=== PATIENT | male | born 1945 | race Caucasian/White ===

== ENCOUNTER 2023-05-20 10:44 | Outpatient (OUT) | payer MEDICARE, SELFPAY ==
--- NOTE | 2023-05-20 | XR_ITS ---
The [address] [address] Patient Name: MAGNOLIA GAO MRN: [id number] date: 1945 Sex: M Assigned Patient Location: Current Patient Location: Accession/Order Number: [id number] Exam Date: 05/20/2023 11:35 Report Date: 05/20/2023 12:31 At the request of: TIAN FAJARDO Procedure: XR foot LT min 3V STUDY: XR foot LT min 3V, [id number] HISTORY: LEFT FOOT PAIN COMPARISON: None FINDINGS: No acute fracture, dislocation, or suspicious osseous lesion. Mild osteophytosis at the first metatarsophalangeal joint, first tarsometatarsal joint, and throughout the dorsal midfoot. No radiopaque foreign body or osteolysis to suggest osteomyelitis. Medium-sized plantar calcaneal spur and mild Achilles insertional enthesopathy. XR/XR foot LT min 3V IMPRESSION: No acute osseous abnormality. Electronically authenticated by: AUBRIE HUANG Date: 05/20/2023 12:31
== END 2023-05-20 10:45 | disposition home or self-care (01) ==
LOC: WC 10:44
PROVIDERS: PCP Internal Medicine; Visit Provider Physician Assistant
DX: M79.672 Pain in left foot (principal); L98.491 Non-pressure chronic ulcer of skin of other sites limited to breakdown of skin
CPT/HCPCS: 11043; 73630; G0463

== ENCOUNTER 2023-06-03 13:50 | Outpatient (OUT) | payer MEDICARE, SELFPAY | END 2023-06-03 13:51 | disposition home or self-care (01) | LOC: WC 13:50 | PROVIDERS: PCP Internal Medicine; Visit Provider Physician Assistant | DX: L98.491 Non-pressure chronic ulcer of skin of other sites limited to breakdown of skin (principal); L84 Corns and callosities; I73.89 Other specified peripheral vascular diseases | CPT/HCPCS: 11055 ==

== ENCOUNTER 2023-06-20 09:35 | Outpatient (OUT) | payer MEDICARE, SELFPAY ==
[2023-06-20 09:51] LABS: Basophils Percent Auto 0.4 % (0.2-2.0); Eosinophils Absolute Auto 0.2 10^3/uL (0.0-0.7); Hematocrit 41.3 % (42.0-54.0); Hemoglobin 13.4 g/dL (14.0-18.0); Immature Granulocytes Abs Auto 0.01 10^3/uL (0.00-0.03); Immature Granulocytes Pct Auto 0.2 % (0.0-0.5); Lymphocytes Absolute Auto 1.1 10^3/uL (1.2-3.8); Lymphocytes Percent Auto 20.2 % (20.5-60.0); Mean Corpuscular HGB Conc 32.4 g/dL (29.9-35.2); Mean Corpuscular Hemoglobin 32.1 pg (25.9-34.0); Mean Platelet Volume 10.2 fL (9.5-13.5); Monocytes Absolute Auto 0.6 10^3/uL (0.3-0.8); Monocytes Percent Auto 11.5 % (1.7-12.0); Neutrophils Absolute Auto 3.4 10^3/uL (1.4-6.5); Neutrophils Percent Auto 63.7 % (43.0-75.0); Platelet Count 184 10^3/uL (150-450); Red Blood Count 4.17 10^6/uL (4.70-6.10); Red Cell Distribution Width 12.6 % (11.0-15.0); White Blood Count 5.3 10^3/uL (4.0-11.0)
[2023-06-20 10:51] LABS: Anion Gap 11.9; BUN Creatinine Ratio 17.3; Calcium 9.2 mg/dL (8.5-10.1); Carbon Dioxide 28.6 mmol/L (21.0-32.0); Chloride 104 mmol/L (98-107); Estimated GFR (African America >60 (>=60); Estimated GFR (Non-African Ame 50 (>=60); Glucose 93 mg/dL (74-106); Potassium 4.5 mmol/L (3.5-5.1); Sodium 140 mmol/L (136-145)
[2023-06-20 11:18] LABS: Prostate Specific Antigen Scrn 4.64 ng/mL (<=4.00)
== END 2023-06-20 09:36 | disposition home or self-care (01) ==
LOC: LAB 09:38
PROVIDERS: PCP Internal Medicine; Visit Provider Internal Medicine
DX: Z12.5 Encounter for screening for malignant neoplasm of prostate (principal); I12.9 Hypertensive chronic kidney disease with stage 1 through stage 4 chronic kidney disease, or unspecified chronic kidney disease; N18.31 Chronic kidney disease, stage 3a
CPT/HCPCS: 36415; 80048; 85025; G0103

== ENCOUNTER 2023-06-25 15:47 | Outpatient (OUT) | payer MEDICARE, SELFPAY | END 2023-06-25 15:48 | disposition home or self-care (01) | LOC: WC 15:48 | PROVIDERS: PCP Internal Medicine; Visit Provider Podiatrist Foot & Ankle Surgery | DX: L84 Corns and callosities (principal); I73.89 Other specified peripheral vascular diseases | CPT/HCPCS: 11055 ==

== ENCOUNTER 2023-07-25 08:01 | Outpatient (OUT) | payer MEDICARE, SELFPAY ==
[2023-07-26 04:07] LABS: PSA, Free 1.09 ng/mL; Prostate Specific Ag 3.9 ng/mL (0.0-4.0)
== END 2023-07-25 08:02 | disposition home or self-care (01) ==
LOC: LAB 08:02
PROVIDERS: PCP Internal Medicine; Visit Provider Internal Medicine
DX: R97.20 Elevated prostate specific antigen [PSA] (principal)
CPT/HCPCS: 36415; 84153; 84154

== ENCOUNTER 2023-08-19 08:57 | Outpatient (OUT) | payer MEDICARE, SELFPAY | END 2023-08-19 08:58 | disposition home or self-care (01) | LOC: WC 08:57 | PROVIDERS: PCP Internal Medicine; Visit Provider Physician Assistant | DX: L60.3 Nail dystrophy (principal); G90.09 Other idiopathic peripheral autonomic neuropathy; L84 Corns and callosities; I73.89 Other specified peripheral vascular diseases | CPT/HCPCS: 11055; 11721 ==

== ENCOUNTER 2023-09-26 09:06 | Outpatient (OUT) | payer MEDICARE, SELFPAY ==
--- OUTSIDE RECORDS SUMMARY | 2023-09-26 09:18 | XMS_ITS | CCD ---
Author Name Unknown Address [address] [place] [address] [address] [place] [address] Organization [facility] Care Team Providers Care Change Management Expert Name Role Phone MD Krzysztof Hutchison Attending Provider DO Benjamin Almeida Primary Care Provider DO Benjamin Almeida Primary Care Provider MD Reuben Giron Attending Provider [phone] Benjamin Almeida Primary Care Unavailable Reuben Giron Attending Unavailable Reuben Giron Admitting Unavailable Reuben Giron Attending Unavailable Reuben Giron Admitting Unavailable Benjamin Almeida Primary Care Unavailable Benjamin Almeida Unavailable DR BENJAMIN ALMEIDA Primary Care Unavailable KRYSTLE KERR Admitting Unavailable KRYSTLE KERR Attending Unavailable KRYSTLE KERR Consulting Unavailable JUAN PABLO, DR KELLER Primary Care Unavailable JUAN PABLO, DR KELLER Admitting Unavailable JUAN PABLO, DR KELLER Attending Unavailable JUAN PABLO, DR KELLER Consulting Unavailable MEGA, DR PHYLICIA Ramirez Consulting Unavailable JUAN PABLO, DR KELLER Primary Care Unavailable JUAN PABLO, DR KELLER Admitting Unavailable JUAN PABLO, DR KELLER Referring Unavailable JUAN PABLO, DR KELLER Attending Unavailable JUAN PABLO, DR KELLER Consulting Unavailable Reuben Giron Unavailable Allergies Allergy Classification Reported Allergen(s) Allergy Type Date of Onset Reaction(s) Facility (7 sources) Iodine; Translations: [iodine] Drug Allergy 3 Hives, Unknown [facility] (3 sources) Iodine / Sodium Iodide Drug Allergy Unknown Subtextual Other Medications Current Medications Medication Drug Class(es) Dates Sig (Normalized) Sig (Original) benazepril hydrochloride 20 mg oral tablet (10 sources) Angiotensin Converting Enzyme Inhibitor Start: 04-26-2021 take 20 mg by mouth once daily Benazepril Active 20 MG PO Daily April 25, 2021 11:00pm levoFLOXacin 250 mg oral tablet (4 sources) Quinolone Antimicrobial Start: 06-20-2023 levoFLOXacin 250 MG 2 tablets on first day followed by 1 daily Orally Once a day for 21 days May, Active lutein 25 mg / zeaxanthin 5 mg oral capsule (3 sources) Start: 04-26-2021 take 1 capsule by mouth once daily Lutein-Zeaxanthin Active 1 CAP PO Daily April 25, 2021 11:00pm Multivitamin preparation (3 sources) Start: 04-26-2021 take 1 tablet by mouth once daily Multivitamin Active 1 TAB PO Daily April 26, 2021 6:11am Start: 04-26-2021 take 1 tablet by kathleen th once daily Multivitamin Active 1 TAB PO Daily April 25, 2021 11:00pm omeprazole 40 mg delayed release oral capsule (6 sources) Proton Pump Inhibitor Start: 05-28-2023 take 1 capsule by mouth once daily Omeprazole 40 MG 1 capsule 30 minutes before morning meal Orally Once a day May, Active Start: 07-31-2022 take 40 mg by mouth once daily Omeprazole Active 40 MG PO Daily July 31, 2022 12:00am predniSONE 5 mg oral tablet (7 sources) Start: 10-29-2022 take 1 tablet by mouth once da darien Completed/Discontinued Medications Medication Drug Class(es) Dates Sig (Normalized) Sig (Original) amoxicillin 875 mg / clavulanate 125 mg oral tablet (6 sources) Penicillin-class Antibacterial Start: 05-13-2023 take 1 tablet by mouth every twelve hours Amoxicillin-Pot Clavulanate 875-125 MG 1 tablet Orally every 12 hrs for 10 days Apr, Not-Taking/PRN famotidine 20 mg oral tablet (10 sources) Histamine-2 Receptor Antagonist Start: 04-26-2021 End: 07-31-2022 take 20 mg by mouth once daily Famotidine Discontinued 20 MG PO Daily April 25, 2021 11:00pm July 31, 2022 1:23pm Lutein (7 sources) Lutein Not-Taking/PRN Lutein Not-Takin g methylPREDNISolone (7 sources) Corticosteroid Start: 03-31-2016 Depo-Medrol 40 mg Mar, 40 mg Senior Multivitamin Plus (7 sources) Senior Multivita min Plus Not-Taking/PRN Senior Multivita min Plus Not-Taking Problems Active Problems Problem Classification Problem Date Documented Da te Episodic/Chronic Chronic kidney disease (7 sources) Chronic kidney disease stage 3A ; Translations: [Stage 3a chronic kidney disease] Chronic Deficiency and other anemia (1 source) Anemia, unspecified Episodic Esophageal disorders (7 sources) Gastro-esophageal reflux disease with esophagitis; Translations: [Gastroesophageal reflux disease with esophagitis without hemorrhage] Chronic Essential hypertension (13 sources) Essential hypertension; Translations: [Essential (primary) hypertension] Onset: 06-19-2022 Chronic Hodgkin`s disease (7 sources) Hodgkin's disease, nodular sclerosis of intra-abdominal lymph nodes; Translations: [Nodular sclerosis Hodgkin lymphoma, intra-abdominal lymph nodes] Chronic Hyperplasia of prostate (7 sources) Nocturia due to benign prostatic hypertrophy; Translations: [Benign prostatic hyperplasia with lower urinary tract symptoms] Chronic Hypertension with complications and secondary hypertension (12 sources) Chronic kidney disease due to hypertension; Translations: [Hypertensive chronic kidney disease with stage 1 through stage 4 chronic kidney disease, or unspecified chronic kidney disease] Onset: 12-18-2022 Chronic Inflammatory conditions of male genital organs (5 sources) Chronic prostatitis; Translations: [Chronic prostatitis] Chronic Other gastrointestinal disorders (10 sources) Dysphagia; Translations: [Dysphagia, unspecified] 04-26-2021 Episodic Other gastrointestinal disorders (2 sources) Dysphagia, unspecified; Translations: [Dysphagia, unspecified] Onset: 07-31-2022 Episodic Other screening for suspected conditions (not mental disorders or infectious disease) (2 sources) Encounter for screening for malignant neoplasm of prostate; Translations: [Elevated prostate specific antigen [PSA]] Onset: 06-21-2022 Episodic Rheumatoid arthritis and related disease (7 sources) Inflammatory polyarthropathy; Translations: [Inflammatory polyarthropathy] Chronic Skin and subcutaneous tissue infections (7 sources) Abscess of foot; Translations: [Cutaneous abscess of unspecified foot] Episodic Spondylosis; intervertebral disc disorders; other back problems (7 sources) Lumbar spondylosis; Translations: [Spondylosis without myelopathy or radiculopathy, lumbar region] Chronic Unclassified (1 source) Encounter for preprocedural laboratory examination; Translations: [Encounter for preprocedural laboratory examination] Onset: 07-27-2022 Past or Other Problems Problem Classification Problem Date Documented Da te Episodic/Chronic Chronic kidney disease (1 source) Chronic kidney disease Other aftercare (1 source) Other care home (current) drug therapy; Translations: [OTH RESIDENTIAL CURRENT DRUG THERAPY] Onset: 07-17-2022 Episodic Other injuries and conditions due to external causes (4 sources) Food in esophagus causing other injury, initial encounter; Translations: [FOOD ESOPH CAUS OTH INJURY INIT ENC] Onset: 07-14-2022 Episodic Results Test Name Value Interpretation Reference Range Facility PROF CHEM 8 (BAS METB)on Anion gap [Moles/Vol] 14.7 mmol/L Normal [facility] Comment on above: Performed By: #### B MP #### [facility] [address] [place] [address] Dr. Kirsty Garcia Calcium [Mass/Vol] 9.0 mg/dL Normal 8.5-10.1 [facility] Comment on above: Performed By: #### B MP #### [facility] [address] [address] [address] Kirsty Garcia Chloride [Moles/Vol] 105 mmol/L Normal 98-107 [facility] Comment on above: Performed By: #### B MP #### [facility] [address] [address] [address] Kirsty Garcia CO2 [Moles/Vol] 27.7 mmol/L Normal 21.0-32.0 [facility] Comment on above: Performed By: #### B MP #### [facility] [address] [address] [address] Kirsty Garcia Creatinine [Mass/Vol] 1.20 mg/dL Normal 0.70-1.30 [facility] Comment on above: Performed By: #### B MP #### [facility] [address] [place] [address] Dr. Kirsty Garcia EGFR-AF TRINIDADIAN >60 Normal >=60 [facility] Comment on above: Performed By: #### B MP #### [facility] [address] [place] [address] Dr. Kirsty Garcia EGFR-NON AF TRINIDADIAN 59 mL/min/1.73m2 Critically low >=60 [facility] Comment on above: Performed By: #### B MP #### [facility] [address] [address] [address] Kirsty Garcia Glucose [Mass/Vol] 101 mg/dL Normal 74-106 [facility] Comment on above: Performed By: #### B MP #### [facility] [address] [address] [address] Kirsty Garcia Potassium [Moles/Vol] 4.4 mmol/L Normal 3.5-5.1 [facility] Comment on above: Performed By: #### B MP #### [facility] [address] [address] [address] Kirsty Garcia Sodium [Moles/Vol] 143 mmol/L Normal 136-145 [facility] Comment on above: Performed By: #### B MP #### [facility] [address] [address] [address] Kirsty Garcia Urea nitrogen [Mass/Vol] 21.0 mg/dL Critically high 7.0-18.0 [facility] Comment on above: Performed By: #### B MP #### [facility] [address] [address] [address] Kirsty Garcia Urea nitrogen/Creatinin e [Mass ratio] 17.5 mg/mg Normal [facility] Comment on above: Performed By: #### B MP #### [facility] [address] [address] [address] Kirsty Garcia UA RANDOM W/MICROSCOPICon BACTERIA NONE SEEN Normal NONE SEEN [facility] Comment on above: Performed By: #### U AMIC #### [facility] [address] [address] [address] Kirsty Garcia Bilirubin Ql (U) Negative Normal NEGATIVE [facility] Comment on above: Performed By: #### U AMIC #### [facility] [address] [address] [address] Kirsty Garcia CAST NONE SEEN Normal NONE SEEN [facility] Comment on above: Performed By: #### U AMIC #### [facility] [address] [address] [address] Kirsty Garcia Clarity (U) CLEAR Normal CLEAR [facility] Comment on above: Performed By: #### U AMIC #### [facility] [address] [address] [address] Kirsty Garcia Color (U) LT. YELLOW Normal YELLOW [facility] Comment on above: Performed By: #### U AMIC #### [facility] [address] [place] [address] Dr. Kirsty Garcia Crystals LM Nom (Urine sed) NONE SEEN Normal NONE SEEN [facility] Comment on above: Performed By: #### U AMIC #### [facility] [address] [place] [address] Dr. Kirsty Garcia Epithelial cells LM Ql (Urine sed) NONE SEEN Normal NONE SEEN /RARE [facility] Comment on above: Performed By: #### U AMIC #### [facility] [address] [place] [address] Dr. Kirsty Garcia Glucose Ql (U) Negative Normal NEGATIVE [facility] Comment on above: Performed By: #### U AMIC #### [facility] [address] [place] [address] Dr. Kirsty Garcia Hemoglobin Ql (U) Negative Normal NEGATIVE [facility] Comment on above: Performed By: #### U AMIC #### [facility] [address] [place] [address] Dr. Kirsty Garcia Ketones Ql (U) Negative Normal NEGATIVE [facility] Comment on above: Performed By: #### U AMIC #### [facility] [address] [place] [address] Dr. Kirsty Garcia LEUKOCYTES Negative Normal NEGATIVE [facility] Comment on above: Performed By: #### U AMIC #### [facility] [address] [place] [address] Dr. Kirsty Garcia MUCOUS NONE SEEN Normal NONE SEEN [facility] Comment on above: Performed By: #### U AMIC #### [facility] [address] [place] [address] Dr. Kirsty Garcia Nitrite Ql (U) Negative Normal NEGATIVE [facility] Comment on above: Performed By: #### U AMIC #### [facility] [address] [place] [address] Dr. Kirsty Garcia pH (U) 6.5 [pH] Normal 5-9 [facility] Comment on above: Performed By: #### U AMIC #### [facility] [address] [address] [address] Kirsty Garcia RBC 0-2 Normal 0-2 [facility] Comment on above: Performed By: #### U AMIC #### [facility] [address] [place] [address] Dr. Kirsty Garcia SPEC GRAVITY 1.010 Normal 1.005-<=1.025 [facility] Comment on above: Performed By: #### U AMIC #### [facility] [address] [place] [address] Dr. Kirsty Garcia UA PROTEIN TRACE Normal NEGATIVE/ TRACE [facility] Comment on above: Performed By: #### U AMIC #### [facility] [address] [place] [address] Dr. Kirsty Garcia Urobilinogen Qn (U) 0.2 {Karlie'U}/dL Normal 0.2 - 1.0 [facility] Comment on above: Performed By: #### U AMIC #### [facility] [address] [place] [address] Dr. Kirsty Garcia WBC NONE SEEN Normal NONE SEEN [facility] Comment on above: Performed By: #### U AMIC #### [facility] [address] [place] [address] Dr. Kirsty Garcia URINE T PROTEIN CREAT RATIOo n 12-18-2022 Protein (U) [Mass/Vol] 28.4 mg/dL Critically high <=12.0 [facility] Comment on above: Performed By: #### U RTPCR #### [facility] [address] [place] [address] Dr. Kirsty Garcia UR PROT CREAT RAT 0.77 Normal [facility] Comment on above: Performed By: #### U RTPCR #### [facility] [address] [place], [place] [address] Dr. Kirsty Garcia URINE CREAT 36.66 mg/dL Normal 20.00-300.00 [facility] Comment on above: Performed By: #### U RTPCR #### [facility] [address] [place], [place] [address] Dr. Kirsty Garcia US KIDNEYS BLADDERon 023 US KIDNEYS BLADDER EXAMINATION: US KIDN EYS BLADDER HISTORY: Chronic kidney disease due to hypertension COMPARISON: No relevant comparison available. TECHNIQUE: Ultrasound examination was performed of the bladder. FINDINGS: Right Kidney: Normal in size, contour and cortical echotexture. 3 areas of anechoic echogenicity the largest measuring 2.2 cm, cortical/parapelvic cysts. 7 mm echogenic focus lower pole, nonobstructing nephrolith. No hydronephrosis or solid cortical mass. The cortex measures 1.1 cm Height: 6.0 cm Length: 10.5 cm Width: 6.4 cm Left Kidney: Normal in size, contour and cortical echotexture. 3.5 cm area of anechoic echogenicity inferior pole, simple cyst. The cortex measures 1.3 cm Height: 5.6 cm Length: 10.5 cm Width: 4.5 cm Urinary bladder prevoid volume 248 cc, post void 52 cc Ureteral jets: visualized bilateral IMPRESSION: No acute abnormality Electronically authenticated by: PHYLICIA AYOUB Date: 2022-12-18 09:47 Normal [facility] [place] SARS-CoV-2 (COVID-19) RNA LYNDSAY+probe Ql (Unsp spec) Negative Normal Negative [facility] Comment on above: Order Comment: Healt hcare Worker?: N Result Comment: Testing for SARS-CoV-2 by RT-PCR This test was developed and its performance characteristics determined by [employer] and validated at the [facility]. This test has not been FDA cleared or approved. This test has been authorized by FDA under an Emergency Use Authorization (EUA). This test has been validated in accordance with the FDA's Guidance Document (Policy for Diagnostics Testing in Laboratories Certified to Perform High Complexity Testing under CLIA prior to Emergency Use Authorization for Coronavirus Disease-2019 during the Public Health Emergency) issued on December 24, 2019. This test is only authorized for the duration of time the declaration that circumstances exist justifying the authorization of the emergency use of in vitro diagnostic tests for detection of SARS-CoV-2 virus and/or diagnosis of COVID-19 infection under section 564(b)(1) of the Act, 21 U.S.C. 360bbb-3(b)(1), unless the authorization is terminated or revoked sooner. PERFORMED BY: [place] [id number] PATHOLOGIST SEWING INSPECTOR YULIYA OSORIO M.D. Performed By: #### C OVID 19 [facility] #### [address] COVID-19 Positive/NegativeOr dered By: Reuben Giron on 07-27-2022 SARS-CoV-2 (COVID-19) N gene LYNDSAY+probe Ql (Resp) Negative Negative [facility] Comment on above: Testing for SARS-CoV -2 by RT-PCRThis test was developed and its performance characteristics determined by [employer] and validated at the [facility]. This test has not been FDA cleared or approved. This test has been authorized by FDA under an Emergency Use Authorization (EUA). This test has been validated in accordance with the FDA's Guidance Document (Policy for Diagnostics Testing in Laboratories Certified to Perform High Complexity Testing under CLIA prior to Emergency Use Authorization for Coronavirus Disease-2019 during the Public Health Emergency) issued on December 24, 2019. This test is only authorized for the duration of time the declaration that circumstances exist justifying the authorization of the emergency use of in vitro diagnostic tests for detection of SARS-CoV-2 virus and/or diagnosis of COVID-19 infection under section 564(b)(1) of the Act, 21 U.S.C. 360bbb-3(b)(1), unless the authorization is terminated or revoked sooner. CBC AUTO DIFFon 07-14-2022 BASO # 0.0 103/ul Normal 0.0-0.1 [facility] Comment on above: Performed By: #### C BC #### [facility] [address] [place] [address] Dr. Kirsty Garcia Basophils/100 WBC (Bld) 0.4 % Normal 0.2-2.0 [facility] Comment on above: Performed By: #### C BC #### [facility] [address] [place] [address] Dr. Kirsty Garcia EO # 0.2 103/ul Normal 0.0-0.7 [facility] Comment on above: Performed By: #### C BC #### [facility] [address] [place] [address] Dr. Kirsty Garcia Eosinophils/100 WBC (Bld) 2.8 % Normal 0.9-7.0 [facility] Comment on above: Performed By: #### C BC #### [facility] [address] [place] [address] Dr. Kirsty Garcia Erythrocyte distribution width (RBC) [Ratio] 12.3 % Normal 11.0-15.0 [facility] Comment on above: Performed By: #### C BC #### [facility] [address] [place] [address] Dr. Kirsty Garcia Hematocrit (Bld) [Volume fraction] 42.5 % Normal 42.0-54.0 [facility] Comment on above: Performed By: #### C BC #### [facility] [address] [place] [address] Dr. Kirsty Garcia Hemoglobin (Bld) [Mass/Vol] 14.1 g/dL Normal 14.0-18.0 [facility] Comment on above: Performed By: #### C BC #### [facility] [address] [place] [address] Dr. Kirsty Garcia IG # 0.02 10e3/ul Normal 0.00-0.03 [facility] Comment on above: Performed By: #### C BC #### [facility] [address] [place] [address] Dr. Kirsty Garcia IG % 0.3 % Normal 0.0-0.5 [facility] Comment on above: Performed By: #### C BC #### [facility] [address] [address] [address] Kirsty Garcia LYMPH # 1.4 103/ul Normal 1.2-3.8 [facility] Comment on above: Performed By: #### C BC #### [facility] [address] [place] [address] Dr. Kirsty Garcia Lymphocytes/100 WBC (Bld) 18.2 % Critically low 20.5-60.0 [facility] Comment on above: Performed By: #### C BC #### [facility] [address] [place] [address] Dr. Kirsty Garcia MANUAL DIFF REQ NO Normal [facility] Comment on above: Performed By: #### C BC #### [facility] [address] [place] [address] Dr. Kirsty Garcia MCH (RBC) [Entitic mass] 32.3 pg Normal 25.9-34.0 [facility] Comment on above: Performed By: #### C BC #### [facility] [address] [place] [address] Dr. Kirsty Garcia MCHC (RBC) [Mass/Vol] 33.2 g/dL Normal 29.9-35.2 [facility] Comment on above: Performed By: #### C BC #### [facility] [address] [place] [address] Dr. Kirsty Garcia MCV (RBC) [Entitic vol] 97.5 fL Critically high 80.0-94.0 [facility] Comment on above: Performed By: #### C BC #### [facility] [address] [place] [address] Dr. Kirsty Garcia MONO # 0.9 103/ul Critically high 0.3-0.8 [facility] Comment on above: Performed By: #### C BC #### [facility] [address] [place] [address] Dr. Kirsty Garcia Monocytes/100 WBC (Bld) 11.6 % Normal 1.7-12.0 [facility] Comment on above: Performed By: #### C BC #### [facility] [address] [place] [address] Dr. Kirsty Garcia NEUT # 5.3 103/ul Normal 1.4-6.5 [facility] Comment on above: Performed By: #### C BC #### [facility] [address] [place] [address] Dr. Kirsty Garcia Neutrophils/100 WBC (Bld) 66.7 % Normal 43.0-75.0 [facility] Comment on above: Performed By: #### C BC #### [facility] [address] [place] [address] Dr. Kirsty Garcia Platelet mean volume (Bld) [Entitic vol] 10.0 fL Normal 9.5-13.5 [facility] Comment on above: Performed By: #### C BC #### [facility] [address] [place] [address] Dr. Kirsty Garcia PLT 189 103/ul Normal 150-450 [facility] Comment on above: Performed By: #### C BC #### [facility] [address] [place] [address] Dr. Kirsty Garcia RBC 4.36 106/ul Critically low 4.70-6.10 [facility] Comment on above: Performed By: #### C BC #### [facility] [address] [place] [address] Dr. Kirsty Garcia WBC 7.9 103/ul Normal 4.0-11.0 [facility] Comment on above: Performed By: #### C BC #### [facility] [address] [place] [address] Dr. Kirsty Garcia PROF CHEM 8 (BAS METB)on Anion gap [Moles/Vol] 11.7 mmol/L Normal [facility] Comment on above: Performed By: #### B MP #### [facility] [address] [place] [address] Dr. Kirsty Garcia Calcium [Mass/Vol] 9.0 mg/dL Normal 8.5-10.1 [facility] Comment on above: Performed By: #### B MP #### [facility] [address] [place] [address] Dr. Kirsty Garcia Chloride [Moles/Vol] 106 mmol/L Normal 98-107 [facility] [facility] Comment on above: Performed By: #### B MP #### [facility] [address] [address] [address] Kirsty Garcia CO2 [Moles/Vol] 26.4 mmol/L Normal 21.0-32.0 [facility] Comment on above: Performed By: #### B MP #### [facility] [address] [address] [address] Kirsty Garcia Creatinine [Mass/Vol] 1.42 mg/dL Critically high 0.70-1.30 [facility] Comment on above: Performed By: #### B MP #### [facility] [address] [address] [address] Kirsty Garcia EGFR-AF TRINIDADIAN 59 mL/min/1.73m2 Critically low >=60 [facility] Comment on above: Performed By: #### B MP #### [facility] [address] [address] [address] Kirsty Garcia EGFR-NON AF TRINIDADIAN 49 mL/min/1.73m2 Critically low >=60 [facility] Comment on above: Performed By: #### B MP #### [facility] [address] [address] [address] Kirsty Garcia Glucose [Mass/Vol] 105 mg/dL Normal 74-106 [facility] Comment on above: Performed By: #### B MP #### [facility] [address] [address] [address] Kirsty Garcia Potassium [Moles/Vol] 4.1 mmol/L Normal 3.5-5.1 [facility] Comment on above: Performed By: #### B MP #### [facility] [address] [address] [address] Kirsty Garcia Sodium [Moles/Vol] 140 mmol/L Normal 136-145 [facility] Comment on above: Performed By: #### B MP #### [facility] [address] [address] [address] Kirsty Garcia Urea nitrogen [Mass/Vol] 27.0 mg/dL Critically high 7.0-18.0 [facility] Comment on above: Performed By: #### B MP #### [facility] [address] [place] [address] Dr. Kirsty Garcia Urea nitrogen/Creatinin e [Mass ratio] 19.0 mg/mg Normal [facility] Comment on above: Performed By: #### B MP #### [facility] [address] [place] [address] Dr. Kirsty Garcia CBC AUTO DIFFon 06-19-2022 BASO # 0.0 103/ul Normal 0.0-0.1 [facility] Comment on above: Performed By: #### C BC #### [facility] [address] [place] [address] Dr. Kirsty Garcia Basophils/100 WBC (Bld) 0.7 % Normal 0.2-2.0 [facility] Comment on above: Performed By: #### C BC #### [facility] [address] [place] [address] Dr. Kirsty Garcia EO # 0.2 103/ul Normal 0.0-0.7 [facility] Comment on above: Performed By: #### C BC #### [facility] [address] [place] [address] Dr. Kirsty Garcia Eosinophils/100 WBC (Bld) 3.0 % Normal 0.9-7.0 [facility] Comment on above: Performed By: #### C BC #### [facility] [address] [place] [address] Dr. Kirsty Garcia Erythrocyte distribution width (RBC) [Ratio] 12.4 % Normal 11.0-15.0 [facility] Comment on above: Performed By: #### C BC #### [facility] [address] [place] [address] Dr. Kirsty Garcia Hematocrit (Bld) [Volume fraction] 42.5 % Normal 42.0-54.0 [facility] Comment on above: Performed By: #### C BC #### [facility] [address] [place] [address] Dr. Kirsty Garcia Hemoglobin (Bld) [Mass/Vol] 14.0 g/dL Normal 14.0-18.0 [facility] Comment on above: Performed By: #### C BC #### [facility] [address] [place] [address] Dr. Kirsty Garcia IG # 0.01 10e3/ul Normal 0.00-0.03 [facility] Comment on above: Performed By: #### C BC #### [facility] [address] [place] [address] Dr. Kirsty Garcia IG % 0.2 % Normal 0.0-0.5 [facility] Comment on above: Performed By: #### C BC #### [facility] [address] [place] [address] Dr. Kirsty Garcia LYMPH # 1.1 103/ul Critically low 1.2-3.8 [facility] Comment on above: Performed By: #### C BC #### [facility] [address] [place] [address] Dr. Kirsty Garcia Lymphocytes/100 WBC (Bld) 19.7 % Critically low 20.5-60.0 [facility] Comment on above: Performed By: #### C BC #### [facility] [address] [place] [address] Dr. Kirsty Garcia MANUAL DIFF REQ NO Normal [facility] Comment on above: Performed By: #### C BC #### [facility] [address] [place] [address] Dr. Kirsty Garcia MCH (RBC) [Entitic mass] 32.3 pg Normal 25.9-34.0 [facility] Comment on above: Performed By: #### C BC #### [facility] [address] [place] [address] Dr. Kirsty Garcia MCHC (RBC) [Mass/Vol] 32.9 g/dL Normal 29.9-35.2 [facility] Comment on above: Performed By: #### C BC #### [facility] [address] [place] [address] Dr. Kirsty Garcia MCV (RBC) [Entitic vol] 97.9 fL Critically high 80.0-94.0 [facility] Comment on above: Performed By: #### C BC #### [facility] [address] [place] [address] Dr. Kirsty Garcia MONO # 0.5 103/ul Normal 0.3-0.8 [facility] Comment on above: Performed By: #### C BC #### [facility] [address] [place] [address] Dr. Kirsty Garcia Monocytes/100 WBC (Bld) 9.5 % Normal 1.7-12.0 [facility] Comment on above: Performed By: #### C BC #### [facility] [address] [place] [address] Dr. Kirsty Garcia NEUT # 3.7 103/ul Normal 1.4-6.5 [facility] Comment on above: Performed By: #### C BC #### [facility] [address] [place] [address] Dr. Kirsty Garcia Neutrophils/100 WBC (Bld) 66.9 % Normal 43.0-75.0 [facility] Comment on above: Performed By: #### C BC #### [facility] [address] [place] [address] Dr. Kirsty Garcia Platelet mean volume (Bld) [Entitic vol] 10.0 fL Normal 9.5-13.5 [facility] Comment on above: Performed By: #### C BC #### [facility] [address] [place] [address] Dr. Kirsty Garcia PLT 195 103/ul Normal 150-450 [facility] Comment on above: Performed By: #### C BC #### [facility] [address] [place], [place] [id number] Dr. Kirsty Garcia RBC 4.34 106/ul Critically low 4.70-6.10 [facility] Comment on above: Performed By: #### C BC #### [facility] [address] [place] [address] Dr. Kirsty Garcia WBC 5.6 103/ul Normal 4.0-11.0 [facility] Comment on above: Performed By: #### C BC #### [facility] [address] [address] [address] Kirsty Garcia PROF CHEM 8 (BAS METB)on Anion gap [Moles/Vol] 10.8 mmol/L Normal [facility] Comment on above: Performed By: #### B MP #### [facility] [address] [address] [address] Kirsty Garcia Calcium [Mass/Vol] 8.9 mg/dL Normal 8.5-10.1 [facility] Comment on above: Performed By: #### B MP #### [facility] [address] [address] [address] Kirsty Garcia Chloride [Moles/Vol] 104 mmol/L Normal 98-107 [facility] Comment on above: Performed By: #### B MP #### [facility] [address] [address] [address] Kirsty Garcia CO2 [Moles/Vol] 29.3 mmol/L Normal 21.0-32.0 [facility] Comment on above: Performed By: #### B MP #### [facility] [address] [address] [address] Kirsty Garcia Creatinine [Mass/Vol] 1.42 mg/dL Critically high 0.70-1.30 [facility] Comment on above: Performed By: #### B MP #### [facility] [address] [address] [address] Kirsty Garcia EGFR-AF TRINIDADIAN 59 mL/min/1.73m2 Critically low >=60 [facility] Comment on above: Performed By: #### B MP #### [facility] [address] [address] [address] Kirsty Garcia EGFR-NON AF TRINIDADIAN 49 mL/min/1.73m2 Critically low >=60 [facility] Comment on above: Performed By: #### B MP #### [facility] [address] [address] [address] Kirsty Garcia Glucose [Mass/Vol] 122 mg/dL Critically high 74-106 [facility] Comment on above: Performed By: #### B MP #### [facility] [address] [address] [address] Kirsty Garcia Potassium [Moles/Vol] 4.1 mmol/L Normal 3.5-5.1 [facility] Comment on above: Performed By: #### B MP #### [facility] [address] [address] [address] Kirsty Garcia Sodium [Moles/Vol] 140 mmol/L Normal 136-145 [facility] Comment on above: Performed By: #### B MP #### [facility] [address] [address] [address] Kirsty Garcia Urea nitrogen [Mass/Vol] 23.0 mg/dL Critically high 7.0-18.0 [facility] Comment on above: Performed By: #### B MP #### [facility] [address] [address] [address] Kirsty Garcia Urea nitrogen/Creatinin e [Mass ratio] 16.2 mg/mg Normal [facility] Comment on above: Performed By: #### B MP #### [facility] [address] [address] [address] 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 Diagnosed 03/2012 during evaluation for night sweats and weight loss (27lbs). Had CT imaging which noted 2 left upper quadrant masses ( 6.4cm and 2.5 cm) and subsequent core needle biopsy noted Classical Hodgkins lymphoma. Along with sweats and weight loss, the patient did have elevated sedimentation rate at time of diagnosis. Bone marrow was negative (non-bulky stage 2B disease), PET noted no other findings. Started therapy with ABVD 05/01/12 and would have repeat PET CT scan after two cycles and this noted complete response. He completed six cycles of ABVD on 10/09/12. Follow up imaging was negative for evidence of recurrence last 2015. Patient is doing quite well. Did have a esophageal stricture dilated in April 2020. Denies nausea vomiting fevers or chills. Denies night sweats. PAST MEDICAL HISTORY Diagnosis Date - Anemia - Arthritis, degenerative - Carotid bruit right carotid - Diverticulosis - Dysphagia - Esophagitis - Glomerulonephritis - Hiatal hernia - Hodgkin's lymphoma (HCC) - Hypertension - Neuropathy right foot - PUD (peptic ulcer disease) PAST SURGICAL HISTORY Procedure Laterality Date - COLONSCOPY SCREENING HIGH RISK 02/22/2012 - ESOPHAGEAL DILATATION - ESOPHAGOGASTRODUODENOSC OPY_*FL 03/20/2012 Review of Social History includes: Tobacco Use: Never Alcohol Use: Not on file FAMILY HISTORY Problem Relation Age of Onset - Cancer Brother at age 52 - Cancer Mother at age 89 REVIEW OF SYSTEMS: Constitutional: Weight energy and appetite stable no fevers chills or sweats Head and neck: Denies recurrent sinus issues or discomfort or mouth sores, as PER HPI Respiratory: no dyspnea or hemoptysis, no dyspnea on exertion. Coughs in the mornings Cardiovascular: No chest pain or palpitations. Denies leg swelling. GI: No nausea, vomiting, diarrhea or GI bleed. Denies bloating or early satiety. Skin: no current rash, no bruising or petechiae Neurologic: Still with mild neuropathy, mainly feet, not recently progressed Psychiatric: No depression or anxiety Hematopoietic: No easy bruising or enlarged lymphadenopathy. : No frequency or dysuria. BP 146/86 Pulse 56 Temp (Src) 98.2 (Oral) Resp 18 Ht 6' .008 (1.83m) Wt 213 lb (96.6kg) BMI 28.88 kg/(m2). PHYSICAL EXAMINATION: General: Alert and oriented, no distress, pleasant and cooperative. HEENT: no sores or thrush Heart: Regular, normal S1 and S2, no murmurs, rubs, or gallops, no leg swelling Lungs: Clear to auscultation bilaterally, no crackles or wheezes Abdomen: NT, ND no organomegaly Extremities: Feet/ankles without edema, Lymph Nodes: No palpable adenopathy. No cervical,supraclavicula r or axillary adenopathy Skin: no rash or petechiae NEuro: 2-12 intact, normal gait PSyche: normal mood and affect RADIOLOGY: IMaging: see EMR 04/10/2016 5:48 PM - Results In Interface Impression IMPRESSION: 1. NECK: No FDG avid neoplastic process. No mass, adenopathy, or fluid collection. 2. CHEST: No FDG avid neoplastic process. No mass, adenopathy, or fluid collection. 3. ABDOMEN/PELVIS: No FDG avid neoplastic process. No mass, adenopathy, or fluid collection. 4. EXTREMITIES/SKELETON: No FDG avid osseous process. No destructive/traumatic bony abnormality. Transcribe Date/Time: Apr 10 2016 2:35P WBC (k/uL) Date Value 12/15/2018 4.27 RBC (m/uL) Date Value 12/15/2018 4.64 Hemoglobin (g/dL) Date Value 12/15/2018 15.1 Hematocrit (%) Date Value 12/15/2018 45.5 MCV (fL) Date Value 12/15/2018 98.1 MCH (pG) Date Value 12/15/2018 32.5 MCHC (g/dL) Date Value 12/15/2018 33.2 RDW-CV (%) Date Value 12/15/2018 13.4 Platelet Count (k/uL) Date Value 12/15/2018 185 MPV (fL) Date Value 12/15/2018 10.8 ASSESSMENT/PLAN: Magnolia Boykin is a 72 year old male with Hodgkin's lymphoma. Had classical Hodgkins Lymphoma diagnosed in 03/2012, nodular sclerosis subtype with B symptoms and elevated sedimentation rate. He has completed six cycles of ABVD completed 10/09/12 under the direction of Dr. Zabala.clinically doing well from a Hodgkin's lymphoma standpoint. At this time I stated that he can see us on a as needed basis. Follow-up with gastroenterology in regards to the esophageal stricture. Raicel Nuñez (more content not included)... Normal [facility] Comp Metabolic Panelon 04-05 Albumin [Mass/Vol] 4.3 g/dL Normal 3.9-4.9 [facility] ALP [Catalytic activity/Vol] 84 U/L Normal 38-113 [facility] ALT [Catalytic activity/Vol] 23 U/L Normal 10-54 [facility] Anion gap [Moles/Vol] 8 mmol/L Low 9-18 [facility] AST [Catalytic activity/Vol] 23 U/L Normal 14-40 [facility] Bilirubin [Mass/Vol] 0.3 mg/dL Normal 0.2-1.3 [facility] Calcium [Mass/Vol] 9.3 mg/dL Normal 8.5-10.2 [facility] Chloride [Moles/Vol] 102 mmol/L Normal 97-105 [facility] CO2 [Moles/Vol] 25 mmol/L Normal 22-30 [facility] Creatinine [Mass/Vol] 1.27 mg/dL High 0.73-1.22 [facility] eGFR- Amer. >60 Normal [facility] eGFR-All Other Races 56 . Normal [facility] Comment on above: Result Comment: eGFR (Estimated GFR) Units of measure: mL/min/1.73 meters squared eGFR is derived from the reexpressed MDRD Study equation using the following parameters: serum creatinine, age, gender and race. The creatinine assay has been calibrated to be traceable to IDMS. An eGFR <60 mL/min/1.73m2 for >3 months is consistent with chronic kidney disease. Refer to KDOQI guidelines for clinical interpretation. In patients with unstable renal function, e.g. those with acute kidney injury, the eGFR may not accurately reflect actual GFR. Glucose [Mass/Vol] 90 mg/dL Normal 74-99 [facility] Comment on above: Result Comment: The [place] [employer] (ADA) provides guidance for cutoff values for fasting glucose and random glucose. The ADA defines fasting as no caloric intake for at least 8 hours. Fasting plasma glucose results between 100 to 125 mg/dL indicate increased risk for diabetes (prediabetes). Fasting plasma glucose results greater than or equal to 126 mg/dL meet the criteria for diagnosis of diabetes. In the absence of unequivocal hyperglycemia, results should be confirmed by repeat testing. In a patient with classic symptoms of hyperglycemia or hyperglycemic crisis, random plasma glucose results greater than or equal to 200 mg/dL meet the criteria for diagnosis of diabetes. Reference: Standards of Medical Care in Diabetes 2016, [place] [employer]. Diabetes Care. 2016.39(Suppl 1). Potassium [Moles/Vol] 4.5 mmol/L Normal 3.7-5.1 [facility] Protein [Mass/Vol] 7.2 g/dL Normal 6.3-8.0 [facility] Sodium [Moles/Vol] 135 mmol/L Low 136-144 [facility] Urea nitrogen [Mass/Vol] 20 mg/dL Normal 9-24 [facility] Remote CBCDIF (for [facility] use o nly)on 04-05-2021 Abs Baso 0.03 k/uL Normal <0.11 [facility] Abs [place] 0.76 k/uL Normal <0.87 [facility] Abs Neut 3.24 k/uL Normal 1.45-7.50 [facility] Absolute nRBC <0.01 Normal <0.01 [facility] Basophils/100 WBC (Bld) 0.6 % Normal [facility] DTYPE Auto Diff Normal [facility] Eosinophils (Bld) [#/Vol] 0.19 10*3/uL Normal <0.46 [facility] Eosinophils/100 WBC (Bld) 3.6 % Normal [facility] Erythrocyte distribution width (RBC) [Ratio] 13.1 % Normal 11.5-15.0 [facility] Hematocrit (Bld) [Volume fraction] 39.7 % Normal 39.0-51.0 [facility] Hemoglobin (Bld) [Mass/Vol] 13.1 g/dL Normal 13.0-17.0 [facility] Lymphocytes (Bld) [#/Vol] 1.05 10*3/uL Normal 1.00-4.00 [facility] Lymphocytes/100 WBC (Bld) 19.9 % Normal [facility] MCH 31.5 pG Normal 26.0-34.0 [facility] MCHC (RBC) [Mass/Vol] 33.0 g/dL Normal 30.5-36.0 [facility] MCV (RBC) [Entitic vol] 95.4 fL Normal 80.0-100.0 [facility] Monocytes/100 WBC (Bld) 14.4 % Normal [facility] Neutrophils/100 WBC (Bld) 61.5 % Normal [facility] NRBCs 0.0 /100 WBC Normal 0 [facility] Platelet mean volume (Bld) [Entitic vol] 10.4 fL Normal 9.0-12.7 [facility] Platelets (Bld) [#/Vol] 199 10*3/uL Normal 150-400 [facility] RBC (Bld) [#/Vol] 4.16 10*6/uL Low 4.20-6.00 [facility] WBC (Bld) [#/Vol] 5.27 10*3/uL Normal 3.70-11.00 [facility] CNPNon 03-29-2021 CNPN Telephone ([place]) MAGNOLIA BOYKIN ([id number]) 1945 M Date Time Provider Department 03/29/21 RACIEL GREER During your visit today, we recorded the following information about you: Allergies As of Date: 03/29/2021 Noted Allergy Reaction IODINE 07/17/2012 8 - GI Upset Date Reviewed: 04/04/2020 Reviewed by: Raciel Fritz) Percy - Fully Assessed Reason for Visit: Lab Orders [1718] 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 Zeaxanthin-2.5 mg - multivit with minerals/lutein (MULTIVITAMIN 50 PLUS ORAL) Take by mouth. - FAMOTIDINE ORAL Take 20 mg by mouth. - benazepril (LOTENSIN) 20 mg tablet Take 20 mg by mouth once daily. Problem List As Of Date 03/29/2021 Noted Resolved Hodgkin's lymphoma [C81.90] Neuropathy [G62.9] Encounter for screening for malignant neoplasm *01/13/2017 Encounter Status:Closed by ANABELLA GREEN on 04/07/21 Normal [facility] Vital Signs Date Time Vital Sign Value Performing Clinician Facility 05-13-2023 14:30-0400 Body height 182.88 cm [facility] Other [facility] Other 05-13-2023 14:30-0400 Body mass index (BMI) [Ratio] 25.85 kg/m2 [facility] Other [facility] Other 05-13-2023 14:30-0400 Body weight 86.46 kg [facility] Other [facility] Other 05-13-2023 14:30-0400 Diastolic blood pressure 84 mm[Hg] [facility] Other [facility] Other 05-13-2023 14:30-0400 Respiratory rate 12 /min [facility] Other [facility] Other 05-13-2023 14:30-0400 Systolic blood pressure 134 mm[Hg] [facility] Other [facility] Other 12-25-2022 10:00-0400 Body height 182.88 cm [facility] Other [facility] Other 12-25-2022 10:00-0400 Body mass index (BMI) [Ratio] 26.01 kg/m2 [facility] Other [facility] Other 12-25-2022 10:00-0400 Body weight 87 kg [facility] Other [facility] Other 12-25-2022 10:00-0400 Diastolic blood pressure 90 mm[Hg] [facility] Other [facility] Other 12-25-2022 10:00-0400 Respiratory rate 12 /min [facility] Other [facility] Other 12-25-2022 10:00-0400 Systolic blood pressure 164 mm[Hg] [facility] Other [facility] Other 07-31-2022 13:56-0500 Diastolic blood pressure 66 mm[Hg] DO [facility] Work Phone: [facility] 07-31-2022 13:56-0500 Heart rate 54 /min DO [facility] Work Phone: [facility] 07-31-2022 13:56-0500 Respiratory rate 16 /min DO [facility] Work Phone: [facility] 07-31-2022 13:56-0500 SaO2% (BldA) [Mass fraction] 99 % DO [facility] Work Phone: [facility] 07-31-2022 13:56-0500 Systolic blood pressure 100 mm[Hg] DO [facility] Work Phone: [facility] 07-31-2022 11:48-0500 Body height 182.88 cm DO [facility] Work Phone: [facility] 07-31-2022 11:48-0500 Body weight 84.82 kg DO [facility] Work Phone: [facility] 04-26-2021 07:54-0400 Diastolic blood pressure 72 mm[Hg] MD Krzysztof Hutchison Work Phone: [facility] 04-26-2021 07:54-0400 Heart rate 60 /min MD Krzysztof Hutchison Work Phone: [facility] 04-26-2021 07:54-0400 Respiratory rate 16 /min MD Krzysztof Hutchison Work Phone: [facility] 04-26-2021 07:54-0400 SaO2% (BldA) [Mass fraction] 98 % MD Krzysztof Hutchison Work Phone: [facility] 04-26-2021 07:54-0400 Systolic blood pressure 115 mm[Hg] MD Krzysztof Hutchison Work Phone: [facility] 04-26-2021 06:23-0400 Body height 182.88 cm MD Krzysztof Hutchison Work Phone: [facility] 04-26-2021 06:23-0400 Body mass index (BMI) [Ratio] 26.8 kg/m2 MD Krzysztof Hutchison Work Phone: [facility] 04-26-2021 06:23-0400 Body weight 89.81 kg MD Krzysztof Hutchison Work Phone: [facility] Encounters Encounter Date Encounter Type Care Provider Facility Start: 09-18-2023 End: 09-18-2023 ambulatory Benjamin Almeida Other [facility] Other Start: 09-18-2023 Telephone encounter [facility] Start: 07-26-2023 End: 07-26-2023 ambulatory [facility] Other [facility] Other Start: 07-26-2023 Telephone encounter [facility] Start: 07-17-2023 End: 07-17-2023 ambulatory [facility] Other [facility] Other Start: 07-17-2023 Telephone encounter [facility] Start: 06-20-2023 End: 06-20-2023 ambulatory Juan [facility] Other [facility] Other Start: 06-20-2023 Telephone encounter [facility] Start: 05-28-2023 End: 05-28-2023 ambulatory Reuben Giron Other [facility] Other Start: 05-28-2023 Telephone encounter [facility] Start: 05-13-2023 End: 05-13-2023 ambulatory Benjamin Almeida Other [employer]text[employer] Other Start: 05-13-2023 Office outpatient visit 15 minutes Benjamin Almeida [facility] Start: 12-25-2022 End: 12-25-2022 ambulatory [facility] Other Subtextual Other Start: 12-25-2022 Office outpatient visit 15 minutes Benjamin Almeida [facility] Start: 12-18-2022 End: 12-19-[address] BENJAMIN ALMEIDA Facility: Start: 07-31-2022 End: 07-31-2022 ambulatory Benjamin Almeida Facility:[facility] Start: 07-31-2022 End: 07-31-2022 Admission to same day surgery center DO Juan Pablo Work Phone: [facility] Start: 07-31-2022 End: 07-31-2022 ambulatory DO Juan [facility] Work Phone: [facility] Work Phone: Start: 07-27-2022 End: 07-27-2022 ambulatory Reuben Giron Facility:[facility] Start: 07-27-2022 End: 07-27-2022 ambulatory DO Benjamin Almeida Work Phone: [facility] Work Phone: Start: 07-27-2022 End: 07-27-2022 Patient encounter procedure DO Benjamin Almeida Work Phone: [facility] Start: 07-14-2022 End: 07-15-[address] BENJAMIN ALMEIDA Facility:[facility] Start: 06-19-2022 End: 06-20-[address] BENJAMIN ALMEIDA Facility:[facility] Start: 04-26-2021 End: 04-26-2021 Admission to same day surgery center MD Krzysztof Hutchison Work Phone: [facility] Procedures Date Procedure Procedure Detail Performing Clinician Start: 07-31-2022 Esophagogastroduodenoscopy DO Benjamin Almeida Work Phone: Start: 06-19-[address] [place] Comment on above: Performed By: #### P [facility] #### [facility] [address] [place] [address] Dr. Kirsty Garcia Start: 04-26-2021 Esophagogastroduodenoscopy MD Krzysztof Hutchison Work Phone: Plan of Treatment Date Care Activity Detail Author Start: 07-31-2022 [facility] Patient Education [facility] Immunizations Immunization Date Immunization Notes Care Provider Yareli bernstein 06-19-2022 COVID-19 Pfizer (bivalent) Benjamin Almeida Other [facility]text[employer] Other 04-09-2022 zoster vaccine recombinant Benjamin Almeida Other [employer]text[employer] Other 11-06-2021 zoster vaccine recombinant Benjamin Almeida Other Subtext[employer] Other 06-20-2021 COVID-19 Vaccine Pfi zer - Documentation Purposes Only Benjamin Almeida Other Subtext[employer] Other 11-15-2020 COVID-19 mRNA,[id number] b2 (Pfizer) MD Krzysztof Hutchison Work Phone: [facility] 10-25-2020 COVID-19 mRNA,[id number] b2 (Pfizer) MD Krzysztof Hutchison Work Phone: [facility] 07-17-2017 influenza virus vaccine, split virus (incl. purified surface antigen) Benjamin Almeida Other [facility] Other 01-14-2017 tetanus toxoid, redu nahun diphtheria toxoid, and acellular pertussis vaccine, adsorbed Benjamin Almeida Other [employer] Other 07-04-2016 influenza virus vaccine, split virus (incl. purified surface antigen) Benjamin Almeida Other [employer] Other 10-28-2015 pneumococcal conjuga te vaccine, 13 valent Benjamin Almeida Other Subtext[employer] Other 06-28-2014 tetanus and diphther ia toxoids, adsorbed, preservative free, for adult use (5 Lf of tetanus toxoid and 2 Lf of diphtheria toxoid) Benjamin Almeida Other [employer] Other 08-18-2013 pneumococcal polysaccharide vaccine, 23 valent Benjamin Almeida Other Subtextual Other Payers Date Payer Category Payer Self-pay [id number] 1957 Medicare [id number] 1957 Unknown [id number] 1945 Unknown [id number] 2.16.84 [id number] 1945 Unknown [id number] 2.16.84 [id number] 1945 Unknown [id number] 2.16.84 [id number] Medicare Medicare Nonpatient [id number] Unknown [id number] Unknown [id number] 2.16.8 [id number] Unknown [id number] 2.16.8 [id number] Social History Date Type Detail Facility Start: 04-26-2021 End: 04-26-2021 Tobacco smoking status NHIS Ex-smoker (finding) [facility] Start: 1945 Sex Assigned At Male F [facility] Sex Assigned At Sex Assigned At Bir th Subtextual Other Goals Date Patient Goal Desired Activity /State Clinical Notes 04-05-2021 to 09-18-2023 Note Date & Type Note Facility 09-18-2023 Evaluation note Encounter Date Diagnosis Assessment Notes Aug, Anemia (ICD-10 - D64.9) [facility] [employer] Other 10-25-2023 Evaluation note* Encounter Date Diagnosis Assessment Notes Treatment Notes Treatment Clinical Notes Jun, Elevated PSA (ICD-10 - R97.20) [place] [employer] Other 09-28-2023 Evaluation note* Encounter Date Diagnosis Assessment Notes Treatment Notes Treatment Clinical Notes May, Chronic prostatitis (ICD-10 - N41.1) [employer] Other 08-21-2023 Evaluation note* Encounter Date Diagnosis Assessment Notes Treatment Notes Treatment Clinical Notes Apr, Abscess of foot (ICD-10 - L02.619) Begin antibiotics and refer to the wound clinic Soak and keep clean Apr, Primary hypertension (ICD-10 - I10) This patient is instructed to consume a healthy, low-fat, low-salt diet. They are also encouraged to continue exercise to achieve/maintain a normal BMI. [employer] Other 04-04-2023 Evaluation note* Encounter Date Diagnosis Assessment Notes Treatment Notes Treatment Clinical Notes Dec, Primary hypertension (ICD-10 - I10) This patient is instructed to consume a healthy, low-fat, low-salt diet. They are also encouraged to continue exercise to achieve/maintain a normal BMI. Instructed to check home BP readings over the next week _update office w/ results Goal < 140/90 Dec, Stage 3a chronic kidney disease (ICD-10 - N18.31) The patient is instructed on adequate control of hypertension and diabetes, if appropriate. They are also educated on the associated risks of NSAIDs and PPI use with kidney disease. They were instructed on adequate fluid balance and to avoid dehydration. Dec, Hypertensive chronic kidney disease with stage 1 through stage 4 chronic kidney disease, or unspecified chronic kidney disease (ICD-10 - I12.9) Control BP, hydrate and avoid NSAID [employer] Other 11-08-2022 Procedure [facility]07-14-2021 NoteHNO ID: [id number] Author: Raciel Greer MD Service: ? 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 Diagnosed 03/2012 during evaluation for night sweats and weight loss (27lbs). Had CT imaging which noted 2 left upper quadrant masses ( 6.4cm and 2.5 cm) and subsequent core needle biopsy noted Classical Hodgkins lymphoma. Along with sweats and weight loss, the patient did have elevated sedimentation rate at time of diagnosis. Bone marrow was negative (non-bulky stage 2B disease), PET noted no other findings. Started therapy with ABVD 05/01/12 and would have repeat PET CT scan after two cycles and this noted complete response. He completed six cycles of ABVD on 10/09/12. Follow up imaging was negative for evidence of recurrence last 2015. Patient is doing quite well. Did have a esophageal stricture dilated in April 2020. Denies nausea vomiting fevers or chills. Denies night sweats. PAST MEDICAL HISTORY Diagnosis Date - Anemia - Arthritis, degenerative - Carotid bruit right carotid - Diverticulosis - Dysphagia - Esophagitis - Glomerulonephritis - Hiatal hernia - Hodgkin's lymphoma (HCC) - Hypertension - Neuropathy right foot - PUD (peptic ulcer disease) PAST SURGICAL HISTORY Procedure Laterality Date - COLONSCOPY SCREENING HIGH RISK 02/22/2012 - ESOPHAGEAL DILATATION - ESOPHAGOGASTRODUODENOSCOPY_*FL 03/20/2012 Review of Social History includes: Tobacco Use: Never Alcohol Use: Not on file FAMILY HISTORY Problem Relation Age of Onset - Cancer Brother at age 52 - Cancer Mother at age 89 REVIEW OF SYSTEMS: Constitutional: Weight energy and appetite stable no fevers chills or sweats Head and neck: Denies recurrent sinus issues or discomfort or mouth sores, as PER HPI Respiratory: no dyspnea or hemoptysis, no dyspnea on exertion. Coughs in the mornings Cardiovascular: No chest pain or palpitations. Denies leg swelling. GI: No nausea, vomiting, diarrhea or GI bleed. Denies bloating or early satiety. Skin: no current rash, no bruising or petechiae Neurologic: Still with mild neuropathy, mainly feet, not recently progressed Psychiatric: No depression or anxiety Hematopoietic: No easy bruising or enlarged lymphadenopathy. : No frequency or dysuria. BP 146/86 Pulse 56 Temp (Src) 98.2 (Oral) Resp 18 Ht 6' .008 (1.83m) Wt 213 lb (96.6kg) BMI 28.88 kg/(m2). PHYSICAL EXAMINATION: General: Alert and oriented, no distress, pleasant and cooperative. HEENT: no sores or thrush Heart: Regular, normal S1 and S2, no murmurs, rubs, or gallops, no leg swelling Lungs: Clear to auscultation bilaterally, no crackles or wheezes Abdomen: NT, ND no organomegaly Extremities: Feet/ankles without edema, Lymph Nodes: No palpable adenopathy. No cervical,supraclavicular or axillary adenopathy Skin: no rash or petechiae NEuro: 2-12 intact, normal gait PSyche: normal mood and affect RADIOLOGY: IMaging: see EMR 04/10/2016 5:48 PM - Results In Interface Impression IMPRESSION: 1. NECK: No FDG avid neoplastic process. No mass, adenopathy, or fluid collection. 2. CHEST: No FDG avid neoplastic process. No mass, adenopathy, or fluid collection. 3. ABDOMEN/PELVIS: No FDG avid neoplastic process. No mass, adenopathy, or fluid collection. 4. EXTREMITIES/SKELETON: No FDG avid osseous process. No destructive/traumatic bony abnormality. Transcribe Date/Time: Apr 10 2016 2:35P WBC (k/uL) Date Value 12/15/2018 4.27 RBC (m/uL) Date Value 12/15/2018 4.64 Hemoglobin (g/dL) Date Value 12/15/2018 15.1 Hematocrit (%) Date Value 12/15/2018 45.5 MCV (fL) Date Value 12/15/2018 98.1 MCH (pG) Date Value 12/15/2018 32.5 MCHC (g/dL) Date Value 12/15/2018 33.2 RDW-CV (%) Date Value 12/15/2018 13.4 Platelet Count (k/uL) Date Value 12/15/2018 185 MPV (fL) Date Value 12/15/2018 10.8 ASSESSMENT/PLAN: Magnolia Boykin is a 72 year old male with Hodgkin's lymphoma. Had classical Hodgkins Lymphoma diagnosed in 03/2012, nodular sclerosis subtype with B symptoms and elevated sedimentation rate. He has completed six cycles of ABVD completed 10/09/12 under the direction of Dr. Zabala.clinically doing well from a Hodgkin's lymphoma standpoint. At this time I stated that he can see us on a as needed basis. Follow-up with gastroenterology in regards to the esophageal stricture. Raciel Greer MD April 05, 2021 3:15 [facility] Diagnosis Onset Date Resolution Status D[facility] assessment information available [facility] Work Phone: Evaluation noteNo InformationNort [employer] Other History and physical note Author Reuben Giron [facility] July 31, 2022 1:13pm Note Date/Time July 31, 2022 1 :13pm [facility] [address] [place] [address] Gastroenterology H&P Signed Patient: Magnolia Boykin MR# : [id number] : 1945 Acct:[id number] Age/Sex: 76 / M Adm Date: 2 Loc: Room: Type: [facility] Attending Dr: Reuben Giron MD Copies to: DO Reuben Art MD~ Date of Service: 07/31/2022 HISTORY & PHYSICAL: Patient's history with special attention to the cardiovascular, pulmonary systems and the current problem was reviewed with the patient immediately prior to the procedure. Present medications and doses reviewed in the EMR. Allergies and pertinent laboratory tests were also reviewedat this time in the EMR. The physical examination, as below, was then performed. Indication, assessment and HPI: 76-year-old male presents for EGD to evaluate dysphagia to solids. History of GERD on famotidine with significant breakthrough. Family history of GI malignancy? No PHYSICAL EXAMINATION Mouth and Pharynx : Moist mucus membranes, normal dentition Cardiac: Regular rate, regular rhythm Pulmonary: Clear to auscultation bilaterally, no wheezing Neurological: Alert and oriented x3, no focal deficits noted Abdomen: Abdomen soft, non-tender REVIEW OF SYSTEMS Constitutional: Denies malaise, fevers Cardiovascular: Denies chest pain, palpitations Respiratory: Denies shortness of breath, wheezing Gastrointestinal: Per HPI Genitourinary: Denies dysuria, polyuria Musculoskeletal: Denies joint swelling, joint stiffness Neurological: Denies numbness, tingling Integumentary: Denies rashes, skin lesions Endocrine: Denies fatigue, weight loss Written informed consent obtained from the patient. Risks (including but not limited to perforation, infection, bloating, bleeding, need for emergent surgeryand loss of life), benefits and alternatives explained and questions answered. The patient verbalized understanding. Based on history patient is an appropriate candidate for the procedure. Reuben Giron MD Documented By: Reuben Giron MD 07/31/221311 Signed By: <Electronically signed by Reuben Giron MD> 07/31/22 1313 [facility] Work Phone: History general Narrative - Reported* Type Description Date Medical History Hodgkin lymphoma, unspecified, u nspecified site Medical History hypertension Medical History diverticulosis Medical History neuropathy Medical History Hiatal hernia Medical History anemia Medical History Arthritis Surgical History hernia repair Surgical History wisdom teeth Surgical History colonoscopy 2019 Surgical History EGD Hospitalization History see surgical hx Subtextual Other Hospital Discharge instructions Additional Instructions DISCHARGE INSTRUCTIONS FOR ENDOSCOPY FOR [place]/EGD/ERCP/PEG: -Your throat may feel sore today from the scope that the doctor passed through your throat to visualize your stomach. Take a throat lozenge or suck on ice to ease the discomfort. -Do NOT smoke. -You may notice some streaks of blood in your sputum if the doctor has taken a biopsy. Notify the doctor if you cough up large amounts of blood. -Expect a gassy or full feeling after esophagoscopy. Report any persistent pain or vomiting. -Take it easy today. You need not stay in bed, but avoid strenuous activities such as jogging. FOR SEDATION FOR 24 HOURS: -NO driving -Do NOT operate machinery such as power tools, lawn mowers, snow blowers, sewing machines, etc. -Avoid alcoholic beverages and drugs for allergies, nerves, or sleep. -Do NOT stay alone. Do NOT leave your child unattended. -Do NOT make important personal or business decisions or sign any legal documents. -Eat solid foods and drink liquids in smaller amounts than usual until normal appetite returns. If you should experience an upset stomach, liquids high in sugar content (soda, Parag-aid, non-acid juices) are recommended. -You can resume normal activities tomorrow. FOLLOW UP Please call the office and make a follow up appointment to see me in [2] weeks. -Notify the doctor if you have any problems. -[facility] number [phone] instructions Additional Instructions DISCHARGE INSTRUCTIONS FOR UPPER ENDOSCOPY WHAT TO EXPECT: - You may feel full, gassy or cramping after your procedure. In some cases, this may be from a few hours to a day. Walking may help relieve the discomfort. - Your throat may feel sore today from the scope that the doctor passed through your throat to visualize your stomach. Take a throat lozenge or suck on ice to ease the discomfort. - You may notice some streaks of blood in your sputum if the doctor has taken a biopsy. - You should begin to recover from anesthesia within 1 hour of the procedure, however may feel groggy for the next 24 hours. DO's AND DON'Ts: - Call your doctor right away if you have a hard abdomen, severe pain, vomiting or if you cough up large amounts of blood. - Call your doctor if you develop any rashes, hives or difficulty breathing. - If you take 81 mg aspirin for your heart it is safe to resume this medication. - If you take other blood thinner medications your doctor will instruct you when these can safely be resumed. - Do NOT drive for 24 hours. - Do NOT operate machinery such as power tools, lawn mowers, snow blowers, sewing machines, etc. for 24 hours. - Avoid alcoholic beverages and drugs for allergies, nerves, or sleep. - Do NOT stay alone. Do NOT leave your child unattended. - Do NOT make important personal or business decisions or sign any legal documents. - Eat solid foods and drink liquids in smaller amounts than usual until normal appetite returns. If you should experience an upset stomach, liquids high in sugar content (soda, Parag-Aid, non-acid juices) are recommended. - Do NOT smoke. - Do take it easy today. You need not stay in bed, but avoid strenuous activities such as jogging or working out. FOLLOW UP & RECOMMENDATIONS: - Stop famotidine, start omeprazole 40 mg once daily, 30 minutes before your first meal the day - Follow-up with Dr. Giron as needed - Notify the doctor if you have any problems. - Follow up with PCP. - Office number [phone].[facility] Work Phone: Reason for referral (narrative)* Reason Referral for infecte d callus left foot Diagnosis 1 Abscess of foot (L02 .619) Referral Organization [facility] Juan Pablo gould Referring Provider First Name Referring Provider Last Name [facility] Referring Provider Specialty Internal Me dicine Referred Organization [facility] Referred Address [address], [place],[address] Referred Provider Specialty Wound Care Referral Priority Routine General Notes Patient presents w/ a hard, tender ulceration on the lateral aspect of the plantar aspect of the left foot. This is located over the MTP joint and is tender to palpation. There is no drainage or bleeding. Since it has been present for 3mo, I am concerned of deep infection. He is w/o fever or chills. I have not scheduled any imaging as this can more easily be done at the Clinical Fellow's office Subtextual Other Chief Complaint and Reason for Visit Chief Complaint Dysphagia Reason for Visit Dysphagia Chief Complaint Dysphagia Chief Complaint Dysphagia Dysphagia Family History Relationship Condition Age at Onset Recorded Date/T israel brother Malignant neoplasm of colon Unknown Not Specified Malignant neoplasm of pancreas Unknown father Hepatic cirrhosis Unknown Advance Directives Advance Directive Response Recorded Date/ Time Advance Directives No April 26 5:44am Advance Directive Response Recorded Date/ Time Advance Directives No April 26 4:44am Summary Purpose Additional Source Comments Goals (unrecognized section and content) Goals may be documented in a n alternate sectionGoals may be documented in an alternate sectionNo InformationNo InformationNo InformationNo InformationNo InformationNo InformationNo Information (unrecognized sect ion and content) No Status Records FoundNo Status Records FoundNo Status Records Found INFORMATION SOURCE (unrecogn ized section and content) DATE CREATED AUTHOR 11/09/2021 [facility] DATE CREATED AUTHOR AUTHOR'S ORGANIZ ATION 08/06/2022 [facility] DATE CREATED AUTHOR AUTHOR'S ORGANIZ ATION 12/26/2022 [facility] Care Teams (unrecognized sec tion and content) Team Status: Inactive Member Role Status Dates Benjamin Almeida DO Primary Care Provider Active Reuben Giron MD Attending Provider Active Team Status: Active Member Role Status Dates Benjamin Almeida DO Primary Care Provider Active REASON FOR VISIT (unrecogniz ed section and content) 6 month/testing resultsBotto m of Footmed refillLab Resultsrepeat lab workPSA resultsRepeat labs FOR RECORDS PERTAINING TO PATIENTS WHO ARE OR HAVE BEEN ENROLLED IN A CHEMICAL DEPENDENCY/SUBSTANCEABUSE PROGRAM, SOME INFORMATION MAY BE OMITTED. This clinical summary was aggregated from multiple sources. Caution should be exercised in using it in the provision of clinical care. This summary normalizes information from multiple sources, and as a consequence, information in this document may materially change the coding, format and clinical context of patient data. In addition, data may be omitted in some cases. CLINICAL DECISIONS SHOULD BE BASED ON THE PRIMARY CLINICAL RECORDS. [employer] [facility]. provides no warranty or guarantee of the accuracy or completeness of information in this document.
[2023-09-26 09:43] LABS: Basophils Percent Auto 0.5 % (0.2-2.0); Eosinophils Absolute Auto 0.2 10^3/uL (0.0-0.7); Eosinophils Percent Auto 3.6 % (0.9-7.0); Hematocrit 40.2 % (42.0-54.0); Immature Granulocytes Abs Auto 0.01 10^3/uL (0.00-0.03); Immature Granulocytes Pct Auto 0.2 % (0.0-0.5); Lymphocytes Percent Auto 17.4 % (20.5-60.0); Mean Corpuscular HGB Conc 32.3 g/dL (29.9-35.2); Mean Corpuscular Hemoglobin 31.9 pg (25.9-34.0); Mean Corpuscular Volume 98.5 fL (80.0-94.0); Mean Platelet Volume 10.5 fL (9.5-13.5); Monocytes Absolute Auto 0.7 10^3/uL (0.3-0.8); Monocytes Percent Auto 11.3 % (1.7-12.0); Neutrophils Absolute Auto 3.9 10^3/uL (1.4-6.5); Platelet Count 196 10^3/uL (150-450); Red Blood Count 4.08 10^6/uL (4.70-6.10); Red Cell Distribution Width 12.6 % (11.0-15.0); White Blood Count 5.9 10^3/uL (4.0-11.0)
[2023-09-26 10:24] LABS: Percent Iron Saturation 39.1 %
== END 2023-09-26 09:07 | disposition home or self-care (01) ==
LOC: LAB 09:07
PROVIDERS: PCP Internal Medicine; Visit Provider Internal Medicine
DX: D64.9 Anemia, unspecified (principal)
CPT/HCPCS: 36415; 82607; 82728; 82746; 83540; 83550; 85025

== ENCOUNTER 2023-09-30 09:22 | Outpatient (OUT) | payer MEDICARE, SELFPAY ==
--- OUTSIDE RECORDS SUMMARY | 2023-09-30 09:27 | XMS_ITS | CCD ---
Author Name Unknown Address [address] [place] [address] [address] [place] [address] Organization [facility] Care Team Providers Care Pop Singer Name Role Phone MD Krzysztof Hutchison Attending Provider [phone] DO Benjamin Almeida Primary Care Provider DO Benjamin Almeida Primary Care Provider [phone] MD Reuben Giron Attending Provider Benjamin Almeida Primary Care Unavailable Reuben Giron [...] [iodine] Drug Allergy 3 Hives, Unknown [facility] (3 sources) Iodine / Sodium Iodide Drug Allergy Unknown [facility] Other Medications Current Medications Medication Drug Class(es) [...] kidney disease Other aftercare (1 source) Other residential (current) drug therapy; Translations: [OTH [facility] CURRENT DRUG THERAPY] Onset: 07-17-2022 Episodic Other injuries and conditions due to external causes (4 sources) Food in esophagus causing other injury, initial encounter; Translations: [FOOD ESOPH CAUS OTH INJURY INIT ENC] Onset: 07-14-2022 Episodic Results Test Name Value Interpretation Reference Range Facility PROF CHEM 8 (BAS METB)on Anion gap [Moles/Vol] 14.7 mmol/L Normal [facility] Comment on above: Performed By: #### B MP #### [facility] [address] [place] [address] Dr. Kirsty Garcia Calcium [Mass/Vol] 9.0 mg/dL Normal 8.5-10.1 [facility] Comment on above: Performed By: #### B MP #### [facility] [address] [address] [address] Kirsty Garcia Chloride [Moles/Vol] 105 mmol/L Normal 98-107 [facility] Comment on above: Performed By: #### B MP #### [facility] [address] [address] [address] Kirsty Garcia CO2 [Moles/Vol] 27.7 mmol/L Normal 21.0-32.0 [facility] Comment on above: Performed By: #### B MP #### [facility] [address] [address] [address] Kirsty Garcia Creatinine [Mass/Vol] 1.20 mg/dL Normal 0.70-1.30 [facility] Comment on above: Performed By: #### B MP #### [facility] [address] [place] [address] Dr. Kirsty Garcia EGFR-AF ZIMBABWEAN >60 Normal >=60 [facility] Comment on above: Performed By: #### B MP #### [facility] [address] [place] [address] Dr. Kirsty Garcia EGFR-NON AF ZIMBABWEAN 59 mL/min/1.73m2 Critically low >=60 [facility] Comment on above: Performed By: #### B MP #### [facility] [address] [address] [address] Kirsty Garcia Glucose [Mass/Vol] 101 mg/dL Normal 74-106 [facility] Comment on above: Performed By: #### B MP #### [facility] [address] [address] [address] Kirsty Garcia Potassium [Moles/Vol] 4.4 mmol/L Normal 3.5-5.1 [facility] Comment on above: Performed By: #### B MP #### [facility] [address] [address] [address] Kirsty Garcia Sodium [Moles/Vol] 143 mmol/L Normal 136-145 [facility] Comment on above: Performed By: #### B MP #### [facility] [address] [address] [address] Kirsty Garcia Urea nitrogen [Mass/Vol] 21.0 mg/dL Critically high 7.0-18.0 [facility] Comment on above: Performed By: #### B MP #### [facility] [address] [address] [address] Kirsty Garcia Urea nitrogen/Creatinin e [Mass ratio] 17.5 mg/mg Normal [facility] Comment on above: Performed By: #### B MP #### [facility] [address] [address] [address] Kirsty Garcia UA RANDOM W/MICROSCOPICon BACTERIA NONE SEEN Normal NONE SEEN [facility] Comment on above: Performed By: #### U AMIC #### [facility] [address] [address] [address] Kirsty Garcia Bilirubin Ql (U) Negative Normal NEGATIVE [facility] Comment on above: Performed By: #### U AMIC #### [facility] [address] [address] [address] Kirsty Garcia CAST NONE SEEN Normal NONE SEEN [facility] Comment on above: Performed By: #### U AMIC #### [facility] [address] [address] [address] Kirsty Garcia Clarity (U) CLEAR Normal CLEAR [facility] Comment on above: Performed By: #### U AMIC #### [facility] [address] [address] [address] Kirsty Garcia Color (U) LT. YELLOW Normal YELLOW [facility] Comment on above: Performed By: #### U AMIC #### [facility] [address] [place] [address] Dr. Kirsty Garcia Crystals LM Nom (Urine sed) NONE SEEN Normal NONE SEEN [facility] Comment on above: Performed By: #### U AMIC #### [facility] [address] [place] [address] Dr. Kirsty Garcia Epithelial cells LM Ql (Urine sed) NONE SEEN Normal NONE SEEN /RARE [facility] Comment on above: Performed By: #### U AMIC #### [facility] [address] [place] [address] Dr. Kirsty Garcia Glucose Ql (U) Negative Normal NEGATIVE [facility] Comment on above: Performed By: #### U AMIC #### [facility] [address] [place] [address] Dr. Kirsty Garcia Hemoglobin Ql (U) Negative Normal NEGATIVE [facility] Comment on above: Performed By: #### U AMIC #### [facility] [address] [place] [address] Dr. Kirsty Garcia Ketones Ql (U) Negative Normal NEGATIVE [facility] Comment on above: Performed By: #### U AMIC #### [facility] [address] [place] [address] Dr. Kirsty Garcia LEUKOCYTES Negative Normal NEGATIVE [facility] Comment on above: Performed By: #### U AMIC #### [facility] [address] [place] [address] Dr. Kirsty Garcia MUCOUS NONE SEEN Normal NONE SEEN [facility] Comment on above: Performed By: #### U AMIC #### [facility] [address] [place] [address] Dr. Kirsty Garcia Nitrite Ql (U) Negative Normal NEGATIVE [facility] Comment on above: Performed By: #### U AMIC #### [facility] [address] [place] [address] Dr. Kirsty Garcia pH (U) 6.5 [pH] Normal 5-9 [facility] Comment on above: Performed By: #### U AMIC #### [facility] [address] [address] [address] Kirsty Garcia RBC 0-2 Normal 0-2 [facility] Comment on above: Performed By: #### U AMIC #### [facility] [address] [place] [address] Dr. Kirsty Garcia SPEC GRAVITY 1.010 Normal 1.005-<=1.025 [facility] Comment on above: Performed By: #### U AMIC #### [facility] [address] [place] [address] Dr. Kirsty Garcia UA PROTEIN TRACE Normal NEGATIVE/ TRACE [facility] Comment on above: Performed By: #### U AMIC #### [facility] [address] [place] [address] Dr. Kirsty Garcia Urobilinogen Qn (U) 0.2 {Karlie'U}/dL Normal 0.2 - 1.0 [facility] Comment on above: Performed By: #### U AMIC #### [facility] [address] [place] [address] Dr. Kirsty Garcia WBC NONE SEEN Normal NONE SEEN [facility] Comment on above: Performed By: #### U AMIC #### [facility] [address] [place] [address] Dr. Kirsty Garcia URINE T PROTEIN CREAT RATIOo n 12-18-2022 Protein (U) [Mass/Vol] 28.4 mg/dL Critically high <=12.0 [facility] Comment on above: Performed By: #### U RTPCR #### [facility] [address] [place] [address] Dr. Kirsty Garcia UR PROT CREAT RAT 0.77 Normal [facility] Comment on above: Performed By: #### U RTPCR #### [facility] [address], [place] [address] Dr. Kristy Garcia URINE CREAT 36.66 mg/dL Normal 20.00-300.00 [facility] Comment on above: Performed By: #### U RTPCR #### [facility] [address] [place], [place] [address] Dr. Kirsty Garcia US KIDNEYS BLADDERon 023 [...] PHYLICIA AYOUB Date: 2022-12-18 09:47 Normal [facility] COVID-19 [facility] SARS-CoV-2 (COVID-19) RNA LYNDSAY+probe Ql (Unsp spec) Negative Normal Negative [facility] Comment on above: Order Comment: Healt hcare Worker?: N Result Comment: Testing for SARS-CoV-2 by RT-PCR This test was developed and its performance characteristics determined by [employer]) and validated at the [facility]. This test has not been FDA cleared [...] is terminated or revoked sooner. PERFORMED BY: [place] [id number] PATHOLOGIST BINITROTOLUENE OPERATOR YULIYA OSORIO M.D. Performed By: #### C OVID 19 [facility] #### [address] COVID-19 Positive/NegativeOr dered By: Reuben Giron on 07-27-2022 SARS-CoV-2 (COVID-19) N gene LYNDSAY+probe Ql (Resp) Negative Negative [facility] Comment on above: Testing for SARS-CoV -2 by RT-PCRThis test was developed and its performance characteristics determined by [employer] and validated at the [facility]. This test has not been FDA cleared [...] BASO # 0.0 103/ul Normal 0.0-0.1 [facility] Comment on above: Performed By: #### C BC #### [facility] [address] [place] [address] Dr. Kirsty Garcia Basophils/100 WBC (Bld) 0.4 % Normal 0.2-2.0 [facility] Comment on above: Performed By: #### C BC #### [facility] [address] [place] [address] Dr. Kirsty Garcia EO # 0.2 103/ul Normal 0.0-0.7 [facility] Comment on above: Performed By: #### C BC #### [facility] [address] [place] [address] Dr. Kirsty Garcia Eosinophils/100 WBC (Bld) 2.8 % Normal 0.9-7.0 [facility] Comment on above: Performed By: #### C BC #### [facility] [address] [place] [address] Dr. Kirsty Garcia Erythrocyte distribution width (RBC) [Ratio] 12.3 % Normal 11.0-15.0 [facility] Comment on above: Performed By: #### C BC #### [facility] [address] [place] [address] Dr. Kirsty Garcia Hematocrit (Bld) [Volume fraction] 42.5 % Normal 42.0-54.0 [facility] Comment on above: Performed By: #### C BC #### [facility] [address] [place] [address] Dr. Kirsty Garcia Hemoglobin (Bld) [Mass/Vol] 14.1 g/dL Normal 14.0-18.0 [facility] Comment on above: Performed By: #### C BC #### [facility] [address] [place] [address] Dr. Kirsty Garcia IG # 0.02 10e3/ul Normal 0.00-0.03 [facility] Comment on above: Performed By: #### C BC #### [facility] [address] [place] [address] Dr. Kirsty Garcia IG % 0.3 % Normal 0.0-0.5 [facility] Comment on above: Performed By: #### C BC #### [facility] [address] [address] [address] Kirsty Garcia LYMPH # 1.4 103/ul Normal 1.2-3.8 [facility] Comment on above: Performed By: #### C BC #### [facility] [address] [place] [address] Dr. Kirsty Garcia Lymphocytes/100 WBC (Bld) 18.2 % Critically low 20.5-60.0 [facility] Comment on above: Performed By: #### C BC #### [facility] [address] [place] [address] Dr. Kirsty Garcia MANUAL DIFF REQ NO Normal [facility] Comment on above: Performed By: #### C BC #### [facility] [address] [place] [address] Dr. Kirsty Garcia MCH (RBC) [Entitic mass] 32.3 pg Normal 25.9-34.0 [facility] Comment on above: Performed By: #### C BC #### [facility] [address] [place] [address] Dr. Kirsty Garcia MCHC (RBC) [Mass/Vol] 33.2 g/dL Normal 29.9-35.2 [facility] Comment on above: Performed By: #### C BC #### [facility] [address] [place] [address] Dr. Kirsty Garcia MCV (RBC) [Entitic vol] 97.5 fL Critically high 80.0-94.0 [facility] Comment on above: Performed By: #### C BC #### [facility] [address] [place] [address] Dr. Kirsty Garcia MONO # 0.9 103/ul Critically high 0.3-0.8 [facility] Comment on above: Performed By: #### C BC #### [facility] [address] [place] [address] Dr. Kirsty Garcia Monocytes/100 WBC (Bld) 11.6 % Normal 1.7-12.0 [facility] Comment on above: Performed By: #### C BC #### [facility] [address] [place] [address] Dr. Kirsty Garcia NEUT # 5.3 103/ul Normal 1.4-6.5 [facility] Comment on above: Performed By: #### C BC #### [facility] [address] [place] [address] Dr. Kirsty Garcia Neutrophils/100 WBC (Bld) 66.7 % Normal 43.0-75.0 [facility] Comment on above: Performed By: #### C BC #### [facility] [address] [place] [address] Dr. Kirsty Garcia Platelet mean volume (Bld) [Entitic vol] 10.0 fL Normal 9.5-13.5 [facility] Comment on above: Performed By: #### C BC #### [facility] [address] [place] [address] Dr. Kirsty Garcia PLT 189 103/ul Normal 150-450 [facility] Comment on above: Performed By: #### C BC #### [facility] [address] [place] [address] Dr. Kirsty Garcia RBC 4.36 106/ul Critically low 4.70-6.10 [facility] Comment on above: Performed By: #### C BC #### [facility] [address] [place] [address] Dr. Kirsty Garcia WBC 7.9 103/ul Normal 4.0-11.0 [facility] Comment on above: Performed By: #### C BC #### [facility] [address] [place] [address] Dr. Kirsty Garcia PROF CHEM 8 (BAS METB)on Anion gap [Moles/Vol] 11.7 mmol/L Normal [facility] Comment on above: Performed By: #### B MP #### [facility] [address] [place] [address] Dr. Kirsty Garcia Calcium [Mass/Vol] 9.0 mg/dL Normal 8.5-10.1 [facility] Comment on above: Performed By: #### B MP #### [facility] [address] [place] [address] Dr. Kirsty Garcia Chloride [Moles/Vol] 106 mmol/L Normal 98-107 [facility] Comment on above: Performed By: #### B MP #### [facility] [address] [address] [address] Kirsty Garcia CO2 [Moles/Vol] 26.4 mmol/L Normal 21.0-32.0 [facility] Comment on above: Performed By: #### B MP #### [facility] [address] [address] [address] Kirsty Garcia Creatinine [Mass/Vol] 1.42 mg/dL Critically high 0.70-1.30 [facility] Comment on above: Performed By: #### B MP #### [facility] [address] [address] [address] Kirsty Garcia EGFR-AF ZIMBABWEAN 59 mL/min/1.73m2 Critically low >=60 [facility] Comment on above: Performed By: #### B MP #### [facility] [address] [address] [address] Kirsty Garcia EGFR-NON AF ZIMBABWEAN 49 mL/min/1.73m2 Critically low >=60 [facility] Comment on above: Performed By: #### B MP #### [facility] [address] [address] [address] Kirsty Garcia Glucose [Mass/Vol] 105 mg/dL Normal 74-106 [facility] Comment on above: Performed By: #### B MP #### [facility] [address] [address] [address] Kirsty Garcia Potassium [Moles/Vol] 4.1 mmol/L Normal 3.5-5.1 [facility] Comment on above: Performed By: #### B MP #### [facility] [address] [address] [address] Kirsty Garcia Sodium [Moles/Vol] 140 mmol/L Normal 136-145 [facility] Comment on above: Performed By: #### B MP #### [facility] [address] [address] [address] Kirsty Garcia Urea nitrogen [Mass/Vol] 27.0 mg/dL Critically high 7.0-18.0 [facility] Comment on above: Performed By: #### B MP #### [facility] [address] [place] [address] Dr. Kirsty Garcia Urea nitrogen/Creatinin e [Mass ratio] 19.0 mg/mg Normal [facility] Comment on above: Performed By: #### B MP #### [facility] [address] [place] [address] Dr. Kirsty Garcia CBC AUTO DIFFon 06-19-2022 BASO # 0.0 103/ul Normal 0.0-0.1 [facility] Comment on above: Performed By: #### C BC #### [facility] [address] [place] [address] Dr. Kirsty Garcia Basophils/100 WBC (Bld) 0.7 % Normal 0.2-2.0 [facility] Comment on above: Performed By: #### C BC #### [facility] [address] [place] [address] Dr. Kirsty Garcia EO # 0.2 103/ul Normal 0.0-0.7 [facility] Comment on above: Performed By: #### C BC #### [facility] [address] [place] [address] Dr. Kirsty Garcia Eosinophils/100 WBC (Bld) 3.0 % Normal 0.9-7.0 [facility] Comment on above: Performed By: #### C BC #### [facility] [address] [place] [address] Dr. Kirsty Garcia Erythrocyte distribution width (RBC) [Ratio] 12.4 % Normal 11.0-15.0 [facility] Comment on above: Performed By: #### C BC #### [facility] [address] [place] [address] Dr. Kirsty Garcia Hematocrit (Bld) [Volume fraction] 42.5 % Normal 42.0-54.0 [facility] Comment on above: Performed By: #### C BC #### [facility] [address] [place] [address] Dr. Kirsty Garcia Hemoglobin (Bld) [Mass/Vol] 14.0 g/dL Normal 14.0-18.0 [facility] Comment on above: Performed By: #### C BC #### [facility] [address] [place] [address] Dr. Kirsty Garcia IG # 0.01 10e3/ul Normal 0.00-0.03 [facility] Comment on above: Performed By: #### C BC #### [facility] [address] [place] [address] Dr. Kirsty Garcia IG % 0.2 % Normal 0.0-0.5 [facility] Comment on above: Performed By: #### C BC #### [facility] [address] [place] [address] Dr. Kirsty Garcia LYMPH # 1.1 103/ul Critically low 1.2-3.8 [facility] Comment on above: Performed By: #### C BC #### [facility] [address] [place] [address] Dr. Kirsty Garcia Lymphocytes/100 WBC (Bld) 19.7 % Critically low 20.5-60.0 [facility] Comment on above: Performed By: #### C BC #### [facility] [address] [place] [address] Dr. Kirsty Garcia MANUAL DIFF REQ NO Normal [facility] Comment on above: Performed By: #### C BC #### [facility] [address] [place] [address] Dr. Kirsty Garcia MCH (RBC) [Entitic mass] 32.3 pg Normal 25.9-34.0 [facility] Comment on above: Performed By: #### C BC #### [facility] [address] [place] [address] Dr. Kirsty Garcia MCHC (RBC) [Mass/Vol] 32.9 g/dL Normal 29.9-35.2 [facility] Comment on above: Performed By: #### C BC #### [facility] [address] [place] [address] Dr. Kirsty Garcia MCV (RBC) [Entitic vol] 97.9 fL Critically high 80.0-94.0 [facility] Comment on above: Performed By: #### C BC #### [facility] [address] [place] [address] Dr. Kirsty Garcia MONO # 0.5 103/ul Normal 0.3-0.8 [facility] Comment on above: Performed By: #### C BC #### [facility] [address] [place] [address] Dr. Kirsty Garcia Monocytes/100 WBC (Bld) 9.5 % Normal 1.7-12.0 [facility] Comment on above: Performed By: #### C BC #### [facility] [address] [place] [address] Dr. Kirsty Garcia NEUT # 3.7 103/ul Normal 1.4-6.5 [facility] Comment on above: Performed By: #### C BC #### [facility] [address] [place] [address] Dr. Kirsty Garcia Neutrophils/100 WBC (Bld) 66.9 % Normal 43.0-75.0 [facility] [facility] Comment on above: Performed By: #### C BC #### [facility] [address] [place] [address] Dr. Kirsty Garcia Platelet mean volume (Bld) [Entitic vol] 10.0 fL Normal 9.5-13.5 [facility] Comment on above: Performed By: #### C BC #### [facility] [address] [place] [address] Dr. Kirsty Garcia PLT 195 103/ul Normal 150-450 [facility] Comment on above: Performed By: #### C BC #### [facility] [address] [place], [place] [id number] Dr. Kirsty Garcia RBC 4.34 106/ul Critically low 4.70-6.10 [facility] Comment on above: Performed By: #### C BC #### [facility] [address] [place] [address] Dr. Kirsty Garcia WBC 5.6 103/ul Normal 4.0-11.0 [facility] Comment on above: Performed By: #### C BC #### [facility] [address] [address] [address] Kirsty Garcia PROF CHEM 8 (BAS METB)on Anion gap [Moles/Vol] 10.8 mmol/L Normal [facility] Comment on above: Performed By: #### B MP #### [facility] [address] [address] [address] Kirsty Garcia Calcium [Mass/Vol] 8.9 mg/dL Normal 8.5-10.1 [facility] Comment on above: Performed By: #### B MP #### [facility] [address] [address] [address] Kirsty Garcia Chloride [Moles/Vol] 104 mmol/L Normal 98-107 [facility] Comment on above: Performed By: #### B MP #### [facility] [address] [address] [address] Kirsty Garcia CO2 [Moles/Vol] 29.3 mmol/L Normal 21.0-32.0 [facility] Comment on above: Performed By: #### B MP #### [facility] [address] [address] [address] Kirsty Garcia Creatinine [Mass/Vol] 1.42 mg/dL Critically high 0.70-1.30 [facility] Comment on above: Performed By: #### B MP #### [facility] [address] [address] [address] Kirsty Garcia EGFR-AF ZIMBABWEAN 59 mL/min/1.73m2 Critically low >=60 [facility] Comment on above: Performed By: #### B MP #### [facility] [address] [address] [address] Kirsty Garcia EGFR-NON AF ZIMBABWEAN 49 mL/min/1.73m2 Critically low >=60 [facility] Comment on above: Performed By: #### B MP #### [facility] [address] [address] [address] Kirsty Garcia Glucose [Mass/Vol] 122 mg/dL Critically high 74-106 [facility] Comment on above: Performed By: #### B MP #### [facility] [address] [address] [address] Kirsty Garcia Potassium [Moles/Vol] 4.1 mmol/L Normal 3.5-5.1 [facility] Comment on above: Performed By: #### B MP #### [facility] [address] [address] [address] Kirsty Garcia Sodium [Moles/Vol] 140 mmol/L Normal 136-145 [facility] Comment on above: Performed By: #### B MP #### [facility] [address] [address] [address] Kirsty Garcia Urea nitrogen [Mass/Vol] 23.0 mg/dL Critically high 7.0-18.0 [facility] Comment on above: Performed By: #### B MP #### [facility] [address] [address] [address] Kirsty Garcia Urea nitrogen/Creatinin e [Mass ratio] 16.2 mg/mg Normal [facility] Comment on above: Performed By: #### B MP #### [facility] [address] [address] [address] Kirsty Cordova 04-05-2021 OVS Visit (SP) Office ([place]) MAGNOLIA BOYKIN ([id number]) 1945 M Date Time Provider Department 04/05/21 [...] in regards to the esophageal stricture. Raciel Nuñez (more content not included)... Normal [facility] Comp Metabolic Panelon 04-05 Albumin [Mass/Vol] 4.3 g/dL Normal 3.9-4.9 [facility] ALP [Catalytic activity/Vol] 84 U/L Normal 38-113 [facility] ALT [Catalytic activity/Vol] 23 U/L Normal 10-54 [facility] Anion gap [Moles/Vol] 8 mmol/L Low 9-18 [facility] AST [Catalytic activity/Vol] 23 U/L Normal 14-40 [facility] Bilirubin [Mass/Vol] 0.3 mg/dL Normal 0.2-1.3 [facility] Calcium [Mass/Vol] 9.3 mg/dL Normal 8.5-10.2 [facility] Chloride [Moles/Vol] 102 mmol/L Normal 97-105 [facility] CO2 [Moles/Vol] 25 mmol/L Normal 22-30 [facility] Creatinine [Mass/Vol] 1.27 mg/dL High 0.73-1.22 [facility] eGFR- Amer. >60 Normal [facility] eGFR-All Other Races 56 . Normal [facility] Comment on above: Result Comment: eGFR (Estimated [...] GFR. Glucose [Mass/Vol] 90 mg/dL Normal 74-99 [facility] Comment on above: Result Comment: The [place] Diabetes Association (ADA) provides guidance for cutoff [...] Standards of Medical Care in Diabetes 2016, [place] [employer] Association. Diabetes Care. 2016.39(Suppl 1). Potassium [Moles/Vol] 4.5 mmol/L Normal 3.7-5.1 [facility] Protein [Mass/Vol] 7.2 g/dL Normal 6.3-8.0 [facility] Sodium [Moles/Vol] 135 mmol/L Low 136-144 [facility] Urea nitrogen [Mass/Vol] 20 mg/dL Normal 9-24 [facility] Remote CBCDIF (for [facility] use o nly)on 04-05-2021 Abs Baso 0.03 k/uL Normal <0.11 [facility] Abs Sibley 0.76 k/uL Normal <0.87 [facility] Abs Neut 3.24 k/uL Normal 1.45-7.50 [facility] Absolute nRBC <0.01 Normal <0.01 [facility] Basophils/100 WBC (Bld) 0.6 % Normal [facility] DTYPE Auto Diff Normal [facility] Eosinophils (Bld) [#/Vol] 0.19 10*3/uL Normal <0.46 [facility] Eosinophils/100 WBC (Bld) 3.6 % Normal [facility] Erythrocyte distribution width (RBC) [Ratio] 13.1 % Normal 11.5-15.0 [facility] Hematocrit (Bld) [Volume fraction] 39.7 % Normal 39.0-51.0 [facility] Hemoglobin (Bld) [Mass/Vol] 13.1 g/dL Normal 13.0-17.0 [facility] Lymphocytes (Bld) [#/Vol] 1.05 10*3/uL Normal 1.00-4.00 [facility] Lymphocytes/100 WBC (Bld) 19.9 % Normal [facility] MCH 31.5 pG Normal 26.0-34.0 [facility] MCHC (RBC) [Mass/Vol] 33.0 g/dL Normal 30.5-36.0 [facility] MCV (RBC) [Entitic vol] 95.4 fL Normal 80.0-100.0 [facility] Monocytes/100 WBC (Bld) 14.4 % Normal [facility] Neutrophils/100 WBC (Bld) 61.5 % Normal [facility] NRBCs 0.0 /100 WBC Normal 0 [facility] Platelet mean volume (Bld) [Entitic vol] 10.4 fL Normal 9.0-12.7 [facility] Platelets (Bld) [#/Vol] 199 10*3/uL Normal 150-400 [facility] RBC (Bld) [#/Vol] 4.16 10*6/uL Low 4.20-6.00 [facility] WBC (Bld) [#/Vol] 5.27 10*3/uL Normal 3.70-11.00 [facility] CNPNon 03-29-2021 CNPN Telephone ([place]) MAGNOLIA BOYKIN ([id number]) 1945 M Date Time Provider Department 03/29/21 RACIEL GREER During your visit today, we recorded the following information about you: Allergies As of Date: 03/29/2021 Noted Allergy Reaction IODINE 07/17/2012 8 - GI Upset Date Reviewed: 04/04/2020 Reviewed by: Raciel Fritz) Percy - Fully Assessed Reason for Visit: Lab Orders [4518] 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] Order(s):CBC + DIFF (FOR REMOTE [facility] USE) [SQRCBCDF] Order #: [id number] FUTURE COMP METABOLIC PANEL [SQCMP] Order #: [id number] FUTURE Prescriptions as of 04/07/2021 - lutein-zeaxanthin [...] Status:Closed by ANABELLA GREEN on 04/07/21 Normal [facility] Vital Signs Date Time Vital Sign Value Performing Clinician Facility 05-13-2023 14:30-0400 Body height 182.88 cm [employer] Other [facility] Other 05-13-2023 14:30-0400 Body mass index (BMI) [Ratio] 25.85 kg/m2 [employer] Other [facility] Other 05-13-2023 14:30-0400 Body weight 86.46 kg [employer] Other [facility] Other 05-13-2023 14:30-0400 Diastolic blood pressure 84 mm[Hg] [employer] Other [facility] Other 05-13-2023 14:30-0400 Respiratory rate 12 /min [employer] Other [facility] Other 05-13-2023 14:30-0400 Systolic blood pressure 134 mm[Hg] [employer] Other [facility] Other 12-25-2022 10:00-0400 Body height 182.88 cm [employer] Other [facility] Other 12-25-2022 10:00-0400 Body mass index (BMI) [Ratio] 26.01 kg/m2 [facility] Other [facility] Other 12-25-2022 10:00-0400 Body weight 87 kg [facility] Other [employer] Other 12-25-2022 10:00-0400 Diastolic blood pressure 90 mm[Hg] [facility] Other [employer] Other 12-25-2022 10:00-0400 Respiratory rate 12 /min [facility] Other [facility] Other 12-25-2022 10:00-0400 Systolic blood pressure 164 mm[Hg] [facility] Other [employer] Other 07-31-2022 13:56-0500 Diastolic blood pressure 66 mm[Hg] DO [facility] Work Phone: [facility] 07-31-2022 13:56-0500 Heart rate 54 /min DO [facility] Work Phone: [facility] 07-31-2022 13:56-0500 Respiratory rate 16 /min DO [facility] Work Phone: [facility] 07-31-2022 13:56-0500 SaO2% (BldA) [Mass fraction] 99 % DO [facility] Work Phone: [facility] 07-31-2022 13:56-0500 Systolic blood pressure 100 mm[Hg] DO [facility] Work Phone: [facility] 07-31-2022 11:48-0500 Body height 182.88 cm DO [facility] Work Phone: [facility] 07-31-2022 11:48-0500 Body weight 84.82 kg DO [facility] Work Phone: [facility] 04-26-2021 07:54-0400 Diastolic blood pressure 72 mm[Hg] MD Krzysztof Hutchison Work Phone: [facility] 04-26-2021 07:54-0400 Heart rate 60 /min MD Krzysztof Hutchison Work Phone: [facility] 04-26-2021 07:54-0400 Respiratory rate 16 /min MD Krzysztof Hutchison Work Phone: [facility] 04-26-2021 07:54-0400 SaO2% (BldA) [Mass fraction] 98 % MD Krzysztof Hutchison Work Phone: [facility] 04-26-2021 07:54-0400 Systolic blood pressure 115 mm[Hg] MD Krzysztof Hutchison Work Phone: [facility] 04-26-2021 06:23-0400 Body height 182.88 cm MD Krzysztof Hutchison Work Phone: [facility] 04-26-2021 06:23-0400 Body mass index (BMI) [Ratio] 26.8 kg/m2 MD Krzysztof Hutchison Work Phone: [facility] 04-26-2021 06:23-0400 Body weight 89.81 kg MD Krzysztof Hutchison Work Phone: [facility] Encounters Encounter Date Encounter Type Care Provider Facility Start: 09-18-2023 End: 09-18-2023 ambulatory Benjamin Almeida Other [facility] Other Start: 09-18-2023 Telephone encounter [facility] Start: 07-26-2023 End: 07-26-2023 ambulatory [facility] Other [facility] Other Start: 07-26-2023 Telephone encounter Benjamin [facility] Start: 07-17-2023 End: 07-17-2023 ambulatory [facility] Other [facility] Other Start: 07-17-2023 Telephone encounter [facility] Start: 06-20-2023 End: 06-20-2023 ambulatory Juan Pablo Other [facility] Other Start: 06-20-2023 Telephone encounter [facility] Start: 05-28-2023 End: 05-28-2023 ambulatory Reuben Giron Other [facility] Other Start: 05-28-2023 Telephone encounter Re[facility] Start: 05-13-2023 End: 05-13-2023 ambulatory Benjamin Almeida Other [facility] Other Start: 05-13-2023 Office outpatient visit 15 minutes Benjamin Almeida [facility] Start: 12-25-2022 End: 12-25-2022 ambulatory Juan Pablo Other [facility] Other Start: 12-25-2022 Office outpatient visit 15 minutes Benjamin Almeida [facility] Start: 12-18-2022 End: 12-19-[address] BENJAMIN ALMEIDA Facility: Start: 07-31-2022 End: 07-31-2022 ambulatory Benjamin Almeida Facility:[facility] Start: 07-31-2022 End: 07-31-2022 Admission to same day surgery center DO Juan Pablo Work Phone: [facility] Start: 07-31-2022 End: 07-31-2022 ambulatory DO Juan Pablo Work Phone: [facility] Work Phone: Start: 07-27-2022 End: 07-27-2022 ambulatory Reuben Giron Facility:[facility] Start: 07-27-2022 End: 07-27-2022 ambulatory DO Benjamin Almeida Work Phone: [facility] Work Phone: Start: 07-27-2022 End: 07-27-2022 Patient encounter procedure DO Benjamin Almeida Work Phone: [facility] Start: 07-14-2022 End: 07-15-[address] BENJAMIN ALMEIDA Facility:[facility] Start: 06-19-2022 End: 06-20-[address] BENJAMIN ALMEIDA Facility:[facility] Start: 04-26-2021 End: 04-26-2021 Admission to same day surgery center MD Krzysztof Hutchison Work Phone: [facility] Procedures Date Procedure Procedure Detail Performing Clinician Start: 07-31-2022 Esophagogastroduodenoscopy DO Benjamin Almeida Work Phone: Start: 06-19-[address] [facility]AL [facility] [place] [facility] Comment on above: Performed By: #### [facility] #### [facility] [address] [place] [address] Dr. Kirsty Garcia Start: 04-26-2021 Esophagogastroduodenoscopy MD Krzysztof Hutchison Work Phone: Plan of Treatment Date Care Activity Detail Author Start: 07-31-2022 [facility] Patient Education [facility] Immunizations Immunization Date Immunization Notes Care Provider Yareli bernstein 06-19-2022 COVID-19 Pfizer (bivalent) Benjamin Almeida Other [facility] Other 04-09-2022 zoster vaccine recombinant Benjamin Almeida Other [facility] Other 11-06-2021 zoster vaccine recombinant Benjamin Almeida Other [facility] Other 06-20-2021 COVID-19 Vaccine Pfi zer - Documentation Purposes Only Benjamin Almeida Other [facility] Other 11-15-2020 COVID-19 mRNA,[id number] b2 (Pfizer) MD Krzysztof Hutchison Work Phone: [facility] 10-25-2020 COVID-19 mRNA,[id number] b2 (Pfizer) MD Krzysztof Hutchison Work Phone: [facility] 07-17-2017 influenza virus vaccine, split virus (incl. purified surface antigen) Benjamin Almeida Other [facility] Other 01-14-2017 tetanus toxoid, redu nahun diphtheria toxoid, and acellular pertussis vaccine, adsorbed Benjamin Almieda Other [facility] Other 07-04-2016 influenza virus vaccine, split virus (incl. purified surface antigen) Benjamin Almeida Other [facility] Other 10-28-2015 pneumococcal conjuga te vaccine, 13 valent Benjamin Almeida Other [facility] Other 06-28-2014 tetanus and diphther ia toxoids, adsorbed, preservative free, for adult use (5 Lf of tetanus toxoid and 2 Lf of diphtheria toxoid) Benjamin Almeida Other [facility] Other 08-18-2013 pneumococcal polysaccharide vaccine, 23 valent Benjamin Almeida Other [facility] Other Payers Date Payer Category Payer Self-pay [id number] 1957 Medicare [id number] 1957 Unknown [id number] 1945 Unknown [id number] 2.16.84 [id number] 1945 Unknown [id number] 2.16.84 [id number] 1945 Unknown [id number] 2.16.84 [id number] Medicare Medicare Nonpatient [id number] 0A [id number] Unknown [id number] Unknown [id number] Unknown [id number] 2.16.8 [id number] Unknown [id number] 2.16.8 [id number] Social History Date Type Detail Facility Start: 04-26-2021 End: 04-26-2021 Tobacco smoking status NHIS Ex-smoker (finding) [facility] Start: 1945 Sex Assigned At Male F [facility] Sex Assigned At Sex Assigned At Bir th [facility] Other Goals Date Patient Goal Desired Activity /State Clinical Notes 04-05-2021 to 09-18-2023 Note Date & Type Note Facility 09-18-2023 Evaluation note Encounter Date Diagnosis Assessment Notes Aug, Anemia (ICD-10 - D64.9) [facility] [employer] Other 10-25-2023 Evaluation note* Encounter Date Diagnosis Assessment Notes Treatment Notes Treatment Clinical Notes Jun, Elevated PSA (ICD-10 - R97.20) [facility] [employer] Other 09-28-2023 Evaluation note* Encounter Date Diagnosis Assessment Notes Treatment Notes Treatment Clinical Notes May, Chronic prostatitis (ICD-10 - N41.1) [facility] Other 08-21-2023 Evaluation note* Encounter Date Diagnosis Assessment Notes Treatment Notes Treatment Clinical Notes Apr, Abscess of foot (ICD-10 - L02.619) Begin antibiotics and refer to the wound clinic Soak and keep clean Apr, Primary hypertension (ICD-10 - I10) This patient is instructed to consume a healthy, low-fat, low-salt diet. They are also encouraged to continue exercise to achieve/maintain a normal BMI. [facility] Other 04-04-2023 Evaluation note* Encounter Date Diagnosis [...] I12.9) Control BP, hydrate and avoid NSAID [facility] Other 11-08-[address] [facility]07-14-2021 NoteHNO ID: [id number] Author: Raciel Greer MD Service: ? Author [...] Raciel Greer MD April 05, 2021 3[facility] Diagnosis Onset Date Resolution Status D[facility] assessment information available [facility] Work Phone: Evaluation noteNo [employer] [employer] Other History and physical note Author Reuben Giron [facility] July 31, 2022 1:13pm Note Date/Time July 31, 2022 1 :13pm [facility] [address] [place] [address] Gastroenterology H&P Signed Patient: Magnolia Boykin MR# : [id number] : 1945 Acct:[id number] Age/Sex: 76 / M Adm Date: 2 Loc: Room: Type: [facility] Attending Dr: Reuben Giron MD Copies to: [...] signed by Reuben Giron MD> 07/31/22 1313 [facility] Work Phone: History general Narrative - Reported* Type Description Date Medical History Hodgkin lymphoma, unspecified, u nspecified site Medical History hypertension Medical History diverticulosis Medical History neuropathy Medical History Hiatal hernia Medical History anemia Medical History Arthritis Surgical History hernia repair Surgical History wisdom teeth Surgical History colonoscopy 2019 Surgical History EGD Hospitalization History see surgical hx [facility] Other Hospital Discharge instructions Additional Instructions DISCHARGE [...] if you have any problems. -[phone] Additional Instructions DISCHARGE INSTRUCTIONS [...] Follow up with PCP. - Office number [phone].[facility] Work Phone: Reason for referral (narrative)* Reason Referral for infecte d callus left foot Diagnosis 1 Abscess of foot (L02 .619) Referral Organization [facility] Juan Pablo gould Referring Provider First Name Referring Provider Last Name Juan [facility] Referring Provider Specialty Internal Me dicine Referred Organization [facility] Referred Address [address] [place], [place],[address] Referred Provider Specialty Wound Care Referral Priority [...] can more easily be done at the Senior [employer] Project Manager's office [facility] Other Chief Complaint and Reason for Visit [...] section and content) DATE CREATED AUTHOR 11/09/2021 [facility] DATE CREATED AUTHOR AUTHOR'S ORGANIZ ATION 08/06/2022 [facility] DATE CREATED AUTHOR AUTHOR'S ORGANIZ ATION 12/26/2022 [facility] Care Teams (unrecognized sec tion and [...] BE BASED ON THE PRIMARY CLINICAL RECORDS. Definition 6 [facility]. provides no warranty or guarantee of the accuracy or completeness of information in this document.
== END 2023-09-30 09:23 | disposition home or self-care (01) ==
LOC: WC 09:22
PROVIDERS: PCP Internal Medicine; Visit Provider Physician Assistant
DX: G90.09 Other idiopathic peripheral autonomic neuropathy (principal); L60.3 Nail dystrophy; L84 Corns and callosities; I73.89 Other specified peripheral vascular diseases
CPT/HCPCS: 11055; 11721

== ENCOUNTER 2023-11-25 13:21 | Outpatient (OUT) | payer MEDICARE, SELFPAY ==
--- OUTSIDE RECORDS SUMMARY | 2023-11-25 13:37 | XMS_ITS | CCD ---
Author Name Unknown Address [address] [place] [address] [address] [place] [address] Organization [facility] Care Team Providers Care Air Traffic Control Equipment Repairer Name Role Phone MD Krzysztof Hutchison Attending Provider DO Benjamin Almeida Primary Care Provider [phone] DO Benjamin Almeida Primary Care Provider MD Reuben Giron Attending Provider [phone] Benjamin Almeida Primary Care Unavailable Reuben Giron [...] Allergy Type Date of Onset Reaction(s) Facility (8 sources) Iodine; Translations: [iodine] Drug Allergy 3 Hives, Unknown [facility] (3 sources) Iodine / Sodium Iodide Drug Allergy Unknown [facility] Other Medications Current Medications Medication Drug Class(es) Dates Sig (Normalized) Sig (Original) benazepril hydrochloride 20 mg oral tablet (11 sources) Angiotensin Converting Enzyme Inhibitor Start: 04-26-2021 take 20 mg by mouth once daily Benazepril Active 20 MG PO Daily April 25, 2021 11:00pm levoFLOXacin 250 mg oral tablet (5 sources) Quinolone Antimicrobial Start: 06-20-2023 levoFLOXacin 250 [...] omeprazole 40 mg delayed release oral capsule (7 sources) Proton Pump Inhibitor Start: 05-28-2023 take 1 capsule by mouth once daily Omeprazole 40 MG 1 capsule 30 minutes before morning meal Orally Once a day May, Active Start: 07-31-2022 take 40 mg by mouth once daily Omeprazole Active 40 MG PO Daily July 31, 2022 12:00am predniSONE 5 mg oral tablet (8 sources) Start: 10-29-2022 take 1 tablet by mouth once da darien Completed/Discontinued Medications Medication Drug Class(es) Dates Sig (Normalized) Sig (Original) amoxicillin 875 mg / clavulanate 125 mg oral tablet (7 sources) Penicillin-class Antibacterial Start: 05-13-2023 take 1 tablet by mouth every twelve hours Amoxicillin-Pot Clavulanate 875-125 MG 1 tablet Orally every 12 hrs for 10 days Apr, Not-Taking/PRN famotidine 20 mg oral tablet (11 sources) Histamine-2 Receptor Antagonist Start: 04-26-2021 End: 07-31-2022 take 20 mg by mouth once daily Famotidine Discontinued 20 MG PO Daily April 25, 2021 11:00pm July 31, 2022 1:23pm Lutein (8 sources) Lutein Not-Taking/PRN Lutein Not-Takin g methylPREDNISolone (8 sources) Corticosteroid Start: 03-31-2016 Depo-Medrol 40 mg Mar, 40 mg Senior Multivitamin Plus (8 sources) Senior Multivita min Plus Not-Taking/PRN Senior Multivita min Plus Not-Taking Problems Active Problems Problem Classification Problem Date Documented Da te Episodic/Chronic Chronic kidney disease (8 sources) Chronic kidney disease stage 3A ; Translations: [Stage 3a chronic kidney disease] Chronic Deficiency and other anemia (1 source) Anemia, unspecified Episodic Esophageal disorders (8 sources) Gastro-esophageal reflux disease with esophagitis; Translations: [Gastroesophageal reflux disease with esophagitis without hemorrhage] Chronic Essential hypertension (14 sources) Essential hypertension; Translations: [Essential (primary) hypertension] Onset: 06-19-2022 Chronic Hodgkin`s disease (8 sources) Hodgkin's disease, nodular sclerosis of intra-abdominal lymph nodes; Translations: [Nodular sclerosis Hodgkin lymphoma, intra-abdominal lymph nodes] Chronic Hyperplasia of prostate (8 sources) Nocturia due to benign prostatic hypertrophy; Translations: [Benign prostatic hyperplasia with lower urinary tract symptoms] Chronic Hypertension with complications and secondary hypertension (13 sources) Chronic kidney disease due to hypertension; Translations: [Hypertensive chronic kidney disease with stage 1 through stage 4 chronic kidney disease, or unspecified chronic kidney disease] Onset: 12-18-2022 Chronic Inflammatory conditions of male genital organs (6 sources) Chronic prostatitis; Translations: [Chronic prostatitis] Chronic Other gastrointestinal disorders (11 sources) Dysphagia; Translations: [Dysphagia, unspecified] 04-26-2021 Episodic Other gastrointestinal disorders (2 sources) Dysphagia, unspecified; Translations: [Dysphagia, unspecified] Onset: 07-31-2022 Episodic Other screening for suspected conditions (not mental disorders or infectious disease) (2 sources) Encounter for screening for malignant neoplasm of prostate; Translations: [Elevated prostate specific antigen [PSA]] Onset: 06-21-2022 Episodic Rheumatoid arthritis and related disease (8 sources) Inflammatory polyarthropathy; Translations: [Inflammatory polyarthropathy] Chronic Skin and subcutaneous tissue infections (8 sources) Abscess of foot; Translations: [Cutaneous abscess of unspecified foot] Episodic Spondylosis; intervertebral disc disorders; other back problems (8 sources) Lumbar spondylosis; Translations: [Spondylosis without myelopathy or radiculopathy, lumbar region] Chronic Unclassified (1 source) Encounter for preprocedural laboratory examination; Translations: [Encounter for preprocedural laboratory examination] Onset: 07-27-2022 Past or Other Problems Problem Classification Problem Date Documented Da te Episodic/Chronic Chronic kidney disease (1 source) Chronic kidney disease Other aftercare (1 source) Other vermin exterminator (current) drug therapy; Translations: [OTH SKILLED NURSING CURRENT DRUG THERAPY] Onset: 07-17-2022 Episodic Other injuries and conditions due to external causes (4 sources) Food in esophagus causing other injury, initial encounter; Translations: [FOOD ESOPH CAUS OTH INJURY INIT ENC] Onset: 07-14-2022 Episodic Results Test Name Value Interpretation Reference Range Facility PROF CHEM 8 (BAS METB)on Anion gap [Moles/Vol] 14.7 mmol/L Normal [facility] Comment on above: Performed By: #### B MP #### [facility] [address] [place] [address] Dr. Kirsty Garcia Calcium [Mass/Vol] 9.0 mg/dL Normal 8.5-10.1 [facility] Comment on above: Performed By: #### B MP #### [facility] [address] [address] [address] Kirsty Garcia Chloride [Moles/Vol] 105 mmol/L Normal 98-107 [facility] Comment on above: Performed By: #### B MP #### [facility] [address] [address] [address] Kirsty Garcia CO2 [Moles/Vol] 27.7 mmol/L Normal 21.0-32.0 [facility] Comment on above: Performed By: #### B MP #### [facility] [address] [address] [address] Kirsty Garcia Creatinine [Mass/Vol] 1.20 mg/dL Normal 0.70-1.30 [facility] Comment on above: Performed By: #### B MP #### [facility] [address] [place] [address] Dr. Kirsty Garcia EGFR-AF KAZAKH >60 Normal >=60 [facility] Comment on above: Performed By: #### B MP #### [facility] [address] [place] [address] Dr. Kirsty Garcia EGFR-NON AF KAZAKH 59 mL/min/1.73m2 Critically low >=60 [facility] Comment on above: Performed By: #### B MP #### [facility] [address] [address] [address] Kirsty Garcia Glucose [Mass/Vol] 101 mg/dL Normal 74-106 [facility] Comment on above: Performed By: #### B MP #### [facility] [address] [address] [address] Kirsty Garcia Potassium [Moles/Vol] 4.4 mmol/L Normal 3.5-5.1 [facility] Comment on above: Performed By: #### B MP #### [facility] [address] [address] [address] Kirsty Garcia Sodium [Moles/Vol] 143 mmol/L Normal 136-145 [facility] Comment on above: Performed By: #### B MP #### [facility] [address] [address] [address] Kirsty Garcia Urea nitrogen [Mass/Vol] 21.0 mg/dL Critically high 7.0-18.0 [facility] Comment on above: Performed By: #### B MP #### [facility] [address] [address] [address] Kirsty Garcia Urea nitrogen/Creatinin e [Mass ratio] 17.5 mg/mg Normal [facility] Comment on above: Performed By: #### B MP #### [facility] [address] [address] [address] Kirsty Garcia UA RANDOM W/MICROSCOPICon BACTERIA NONE SEEN Normal NONE SEEN [facility] Comment on above: Performed By: #### U AMIC #### [facility] [address] [address] [address] Kirsty Garcia Bilirubin Ql (U) Negative Normal NEGATIVE [facility] Comment on above: Performed By: #### U AMIC #### [facility] [address] [address] [address] Kirsty Garcia CAST NONE SEEN Normal NONE SEEN [facility] Comment on above: Performed By: #### U AMIC #### [facility] [address] [address] [address] Kirsty Garcia Clarity (U) CLEAR Normal CLEAR [facility] Comment on above: Performed By: #### U AMIC #### [facility] [address] [address] [address] Kirsty Garcia Color (U) LT. YELLOW Normal YELLOW [facility] Comment on above: Performed By: #### U AMIC #### [facility] [address] [place] [address] Dr. Kirsty Garcia Crystals LM Nom (Urine sed) NONE SEEN Normal NONE SEEN [facility] Comment on above: Performed By: #### U AMIC #### [facility] [address] [place] [address] Dr. Kirsty Garcia Epithelial cells LM Ql (Urine sed) NONE SEEN Normal NONE SEEN /RARE [facility] Comment on above: Performed By: #### U AMIC #### [facility] [address] [place] [address] Dr. Kirsty Garcia Glucose Ql (U) Negative Normal NEGATIVE [facility] Comment on above: Performed By: #### U AMIC #### [facility] [address] [place] [address] Dr. Kirsty Garcia Hemoglobin Ql (U) Negative Normal NEGATIVE [facility] Comment on above: Performed By: #### U AMIC #### [facility] [address] [place] [address] Dr. Kirsty Garcia Ketones Ql (U) Negative Normal NEGATIVE [facility] Comment on above: Performed By: #### U AMIC #### [facility] [address] [place] [address] Dr. Kirsty Garcia LEUKOCYTES Negative Normal NEGATIVE [facility] Comment on above: Performed By: #### U AMIC #### [facility] [address] [place] [address] Dr. Kirsty Garcia MUCOUS NONE SEEN Normal NONE SEEN [facility] Comment on above: Performed By: #### U AMIC #### [facility] [address] [place] [address] Dr. Kirsty Garcia Nitrite Ql (U) Negative Normal NEGATIVE [facility] Comment on above: Performed By: #### U AMIC #### [facility] [address] [place] [address] Dr. Kirsty Garcia pH (U) 6.5 [pH] Normal 5-9 [facility] Comment on above: Performed By: #### U AMIC #### [facility] [address] [address] [address] Kirsty Garcia RBC 0-2 Normal 0-2 [facility] Comment on above: Performed By: #### U AMIC #### [facility] [address] [place] [address] Dr. Kirsty Garcia SPEC GRAVITY 1.010 Normal 1.005-<=1.025 [facility] Comment on above: Performed By: #### U AMIC #### [facility] [address] [place] [address] Dr. Kirsty Garcia UA PROTEIN TRACE Normal NEGATIVE/ TRACE [facility] Comment on above: Performed By: #### U AMIC #### [facility] [address] [place] [address] Dr. Kirsty Garcia Urobilinogen Qn (U) 0.2 {Karlie'U}/dL Normal 0.2 - 1.0 [facility] Comment on above: Performed By: #### U AMIC #### [facility] [address] [place] [address] Dr. Kirsty Garcia WBC NONE SEEN Normal NONE SEEN [facility] Comment on above: Performed By: #### U AMIC #### [facility] [address] [place] [address] Dr. Kirsty Garcia URINE T PROTEIN CREAT RATIOo n 12-18-2022 Protein (U) [Mass/Vol] 28.4 mg/dL Critically high <=12.0 [facility] Comment on above: Performed By: #### U RTPCR #### [facility] [address] [place] [address] Dr. Kirsty Garcia UR PROT CREAT RAT 0.77 Normal [facility] Comment on above: Performed By: #### U RTPCR #### [facility] [address] [place], [place] [address] Dr. Kirsty Garcia URINE CREAT 36.66 mg/dL Normal 20.00-300.00 [facility] Comment on above: Performed By: #### U RTPCR #### [facility] [address] [place], [place] [address] Dr. Kirsty Garcia US KIDNEYS BLADDERon 023 [...] PHYLICIA AYOUB Date: 2022-12-18 09:47 Normal [facility] SARS-CoV-2 (COVID-19) RNA LYNDSAY+probe Ql (Unsp spec) Negative Normal Negative [facility] Comment on above: Order Comment: Healt hcare Worker?: N Result Comment: Testing for SARS-CoV-2 by RT-PCR This test was developed and its performance characteristics determined by [employer]) and validated at the [facility]. This test has not been FDA [...] is terminated or revoked sooner. PERFORMED BY: [place] [id number] PATHOLOGIST ACTING PROFESSOR YULIYA OSORIO M.D. Performed By: #### C OVID 19 [facility] #### [address] COVID-19 Positive/NegativeOr dered By: Reuben Giron on 07-27-2022 SARS-CoV-2 (COVID-19) N gene LYNDSAY+probe Ql (Resp) Negative Negative [facility] Comment on above: Testing for SARS-CoV -2 by RT-PCRThis test was developed and its performance characteristics determined by [employer]) and validated at the [facility]. This test has not been FDA [...] BASO # 0.0 103/ul Normal 0.0-0.1 [facility] Comment on above: Performed By: #### C BC #### [facility] [address] [place] [address] Dr. Kirsty Garcia Basophils/100 WBC (Bld) 0.4 % Normal 0.2-2.0 [facility] Comment on above: Performed By: #### C BC #### [facility] [address] [place] [address] Dr. Kirsty Garcia EO # 0.2 103/ul Normal 0.0-0.7 [facility] Comment on above: Performed By: #### C BC #### [facility] [address] [place] [address] Dr. Kirsty Garcia Eosinophils/100 WBC (Bld) 2.8 % Normal 0.9-7.0 [facility] Comment on above: Performed By: #### C BC #### [facility] [address] [place] [address] Dr. Kirsty Garcia Erythrocyte distribution width (RBC) [Ratio] 12.3 % Normal 11.0-15.0 [facility] Comment on above: Performed By: #### C BC #### [facility] [address] [place] [address] Dr. Kirsty Garcia Hematocrit (Bld) [Volume fraction] 42.5 % Normal 42.0-54.0 [facility] Comment on above: Performed By: #### C BC #### [facility] [address] [place] [address] Dr. Kirsty Garcia Hemoglobin (Bld) [Mass/Vol] 14.1 g/dL Normal 14.0-18.0 [facility] Comment on above: Performed By: #### C BC #### [facility] [address] [place] [address] Dr. Kirsty Garcia IG # 0.02 10e3/ul Normal 0.00-0.03 [facility] Comment on above: Performed By: #### C BC #### [facility] [address] [place] [address] Dr. Kirsty Garcia IG % 0.3 % Normal 0.0-0.5 [facility] Comment on above: Performed By: #### C BC #### [facility] [address] [address] [address] Kirsty Garcia LYMPH # 1.4 103/ul Normal 1.2-3.8 [facility] Comment on above: Performed By: #### C BC #### [facility] [address] [place] [address] Dr. Kirsty Garcia Lymphocytes/100 WBC (Bld) 18.2 % Critically low 20.5-60.0 [facility] Comment on above: Performed By: #### C BC #### [facility] [address] [place] [address] Dr. Kirsty Garcia MANUAL DIFF REQ NO Normal [facility] Comment on above: Performed By: #### C BC #### [facility] [address] [place] [address] Dr. Kirsty Garcia MCH (RBC) [Entitic mass] 32.3 pg Normal 25.9-34.0 [facility] Comment on above: Performed By: #### C BC #### [facility] [address] [place] [address] Dr. Kirsty Garcia MCHC (RBC) [Mass/Vol] 33.2 g/dL Normal 29.9-35.2 [facility] Comment on above: Performed By: #### C BC #### [facility] [address] [place] [address] Dr. Kirsty Garcia MCV (RBC) [Entitic vol] 97.5 fL Critically high 80.0-94.0 [facility] Comment on above: Performed By: #### C BC #### [facility] [address] [place] [address] Dr. Kirsty Garcia MONO # 0.9 103/ul Critically high 0.3-0.8 [facility] Comment on above: Performed By: #### C BC #### [facility] [address] [place] [address] Dr. Kirsty Garcia Monocytes/100 WBC (Bld) 11.6 % Normal 1.7-12.0 [facility] Comment on above: Performed By: #### C BC #### [facility] [address] [place] [address] Dr. Kirsty Garcia NEUT # 5.3 103/ul Normal 1.4-6.5 [facility] Comment on above: Performed By: #### C BC #### [facility] [address] [place] [address] Dr. Kirsty Garcia Neutrophils/100 WBC (Bld) 66.7 % Normal 43.0-75.0 [facility] Comment on above: Performed By: #### C BC #### [facility] [address] [place] [address] Dr. Kirsty Garcia Platelet mean volume (Bld) [Entitic vol] 10.0 fL Normal 9.5-13.5 [facility] Comment on above: Performed By: #### C BC #### [facility] [address] [place] [address] Dr. Kirsty Garcia PLT 189 103/ul Normal 150-450 [facility] Comment on above: Performed By: #### C BC #### [facility] [address] [place] [address] Dr. Kirsty Garcia RBC 4.36 106/ul Critically low 4.70-6.10 [facility] Comment on above: Performed By: #### C BC #### [facility] [address] [place] [address] Dr. Kirsty Garcia WBC 7.9 103/ul Normal 4.0-11.0 [facility] Comment on above: Performed By: #### C BC #### [facility] [address] [place] [address] Dr. Kirsty Garcia PROF CHEM 8 (BAS METB)on Anion gap [Moles/Vol] 11.7 mmol/L Normal [facility] Comment on above: Performed By: #### B MP #### [facility] [address] [place] [address] Dr. Kirsty Garcia Calcium [Mass/Vol] 9.0 mg/dL Normal 8.5-10.1 [facility] Comment on above: Performed By: #### B MP #### [facility] [address] [place] [address] Dr. Kirsty Garcia Chloride [Moles/Vol] 106 mmol/L Normal 98-107 [facility] Comment on above: Performed By: #### B MP #### [facility] [address] [address] [address] Kirsty Garcia CO2 [Moles/Vol] 26.4 mmol/L Normal 21.0-32.0 [facility] Comment on above: Performed By: #### B MP #### [facility] [address] [address] [address] Kirsty Garcia Creatinine [Mass/Vol] 1.42 mg/dL Critically high 0.70-1.30 [facility] Comment on above: Performed By: #### B MP #### [facility] [address] [address] [address] Kirsty Garcia EGFR-AF KAZAKH 59 mL/min/1.73m2 Critically low >=60 [facility] Comment on above: Performed By: #### B MP #### [facility] [address] [address] [address] Kirsty Garcia EGFR-NON AF KAZAKH 49 mL/min/1.73m2 Critically low >=60 [facility] Comment on above: Performed By: #### B MP #### [facility] [address] [address] [address] Kirsty Garcia Glucose [Mass/Vol] 105 mg/dL Normal 74-106 [facility] Comment on above: Performed By: #### B MP #### [facility] [address] [address] [address] Kirsty Garcia Potassium [Moles/Vol] 4.1 mmol/L Normal 3.5-5.1 [facility] Comment on above: Performed By: #### B MP #### [facility] [address] [address] [address] Kirsty Garcia Sodium [Moles/Vol] 140 mmol/L Normal 136-145 [facility] Comment on above: Performed By: #### B MP #### [facility] [address] [address] [address] Kirsty Garcia Urea nitrogen [Mass/Vol] 27.0 mg/dL Critically high 7.0-18.0 [facility] Comment on above: Performed By: #### B MP #### [facility] [address] [place] [address] Dr. Kirsty Garcia Urea nitrogen/Creatinin e [Mass ratio] 19.0 mg/mg Normal [facility] Comment on above: Performed By: #### B MP #### [facility] [address] [place] [address] Dr. Kirsty Garcia CBC AUTO DIFFon 06-19-2022 BASO # 0.0 103/ul Normal 0.0-0.1 [facility] Comment on above: Performed By: #### C BC #### [facility] [address] [place] [address] Dr. Kirsty Garcia Basophils/100 WBC (Bld) 0.7 % Normal 0.2-2.0 [facility] Comment on above: Performed By: #### C BC #### [facility] [address] [place] [address] Dr. Kirsty Garcia EO # 0.2 103/ul Normal 0.0-0.7 [facility] Comment on above: Performed By: #### C BC #### [facility] [address] [place] [address] Dr. Kirsty Garcia Eosinophils/100 WBC (Bld) 3.0 % Normal 0.9-7.0 [facility] Comment on above: Performed By: #### C BC #### [facility] [address] [place] [address] Dr. Kirsty Garcia Erythrocyte distribution width (RBC) [Ratio] 12.4 % Normal 11.0-15.0 [facility] Comment on above: Performed By: #### C BC #### [facility] [address] [place] [address] Dr. Kirsty Garcia Hematocrit (Bld) [Volume fraction] 42.5 % Normal 42.0-54.0 [facility] Comment on above: Performed By: #### C BC #### [facility] [address] [place] [address] Dr. Kirsty Garcia Hemoglobin (Bld) [Mass/Vol] 14.0 g/dL Normal 14.0-18.0 [facility] Comment on above: Performed By: #### C BC #### [facility] [address] [place] [address] Dr. Kirsty Garcia IG # 0.01 10e3/ul Normal 0.00-0.03 [facility] Comment on above: Performed By: #### C BC #### [facility] [address] [place] [address] Dr. Kirsty Garcia IG % 0.2 % Normal 0.0-0.5 [facility] Comment on above: Performed By: #### C BC #### [facility] [address] [place] [address] Dr. Kirsty Garcia LYMPH # 1.1 103/ul Critically low 1.2-3.8 [facility] Comment on above: Performed By: #### C BC #### [facility] [address] [place] [address] Dr. Kirsty Garcia Lymphocytes/100 WBC (Bld) 19.7 % Critically low 20.5-60.0 [facility] Comment on above: Performed By: #### C BC #### [facility] [address] [place] [address] Dr. Kirsty Garcia MANUAL DIFF REQ NO Normal [facility] Comment on above: Performed By: #### C BC #### [facility] [address] [place] [address] Dr. Kirsty Garcia MCH (RBC) [Entitic mass] 32.3 pg Normal 25.9-34.0 [facility] Comment on above: Performed By: #### C BC #### [facility] [address] [place] [address] Dr. Kirsty Garcia MCHC (RBC) [Mass/Vol] 32.9 g/dL Normal 29.9-35.2 [facility] Comment on above: Performed By: #### C BC #### [facility] [address] [place] [address] Dr. Kirsty Garcia MCV (RBC) [Entitic vol] 97.9 fL Critically high 80.0-94.0 [facility] Comment on above: Performed By: #### C BC #### [facility] [address] [place] [address] Dr. Kirsty Garcia MONO # 0.5 103/ul Normal 0.3-0.8 [facility] Comment on above: Performed By: #### C BC #### [facility] [address] [place] [address] Dr. Kirsty Garcia Monocytes/100 WBC (Bld) 9.5 % Normal 1.7-12.0 [facility] Comment on above: Performed By: #### C BC #### [facility] [address] [place] [address] Dr. Kirsty Garcia NEUT # 3.7 103/ul Normal 1.4-6.5 [facility] Comment on above: Performed By: #### C BC #### [facility] [address] [place] [address] Dr. Kirsty Garcia Neutrophils/100 WBC (Bld) 66.9 % Normal 43.0-75.0 [facility] Comment on above: Performed By: #### C BC #### [facility] [address] [place] [address] Dr. Kirsty Garcia Platelet mean volume (Bld) [Entitic vol] 10.0 fL Normal 9.5-13.5 [facility] Comment on above: Performed By: #### C BC #### [facility] [address] [place] [address] Dr. Kirsty Garcia PLT 195 103/ul Normal 150-450 [facility] Comment on above: Performed By: #### C BC #### [facility] [address] [place], [place] [id number] Dr. Kirsty Garcia RBC 4.34 106/ul Critically low 4.70-6.10 [facility] Comment on above: Performed By: #### C BC #### [facility] [address] [place] [address] Dr. Kirsty Garcia WBC 5.6 103/ul Normal 4.0-11.0 [facility] Comment on above: Performed By: #### C BC #### [facility] [address] [address] [address] Kirsty Garcia PROF CHEM 8 (BAS METB)on Anion gap [Moles/Vol] 10.8 mmol/L Normal [facility] Comment on above: Performed By: #### B MP #### [facility] [address] [address] [address] Kirsty Garcia Calcium [Mass/Vol] 8.9 mg/dL Normal 8.5-10.1 [facility] Comment on above: Performed By: #### B MP #### [facility] [address] [address] [address] Kirsty Garcia Chloride [Moles/Vol] 104 mmol/L Normal 98-107 [facility] Comment on above: Performed By: #### B MP #### [facility] [address] [address] [address] Kirsty Garcia CO2 [Moles/Vol] 29.3 mmol/L Normal 21.0-32.0 [facility] Comment on above: Performed By: #### B MP #### [facility] [address] [address] [address] Kirsty Garcia Creatinine [Mass/Vol] 1.42 mg/dL Critically high 0.70-1.30 [facility] Comment on above: Performed By: #### B MP #### [facility] [address] [address] [address] Kirsty Garcia EGFR-AF KAZAKH 59 mL/min/1.73m2 Critically low >=60 [facility] Comment on above: Performed By: #### B MP #### [facility] [address] [address] [address] Kirsty Garcia EGFR-NON AF KAZAKH 49 mL/min/1.73m2 Critically low >=60 [facility] Comment on above: Performed By: #### B MP #### [facility] [address] [address] [address] Kirsty Garcia Glucose [Mass/Vol] 122 mg/dL Critically high 74-106 [facility] Comment on above: Performed By: #### B MP #### [facility] [address] [address] [address] Kirsty Garcia Potassium [Moles/Vol] 4.1 mmol/L Normal 3.5-5.1 [facility] Comment on above: Performed By: #### B MP #### [facility] [address] [address] [address] Kirsty Garcia Sodium [Moles/Vol] 140 mmol/L Normal 136-145 [facility] Comment on above: Performed By: #### B MP #### [facility] [address] [address] [address] Kirsty Garcia Urea nitrogen [Mass/Vol] 23.0 mg/dL Critically high 7.0-18.0 [facility] Comment on above: Performed By: #### B MP #### [facility] [address] [address] [address] Kirsty Garcia Urea nitrogen/Creatinin e [Mass ratio] 16.2 mg/mg Normal [facility] Comment on above: Performed By: #### B MP #### [facility] [address] [address] [address] Kirsty Cordova 04-05-2021 OVS Visit (SP) Office ([facility]) MAGNOLIA BOYKIN ([id number]) 1945 M Date Time Provider Department 04/05/21 [...] Raciel Nuñez (more content not included)... Normal [facility] Comp Metabolic Panelon 04-05 Albumin [Mass/Vol] 4.3 g/dL Normal 3.9-4.9 [facility] ALP [Catalytic activity/Vol] 84 U/L Normal 38-113 [facility] ALT [Catalytic activity/Vol] 23 U/L Normal 10-54 [facility] Anion gap [Moles/Vol] 8 mmol/L Low 9-18 [facility] AST [Catalytic activity/Vol] 23 U/L Normal 14-40 [facility] Bilirubin [Mass/Vol] 0.3 mg/dL Normal 0.2-1.3 [facility] Calcium [Mass/Vol] 9.3 mg/dL Normal 8.5-10.2 [facility] Chloride [Moles/Vol] 102 mmol/L Normal 97-105 [facility] CO2 [Moles/Vol] 25 mmol/L Normal 22-30 [facility] Creatinine [Mass/Vol] 1.27 mg/dL High 0.73-1.22 [facility] eGFR- Amer. >60 Normal [facility] eGFR-All Other Races 56 . Normal [facility] Comment on above: Result Comment: [...] GFR. Glucose [Mass/Vol] 90 mg/dL Normal 74-99 [facility] Comment on above: Result Comment: The [place] [employer] (ADA) provides guidance for cutoff [...] Standards of Medical Care in Diabetes 2016, [place] [employer]. Diabetes Care. 2016.39(Suppl 1). Potassium [Moles/Vol] 4.5 mmol/L Normal 3.7-5.1 [facility] Protein [Mass/Vol] 7.2 g/dL Normal 6.3-8.0 [facility] Sodium [Moles/Vol] 135 mmol/L Low 136-144 [facility] Urea nitrogen [Mass/Vol] 20 mg/dL Normal 9-24 [facility] Remote CBCDIF (for [facility] use o nly)on 04-05-2021 Abs Baso 0.03 k/uL Normal <0.11 [facility] Abs [place] 0.76 k/uL Normal <0.87 [facility] Abs Neut 3.24 k/uL Normal 1.45-7.50 [facility] Absolute nRBC <0.01 Normal <0.01 [facility] Basophils/100 WBC (Bld) 0.6 % Normal [facility] DTYPE Auto Diff Normal [facility] Eosinophils (Bld) [#/Vol] 0.19 10*3/uL Normal <0.46 [facility] Eosinophils/100 WBC (Bld) 3.6 % Normal [facility] Erythrocyte distribution width (RBC) [Ratio] 13.1 % Normal 11.5-15.0 [facility] Hematocrit (Bld) [Volume fraction] 39.7 % Normal 39.0-51.0 [facility] Hemoglobin (Bld) [Mass/Vol] 13.1 g/dL Normal 13.0-17.0 [facility] Lymphocytes (Bld) [#/Vol] 1.05 10*3/uL Normal 1.00-4.00 [facility] Lymphocytes/100 WBC (Bld) 19.9 % Normal [facility] MCH 31.5 pG Normal 26.0-34.0 [facility] MCHC (RBC) [Mass/Vol] 33.0 g/dL Normal 30.5-36.0 [facility] MCV (RBC) [Entitic vol] 95.4 fL Normal 80.0-100.0 [facility] Monocytes/100 WBC (Bld) 14.4 % Normal [facility] Neutrophils/100 WBC (Bld) 61.5 % Normal [facility] NRBCs 0.0 /100 WBC Normal 0 [facility] Platelet mean volume (Bld) [Entitic vol] 10.4 fL Normal 9.0-12.7 [facility] Platelets (Bld) [#/Vol] 199 10*3/uL Normal 150-400 [facility] RBC (Bld) [#/Vol] 4.16 10*6/uL Low 4.20-6.00 [facility] WBC (Bld) [#/Vol] 5.27 10*3/uL Normal 3.70-11.00 [facility] CNPNon 03-29-2021 CNPN Telephone ([place]) MAGNOLIA BOYKIN ([id number]) 1945 M Date Time Provider Department 03/29/21 RACIEL GREER During your visit today, we recorded the following information about you: Allergies As of Date: 03/29/2021 Noted Allergy Reaction IODINE 07/17/2012 8 - GI Upset Date Reviewed: 04/04/2020 Reviewed by: Raciel Fritz) Percy - Fully Assessed Reason for Visit: Lab Orders [0428] 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] Order(s):CBC + DIFF (FOR REMOTE [facility] USE) [SQRCBCDF] Order #: [id number] FUTURE COMP METABOLIC PANEL [SQCMP] Order #: [id number] FUTURE Prescriptions as of 04/07/2021 - lutein-zeaxanthin [...] Status:Closed by ANABELLA GREEN on 04/07/21 Normal [facility] Vital Signs Date Time Vital Sign Value Performing Clinician Facility 05-13-2023 14:30-0400 Body height 182.88 cm [facility] Other [facility] Other 05-13-2023 14:30-0400 Body mass index (BMI) [Ratio] 25.85 kg/m2 [facility] Other [facility] Other 05-13-2023 14:30-0400 Body weight 86.46 kg [facility] Other [facility] Other 05-13-2023 14:30-0400 Diastolic blood pressure 84 mm[Hg] [facility] Other [facility] Other 05-13-2023 14:30-0400 Respiratory rate 12 /min [facility] Other [facility] Other 05-13-2023 14:30-0400 Systolic blood pressure 134 mm[Hg] [facility] Other [facility] Other 12-25-2022 10:00-0400 Body height 182.88 cm [facility] Other [facility] Other 12-25-2022 10:00-0400 Body mass index (BMI) [Ratio] 26.01 kg/m2 [facility] Other [facility] Other 12-25-2022 10:00-0400 Body weight 87 kg [facility] Other [facility] Other 12-25-2022 10:00-0400 Diastolic blood pressure 90 mm[Hg] [facility] Other [facility] Other 12-25-2022 10:00-0400 Respiratory rate 12 /min [facility] Other [facility] Other 12-25-2022 10:00-0400 Systolic blood pressure 164 mm[Hg] [facility] Other [facility] Other 07-31-2022 13:56-0500 Diastolic blood pressure 66 mm[Hg] DO [facility] Work Phone: [facility] 07-31-2022 13:56-0500 Heart rate 54 /min [facility] Work Phone: [facility] 07-31-2022 13:56-0500 Respiratory rate 16 /min [facility] Work Phone: [facility] 07-31-2022 13:56-0500 SaO2% (BldA) [Mass fraction] 99 % DO [facility] Work Phone: [facility] 07-31-2022 13:56-0500 Systolic blood pressure 100 mm[Hg] DO [facility] Work Phone: [facility] 07-31-2022 11:48-0500 Body height 182.88 cm DO [facility] Work Phone: [facility] 07-31-2022 11:48-0500 Body weight 84.82 kg DO [facility] Work Phone: [facility] 04-26-2021 07:54-0400 Diastolic blood pressure 72 [...] Date Encounter Type Care Provider Facility Start: 09-26-2023 End: 09-26-2023 ambulatory Benjamin Almeida Other [facility] Other Start: 09-26-2023 Telephone encounter Benjamin Almeida [facility] Start: 09-18-2023 End: 09-18-2023 ambulatory [facility] Other [facility] Other Start: 09-18-2023 Telephone encounter [facility] Start: 07-26-2023 End: 07-26-2023 ambulatory [facility] Other [facility] Other Start: 07-26-2023 Telephone encounter Juan Pablo [facility] Start: 07-17-2023 End: 07-17-2023 ambulatory Benjamin Almeida Other [facility] Other Start: 07-17-2023 Telephone encounter Juan Pablo [facility] Start: 06-20-2023 End: 06-20-2023 ambulatory Bejnamin Almeida Other [facility] Other Start: 06-20-2023 Telephone encounter Benjamin CONROY [facility] Start: 05-28-2023 End: 05-28-2023 ambulatory Reuben Giron Other [facility] Other Start: 05-28-2023 Telephone encounter Reuben [facility] Start: 05-13-2023 End: 05-13-2023 ambulatory Benjamin Almeida Other [facility] Other Start: 05-13-2023 Office outpatient visit 15 minutes Benjamin Almeida [facility] Start: 12-25-2022 End: 12-25-2022 ambulatory Juan Pablo Other [facility] Other Start: 12-25-2022 Office outpatient visit 15 minutes Benjamin Almeida [facility] Start: 12-18-2022 End: 12-19-[address] BENJAMIN ALMEIDA Facility: Start: 07-31-2022 End: 07-31-2022 ambulatory Benjamin Almeida Facility:[facility] Start: 07-31-2022 End: 07-31-2022 Admission to same day surgery center DO Benjamin Almeida Work Phone: [facility] Start: 07-31-2022 End: 07-31-2022 ambulatory DO Benjamin Almeida Work Phone: [facility] Work Phone: Start: 07-27-2022 End: 07-27-2022 ambulatory Reuben Giron Facility:[facility] Start: 07-27-2022 End: 07-27-2022 ambulatory DO Benjamin Almeida Work Phone: [facility] Work Phone: Start: 07-27-2022 End: 07-27-2022 Patient [...] Start: 06-19-[address] VILLAREAL IN [facility] Comment on above: Performed By: #### P [facility] #### [facility] [address] [place] [address] Dr. Kirsty Garcia Start: 04-26-2021 Esophagogastroduodenoscopy MD Krzysztof Hutchison Work Phone: Plan of Treatment Date Care Activity Detail Author Start: 07-31-2022 [facility] Patient Education [facility] Immunizations Immunization Date Immunization Notes Care Provider Fa amandeep 06-19-2022 COVID-19 Pfizer (bivalent) Benjamin Almeida Other [facility] Other 04-09-2022 zoster vaccine recombinant Benjamin Almeida Other [facility] Other 11-06-2021 zoster vaccine recombinant Benjamin Almeida Other [facility] Other 06-20-2021 COVID-19 Vaccine Pfi zer - Documentation Purposes Only Benjamin Almeida Other [facility] Other 11-15-2020 COVID-19 mRNA,[id number] b2 (Pfizer) MD Krzysztof Hutchison Work Phone: [facility] 10-25-2020 COVID-19 mRNA,[id number] b2 (Pfizer) MD Krzysztof Hutchison Work Phone: [facility] 07-17-2017 influenza virus vaccine, split virus (incl. purified surface antigen) Benjamin Almeida Other [facility] Other 01-14-2017 tetanus toxoid, redu nahun diphtheria toxoid, and acellular pertussis vaccine, adsorbed Benjamin Almeida Other [facility] Other 07-04-2016 influenza virus vaccine, split virus (incl. purified surface antigen) Benjamin Almeida Other [facility] Other 10-28-2015 pneumococcal conjuga te vaccine, 13 valent Benjamin Almeida Other [facility] Other 06-28-2014 tetanus and diphther ia toxoids, adsorbed, preservative free, for adult use (5 Lf of tetanus toxoid and 2 Lf of diphtheria toxoid) Benjamin Almeida Other [facility] Other 08-18-2013 pneumococcal polysaccharide vaccine, 23 valent Juan Pablo Other [facility] Other Payers Date Payer Category Payer Self-pay [id number] 1957 Medicare [id number] 1957 Unknown [id number] 1945 Unknown [id number] 2.16.84 [id number] 1945 Unknown [id number] 2.16.84 [id number] 1945 Unknown [id number] 2.16.84 [id number] Medicare Medicare Nonpatient [id number] Unknown [id number] Unknown [id number] 2.16.8 [id number] Unknown [id number] 2.16.8 [id number] Social History Date Type Detail Facility Start: 04-26-2021 End: 04-26-2021 Tobacco smoking status IAIS Ex-smoker (finding) [facility] Start: 1945 Sex Assigned At Male F [facility] Sex Assigned At Sex Assigned At Bir th [facility] Other Goals Date Patient Goal Desired Activity /State Clinical Notes 04-05-2021 to 09-18-2023 Note Date & Type Note Facility 09-18-2023 Evaluation note Encounter Date Diagnosis Assessment Notes Aug, Anemia (ICD-10 - D64.9) [facility] Other 10-25-2023 Evaluation note* Encounter Date Diagnosis Assessment Notes Treatment Notes Treatment Clinical Notes Jun, Elevated PSA (ICD-10 - R97.20) [facility] Other 09-28-2023 Evaluation note* Encounter Date Diagnosis Assessment Notes Treatment Notes Treatment Clinical Notes May, Chronic prostatitis (ICD-10 - N41.1) [facility] Other 08-21-2023 Evaluation note* Encounter Date Diagnosis Assessment Notes Treatment Notes Treatment Clinical Notes Apr, Abscess of foot (ICD-10 - L02.619) Begin antibiotics and refer to the wound clinic Soak and keep clean Apr, Primary hypertension (ICD-10 - I10) This patient is instructed to consume a healthy, low-fat, low-salt diet. They are also encouraged to continue exercise to achieve/maintain a normal BMI. [facility] Other 04-04-2023 Evaluation note* Encounter Date Diagnosis [...] I12.9) Control BP, hydrate and avoid NSAID [facility] Other 11-08-2022 Procedure [facility]07-14-2021 NoteHNO ID: [id number] Author: Raciel Greer MD Service: ? Author [...] Raciel Greer MD [facility], [facility] On[facility] Date Resolution Status [facility] assessment information available [facility] Work Phone: Evaluation noteNo [facility] Other History and physical note Author Reuben Giron [facility] July 31, 2022 1:13pm Note Date/Time July 31, 2022 1 :13pm [facility] [address] [place] [address] Gastroenterology H&P Signed Patient: Magnolia Boykin MR# : [id number] : 1945 Acct:[id number] Age/Sex: 76 / M Adm Date: 2 Loc: Room: Type: [facility] Attending Dr: Reuben Giron MD Copies to: [...] Giron MD Documented By: Reuben Giron MD 07/31/22 1312 Signed By: <Electronically signed by Reuben Giron MD> 07/31/22 1313 [facility] Work Phone: History general Narrative - Reported* Type Description Date Medical History Hodgkin lymphoma, unspecified, u nspecified site Medical History hypertension Medical History diverticulosis Medical History neuropathy Medical History Hiatal hernia Medical History anemia Medical History Arthritis Surgical History hernia repair Surgical History wisdom teeth Surgical History colonoscopy 2019 Surgical History EGD Hospitalization History see surgical hx [facility] Other Hospital Discharge instructions Additional Instructions DISCHARGE [...] if you have any problems. -Office number [phone] Additional Instructions DISCHARGE INSTRUCTIONS FOR [...] Follow up with PCP. - Office number [phone].[facility] Work Phone: Reason for referral (narrative)* Reason Referral for infecte d callus left foot Diagnosis 1 Abscess of foot (L02 .619) Referral Organization [facility] Juan Pablo gould Referring Provider First Name Referring Provider Last Name Juan Pablo Referring Provider Specialty Internal Me dicine Referred Organization [facility] Referred Address [address] [place], [place],[address] Referred Provider Specialty Wound Care Referral Priority [...] can more easily be done at the [employer]'s office [facility] Other Chief Complaint and Reason for Visit [...] sectionNo InformationNo InformationNo InformationNo InformationNo InformationNo InformationNo InformationNo Information (unrecognized sect ion and content) No Status Records FoundNo Status Records FoundNo Status Records Found INFORMATION SOURCE (unrecogn ized section and content) DATE CREATED AUTHOR 11/09/2021 [facility] DATE CREATED AUTHOR AUTHOR'S ORGANIZ ATION 08/06/2022 [facility] DATE CREATED AUTHOR AUTHOR'S ORGANIZ ATION 12/26/2022 [facility] Care Teams (unrecognized sec tion and content) Team Status: Inactive Member Role Status Dates Benjamin Almeida DO Primary Care Provider Active Reuben Giron MD Attending Provider Active Team Status: Active Member Role Status Dates Benjamin Almeida DO Primary Care Provider Active REASON FOR VISIT (unrecogniz ed section and content) 6 month/testing resultsBotto m of [facility] refillLab Resultsrepeat lab workPSA resultsRepeat labsLab results FOR RECORDS PERTAINING TO PATIENTS WHO ARE [...] BE BASED ON THE PRIMARY CLINICAL RECORDS. [facility]. provides no warranty or guarantee of the accuracy or completeness of information in this document.
== END 2023-11-25 13:22 | disposition home or self-care (01) ==
LOC: WC 13:21
PROVIDERS: PCP Internal Medicine; Visit Provider Physician Assistant
DX: L84 Corns and callosities (principal); I73.89 Other specified peripheral vascular diseases
CPT/HCPCS: 11055

== ENCOUNTER 2024-01-20 16:28 | Outpatient (OUT) | payer MEDICARE, SELFPAY | END 2024-01-20 16:29 | disposition home or self-care (01) | LOC: WC 16:28 | PROVIDERS: PCP Internal Medicine; Visit Provider Physician Assistant | DX: G90.09 Other idiopathic peripheral autonomic neuropathy (principal); L84 Corns and callosities; I73.89 Other specified peripheral vascular diseases; L60.3 Nail dystrophy | CPT/HCPCS: 11055; 11720 ==

== ENCOUNTER 2024-03-23 15:58 | Outpatient (OUT) | payer MEDICARE, SELFPAY ==
--- OUTSIDE RECORDS SUMMARY | 2024-03-23 16:24 | XMS_ITS | CCD ---
Author Organization [facility] Care Team Providers Care Cmo & President Name Role Phone MD Krzysztof Hutchison Attending Provider DO Benjamin Almeida Primary Care Provider DO Benjamin Almeida Primary Care Provider [phone] MD Reuben Giron Attending Provider [phone] Benjamin Almeida Primary Care Unavailable Reuben Giron Attending Unavailable Reuben Giron Admitting Unavailable Reuben Giron Attending Unavailable Reuben Giron Admitting Unavailable Benjamin Almeida Primary Care Unavailable Juan Pablo, Unavailable JUAN PABLO, DR KELLER Primary Care Unavailable KRYSTLE KERR Admitting Unavailable CIRILO, KRYSTLE Attending Unavailable KRYSTLE KERR Consulting Unavailable JUAN PABLO, DR KELLER Primary Care Unavailable JUAN PABLO, DR KELLER Admitting Unavailable BALL, DR KELLER Attending Unavailable BALL, DR KELLER Consulting Unavailable MEGA, DR PHYLICIA Ramirez Consulting Unavailable JUAN PABLO, DR KELLER Primary Care Unavailable JUAN PABLO, DR KELLER Admitting Unavailable JUAN PABLO, DR KELLER Referring Unavailable BALL, DR KELLER Attending Unavailable JUAN PABLO, DR KELLER Consulting Unavailable Reuben Giron Unavailable BENJAMIN ALMEIDA Referring Unavailable Richie ASHLEY Attending Unavailable Allergies Allergy Classification Reported Allergen(s) Allergy Type Date of Onset Reaction(s) Facility (8 sources) Iodine; Translations: [iodine] Drug Allergy 3 Hives, Unknown [facility] (3 sources) Iodine / Sodium Iodide Drug Allergy Unknown [employer] Other Medications Current Medications Medication Drug Class(es) Dates Sig (Normalized) Sig (Original) benazepril hydrochloride 20 mg oral tablet (12 sources) Angiotensin Converting Enzyme Inhibitor Start: 04-26-2021 take 20 mg by mouth once daily Benazepril Active 20 MG PO Daily April 26, 2021 12:00am levoFLOXacin 250 mg oral tablet (5 sources) Quinolone Antimicrobial Start: 06-20-2023 levoFLOXacin 250 MG 2 tablets on first day followed by 1 daily Orally Once a day for 21 days May, Active Multivitamin preparation (4 sources) Start: 04-26-2021 take 1 tablet by mouth once daily Multivitamin Active 1 TAB PO Daily April 26, 2021 6:11am Start: 04-26-2021 End: 12-18-2023 take 1 tablet by mouth once daily Multivitamin Discontinued 1 TAB PO Daily April 26, 2021 12:00am December 18, 2023 2:57pm Start: 04-26-2021 take 1 tablet by kathleen th once daily Multivitamin Active 1 TAB PO Daily April 25, 2021 11:00pm omeprazole 40 mg delayed release oral capsule (8 sources) Proton Pump Inhibitor Start: 07-31-2022 take 1 capsule by mouth once daily Omeprazole 40 MG 1 capsule 30 minutes before morning meal Orally Once a day May, Active predniSONE 5 mg oral tablet (8 sources) Start: 10-29-2022 take 1 tablet by mouth once daily Completed/Discontinued Medications Medication Drug Class(es) Dates Sig (Normalized) Sig (Original) amoxicillin 875 mg / clavulanate 125 mg oral tablet (7 sources) Penicillin-class Antibacterial Start: 05-13-2023 take 1 tablet by mouth every twelve hours Amoxicillin-Pot Clavulanate 875-125 MG 1 tablet Orally every 12 hrs for 10 days Apr, Not-Taking/PRN famotidine 20 mg oral tablet (12 sources) Histamine-2 Receptor Antagonist Start: 04-26-2021 End: 07-31-2022 take 20 mg by mouth once daily Famotidine Discontinued 20 MG PO Daily April 26, 2021 12:00am July 31, 2022 2:23pm Lutein (8 sources) Lutein Not-Taking/PRN Lutein Not-Takin g lutein 25 mg / zeaxanthin 5 mg oral capsule (4 sources) Start: 04-26-2021 End: 12-18-2023 take 1 capsule by mouth once daily Lutein-Zeaxanthin Discontinued 1 CAP PO Daily April 26, 2021 12:00am December 18, 2023 2:57pm methylPREDNISolone (8 sources) Corticosteroid Start: 03-31-2016 Depo-Medrol 40 mg 09 Malcolm, 2016 40 mg Senior Multivitamin Plus (8 sources) Senior Multivita min Plus Not-Taking/PRN Senior Multivita min Plus Not-Taking Problems Active Problems Problem Classification Problem Date Documented Da te Episodic/Chronic Chronic kidney disease (11 sources) Chronic kidney disease stage 3A ; Translations: [Stage 3a chronic kidney disease] 12-18-2023 Chronic Deficiency and other anemia (1 source) Anemia, unspecified Episodic Deficiency and other anemia (1 source) Anemia; Translations: [Anemia, unspecified] 12-19-2023 Episodic Esophageal disorders (11 sources) Gastro-esophageal reflux disease with esophagitis; Translations: [Gastroesophageal reflux disease with esophagitis without hemorrhage] 12-18-2023 Chronic Essential hypertension (17 sources) Essential hypertension; Translations: [Essential (primary) hypertension] Onset: 06-19-2022 Chronic Genitourinary symptoms and ill-defined conditions (1 source) Poor stream of urine; Translations: [Poor urinary stream] 12-18-2023 Episodic Hodgkin`s disease (8 sources) Hodgkin's disease, nodular sclerosis of intra-abdominal lymph nodes; Translations: [Nodular sclerosis Hodgkin lymphoma, intra-abdominal lymph nodes] Chronic Hyperplasia of prostate (9 sources) Nocturia due to benign prostatic hypertrophy; Translations: [Benign prostatic hyperplasia with lower urinary tract symptoms] 12-18-2023 Chronic Hypertension with complications and secondary hypertension (13 sources) Chronic kidney disease due to hypertension; Translations: [Hypertensive chronic kidney disease with stage 1 through stage 4 chronic kidney disease, or unspecified chronic kidney disease] Onset: 12-18-2022 Chronic Inflammatory conditions of male genital organs (6 sources) Chronic prostatitis; Translations: [Chronic prostatitis] Chronic Neoplasms of unspecified nature or uncertain behavior (1 source) Neoplasm of uncertain behavior of skin; Translations: [Neoplasm of uncertain behavior of skin] 12-18-2023 Episodic Other gastrointestinal disorders (12 sources) Dysphagia; Translations: [Dysphagia, unspecified] 04-26-2021 Episodic Other gastrointestinal disorders (2 sources) Dysphagia, unspecified; Translations: [Dysphagia, unspecified] Onset: 07-31-2022 Episodic Other screening for suspected conditions (not mental disorders or infectious disease) (3 sources) Encounter for screening for malignant neoplasm of prostate; Translations: [Elevated prostate specific antigen [PSA]] Onset: 06-21-2022 Episodic Rheumatoid arthritis and related disease (8 sources) Inflammatory polyarthropathy; Translations: [Inflammatory polyarthropathy] Chronic Skin and subcutaneous tissue infections (8 sources) Abscess of foot; Translations: [Cutaneous abscess of unspecified foot] Episodic Spondylosis; intervertebral disc disorders; other back problems (11 sources) Lumbar spondylosis; Translations: [Spondylosis without myelopathy or radiculopathy, lumbar region] 12-18-2023 Chronic Unclassified (1 source) Encounter for preprocedural laboratory examination; Translations: [Encounter for preprocedural laboratory examination] Onset: 07-27-2022 Past or Other Problems Problem Classification Problem Date Documented Da te Episodic/Chronic Chronic kidney disease (1 source) Chronic kidney disease Other aftercare (1 source) Other residential (current) drug therapy; Translations: [OTH LONG-TERM CURRENT DRUG THERAPY] Onset: 07-17-2022 Episodic Other injuries and conditions due to external causes (4 sources) Food in esophagus causing other injury, initial encounter; Translations: [FOOD ESOPH CAUS OTH INJURY INIT ENC] Onset: 07-14-2022 Episodic Results Test Name Value Interpretation Reference Range Facility PROF CHEM 8 (BAS METB)on Anion gap [Moles/Vol] 14.7 mmol/L Normal [facility] Comment on above: Performed By: #### B MP #### [facility] [address] [place] [address] Dr. Kirsty Garcia Calcium [Mass/Vol] 9.0 mg/dL Normal 8.5-10.1 [facility] Comment on above: Performed By: #### B MP #### [facility] [address] [address] [address] Kirsty Garcia Chloride [Moles/Vol] 105 mmol/L Normal 98-107 [facility] Comment on above: Performed By: #### B MP #### [facility] [address] [address] [address] Kirsty Garcia CO2 [Moles/Vol] 27.7 mmol/L Normal 21.0-32.0 [facility] Comment on above: Performed By: #### B MP #### [facility] [address] [address] [address] Kirsty Garcia Creatinine [Mass/Vol] 1.20 mg/dL Normal 0.70-1.30 [facility] Comment on above: Performed By: #### B MP #### [facility] [address] [address] [address] Kirsty Garcia EGFR-AF MOZAMBICAN >60 Normal >=60 [facility] Comment on above: Performed By: #### B MP #### [facility] [address] [address] [address] Kirsty Garcia EGFR-NON AF MOZAMBICAN 59 mL/min/1.73m2 Critically low >=60 [facility] Comment on above: Performed By: #### B MP #### [facility] [address] [address] [address] Kirsty Garcia Glucose [Mass/Vol] 101 mg/dL Normal 74-106 [facility] Comment on above: Performed By: #### B MP #### [facility] [address] [place] [address] Dr. Kirsty Garcia Potassium [Moles/Vol] 4.4 mmol/L Normal 3.5-5.1 [facility] Comment on above: Performed By: #### B MP #### [facility] [address] [place] [address] Dr. Kirsty Garcia Sodium [Moles/Vol] 143 mmol/L Normal 136-145 [facility] Comment on above: Performed By: #### B MP #### [facility] [address] [address] [address] Kirsty Garcia Urea nitrogen [Mass/Vol] 21.0 mg/dL Critically high 7.0-18.0 [facility] Comment on above: Performed By: #### B MP #### [facility] [address] [place] [address] Dr. Kirsty Garcia Urea nitrogen/Creatinin e [Mass ratio] 17.5 mg/mg Normal [facility] Comment on above: Performed By: #### B MP #### [facility] [address] [place] [address] Dr. Kirsty Garcia UA RANDOM W/MICROSCOPICon BACTERIA NONE SEEN Normal NONE SEEN [facility] Comment on above: Performed By: #### U AMIC #### [facility] [address] [address] [address] Kirsty Garcia Bilirubin Ql (U) Negative Normal NEGATIVE [facility] Comment on above: Performed By: #### U AMIC #### [facility] [address] [address] [address] Kirsty Garcia CAST NONE SEEN Normal NONE SEEN [facility] Comment on above: Performed By: #### U AMIC #### [facility] [address] [address] [address] Kirsty Garcia Clarity (U) CLEAR Normal CLEAR [facility] Comment on above: Performed By: #### U AMIC #### [facility] [address] [place] [address] Dr. Kirsty Garcia Color (U) LT. YELLOW Normal YELLOW [facility] Comment on above: Performed By: #### U AMIC #### [facility] [address] [place] [address] Dr. Kirsty Garcia Crystals LM Nom (Urine sed) NONE SEEN Normal NONE SEEN [facility] Comment on above: Performed By: #### U AMIC #### [facility] [address] [address] [address] Kirsty Garcia Epithelial cells LM Ql (Urine sed) NONE SEEN Normal NONE SEEN /RARE [facility] Comment on above: Performed By: #### U AMIC #### [facility] [address] [address] [address] Kirsty Garcia Glucose Ql (U) Negative Normal NEGATIVE [facility] Comment on above: Performed By: #### U AMIC #### [facility] [address] [address] [address] Kirsty Garcia Hemoglobin Ql (U) Negative Normal NEGATIVE [facility] Comment on above: Performed By: #### U AMIC #### [facility] [address] [place] [address] Dr. Kirsty Garcia Ketones Ql (U) Negative Normal NEGATIVE [facility] Comment on above: Performed By: #### U AMIC #### [facility] [address] [address] [address] Kirsty Garcia LEUKOCYTES Negative Normal NEGATIVE [facility] Comment on above: Performed By: #### U AMIC #### [facility] [address] [address] [address] Kirsty Garcia MUCOUS NONE SEEN Normal NONE SEEN [facility] Comment on above: Performed By: #### U AMIC #### [facility] [address] [address] [address] Kirsty Garcia Nitrite Ql (U) Negative Normal NEGATIVE [facility] Comment on above: Performed By: #### U AMIC #### [facility] [address] [place] [address] Dr. Kirsty Garcia pH (U) 6.5 [pH] Normal 5-9 [facility] Comment on above: Performed By: #### U AMIC #### [facility] [address] [place] [address] Dr. Kirsty Garcia RBC 0-2 Normal 0-2 [facility] Comment on above: Performed By: #### U AMIC #### [facility] [address] [address] [address] Kirsty Garcia SPEC GRAVITY 1.010 Normal 1.005-<=1.025 [facility] Comment on above: Performed By: #### U AMIC #### [facility] [address] [place] [address] Dr. Kirsty Garcia UA PROTEIN TRACE Normal NEGATIVE/ TRACE [facility] Comment on above: Performed By: #### U AMIC #### [facility] [address] [place] [address] Dr. Kirsty Garcia Urobilinogen Qn (U) 0.2 {Karlie'U}/dL Normal 0.2 - 1.0 [facility] Comment on above: Performed By: #### U AMIC #### [facility] [address] [place] [address] Dr. Kirsty Garcia WBC NONE SEEN Normal NONE SEEN [facility] Comment on above: Performed By: #### U AMIC #### [facility] [address] [place], [place] [address] Dr. Kirsty Garcia URINE T PROTEIN CREAT RATIOo n 12-18-2022 Protein (U) [Mass/Vol] 28.4 mg/dL Critically high <=12.0 [facility] Comment on above: Performed By: #### U RTPCR #### [facility] [address] [address] [address] Kirsty Garcia UR PROT CREAT RAT 0.77 Normal [facility] Comment on above: Performed By: #### U RTPCR #### [facility] [address] [address] [address] Kirsty Garcia URINE CREAT 36.66 mg/dL Normal 20.00-300.00 [facility] Comment on above: Performed By: #### U RTPCR #### [facility] [address] [address] [address] Kirsty Garcia US KIDNEYS BLADDERon 023 US KIDNEYS BLADDER EXAMINATION: US [facility] BLADDER HISTORY: Chronic kidney disease due to [...] PHYLICIA AYOUB Date: 2022-12-18 09:47 Normal [facility] COVID-19 FRMCon 07-27-2022 SARS-CoV-2 (COVID-19) RNA LYNDSAY+probe Ql (Unsp spec) Negative Normal Negative [facility] Comment on above: Order Comment: Healt hcare Worker?: N Result Comment: Testing for SARS-CoV-2 by RT-PCR This test was developed and its performance characteristics determined by [employer] ([place]) and validated at the [facility]. This test has not been FDA [...] is terminated or revoked sooner. PERFORMED BY: [place] [address] PATHOLOGIST JACQUARD CARD LACER YULIYA OSORIO M.D. Performed By: #### C OVID 19 [facility] [place] #### [address] COVID-19 Positive/NegativeOr dered By: Reuben Giron on 07-27-2022 SARS-CoV-2 (COVID-19) N gene LYNDSAY+probe Ql (Resp) Negative Negative [facility] Comment on above: Testing for SARS-CoV -2 by RT-PCRThis test was developed and its performance characteristics determined by [employer] ([place]) and validated at the [facility]. This test has not been FDA [...] 07-14-2022 BASO # 0.0 103/ul Normal 0.0-0.1 [facility] Comment on above: Performed By: #### C BC #### [facility] [address] [place] [address] Dr. Kirsty Garcia Basophils/100 WBC (Bld) 0.4 % Normal 0.2-2.0 [facility] Comment on above: Performed By: #### C BC #### [facility] [address] [place] [address] Dr. Kirsty Garcia EO # 0.2 103/ul Normal 0.0-0.7 [facility] Comment on above: Performed By: #### C BC #### [facility] [address] [place] [address] Dr. Kirsty Garcia Eosinophils/100 WBC (Bld) 2.8 % Normal 0.9-7.0 [facility] Comment on above: Performed By: #### C BC #### [facility] [address] [place] [address] Dr. Kirsty Garcia Erythrocyte distribution width (RBC) [Ratio] 12.3 % Normal 11.0-15.0 [facility] Comment on above: Performed By: #### C BC #### [facility] [address] [place] [address] Dr. Kirsty Garcia Hematocrit (Bld) [Volume fraction] 42.5 % Normal 42.0-54.0 [facility] Comment on above: Performed By: #### C BC #### [facility] [address] [place] [address] Dr. Kirsty Garcia Hemoglobin (Bld) [Mass/Vol] 14.1 g/dL Normal 14.0-18.0 [facility] Comment on above: Performed By: #### C BC #### [facility] [address] [place] [address] Dr. Kirsty Garcia IG # 0.02 10e3/ul Normal 0.00-0.03 [facility] Comment on above: Performed By: #### C BC #### [facility] [address] [place] [address] Dr. Kirsty Garcia IG % 0.3 % Normal 0.0-0.5 [facility] Comment on above: Performed By: #### C BC #### [facility] [address] [place] [address] Dr. Kirsty Garcia LYMPH # 1.4 103/ul Normal 1.2-3.8 [facility] Comment on above: Performed By: #### C BC #### [facility] [address] [place] [address] Dr. Kirsty Garcia Lymphocytes/100 WBC (Bld) 18.2 % Critically low 20.5-60.0 [facility] Comment on above: Performed By: #### C BC #### [facility] [address] [place] [address] Dr. Kirsty Garcia MANUAL DIFF REQ NO Normal [facility] Comment on above: Performed By: #### C BC #### [facility] [address] [place] [address] Dr. Kirsty Garcia MCH (RBC) [Entitic mass] 32.3 pg Normal 25.9-34.0 [facility] Comment on above: Performed By: #### C BC #### [facility] [address] [place] [address] Dr. Kirsty Garcia MCHC (RBC) [Mass/Vol] 33.2 g/dL Normal 29.9-35.2 [facility] Comment on above: Performed By: #### C BC #### [facility] [address] [place] [address] Dr. Kirsty Garcia MCV (RBC) [Entitic vol] 97.5 fL Critically high 80.0-94.0 [facility] Comment on above: Performed By: #### C BC #### [facility] [address] [place] [address] Dr. Kirsty Garcia MONO # 0.9 103/ul Critically high 0.3-0.[address] [facility] Comment on above: Performed By: #### C BC #### [facility] [address] [place] [address] Dr. Kirsty Garcia Monocytes/100 WBC (Bld) 11.6 % Normal 1.7-12.0 [facility] Comment on above: Performed By: #### C BC #### [facility] [address] [place] [address] Dr. Kirsty Garcia NEUT # 5.3 103/ul Normal 1.4-6.5 [facility] Comment on above: Performed By: #### C BC #### [facility] [address] [place] [address] Dr. Kirsty Garcia Neutrophils/100 WBC (Bld) 66.7 % Normal 43.0-75.0 [facility] Comment on above: Performed By: #### C BC #### [facility] [address] [place] [address] Dr. Kirsty Garcia Platelet mean volume (Bld) [Entitic vol] 10.0 fL Normal 9.5-13.5 [facility] Comment on above: Performed By: #### C BC #### [facility] [address] [place] [address] Dr. Kirsty Garcia PLT 189 103/ul Normal 150-450 [facility] Comment on above: Performed By: #### C BC #### [facility] [address] [place] [address] Dr. Kirsty Garcia RBC 4.36 106/ul Critically low 4.70-6.[address] [facility] Comment on above: Performed By: #### C BC #### [facility] [address] [place] [address] Dr. Kirsty Garcia WBC 7.9 103/ul Normal 4.0-11.0 [facility] Comment on above: Performed By: #### C BC #### [facility] [address] [place] [address] Dr. Kirsty Garcia PROF CHEM 8 (BAS METB)on Anion gap [Moles/Vol] 11.7 mmol/L Normal [facility] Comment on above: Performed By: #### B MP #### [facility] [address] [address] [address] Kirsty Garcia Calcium [Mass/Vol] 9.0 mg/dL Normal 8.5-10.1 [facility] Comment on above: Performed By: #### B MP #### [facility] [address] [address] [address] Kirsty Garcia Chloride [Moles/Vol] 106 mmol/L Normal 98-107 [facility] Comment on above: Performed By: #### B MP #### [facility] [address] [address] [address] Kirsty Garcia CO2 [Moles/Vol] 26.4 mmol/L Normal 21.0-32.0 [facility] Comment on above: Performed By: #### B MP #### [facility] [address] [address] [address] Kirsty Garcia Creatinine [Mass/Vol] 1.42 mg/dL Critically high 0.70-1.30 [facility] Comment on above: Performed By: #### B MP #### [facility] [address] [place] [address] Dr. Kirsty Garcia EGFR-AF MOZAMBICAN 59 mL/min/1.73m2 Critically low >=60 [facility] Comment on above: Performed By: #### B MP #### [facility] [address] [address] [address] Kirsty Garcia EGFR-NON AF MOZAMBICAN 49 mL/min/1.73m2 Critically low >=60 [facility] Comment on above: Performed By: #### B MP #### [facility] [address] [address] [address] Kirsty Garcia Glucose [Mass/Vol] 105 mg/dL Normal 74-106 [facility] Comment on above: Performed By: #### B MP #### [facility] [address] [address] [address] Kirsty Garcia Potassium [Moles/Vol] 4.1 mmol/L Normal 3.5-5.1 [facility] Comment on above: Performed By: #### B MP #### [facility] [address] [place] [address] Dr. Kirsty Garcia Sodium [Moles/Vol] 140 mmol/L Normal 136-145 [facility] Comment on above: Performed By: #### B MP #### [facility] [address] [place] [address] Dr. Kirsty Garcia Urea nitrogen [Mass/Vol] 27.0 mg/dL Critically high 7.0-18.0 [facility] Comment on above: Performed By: #### B MP #### [facility] [address] [place] [address] Dr. Kirsty Garcia Urea nitrogen/Creatinin e [Mass ratio] 19.0 mg/mg Normal [facility] Comment on above: Performed By: #### B MP #### [facility] [address] [place] [address] Dr. Kirsty Garcia CBC AUTO DIFFon 06-19-2022 BASO # 0.0 103/ul Normal 0.0-0.1 [facility] Comment on above: Performed By: #### C BC #### [facility] [address] [place] [address] Dr. Kirsty Garcia Basophils/100 WBC (Bld) 0.7 % Normal 0.2-2.0 [facility] Comment on above: Performed By: #### C BC #### [facility] [address] [place] [address] Dr. Kirsty Garcia EO # 0.2 103/ul Normal 0.0-0.7 [facility] Comment on above: Performed By: #### C BC #### [facility] [address] [place] [address] Dr. Kirsty Garcia Eosinophils/100 WBC (Bld) 3.0 % Normal 0.9-7.0 [facility] [facility] Comment on above: Performed By: #### C BC #### [facility] [address] [place] [address] Dr. Kirsty Garcia Erythrocyte distribution width (RBC) [Ratio] 12.4 % Normal 11.0-15.0 [facility] Comment on above: Performed By: #### C BC #### [facility] [address] [place] [address] Dr. Kirsty Garcia Hematocrit (Bld) [Volume fraction] 42.5 % Normal 42.0-54.0 [facility] Comment on above: Performed By: #### C BC #### [facility] [address] [place] [address] Dr. Kirsty Garcia Hemoglobin (Bld) [Mass/Vol] 14.0 g/dL Normal 14.0-18.0 [facility] Comment on above: Performed By: #### C BC #### [facility] [address] [place] [address] Dr. Kirsty Garcia IG # 0.01 10e3/ul Normal 0.00-0.03 [facility] Comment on above: Performed By: #### C BC #### [facility] [address] [place] [address] Dr. Kirsty Garcia IG % 0.2 % Normal 0.0-0.5 [facility] Comment on above: Performed By: #### C BC #### [facility] [address] [place] [address] Dr. Kirsty Garcia LYMPH # 1.1 103/ul Critically low 1.2-3.8 [facility] Comment on above: Performed By: #### C BC #### [facility] [address] [place] [address] Dr. Kirsty Garcia Lymphocytes/100 WBC (Bld) 19.7 % Critically low 20.5-60.0 [facility] Comment on above: Performed By: #### C BC #### [facility] [address] [place] [address] Dr. Kirsty Garcia MANUAL DIFF REQ NO Normal [facility] Comment on above: Performed By: #### C BC #### [facility] [address] [place] [address] Dr. Kirsty Garcia MCH (RBC) [Entitic mass] 32.3 pg Normal 25.9-34.0 [facility] Comment on above: Performed By: #### C BC #### [facility] [address] [place] [address] Dr. Kirsty Garcia MCHC (RBC) [Mass/Vol] 32.9 g/dL Normal 29.9-35.2 [facility] Comment on above: Performed By: #### C BC #### [facility] [address] [place] [address] Dr. Kirsty Garcia MCV (RBC) [Entitic vol] 97.9 fL Critically high 80.0-94.0 [facility] Comment on above: Performed By: #### C BC #### [facility] [address] [place] [address] Dr. Kirsty Garcia MONO # 0.5 103/ul Normal 0.3-0.8 [facility] Comment on above: Performed By: #### C BC #### [facility] [address] [place] [address] Dr. Kirsty Garcia Monocytes/100 WBC (Bld) 9.5 % Normal 1.7-12.0 [facility] Comment on above: Performed By: #### C BC #### [facility] [address] [place] [address] Dr. Kirsty Garcia NEUT # 3.7 103/ul Normal 1.4-6.5 [facility] Comment on above: Performed By: #### C BC #### [facility] [address] [place] [address] Dr. Kirsty Garcia Neutrophils/100 WBC (Bld) 66.9 % Normal 43.0-75.0 [facility] Comment on above: Performed By: #### C BC #### [facility] [address] [place] [address] Dr. Kirsty Garcia Platelet mean volume (Bld) [Entitic vol] 10.0 fL Normal 9.5-13.5 [facility] Comment on above: Performed By: #### C BC #### [facility] [address] [place] [address] Dr. Kirsty Garcia PLT 195 103/ul Normal 150-450 [facility] Comment on above: Performed By: #### C BC #### [facility] [address] [address] [address] Kirsty Garcia RBC 4.34 106/ul Critically low 4.70-6.[address] [facility] Comment on above: Performed By: #### C BC #### [facility] [address] [address] [address] Kirsty Garcia WBC 5.6 103/ul Normal 4.0-11.0 [facility] Comment on above: Performed By: #### C BC #### [facility] [address] [address] [address] Kirsty Garcia PROF CHEM 8 (BAS METB)on Anion gap [Moles/Vol] 10.8 mmol/L Normal [facility] Comment on above: Performed By: #### B MP #### [facility] [address] [place] [address] Dr. Kirsty Garcia Calcium [Mass/Vol] 8.9 mg/dL Normal 8.5-10.1 [facility] Comment on above: Performed By: #### B MP #### [facility] [address] [place] [address] Dr. Kirsty Garcia Chloride [Moles/Vol] 104 mmol/L Normal 98-107 [facility] Comment on above: Performed By: #### B MP #### [facility] [address] [address] [address] Kirsty Garcia CO2 [Moles/Vol] 29.3 mmol/L Normal 21.0-32.0 [facility] Comment on above: Performed By: #### B MP #### [facility] [address] [place] [address] Dr. Kirsty Garcia Creatinine [Mass/Vol] 1.42 mg/dL Critically high 0.70-1.30 [facility] Comment on above: Performed By: #### B MP #### [facility] [address] [place] [address] Dr. Kirsty Garcia EGFR-AF MOZAMBICAN 59 mL/min/1.73m2 Critically low >=60 [facility] Comment on above: Performed By: #### B MP #### [facility] [address] [address] [address] Kirsty Garcia EGFR-NON AF MOZAMBICAN 49 mL/min/1.73m2 Critically low >=60 [facility] Comment on above: Performed By: #### B MP #### [facility] [address] [address] [address] Kirsty Garcia Glucose [Mass/Vol] 122 mg/dL Critically high 74-106 [facility] Comment on above: Performed By: #### B MP #### [facility] [address] [address] [address] Kirsty Garcia Potassium [Moles/Vol] 4.1 mmol/L Normal 3.5-5.1 [facility] Comment on above: Performed By: #### B MP #### [facility] [address] [address] [address] Kirsty Garcia Sodium [Moles/Vol] 140 mmol/L Normal 136-145 [facility] Comment on above: Performed By: #### B MP #### [facility] [address] [address] [address] Kirsty Garcia Urea nitrogen [Mass/Vol] 23.0 mg/dL Critically high 7.0-18.0 [facility] Comment on above: Performed By: #### B MP #### [facility] [address] [address] [address] Kirsty Garcia Urea nitrogen/Creatinin e [Mass ratio] 16.2 mg/mg Normal [facility] Comment on above: Performed By: #### B MP #### [facility] [address] [place] [address] Dr. Kirsty Cordova 04-05-2021 TAWANNA Visit (SP) Office (HEMASA) MAGNOLIA BOYKIN ([id number]) 1945 M Date Time Provider Department 04/05/21 [...] Raciel Nuñez (more content not included)... Normal [facility] Comp Metabolic Panelon 04-05 Albumin [Mass/Vol] 4.3 g/dL Normal 3.9-4.9 [facility] ALP [Catalytic activity/Vol] 84 U/L Normal 38-113 [facility] ALT [Catalytic activity/Vol] 23 U/L Normal 10-54 [facility] Anion gap [Moles/Vol] 8 mmol/L Low 9-18 [facility] AST [Catalytic activity/Vol] 23 U/L Normal 14-40 [facility] Bilirubin [Mass/Vol] 0.3 mg/dL Normal 0.2-1.3 [facility] Calcium [Mass/Vol] 9.3 mg/dL Normal 8.5-10.2 [facility] Chloride [Moles/Vol] 102 mmol/L Normal 97-105 [facility] CO2 [Moles/Vol] 25 mmol/L Normal 22-30 [facility] Creatinine [Mass/Vol] 1.27 mg/dL High 0.73-1.22 [facility] eGFR- Amer. >60 Normal [facility] eGFR-All Other Races 56 . Normal [facility] Comment on above: Result Comment: [...] GFR. Glucose [Mass/Vol] 90 mg/dL Normal 74-99 [facility] Comment on above: Result Comment: The [place] [employer] (ADA) provides guidance for cutoff [...] Standards of Medical Care in Diabetes 2016, [place] [employer]. Diabetes Care. 2016.39(Suppl 1). Potassium [Moles/Vol] 4.5 mmol/L Normal 3.7-5.1 [facility] Protein [Mass/Vol] 7.2 g/dL Normal 6.3-8.0 [facility] Sodium [Moles/Vol] 135 mmol/L Low 136-144 [facility] Urea nitrogen [Mass/Vol] 20 mg/dL Normal 9-24 [facility] Remote CBCDIF (for [facility] use o nly)on 04-05-2021 Abs Baso 0.03 k/uL Normal <0.11 [facility] Abs [place] 0.76 k/uL Normal <0.87 [facility] Abs Neut 3.24 k/uL Normal 1.45-7.50 [facility] Absolute nRBC <0.01 Normal <0.01 [facility] Basophils/100 WBC (Bld) 0.6 % Normal [facility] DTYPE Auto Diff Normal [facility] Eosinophils (Bld) [#/Vol] 0.19 10*3/uL Normal <0.46 [facility] Eosinophils/100 WBC (Bld) 3.6 % Normal [facility] Erythrocyte distribution width (RBC) [Ratio] 13.1 % Normal 11.5-15.0 [facility] Hematocrit (Bld) [Volume fraction] 39.7 % Normal 39.0-51.0 [facility] Hemoglobin (Bld) [Mass/Vol] 13.1 g/dL Normal 13.0-17.0 [facility] Lymphocytes (Bld) [#/Vol] 1.05 10*3/uL Normal 1.00-4.00 [facility] Lymphocytes/100 WBC (Bld) 19.9 % Normal [facility] MCH 31.5 pG Normal 26.0-34.0 [facility] MCHC (RBC) [Mass/Vol] 33.0 g/dL Normal 30.5-36.0 [facility] MCV (RBC) [Entitic vol] 95.4 fL Normal 80.0-100.0 [facility] Monocytes/100 WBC (Bld) 14.4 % Normal [facility] Neutrophils/100 WBC (Bld) 61.5 % Normal [facility] NRBCs 0.0 /100 WBC Normal 0 [facility] Platelet mean volume (Bld) [Entitic vol] 10.4 fL Normal 9.0-12.7 [facility] Platelets (Bld) [#/Vol] 199 10*3/uL Normal 150-400 [facility] RBC (Bld) [#/Vol] 4.16 10*6/uL Low 4.20-6.00 [facility] WBC (Bld) [#/Vol] 5.27 10*3/uL Normal 3.70-11.00 [facility] Shaji 03-29-2021 GABI Telephone (HEMASA) MAGNOLIA BOYKIN ([id number]) 1945 M Date Time Provider Department 03/29/21 RACIEL GREER During your visit today, we recorded the following information about you: Allergies As of Date: 03/29/2021 Noted Allergy Reaction IODINE 07/17/2012 8 - GI Upset Date Reviewed: 04/04/2020 Reviewed by: Raciel Fritz) Percy - Fully Assessed Reason for Visit: Lab Orders [1688] 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] Order(s):CBC + DIFF (FOR REMOTE [facility] USE) [SQRCBCDF] Order #: [id number] FUTURE COMP METABOLIC PANEL [SQCMP] Order #: [id number] FUTURE Prescriptions as of 04/07/2021 - lutein-zeaxanthin [...] Status:Closed by ANABELLA GREEN on 04/07/21 Normal [facility] Vital Signs Date Time Vital Sign Value Performing Clinician Facility 12-19-2023 14:20-0400 Body height 182.88 cm [facility] 12-19-2023 14:20-0400 Body mass index (BMI) [Ratio] 25.7 kg/m2 [facility] 12-19-2023 14:20-0400 Body weight 85.89 kg [facility] 12-19-2023 14:20-0400 Diastolic blood pressure 78 mm[Hg] [facility] 12-19-2023 14:20-0400 Heart rate 67 /min [facility] 12-19-2023 14:20-0400 Respiratory rate 12 /min [facility] 12-19-2023 14:20-0400 Systolic blood pressure 134 mm[Hg] [facility] 05-13-2023 14:30-0400 Body height 182.88 cm [facility] Other 05-13-2023 14:30-0400 Body mass index (BMI) [Ratio] 25.85 kg/m2 [facility] Other 05-13-2023 14:30-0400 Body weight 86.46 kg [facility] Other [facility] Other 05-13-2023 14:30-0400 Diastolic blood pressure 84 mm[Hg] [facility] Other 05-13-2023 14:30-0400 Respiratory rate 12 /min [facility] Other 05-13-2023 14:30-0400 Systolic blood pressure 134 mm[Hg] [facility] Other 12-25-2022 10:00-0400 Body height 182.88 cm [facility] Other 12-25-2022 10:00-0400 Body mass index (BMI) [Ratio] 26.01 kg/m2 [facility] Other 12-25-2022 10:00-0400 Body weight 87 kg [facility] Other [facility] Other 12-25-2022 10:00-0400 Diastolic blood pressure 90 mm[Hg] [facility] Other 12-25-2022 10:00-0400 Respiratory rate 12 /min [facility] Other 12-25-2022 10:00-0400 Systolic blood pressure 164 mm[Hg] [facility] Other [facility] Other 07-31-2022 13:56-0500 Diastolic blood pressure 66 mm[Hg] DO Ball Work Phone: [facility] 07-31-2022 13:56-0500 Heart rate 54 /min DO [facility] Work Phone: [facility] 07-31-2022 13:56-0500 Respiratory rate 16 /min DO [facility] Work Phone: [facility] 07-31-2022 13:56-0500 SaO2% (BldA) [Mass fraction] 99 % DO [facility] Work Phone: [facility] 07-31-2022 13:56-0500 Systolic blood pressure 100 mm[Hg] DO [facility] Work Phone: [facility] 07-31-2022 11:48-0500 Body height 182.88 cm DO Ball Work Phone: [facility] 07-31-2022 11:48-0500 Body weight 84.82 kg DO Ball Work Phone: [facility] 04-26-2021 07:54-0400 Diastolic blood pressure 72 mm[Hg] MD Krzysztof Hutchison Work Phone: [facility] 04-26-2021 07:54-0400 Heart rate 60 /min MD Krzysztof Hutchison Work Phone: [facility] 04-26-2021 07:54-0400 Respiratory rate 16 /min MD Krzysztof Hutchison Work Phone: [facility] 04-26-2021 07:54-0400 SaO2% (BldA) [Mass fraction] 98 % MD Krzysztof Hutchison Work Phone: [facility] 08-04-2021 07:54-0400 Systolic blood pressure 115 mm[Hg] MD Krzysztof Hutchison Work Phone: [facility] 04-26-2021 06:23-0400 Body height 182.88 cm MD Krzysztof Hutchison Work Phone: [facility] 04-26-2021 06:23-0400 Body mass index (BMI) [Ratio] 26.8 kg/m2 MD Krzysztof Hutchison Work Phone: [facility] 04-26-2021 06:23-0400 Body weight 89.81 kg MD Krzysztof Hutchison Work Phone: [facility] Encounters Encounter Date Encounter Type Care Provider Facility Start: 03-31-2024 ambulatory BALL Facility: [place] Start: 02-12-2024 ambulatory BALL Facility: [facility] Start: 12-19-2023 End: 12-19-2023 ambulatory [facility] Work Phone: Start: 12-19-2023 End: 12-19-2023 Patient encounter procedure [facility] Work Phone: Start: 09-26-2023 End: 09-26-2023 ambulatory [facility] Other [facility] Other Start: 09-26-2023 Telephone encounter [facility] Start: 09-18-2023 End: 09-18-2023 ambulatory [facility] Other [facility] Other Start: 09-18-2023 Telephone encounter [facility] Start: 07-26-2023 End: 07-26-2023 ambulatory [facility] Other [facility] Other Start: 07-26-2023 Telephone encounter [facility] Start: 07-17-2023 End: 07-17-2023 ambulatory [facility] Other [facility] Other Start: 07-17-2023 Telephone encounter Benjamin CONROY [facility] Start: 06-20-2023 End: 06-20-2023 ambulatory Benjamin Almeida Other [facility] Other Start: 06-20-2023 Telephone encounter Benjamin CONROY G [facility] Start: 05-28-2023 End: 05-28-2023 ambulatory Reuben Giron Other [facility] Other Start: 05-28-2023 Telephone encounter Reuben CONROY [facility] Start: 05-13-2023 End: 05-13-2023 ambulatory Benjamin Almeida Other [facility] Other Start: 05-13-2023 Office outpatient visit 15 minutes Benjamin Almeida [facility] Start: 12-25-2022 End: 12-25-2022 ambulatory Benjamin Almeida Other [facility] Other Start: 12-25-2022 Office outpatient visit 15 minutes Benjamin Almeida [facility] Start: 12-18-2022 End: 12-19-[address] BENJAMIN ALMEIDA Facility:[facility] Start: 07-31-2022 End: 07-31-2022 ambulatory Juan Pablo Facility:[facility] Start: 07-31-2022 End: 07-31-2022 Admission to same day surgery center DO Benjamin Almeida Work Phone: [facility] Start: 07-31-2022 End: 07-31-2022 ambulatory DO Benjamin Almeida Work Phone: [facility] Work Phone: Start: 07-27-2022 End: 07-27-2022 ambulatory Reuben Giron Facility:[facility] Start: 07-27-2022 End: 07-27-2022 ambulatory DO Juan Pablo Work Phone: [facility] Work Phone: Start: 07-27-2022 End: 07-27-2022 Patient encounter procedure DO Benjamin Almeida Work Phone: [facility] Start: 07-14-2022 End: 07-15-[address] BENJAIMN ALMEIDA Facility:[facility] Start: 06-19-2022 End: 06-20-[address] BENJAMIN ALMEIDA Facility:[facility] Start: 04-26-2021 End: 04-26-2021 Admission to same day surgery center MD Krzysztof Hutchison Work Phone: [facility] Procedures Date Procedure Procedure Detail Performing Clinician Start: 07-31-2022 Esophagogastroduodenoscopy DO Benjamin Almeida Work Phone: Start: 06-19-[address] VILLAREAL IN [facility] Comment on above: Performed By: #### P [facility] #### [facility] [address] [place] [address] Dr. Kirsty Garcia Start: 04-26-2021 Esophagogastroduodenoscopy MD Krzysztof Hutchison Work Phone: Plan of Treatment Date Care Activity Detail Author Start: 07-31-2022 [facility] Patient Education [facility] Immunizations Immunization Date Immunization Notes Care Provider Fa cility 06-19-2022 COVID-19 Pfizer (bivalent) Benjamin Almeida Other [facility] 04-09-2022 zoster vaccine recombinant Benjamin Almeida Other [facility] 11-06-2021 zoster vaccine recombinant Benjamin Almeida Other [facility] 06-20-2021 COVID-19 Vaccine Pfi zer - Documentation Purposes Only Benjamin Almeida Other [facility] 11-15-2020 COVID-19 mRNA,[id number] b2 (Pfizer) MD Krzysztof Hutchison Work Phone: [facility] 10-25-2020 COVID-19 mRNA,[id number] b2 (Pfizer) MD Krzysztof Hutchison Work Phone: [facility] 07-17-2017 influenza virus vaccine, split virus (incl. purified surface antigen) Benjamin Almeida Other [facility] Other 07-17-2017 influenza virus vaccine, unspecified formulation [facility] 01-14-2017 tetanus and diphther ia toxoids, adsorbed, preservative free, for adult use (5 Lf of tetanus toxoid and 2 Lf of diphtheria toxoid) [facility] 01-14-2017 tetanus toxoid, redu nahun diphtheria toxoid, and acellular pertussis vaccine, adsorbed Benjamin Almeida Other [facility] Other 07-04-2016 influenza virus vaccine, split virus (incl. purified surface antigen) Benjamin Almeida Other [facility] Other 07-04-2016 influenza virus vaccine, unspecified formulation [facility] 10-28-2015 pneumococcal conjuga te vaccine, 13 valent Benjamin Almeida Other [facility] 06-28-2014 tetanus and diphther ia toxoids, adsorbed, preservative free, for adult use (5 Lf of tetanus toxoid and 2 Lf of diphtheria toxoid) Juan Pablo Other [facility] 08-18-2013 pneumococcal polysaccharide vaccine, 23 valent Benjamin Almeida Other [facility] Payers Date Payer Category Payer Self-pay [id number] 1957 Medicare [id number] 1957 Unknown [id number] 1945 Unknown [id number] 2.16.84 [id number] 1945 Unknown [id number] 2.16.84 [id number] 1945 Unknown [id number] 2.16.84 [id number] 1945 Unknown [id number] 2.16.8 [id number] Medicare Medicare Nonpatient [id number] 0A [id number] Unknown [id number] Unknown [id number] 2.16.8 [id number] Unknown [id number] 2.16.8 [id number] Social History Date Type Detail Facility Start: 04-26-2021 End: 06-20-2023 Tobacco smoking status NHIS Ex-smoker (finding) [facility] Start: 1945 Sex Assigned At Male F [facility] Sex Assigned At Sex Assigned At Bir th [facility] Other Goals Date Patient Goal Desired Activity /State Clinical Notes 04-05-2021 to 09-18-2023 Note Date & Type Note Facility 09-18-2023 Evaluation note Encounter Date Diagnosis Assessment Notes Aug, Anemia (ICD-10 - D64.9) [facility] Other 10-25-2023 Evaluation note* Encounter Date Diagnosis Assessment Notes Treatment Notes Treatment Clinical Notes Jun, Elevated PSA (ICD-10 - R97.20) [facility] Other 09-28-2023 Evaluation note* Encounter Date Diagnosis Assessment Notes Treatment Notes Treatment Clinical Notes May, Chronic prostatitis (ICD-10 - N41.1) [facility] Other 08-21-2023 Evaluation note* Encounter Date Diagnosis Assessment Notes Treatment Notes Treatment Clinical Notes Apr, Abscess of foot (ICD-10 - L02.619) Begin antibiotics and refer to the wound clinic Soak and keep clean 21 Aug, 2023 Primary hypertension (ICD-10 - I10) This patient is instructed to consume a healthy, low-fat, low-salt diet. They are also encouraged to continue exercise to achieve/maintain a normal BMI. [facility] Other 04-04-2023 Evaluation note* Encounter Date Diagnosis [...] I12.9) Control BP, hydrate and avoid NSAID [facility] Other 11-08-2022 Procedure [facility]07-14-2021 NoteHNO ID: [id number] Author: Raciel Greer MD Service: ? Author [...] Raciel Greer MD [facility], [facility] Onset Date Resolution Status D[facility] information available [facility] Work Phone: Evaluation noteNo [employer] Other Evaluation note* Diagnosis Onset Date Resolution Status Chronic kidney disease acute GERD (gastroesophageal reflux disease) acute Hypertension acute Lumbar spondylosis acute [facility] Work Phone: History and physical note Author Reuben Giron [facility] July 31, 2022 1:13pm Note Date/Time July 31, 2022 1 :13pm [facility] [address] [place] [address] Gastroenterology H&P Signed Patient: Magnolia Boykin MR# : [id number] : 1945 Acct:[id number] Age/Sex: 76 / M Adm Date: 2 Loc: Room: Type: [facility] Attending Dr: Reuben Giron MD [...] signed by Reuben Giron MD> 07/31/22 1313 [facility] Work Phone: History general Narrative - Reported* Type Description Date Medical History Hodgkin lymphoma, unspecified, u nspecified site Medical History hypertension Medical History diverticulosis Medical History neuropathy Medical History Hiatal hernia Medical History anemia Medical History Arthritis Surgical History hernia repair Surgical History wisdom teeth Surgical History colonoscopy 2019 Surgical History EGD Hospitalization History see surgical hx [facility] Other Hospital Discharge instructions Additional Instructions DISCHARGE [...] if you have any problems. -Office number [phone] Dis[facility] instructions Additional Instructions DISCHARGE INSTRUCTIONS FOR [...] Follow up with PCP. 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 [employer] Other Chief Complaint and Reason for Visit Chief Complaint Dysphagia Reason for Visit Dysphagia Chief Complaint Dysphagia Chief Complaint Dysphagia Dysphagia Chief Complaint 6 month follow up Reason for Visit Chronic kidney disea se GERD (gastroesophageal reflux disease) Hypertension Lumbar spondylosis Family History No Family History Records Found Relationship Condition Age at Onset Recorded Date/T israel brother Malignant neoplasm of colon Unknown Not Specified Malignant neoplasm of pancreas Unknown father Hepatic cirrhosis Unknown Relationship Condition Age at Onset Recorded Date/T israel brother Malignant neoplasm of colon Unknown Unknown Not Specified Malignant neoplasm of pancreas Unknown father Hepatic cirrhosis Unknown Advance Directives No Advanced Directives Records Found Advance Directive Response Recorded Date/ Time Advance Directives No April 26, 5:44am Advance Directive Response Recorded Date/ Time Advance Directives No April 26 4:44am Summary Purpose Additional Source Comments Goals (unrecognized section and content) Goals may be documented in a n alternate sectionGoals may be documented in an alternate sectionNo InformationNo InformationNo InformationNo InformationNo InformationNo InformationNo InformationNo InformationGoals may be documented in an alternate section (unrecognized sect ion and content) No Status Records FoundNo Status Records FoundNo Status Records FoundNo Status Records Found INFORMATION SOURCE (unrecogn ized section and content) DATE CREATED AUTHOR 11/09/2021 [facility] DATE CREATED AUTHOR AUTHOR'S ORGANIZ ATION 08/06/2022 [facility] DATE CREATED AUTHOR AUTHOR'S ORGANIZ ATION 12/26/2022 [facility] DATE CREATED AUTHOR AUTHOR'S ORGANIZ ATION 02/22/2024 [facility] Care Teams (unrecognized sec tion and content) Team Status: Inactive Member Role Status Dates Benjamin Almeida DO Primary Care Provider Active Reuben Giron MD Attending Provider Active Team Status: Active Member Role Status Dates Benjamin Almeida DO Primary Care Provider Active Team Status: Inactive Member Role Status Dates Benjamin Almeida DO Primary Care Provide r, Attending Provider Active Start: December 19, 2023 End: December 19, 2023 REASON FOR VISIT (unrecogniz ed section and [...] BE BASED ON THE PRIMARY CLINICAL RECORDS. [facility] [employer] [facility]. provides no warranty or guarantee of the accuracy or completeness of information in this document.
== END 2024-03-23 15:59 | disposition home or self-care (01) ==
LOC: WC 15:58
PROVIDERS: PCP Internal Medicine; Visit Provider Physician Assistant
DX: L60.3 Nail dystrophy (principal)
CPT/HCPCS: 11721

== ENCOUNTER 2024-06-29 16:10 | Outpatient (OUT) | payer MEDICARE, SELFPAY ==
--- OUTSIDE RECORDS SUMMARY | 2024-06-29 16:23 | XMS_ITS | CCD ---
Author Organization [facility] ion Partnership [facility] Care Team Providers Care Director Of Transportation Name Role Phone MD Krzysztof Hutchison Attending Provider [phone] DO Benjamin Almeida Primary Care Provider [phone] DO Benjamin Almeida Primary Care Provider [phone] MD Reuben Giron Attending Provider [phone] Benjamin Almeida Unavailable JUAN PABLO, DR KELLER Primary Care Unavailable KRYSTLE KERR Admitting Unavailable KRYSTLE KERR Attending Unavailable KRYSTLE KERR Consulting Unavailable JUAN PABLO, DR KELLER Primary Care Unavailable JUAN PABLO, DR KELLER Admitting Unavailable BALL, DR KELLER Attending Unavailable BALL, DR KELLER Consulting Unavailable MEGA, DR PHYLICIA Ramirez Consulting Unavailable JUAN PABLO, DR KELLER Primary Care Unavailable JUAN PABOL, DR KELLER Admitting Unavailable JUAN PABLO, DR KELLER Referring Unavailable BALL, DR KELLER Attending Unavailable BALL, DR KELLER Consulting Unavailable Reuben Giron Unavailable BENJAMIN ALMEIDA Primary Care Physician DO Benjamin Almeida Primary Care Provider [phone] MD Richie Ashley Attending Provider Richie ASHLEY Attending Unavailable Richie ASHLEY Attending Unavailable BENJAMIN ALMEIDA Referring Unavailable Richie ASHLEY Attending Unavailable BallBenjamin Primary Care Unavailable Richie Ashley P Admitting Unavailable Richie Ashley Attending Unavailable Juan Pablo, Primary Care Unavailable Richie Ashley P Attending Unavailable Richie Ashley P Admitting Unavailable CookWillieRichie P Admitting Unavailable Ball, Primary Care Unavailable CookRichie P Attending Unavailable Allergies Allergy Classification Reported Allergen(s) Allergy Type Date of Onset Reaction(s) Facility (10 sources) Iodine; Translations: [iodine] Drug Allergy 3 Weal (disorder) [facility] (3 sources) Iodine / Sodium Iodide Drug Allergy Unknown [place] Other Medications Current Medications Medication Drug Class(es) Dates Sig (Normalized) Sig (Original) ICaps with Lutein and Zeaxan oral tablet (1 source) Start: 03-31-2024 take 1 tablet by mouth once daily ICaps with Lutein and Zeaxan oral tablet 1 tab(s), Oral, Daily Start Date: 03/31/24 Status: Ordered levoFLOXacin 250 mg oral tablet (5 sources) Quinolone Antimicrobial Start: 06-20-2023 levoFLOXacin 250 MG 2 tablets on first day followed by 1 daily Orally Once a day for 21 days May, Active lutein 25 mg / zeaxanthin 5 mg oral capsule (11 sources) Start: 06-09-2024 take 1 capsule by mouth once daily Lutein-Zeaxanthin Active 1 CAP PO Daily June 09, 2024 12:00am Start: 04-26-2021 End: 12-18-2023 take 1 capsule by mouth once daily Lutein-Zeaxanthin Discontinued 1 CAP PO Daily April 26, 2021 12:00am December 18, 2023 2:57pm Multivitamin preparation (11 sources) Start: 06-09-2024 take 1 tablet by mouth once daily Multivitamin Active 1 TAB PO Daily June 09, 2024 12:00am Start: 04-26-2021 take 1 tablet by kathleen [...] omeprazole 40 mg delayed release oral capsule (17 sources) Proton Pump Inhibitor Start: 05-05-2024 Omeprazo le Active 40 MG PO Daily May 05, 2024 8:26pm take on an empty stomach, 30 minutes prior to bkfst Start: 07-31-2022 End: 05-05-2024 take 40 mg by mouth once daily Omeprazole Discontinued 40 MG PO Daily July 31, 2022 1:00am May 05, 2024 8:27pm predniSONE 5 mg oral tablet (8 sources) [...] 12 hrs for 10 days Apr, Not-Taking/PRN benazepril hydrochloride 20 mg oral tablet (20 sources) Angiotensin Converting Enzyme Inhibitor Start: 03-31-2024 take 1 tablet by mouth once daily benazepril 20 mg Tab 20 mg = 1 tab(s), Oral, Daily, TAKE 1 TABLET BY MOUTH EVERY DAY FOR 90 DAYS Start Date: 03/31/24 Status: Ordered Start: 01-15-2024 take 1 tablet by kathleen th once daily Benazepril Active 0 .ROUTE .COMPLEX 90 January 15, 2024 2:31pm TAKE 1 TABLET BY MOUTH EVERY DAY FOR 90 DAYS Start: 04-26-2021 End: 01-15-2024 take 20 mg by mouth once daily Benazepril Discontinued 20 MG PO Daily April 26, 2021 12:00am January 15, 2024 2:31pm famotidine 20 mg oral tablet (16 sources) Histamine-2 Receptor Antagonist Start: 04-26-2021 End: [...] Documented Da te Episodic/Chronic Chronic kidney disease (19 sources) Chronic kidney disease stage 3A ; Translations: [Stage 3a chronic kidney disease] 12-18-2023 Chronic Deficiency and other anemia (2 sources) Anemia, unspecified; Translations: [Anemia, unspecified] Episodic Deficiency and other anemia (6 sources) Anemia; Translations: [Anemia, unspecified] 12-19-2023 Episodic Diverticulosis and diverticulitis (1 source) Diverticular disease 03-23-2024 Chronic Esophageal disorders (20 sources) Gastro-esophageal reflux disease with esophagitis; Translations: [Gastroesophageal reflux disease with esophagitis without hemorrhage] 12-18-2023 Chronic Essential hypertension (20 sources) Essential hypertension; Translations: [Essential (primary) hypertension] Onset: 06-19-2022 Chronic Genitourinary symptoms and ill-defined conditions (6 sources) Poor stream of urine; Translations: [Poor urinary stream] Onset: 03-31-2024 12-18-2023 Episodic Hodgkin`s disease (9 sources) Hodgkin's disease, nodular sclerosis of intra-abdominal lymph nodes; Translations: [Nodular sclerosis Hodgkin lymphoma, intra-abdominal lymph nodes] 03-23-2024 Chronic Hyperplasia of prostate (19 sources) Nocturia due to benign prostatic hypertrophy; Translations: [Benign prostatic hyperplasia with lower urinary tract symptoms] Onset: 03-31-2024 12-18-2023 Chronic Hypertension with complications and secondary hypertension (13 sources) Chronic kidney disease due to hypertension; Translations: [Hypertensive chronic kidney disease with stage 1 through stage 4 chronic kidney disease, or unspecified chronic kidney disease] Onset: 12-18-2022 Chronic Inflammatory conditions of male genital organs (6 sources) Chronic prostatitis; Translations: [Chronic prostatitis] Chronic Neoplasms of unspecified nature or uncertain behavior (5 sources) Neoplasm of uncertain behavior of skin; Translations: [Neoplasm of uncertain behavior of skin] 12-18-2023 Episodic Osteoarthritis (1 source) Arthritis 03-23-2024 Chronic Other gastrointestinal disorders (17 sources) Dysphagia; Translations: [Dysphagia, unspecified] 04-26-2021 Episodic Other gastrointestinal disorders (1 source) Dysphagia, unspecified; Translations: [Dysphagia, unspecified] Episodic Other screening for suspected conditions (not mental disorders or infectious disease) (14 sources) Encounter for screening for malignant neoplasm of prostate; Translations: [Elevated prostate specific antigen [PSA]] Onset: 06-21-2022 Episodic Rheumatoid arthritis and related disease (8 sources) Inflammatory polyarthropathy; Translations: [Inflammatory polyarthropathy] Chronic Skin and subcutaneous tissue infections (8 sources) Abscess of foot; Translations: [Cutaneous abscess of unspecified foot] Episodic Spondylosis; intervertebral disc disorders; other back problems (20 sources) Lumbar spondylosis; Translations: [Spondylosis without myelopathy or radiculopathy, lumbar region] 12-18-2023 Chronic Past or Other Problems Problem Classification Problem Date Documented Da te Episodic/Chronic Chronic kidney disease (1 source) Chronic kidney disease Other aftercare (1 source) Other fpc (current) drug therapy; Translations: [OTH TRANSITIONS RN CARE COORDINATOR CURRENT DRUG THERAPY] Onset: 07-17-2022 Episodic Other injuries and conditions due to external causes (4 sources) Food in esophagus causing other injury, initial encounter; Translations: [FOOD ESOPH CAUS OTH INJURY INIT ENC] Onset: 07-14-2022 Episodic Results Test Name Value Interpretation Reference Range Facility Pathology Request for Lab Co rpon 06-22-2024 Pathology Request for Lab Tasia Normal [facility] Comment on above: Order Comment: PATHO LOGY UROLOGY SPECIMEN Result Comment: See report. Scanned copy available in EMR. PERFORMED BY: [place] [address] PATHOLOGIST PROJECT MANAGER/TEAM COACH YULIYA OSORIO M.D. Performed By: #### P ATH TO [facility] #### [facility] [address] [place] [address] Activated partial thrombopla stin time (aPTT) in platelet poor plasma by coagulation aOrdered By: Richie Ashley on 06-09-2024 aPTT Coag (PPP) [Time] 28.2 s 25.1-36.5 [facility] Comment on above: A hematocrit value g reater than 55% may lead to inaccurate results in coagulation testing. Patients having hematocrit values >55% require a special collection tube for coagulation studies. Please contact the laboratory at [phone] for redraw instructions. Automated basophil %Ordered By: Richie Ashley on 06-09-2024 Basophils/100 WBC (Bld) 0.6 % Normal . [facility] Comment on above: Performed By: #### C BC, PTT, BMP #### [facility] [address] [place] [address] Automated basophil countOrde red By: Richie Ashley on 06-09-2024 Basophils (Bld) [#/Vol] 0.0 10*3/uL Normal 0.0-0.2 [facility] Comment on above: Result Comment: PERF ORMED BY: [place] [address] PATHOLOGIST PROJECT MANAGER/TEAM COACH YULIYA OSORIO M.D. Performed By: #### C BC, PTT, BMP #### [address] Automated blood monocyte cou ntOrdered By: Richie Ashley on 06-09-2024 Monocytes (Bld) [#/Vol] 0.6 10*3/uL Normal 0.0-0.8 [facility] Comment on above: Performed By: #### C BC, PTT, BMP #### [address] Automated eosinophil %Ordere d By: Richie Ashley on 06-09-2024 Eosinophils/100 WBC (Bld) 5.3 % Normal . [facility] Comment on above: Performed By: #### C BC, PTT, BMP #### [address] Automated eosinophil countOr dered By: Richie Ashley on 06-09-2024 Eosinophils (Bld) [#/Vol] 0.3 10*3/uL Normal 0.0-0.45 [facility] Comment on above: Performed By: #### C BC, PTT, BMP #### [address] Automated monocyte %Ordered By: Richie Ashley on 06-09-2024 Monocytes/100 WBC (Bld) 11.7 % Normal . [facility] Comment on above: Performed By: #### C BC, PTT, BMP #### [address] Automated neutrophil %Ordere d By: Richie Ashley on 06-09-2024 Neutrophils/100 WBC (Bld) 63.9 % Normal . [facility] Comment on above: Performed By: #### C BC, PTT, BMP #### [address] Basic Metabolic Panelon 05-24 GFR/1.73 sq M.predicted MDRD (S/P/Bld) [Vol rate/Area] 59.678 mL/min/{1.73_m2} Normal [facility] Comment on above: Performed By: #### C BC, PTT, BMP #### [facility] [address] Calcium [Mass/volume] in Ser um or PlasmaOrdered By: Richie Ashley on 06-09-2024 Calcium [Mass/Vol] 9.1 mg/dL Normal 8.6-10.3 [facility] Comment on above: Result Comment: PERF ORMED BY: [place] [address] PATHOLOGIST PROJECT MANAGER/TEAM COACH YULIYA OSORIO M.D. Performed By: #### C BC, PTT, BMP #### [address] Carbon dioxide, total [Moles /volume] in Serum or PlasmaOrdered By: Richie Ashley on 06-09-2024 CO2 [Moles/Vol] 27.5 mmol/L Normal 21.0-31.0 [facility] Comment on above: Performed By: #### C BC, PTT, BMP #### [address] Chloride [Moles/volume] in S mackenzie or PlasmaOrdered By: Richie Ashley on 06-09-2024 Chloride [Moles/Vol] 105 mmol/L Normal 98-107 [facility] Comment on above: Performed By: #### C BC, PTT, BMP #### [facility] [address] [place] [address] [place] Complete Blood Count Auto Di ffon 06-09-2024 Mean Corpuscular HGB Conc 34.4 g/dL Normal 32.5-35.6 [facility] Comment on above: Performed By: #### C BC, PTT, BMP #### [facility] [address] [place] [address] [place] NRBC% 0.1 /100{WBC} Normal 0-0.5 [facility] Comment on above: Performed By: #### C BC, PTT, BMP #### [facility] [address] [place] [address] Creatinine [Mass/volume] in Serum or PlasmaOrdered By: Richie Ashley on 06-09-2024 Creatinine [Mass/Vol] 1.25 mg/dL Normal 0.70-1.30 [facility] Comment on above: Performed By: #### C BC, PTT, BMP #### [address] ECG 12 lead ECGon 06-09-2024 ECG 12 lead ECG [facility] [place] [address] [place] [address] Electrocardiograph Report Signed Patient: Magnolia Boykin MR#: [id number] : 1945 Acct:[id number] Age/Sex: 78 / M ADM Date: 06/09/24 Loc: Room: Type: [facility] Attending Dr: Richie Ashley MD Ordering Provider: Richie Ashley MD Date of Service: 06/09/24 ECG/ECG 12 lead ECG: PST Copies to: Test Reason : Blood Pressure : */* mmHG Vent. Rate : 53 BPM Atrial Rate : 53 BPM P-R Int : 140 ms QRS Dur : 74 ms QT Int : 442 ms P-R-T Axes : 60 52 68 degrees QTcB Int : 414 ms Sinus bradycardia Otherwise normal ECG No previous ECGs available Confirmed by [facility]RESTES GARCES [id number] on 06/09/2024 2:17:16 PM Referred By: Electronically Signed By: YUKI CONDE MD [facility] Transcribed By: MUS Signed By Yuki Conde MD, FAC 06/09/24 1417 Normal [facility] Erythrocyte distribution wid th [Ratio] by Automated countOrdered By: Richie Ashley on 06-09-2024 Erythrocyte distribution width (RBC) [Ratio] 13.8 % Normal 12.0-14.8 [facility] Comment on above: Performed By: #### C BC, PTT, BMP #### [address] Erythrocytes [#/volume] in B lood by Automated countOrdered By: Richie Ashley on 06-09-2024 RBC (Bld) [#/Vol] 3.96 10*6/uL Normal 3.90-5.60 [facility] Comment on above: Performed By: #### C BC, PTT, BMP #### [facility] [address] [place] [address] [place] Glucose [Mass/volume] in Ser um or PlasmaOrdered By: Richie Ashley on 06-09-2024 Glucose [Mass/Vol] 95 mg/dL Normal 70-100 [facility] Comment on above: ADA recommended refe rence rangeRandom Glucose Reference Range is dependent on time and content of last meal. Glucose of more than 200 mg/dL in a nonstressed, ambulatory subject supports the diagnosis of Diabetes Mellitus. Result Comment: [place] om Glucose Reference Range is dependent on time and content of last meal. Glucose of more than 200 mg/dL in a nonstressed, ambulatory subject supports the diagnosis of Diabetes Mellitus. ADA recommended reference range Performed By: #### C BC, PTT, BMP #### [address] Hematocrit [Volume Fraction] of Blood by Automated countOrdered By: Richie Ashley on 06-09-2024 Hematocrit (Bld) [Volume fraction] 37.8 % Low 38.8-50.0 [facility] Comment on above: Performed By: #### C BC, PTT, BMP #### [facility] [address] [place] [address] [place] Hemoglobin [Mass/volume] in BloodOrdered By: Richie Ashley on 06-09-2024 Hemoglobin (Bld) [Mass/Vol] 13.0 g/dL Normal 13.0-17.0 [facility] Comment on above: Performed By: #### C BC, PTT, BMP #### [address] Leukocytes [#/volume] correc aly for nucleated erythrocytes in Blood by Automated counOrdered By: Richie Ashley on 06-09-2024 WBC corrected for nucl RBC Auto (Bld) [#/Vol] 5.1 10*3/uL 4.1-10.5 [facility] Leukocytes [#/volume] in Blo od by Automated countOrdered By: Richie Ashley on 06-09-2024 WBC (Bld) [#/Vol] 5.1 10*3/uL Normal 4.1-10.5 [facility] Comment on above: Performed By: #### C BC, PTT, BMP #### [facility] [address] [place] [address] Lymphocytes [#/volume] in Bl ood by Automated countOrdered By: Richie Ashley on 06-09-2024 Lymphocytes (Bld) [#/Vol] 0.9 10*3/uL Low 1.00-4.8 [facility] Comment on above: Performed By: #### C BC, PTT, BMP #### [address] Lymphocytes/100 leukocytes i n Blood by Automated countOrdered By: Richie Ashley on 06-09-2024 Lymphocytes/100 WBC (Bld) 18.5 % Normal . [facility] Comment on above: Performed By: #### C BC, PTT, BMP #### [facility] [address] [place] [address] MCH [Entitic mass] by Automa aly countOrdered By: Richie Ashley on 06-09-2024 MCH (RBC) [Entitic mass] 32.8 pg Normal 27.5-35.2 [facility] Comment on above: Performed By: #### C BC, PTT, BMP #### [address] MCHC Auto (RBC) [Mass/Vol]Or dered By: Richie Ashley on 06-09-2024 MCHC (RBC) [Mass/Vol] 34.4 g/dL 32.5-35.6 [facility] MCV [Entitic volume] by Auto mated countOrdered By: Richie Ashley on 06-09-2024 MCV (RBC) [Entitic vol] 95.5 fL Normal 83.5-101 [facility] Comment on above: Performed By: #### C BC, PTT, BMP #### [facility] [address] [place] [address] Neutrophils [#/volume] in Bl ood by Automated countOrdered By: Richie Ashley on 06-09-2024 Neutrophils (Bld) [#/Vol] 3.2 10*3/uL Normal 1.8-7.7 [facility] Comment on above: Performed By: #### C BC, PTT, BMP #### [address] No Panel InformationOrdered By: Richie Ashley on 06-09-2024 Estimated GFR (CKD-EPI) 59.678 mL/Min [facility] Creatinine Clearance (Chem N/A [facility] Nucleated erythrocytes [Pres ence] in Blood by Automated countOrdered By: Richie Ashley on 06-09-2024 Nucleated RBC Auto Ql (Bld) 0.1 /100{WBC} 0-0.5 [facility] Partial Thromboplastin Timeo n 06-09-2024 aPTT Coag (Bld) [Time] 28.2 s Normal 25.1-36.5 [facility] Comment on above: Result Comment: A he matocrit value greater than 55% may lead to inaccurate results in coagulation testing. Patients having hematocrit values >55% require a special collection tube for coagulation studies. Please contact the laboratory at [phone] for redraw instructions. PERFORMED BY: [place] [address] PATHOLOGIST PROJECT MANAGER/TEAM COACH YULIYA OSORIO M.D. Performed By: #### C BC, PTT, BMP #### [facility] [address] [place] [address] Platelet mean volume [Entiti c volume] in Blood by Automated countOrdered By: Richie Ashley on 06-09-2024 Platelet mean volume (Bld) [Entitic vol] 8.5 fL Normal 6.6-10.1 [facility] Comment on above: Performed By: #### C BC, PTT, BMP #### [facility] [address] [place] [address] Platelets [#/volume] in Bloo d by Automated countOrdered By: Richie Ashley on 06-09-2024 Platelets (Bld) [#/Vol] 188 10*3/uL Normal 150-450 [facility] Comment on above: Performed By: #### C BC, PTT, BMP #### [facility] [address] [place] [address] [place] Potassium [Moles/volume] in Serum or PlasmaOrdered By: Richie Ashley on 06-09-2024 Potassium [Moles/Vol] 4.6 mmol/L Normal 3.5-5.1 [facility] Comment on above: Performed By: #### C BC, PTT, BMP #### [facility] [address] [place] [address] Serum or plasma anion gap de terminationOrdered By: Richie Ashley on 06-09-2024 Anion gap [Moles/Vol] 10.1 mmol/L Normal 6.0-15.0 [facility] Comment on above: Performed By: #### C BC, PTT, BMP #### [place] [address] [place] Sodium [Moles/volume] in Ser um or PlasmaOrdered By: Richie Ashley on 06-09-2024 Sodium [Moles/Vol] 138 mmol/L Normal 136-145 [facility] Comment on above: Performed By: #### C BC, PTT, BMP #### [place] [address] [place] Urea nitrogen [Mass/volume] in Serum or PlasmaOrdered By: Richie Ashley on 06-09-2024 Urea nitrogen [Mass/Vol] 24 mg/dL Normal 7-25 [facility] Comment on above: Performed By: #### C BC, PTT, BMP #### [facility] [address] [place] [address] [place] XR chest 2V*on 06-09-2024 XR chest 2V* [facility] [place] [address] [place] [address] XRay Report Signed Patient: Magnolia Boykin MR#: [id number] : 1945 Acct:[id number] Age/Sex: 78 / M ADM Date: 06/09/24 Loc: PS Room: [facility] Attending Dr: Richie Ashley MD Copies to: Richie Ashley MD Ordering Provider: Richie Ashley MD Date of Service: 06/09/24 XR/XR chest 2V*: PST Plain film chest 2 view HISTORY: Presurgical testing. Prostate biopsy. COMPARISON: None FINDINGS: SUPPORT DEVICES: None POSTSURGICAL CHANGES: None HEART: Within normal limits PULMONARY EDINSON: Within normal limits MEDIASTINUM: Large hiatal hernia. LUNGS AND PLEURA: No acute lung process, pleural effusion or pneumothorax identified. BONY STRUCTURES: Thoracic spondylosis ADDITIONAL FINDINGS None XR/XR chest 2V* IMPRESSION: No acute process. Large hiatal hernia Impression dictated by: Og Zee M.D.06/09/2024 10:26 AM Dictation Location: [facility]- Transcribed By: [facility] 06/09/24 1026 Dictated By: Og Zee DO 06/09/24 1026 Signed By: 06/09/24 1026 Normal [facility] MR prostate wo/w conon 05-19 MR prostate wo/w con [facility] [place] [address] [place] [address] MRI Report Signed Patient: Magnolia Boykin MR#: [id number] : 1945 Acct:[id number] Age/Sex: 78 / M ADM Date: 05/18/24 Loc: MR Room: Type: [facility] Attending Dr: Richie Ashley MD Copies to: Richie Ashley MD Ordering Provider: Richie Ashley MD Date of Service: 05/18/24 MR/MR prostate wo/w con: R97.20 EXAMINATION: MR prostate wo/w con HISTORY: Elevated PSA. COMPARISON: NONE TECHNIQUE: Multiparametric imaging of the prostate gland was performed with IV contrast. FINDINGS: Motion limits evaluation. Prostate Dimensions: 6.0 x 4.4 x 5.4 cm. Prostate Volume: 75 mL. Peripheral Zone: Heterogenous inT2 signal suggestive of prior prostatitis. A focal area of T2 hypointensity is identified involving the posterior lateral aspect of the left peripheral zone near the level of the mid gland measuring 12 x 7 mm with associated restricted diffusion and low ADC value. No gross extracapsular extension is seen. Please see series 4 image 15, series 750 image 14 and series 700 image 14. Central/Transitional Zone: BPH changes. Seminal Vesicles: Unremarkable Neurovascular bundles: Unremarkable. Lymphadenopathy: No evidence of lymphadenopathy. Bladder: No focal lesion. Bowel: Diverticulosis. Peritoneal Cavity: No free fluid. Bones: No suspicious bony lesion. MR/MR prostate wo/w con IMPRESSION: A focal area of T2 hypointensity is identified involving the posterior lateral aspect of the left peripheral zone near the level of the mid gland measuring 12 x 7 mm with associated restricted diffusion and low ADC value. No gross extracapsular extension is seen. Please see series 4 image 15, series 750 image 14 and series 700 image 14.PI-RADS 4. Targeting of this area on biopsy is recommended. Impression dictated by: Salvatore Francis Jr., D.O.05/19/2024 10:19 AM Dictation Location: [place] [address] Transcribed By: [facility] 05/19/24 1019 Dictated By: Salvatore Francis Jr, DO 05/19/24 1015 Signed By: 05/19/24 1019 Normal [facility] ISTAT XRay CREon 05-18-2024 ISTAT GFR 44.378 Normal [facility] Comment on above: Result Comment: PERF ORMED BY: [place] [address] PATHOLOGIST PROJECT MANAGER/TEAM COACH YULIYA OSORIO M.D. Performed By: #### I SCRE #### [address] No Panel InformationOrdered By: Richie Ashley on 05-18-2024 Bedside Estimated GFR (eGFR) 44.378 [facility] Whole blood creatinine measu rementOrdered By: Richie Ashley on 05-18-2024 Creatinine [Mass/Vol] 1.6 mg/dL High 0.6-1.3 [facility] Comment on above: ER/ESD physician is notified/shown all ISTAT results.Critical values may be confirmed by laboratory testing ifdeemed necessary by ER attending doctor. Result Comment: ER/E SD physician is notified/shown all ISTAT results. Critical values may be confirmed by laboratory testing if deemed necessary by ER attending doctor. Performed By: #### I SCRE #### [facility] [address] [id number] [facility] Ambulatory Visit Summaryon 0 03-31-2024 Ambulatory Visit Summary Ambulatory Visi t Summary MAGNOLIA BOYKIN :1945 Visit Date:03/31/2024 Ambulatory Visit Instructions Your Diagnosis Elevated PSA BPH with obstruction/lower urinary tract symptoms Asymptomatic microscopic hematuria Tests Performed MRI Pelvis (Soft Tissue) w/ + w/o contrast -- Results Pending -- Please visit your patient portal for your results or contact your primary care physician. Your Care Team Attending Physician - Richie ASHLEY MD Primary Care Physician - BENJAMIN ALMEIDA DO Referring Physician - BENJAMIN ALMEIDA DO This Is Your Medications List Contact prescribing physician if questions or concerns benazepril (benazepril 20 mg Tab) multivitamin with minerals (ICaps with Lutein and Zeaxan oral tablet) omeprazole (omeprazole 40 mg Cap-DR) Procedures Performed Colonoscopy, Esophagogastroduodeno scopy, Hernia repair, [place] tooth. Discharge Vitals Temperature (Temporal Artery) 36.6 ?C Heart Rate (Peripheral) 66 Respiratory Rate 16 Blood Pressure 138/82 Height 184 cm Height 72 in Weight 85 kg Weight 187 lb BMI 25.11 What to do next You Need to Schedule the Following Appointments Follow Up with GABI GARCES, Richie Kern, [place] When: Where: [facility] [address] [place] [id number]- Medications What How Much When Instructions Unchanged benazepril (benazepril 20 mg Tab) 1 Tablets By Mouth Every day TAKE 1 TABLET BY MOUTH EVERY DAY FOR 90 DAYS Contact prescribing physician if questions or concerns Unchanged multivitamin with minerals (ICaps with Lutein and Zeaxan oral tablet) 1 Tablets By Mouth Every day Contact prescribing physician if questions or concerns Unchanged omeprazole (omeprazole 40 mg Cap-DR) 1 Capsules By Mouth Every day TAKE 1 CAPSULE BY MOUTH 30 MINUTES BEFORE MORNING MEAL EVERY DAY FOR 30 DAYS Contact prescribing physician if questions or concerns Allergies iodine (Hives) Problems Ongoing - Any problem that you are currently receiving treatment for. Anemia Arthritis BPH with obstruction/lower urinary tract symptoms Diverticulosis Dysphagia Elevated PSA Hypertension Nodular sclerosis Hodgkin's disease Patient Survey You may receive a survey via text or e-mail asking about your office visit. Please share your experience with us by completing your survey. We appreciate your feedback and thank you for choosing us for your care. Education Materials Magnetic Resonance Imaging Magnetic resonance imaging (MRI) is a painless test that produces detailed images of organs and tissues inside the body without using X-rays. During an MRI, strong magnets and radio waves work together to form images. MRI images may provide more details about a medical condition than X-rays, CT scans, and ultrasounds can provide. For a standard MRI, you will lie on a table that slides into a tunnel. In an open MRI, the tunnel will be open at the sides. In some cases, dye (contrast material) may be injected into your bloodstream to make the MRI images even clearer. Tell a health care provider about: ? Any allergies you have. ? All medicines you are taking, including vitamins, herbs, eye drops, creams, and ckac-hkc-umkcwil medicines. ? Any surgeries you have had. ? Any medical conditions you have. ? Any metal you may have in your body. The magnets used in an MRI can cause metal objects in your body to move. Metal can also make it difficult to get clear images. Objects that may contain metal include: ? Any joint replacement (prosthesis), such as an artificial knee or hip. ? An implanted defibrillator, pacemaker, or neurostimulator. ? A metallic ear implant (cochlear implant). ? An artificial heart valve. ? A metallic object in the eye. ? Metal splinters. ? Bullet fragments. ? A port for delivering insulin or chemotherapy. ? Any tattoos you have. Some of the darker inks can cause problems with testing. ? Whether you are using a control implant such as an intrauterine device (IUD). ? Whether you are , may be , or are . ? Any fear of cramped spaces (claustrophobia). If this is a problem, it usually can be managed with medicines given prior to the MRI. What are the risks? Generally, this is a safe test. However, problems may occur, such as: ? If you have metal in your body and it is close to the area being tested, it may be hard to get high-quality images. ? If you are , you should avoid MRI tests during the first three months of . An MRI may affect an unborn baby. ? If dye is used: ? You may need to stop until the dye leaves your body naturally, if this applies. ? There is a risk of an allergic reaction to the dye. You can take medicines to prevent this reaction or to treat it if you have allergy symptoms. ? The dye can cause damage to your kidneys. Drinking plenty of (more content not included)... Normal [facility] Urology Office/Clinic Noteon 03-31-2024 Urology Office/Clinic Note Urology Office/Clinic Note Chief Complaint New patient elevated PSA HPI Staff New pt. Referral per Benjamin Almeida due to elevated PSA. IPSS 19 PSA 05/2019 - 1.95 05/2020 - 3.66 02/2021 - 3.77 05/2022 - 3.91 05/2023 - 4.64 07/2023 - 3.9 & 27% 01/2024 - 4.89 Dysuria: denies Incomplete bladder emptying: denies Hematuria: denies Frequency: once every 2-3 hours. depends on fluid intake Urgency: depends on fluid intake Nocturia: once a night Stream: denies hesitancy, steady stream with stop and go Leaking: once in a great while Post void dripping: denies Wearing pads/ Depends: denies Urge incontinence: denies Stress incontinence: denies Incontinence without Sensory Awareness: denies Abdominal pain: denies Flank pain: denies Sexual complaints: _ History of Present Illness Tests reviewed: reviewed UA, referral records, PSAs I have reviewed the previous health record information and history for this patient from external providers. I have reviewed and verified the staff HPI to be accurate for this encounter. Review of Systems PHQ Score Initial Depression Screen Score: 0 SCORE ROS - Provider Constitutional: denies weight loss, denies hot flashes. Eyes: denies eye problems. Gastrointestinal: denies nausea, denies vomiting. Cardiovascular: denies chest pain or angina. Integumentary: no dryness Musculoskeletal: denies musculoskeletal symptoms. ENMT: denies otolaryngeal symptoms. Respiratory: no shortness of breath. Heme/Lymph: denies easy bleeding tendency, denies easy bruising tendency. Psychiatric: no confusion, no anxiety. Genitourinary: See HPI. Physical Exam Vitals & Measurements T: 36.6 ?C(Temporal Artery) HR: 66(Peripheral) RR: 16 BP: 138/82 HT: 72 in HT: 184 cm WT: 85 kg WT: 187 lb BMI: 25.11 General Appearance: alert, no distress, well nourished, well developed male. Genitourinary: normal scrotum, normal testes, normal urethra, normal epididymis, normal vas deferens/spermatic cord. Prostate: normal prostate, estimated weight 40 gms, no hard nodule observed. Assessment/Plan Magnolia is a 78 yo male new pt referred by Dr. Benjamin Almeida for elevated PSA and BPH. 1. Elevated PSA (R97.20: Elevated prostate specific antigen [PSA]) PSA: 10/2015 - 2.33 01/08/17 - 2.38 01/29/18 - 2.37 02/18/19 - 3.95 06/01/19 - 3.42 06/06/20 - 3.66 02/27/21 - 3.77 06/19/22 - 3.91 06/20/23 - 4.64 07/25/23 - 3.9 & 27.9% (after 4wk abx course) 02/07/24 - 4.89 Personal hx of Hodgkin's lymphoma. SONU: 40g, no nodules PSA has been generally increasing over the past few years. Recently has fluctuated. Advised pt an elevated PSA could indicate prostate cancer, prostate infection, prostate inflammation without infection, prostate manipulation, or benign prostate enlargement (BPH). Discussed the importance of the rate of PSA rise. The options for management have been discussed, including close monitoring of the PSA over time given advanced age vs prostate MRI which could lead to a biopsy vs prostate biopsy. Risks/benefits of each option were discussed. Pt prefers to proceed with prostate MRI. -Schedule [place] [facility] We discussed risks of MRI fusion prostate biopsy. Risks of the procedure were discussed to include but not be limited to bleeding, pain, infection (higher, including sepsis with transrectal approach), difficulties with urination, injury to the urethra, prostate or bladder or surrounding tissues, injury from positioning on the table, swelling and bruising of the skin, and need for further procedures. 2. BPH with obstruction/lower urinary tract symptoms (N40.1: Benign prostatic hyperplasia with lower urinary tract symptoms) IPSS 19. UA today negative for infection. Not currently taking any BPH meds. Not voicing any urinary habit complaints. 3. Asymptomatic microscopic hematuria (R31.21: Asymptomatic microscopic hematuria) Distant hx of smoking. UA today shows trace-intact blood. Denies gross hematuria. -Cont sx monitoring and routine UAs. Pt knows to notify the office if he were to experience gross hematuria or clots. Overall the patient is here with his today. Prior PSA levels are as noted. Despite the fact his PSA has decreased since the prior level of the general trend is up since 2016 raising the possibility of prostate cancer presents. He does understand that his age of 78 does play into potential decisions for biopsy and also may influence different treatment options if cancer is present. After full discussion decision made to proceed with the MRI of the prostate which could lead to a fusion biopsy, as opposed to continued close monitoring over time. They agree with the plan Portions of this record may have been created with voice recognition artificial intelligence software, specifically Urvew, [employer] Begun and or Tigerspike. Substitutions may have occurred due to the inherent limitations of voice recognition and artificial intellig (more content not included)... Normal [facility] Comment on above: Result Comment: Elec tronically Signed By: Richie ASHLEY MD\.br\Date and Time Signed: 03/31/24 09:33 EDT\.br\Electronically Co-Signed By: Ragini Nugent\.br\Date and Time Co-Signed: 03/31/24 09:30 EDT PROF CHEM 8 (BAS METB)on Anion gap [Moles/Vol] 14.7 mmol/L Normal [facility] Comment on above: Performed By: #### B MP #### [facility] [address], [place] [address] Dr. Kirsty Garcia Calcium [Mass/Vol] 9.0 mg/dL Normal 8.5-10.1 [facility] Comment on above: Performed By: #### B MP #### [facility] [address] [place], [place] [address] Dr. Kirsty Garcia Chloride [Moles/Vol] 105 mmol/L Normal 98-107 [facility] Comment on above: Performed By: #### B MP #### [facility] [address] [address] [address] Kirsty Garcia CO2 [Moles/Vol] 27.7 mmol/L Normal 21.0-32.0 [facility] Comment on above: Performed By: #### B MP #### [facility] [address] [address] [address] Kirsty Garcia Creatinine [Mass/Vol] 1.20 mg/dL Normal 0.70-1.[address] [facility] Comment on above: Performed By: #### B MP #### [facility] [address] [address] [address] Kirsty Garcia EGFR-AF UZBEK >60 Normal >=60 [facility] Comment on above: Performed By: #### B MP #### [facility] [address] [address] [address] Kirsty Garcia EGFR-NON AF UZBEK 59 mL/min/1.73m2 Critically low >=[address] [facility] Comment on above: Performed By: #### B MP #### [facility] [address] [address] [address] Kirsty Garcia Glucose [Mass/Vol] 101 mg/dL Normal 74-106 [facility] Comment on above: Performed By: #### B MP #### [facility] [address] [address] [address] Kirsty Garcia Potassium [Moles/Vol] 4.4 mmol/L Normal 3.5-5.[address] [facility] Comment on above: Performed By: #### B MP #### [facility] [address] [address] [address] Kirsty Garcia Sodium [Moles/Vol] 143 mmol/L Normal 136-145 [facility] Comment on above: Performed By: #### B MP #### [facility] [address] [address] [address] Kirsty Garcia Urea nitrogen [Mass/Vol] 21.0 mg/dL Critically high 7.0-[address] [facility] Comment on above: Performed By: #### B MP #### [facility] [address] [address] [address] Kirsty Garcia Urea nitrogen/Creatinine [Mass ratio] 17.5 mg/mg Normal [facility] Comment on above: Performed By: #### B MP #### [facility] [address] [address] [address] Kirsty Garcia UA RANDOM W/MICROSCOPICon BACTERIA NONE SEEN Normal NONE SEEN [facility] Comment on above: Performed By: #### U AMIC #### [facility] [address] [place] [address] Dr. Kirsty Garcia Bilirubin Ql (U) Negative Normal NEGATIVE [facility] Comment on above: Performed By: #### U AMIC #### [facility] [address] [place] [address] Dr. Kirsty Garcia CAST NONE SEEN Normal NONE SEEN [facility] Comment on above: Performed By: #### U AMIC #### [facility] [address] [place] [address] Dr. Kirsty Garcia Clarity (U) CLEAR Normal CLEAR [facility] Comment on above: Performed By: #### U AMIC #### [facility] [address] [place] [address] Dr. Kirsty Garcia Color (U) LT. YELLOW Normal YELLOW [facility] Comment on above: Performed By: #### U AMIC #### [facility] [address] [place] [address] Dr. Kirsty Garcia Crystals LM Nom (Urine sed) NONE SEEN Normal NONE SEEN [facility] Comment on above: Performed By: #### U AMIC #### [facility] [address] [place] [address] Dr. Kirsty Garcia Epithelial cells LM Ql (Urine sed) NONE SEEN Normal NONE SEEN /RARE [facility] Comment on above: Performed By: #### U AMIC #### [facility] [address] [place] [address] Dr. Kirsty Garcia Glucose Ql (U) Negative Normal NEGATIVE [facility] Comment on above: Performed By: #### U AMIC #### [facility] [address] [address] [address] Kirsty Garcia Hemoglobin Ql (U) Negative Normal NEGATIVE [facility] Comment on above: Performed By: #### U AMIC #### [facility] [address] [address] [address] Kirsty Garcia Ketones Ql (U) Negative Normal NEGATIVE [facility] Comment on above: Performed By: #### U AMIC #### [facility] [address] [address] [address] Kirsty Garcia LEUKOCYTES Negative Normal NEGATIVE [facility] Comment on above: Performed By: #### U AMIC #### [facility] [address] [place] [address] Dr. Kirsty Garcia MUCOUS NONE SEEN Normal NONE SEEN [facility] Comment on above: Performed By: #### U AMIC #### [facility] [address] [place] [address] Dr. Kirsty Garcia Nitrite Ql (U) Negative Normal NEGATIVE [facility] Comment on above: Performed By: #### U AMIC #### [facility] [address] [place] [address] Dr. Kirsty Garcia pH (U) 6.5 [pH] Normal 5-9 [facility] Comment on above: Performed By: #### U AMIC #### [facility] [address] [place] [address] Dr. Kirsty Garcia RBC 0-2 Normal 0-2 [facility] Comment on above: Performed By: #### U AMIC #### [facility] [address] [place] [address] Dr. Kirsty Garcia SPEC GRAVITY 1.010 Normal 1.005-<=1.02 5 [facility] Comment on above: Performed By: #### U AMIC #### [facility] [address] [place] [address] Dr. Kirsty Garcia UA PROTEIN TRACE Normal NEGATIVE/ TRACE [facility] Comment on above: Performed By: #### U AMIC #### [facility] [address] [place] [address] Dr. Kirsty Garcia Urobilinogen Qn (U) 0.2 {Karlie'U}/dL Normal 0.2 - 1. [address] [facility] Comment on above: Performed By: #### U AMIC #### [facility] [address] [place] [address] Dr. Kirsty Garcia WBC NONE SEEN Normal NONE SEEN [facility] Comment on above: Performed By: #### U AMIC #### [facility] [address] [place] [address] Dr. Kirsty Garcia URINE T PROTEIN CREAT RATIOo n 12-18-2022 Protein (U) [Mass/Vol] 28.4 mg/dL Critically high <=12.[address] [facility] Comment on above: Performed By: #### U RTPCR #### [facility] [address] [place] [address] Dr. Kirsty Garcia UR PROT CREAT RAT 0.77 Normal [facility] Comment on above: Performed By: #### U RTPCR #### [facility] [address] [place] [address] Dr. Kirsty Garcia URINE CREAT 36.66 mg/dL Normal 20.00-300.00 [facility] Comment on above: Performed By: #### U RTPCR #### [facility] [address] [place] [address] Dr. Kirsty Garcia US KIDNEYS BLADDERon 023 US KIDNEYS BLADDER EXAMINATION: US KIDNEYS BLADDER HISTORY: Chronic kidney disease due to [...] PHYLICIA AYOUB Date: 2022-12-18 09:[address] [facility] COVID-19 Positive/NegativeOr dered By: Reuben Giron on 07-27-2022 SARS-CoV-2 (COVID-19) N gene LYNDSAY+probe Ql (Resp) Negative Negative [facility] Comment on above: Testing for SARS-CoV -2 by RT-PCRThis test was developed and its performance characteristics determined by [employer] ([place]) and validated at the [facility]. This test has not been [...] 07-14-2022 BASO # 0.0 103/ul Normal 0.0-0.1 [facility] Comment on above: Performed By: #### C BC #### [facility] [address] [place] [address] Dr. Kirsty Garcia Basophils/100 WBC (Bld) 0.4 % Normal 0.2-2.0 [facility] Comment on above: Performed By: #### C BC #### [facility] [address] [place], [place] [address] Dr. Kirsty Garcia EO # 0.2 103/ul Normal 0.0-0.7 [facility] Comment on above: Performed By: #### C BC #### [facility] [address] [place] [address] Dr. Kirsty Garcia Eosinophils/100 WBC (Bld) 2.8 % Normal 0.9-7.[address] [facility] Comment on above: Performed By: #### C BC #### [facility] [address] [place] [address] Dr. Kirsty Garcia Erythrocyte distribution width (RBC) [Ratio] 12.3 % Normal 11.0-15.[address] [facility] Comment on above: Performed By: #### C BC #### [facility] [address] [place] [address] Dr. Kirsty Garcia Hematocrit (Bld) [Volume fraction] 42.5 % Normal 42.0-54.[address] [facility] Comment on above: Performed By: #### C BC #### [facility] [address] [place] [address] Dr. Kirsty Garcia Hemoglobin (Bld) [Mass/Vol] 14.1 g/dL Normal 14.0-18.[address] [facility] Comment on above: Performed By: #### C BC #### [facility] [address] [place] [address] Dr. Kirsty Garcia IG # 0.02 10e3/ul Normal 0.00-0.[address] [facility] Comment on above: Performed By: #### C BC #### [facility] [address] [place] [address] Dr. Kirsty Garcia IG % 0.3 % Normal 0.0-0.[address] [facility] Comment on above: Performed By: #### C BC #### [facility] [address] [place] [address] Dr. Kirsty Garcia LYMPH # 1.4 103/ul Normal 1.2-3.[address] [facility] Comment on above: Performed By: #### C BC #### [facility] [address] [place] [address] Dr. Kirsty Garcia Lymphocytes/100 WBC (Bld) 18.2 % Critically low 20.5-60.[address] [facility] Comment on above: Performed By: #### C BC #### [facility] [address] [place] [address] Dr. Kirsty Garcia MANUAL DIFF REQ NO Normal [facility] Comment on above: Performed By: #### C BC #### [facility] [address] [place] [address] Dr. Kirsty Garcia MCH (RBC) [Entitic mass] 32.3 pg Normal 25.9-34.0 [facility] Comment on above: Performed By: #### C BC #### [facility] [address] [place] [address] Dr. Kirsty Garcia MCHC (RBC) [Mass/Vol] 33.2 g/dL Normal 29.9-35.2 [facility] Comment on above: Performed By: #### C BC #### [facility] [address] [place] [address] Dr. Kirsty Garcia MCV (RBC) [Entitic vol] 97.5 fL Critically high 80.0-94 .0 [facility] Comment on above: Performed By: #### C BC #### [facility] [address] [place] [address] Dr. Kirsty Garcia MONO # 0.9 103/ul Critically high 0.3-0.[address] [facility] Comment on above: Performed By: #### C BC #### [facility] [address] [place] [address] Dr. Kirsty Garcia Monocytes/100 WBC (Bld) 11.6 % Normal 1.7-12.0 [facility] Comment on above: Performed By: #### C BC #### [facility] [address] [place] [address] Dr. Kirsty Garcia NEUT # 5.3 103/ul Normal 1.4-6.5 [facility] Comment on above: Performed By: #### C BC #### [facility] [address] [place] [address] Dr. Kirsty Garcia Neutrophils/100 WBC (Bld) 66.7 % Normal 43.0-75.0 [facility] Comment on above: Performed By: #### C BC #### [facility] [address] [place], [place] [id number] Dr. Kirsty Garcia Platelet mean volume (Bld) [Entitic vol] 10.0 fL Normal 9.5-13.5 [facility] Comment on above: Performed By: #### C BC #### [facility] [address] [place] [address] Dr. Kirsty Garcia PLT 189 103/ul Normal 150-450 [facility] Comment on above: Performed By: #### C BC #### [facility] [address] [place] [address] Dr. Kirsty Garcia RBC 4.36 106/ul Critically low 4.70-6.10 [facility] Comment on above: Performed By: #### C BC #### [facility] [address] [place] [address] Dr. Kirsty Garcia WBC 7.9 103/ul Normal 4.0-11.0 [facility] Comment on above: Performed By: #### C BC #### [facility] [address] [place] [address] Dr. Kirsty Garcia PROF CHEM 8 (BAS METB)on Anion gap [Moles/Vol] 11.7 mmol/L Normal [facility] Comment on above: Performed By: #### B MP #### [facility] [address] [place] [address] Dr. Kirsty Garcia Calcium [Mass/Vol] 9.0 mg/dL Normal 8.5-10.1 [facility] Comment on above: Performed By: #### B MP #### [facility] [address] [place] [address] Dr. Kirsty Garcia Chloride [Moles/Vol] 106 mmol/L Normal 98-107 [facility] Comment on above: Performed By: #### B MP #### [facility] [address] [place] [address] Dr. Kirsty Garcia CO2 [Moles/Vol] 26.4 mmol/L Normal 21.0-32.[address] [facility] Comment on above: Performed By: #### B MP #### [facility] [address] [place] [address] Dr. Kirsty Garcia Creatinine [Mass/Vol] 1.42 mg/dL Critically high 0.70-1.30 [facility] Comment on above: Performed By: #### B MP #### [facility] [address] [address] [address] Kirsty Garcia EGFR-AF UZBEK 59 mL/min/1.73m2 Critically low >=60 [facility] Comment on above: Performed By: #### B MP #### [facility] [address] [address] [address] Kirsty Garcia EGFR-NON AF UZBEK 49 mL/min/1.73m2 Critically low >=60 [facility] Comment on above: Performed By: #### B MP #### [facility] [address] [address] [address] Kirsty Garcia Glucose [Mass/Vol] 105 mg/dL Normal 74-106 [facility] Comment on above: Performed By: #### B MP #### [facility] Laboratory [address] [address] [address] Kirsty Garcia Potassium [Moles/Vol] 4.1 mmol/L Normal 3.5-5.1 [facility] Comment on above: Performed By: #### B MP #### [facility] [address] [address] [address] Kirsty Garcia Sodium [Moles/Vol] 140 mmol/L Normal 136-145 [facility] Comment on above: Performed By: #### B MP #### [facility] [address] [address] [address] Kirsty Garcia Urea nitrogen [Mass/Vol] 27.0 mg/dL Critically high 7.0-18 .0 [facility] Comment on above: Performed By: #### B MP #### [facility] [address] [address] [address] Kirsty Garcia Urea nitrogen/Creatinine [Mass ratio] 19.0 mg/mg Normal [facility] Comment on above: Performed By: #### B MP #### [facility] [address] [place] [address] Dr. Kirsty Garcia CBC AUTO DIFFon 06-19-2022 BASO # 0.0 103/ul Normal 0.0-0.1 [facility] Comment on above: Performed By: #### C BC #### [facility] [address] [place] [address] Dr. Kirsty Garcia Basophils/100 WBC (Bld) 0.7 % Normal 0.2-2.0 [facility] Comment on above: Performed By: #### C BC #### [facility] [address] [place] [address] Dr. Kirsty Garcia EO # 0.2 103/ul Normal 0.0-0.7 [facility] Comment on above: Performed By: #### C BC #### [facility] [address] [place] [address] Dr. Kirsty Garcia Eosinophils/100 WBC (Bld) 3.0 % Normal 0.9-7.0 [facility] Comment on above: Performed By: #### C BC #### [facility] [address] [place] [address] Dr. Kirsty Garcia Erythrocyte distribution width (RBC) [Ratio] 12.4 % Normal 11.0-15.0 [facility] Comment on above: Performed By: #### C BC #### [facility] [address] [place] [address] Dr. Kirsty Garcia Hematocrit (Bld) [Volume fraction] 42.5 % Normal 42.0-54.0 [facility] Comment on above: Performed By: #### C BC #### [facility] [address] [place] [address] Dr. Kirsty Garcia Hemoglobin (Bld) [Mass/Vol] 14.0 g/dL Normal 14.0-18.0 [facility] Comment on above: Performed By: #### C BC #### [facility] [address] [place] [address] Dr. Kirsty Garcia IG # 0.01 10e3/ul Normal 0.00-0.03 [facility] Comment on above: Performed By: #### C BC #### [facility] [address] [place] [address] Dr. Kirsty Garcia IG % 0.2 % Normal 0.0-0.5 [facility] Comment on above: Performed By: #### C BC #### [facility] [address] [place] [address] Dr. Kirsty Garcia LYMPH # 1.1 103/ul Critically low 1.2-3.8 [facility] Comment on above: Performed By: #### C BC #### [facility] [address] [address] [address] Kirsty Garcia Lymphocytes/100 WBC (Bld) 19.7 % Critically low 20.5-60.0 [facility] Comment on above: Performed By: #### C BC #### [facility] [address] [place] [address] Dr. Kirsty Garcia MANUAL DIFF REQ NO Normal [facility] Comment on above: Performed By: #### C BC #### [facility] [address] [place] [address] Dr. Kirsty Garcia MCH (RBC) [Entitic mass] 32.3 pg Normal 25.9-34.0 [facility] Comment on above: Performed By: #### C BC #### [facility] [address] [place] [address] Dr. Kirsty Garcia MCHC (RBC) [Mass/Vol] 32.9 g/dL Normal 29.9-35.2 [facility] Comment on above: Performed By: #### C BC #### [facility] [address] [place] [address] Dr. Kirsty Garcia MCV (RBC) [Entitic vol] 97.9 fL Critically high 80.0-94 .0 [facility] Comment on above: Performed By: #### C BC #### [facility] [address] [place] [address] Dr. Kirsty Garcia MONO # 0.5 103/ul Normal 0.3-0.8 [facility] Comment on above: Performed By: #### C BC #### [facility] [address] [place] [address] Dr. Kirsty Garcia Monocytes/100 WBC (Bld) 9.5 % Normal 1.7-12.0 [facility] Comment on above: Performed By: #### C BC #### [facility] [address] [place] [address] Dr. Kirsty Garcia NEUT # 3.7 103/ul Normal 1.4-6.5 [facility] Comment on above: Performed By: #### C BC #### [facility] [address] [place] [address] Dr. Kirsty Garcia Neutrophils/100 WBC (Bld) 66.9 % Normal 43.0-75.0 [facility] Comment on above: Performed By: #### C BC #### [facility] [address] [place] [address] Dr. Kirsty Garcia Platelet mean volume (Bld) [Entitic vol] 10.0 fL Normal 9.5-13.5 [facility] Comment on above: Performed By: #### C BC #### [facility] [address] [place] [address] Dr. Kirsty Garcia PLT 195 103/ul Normal 150-450 [facility] Comment on above: Performed By: #### C BC #### [facility] [address] [place] [address] Dr. Kirsty Garcia RBC 4.34 106/ul Critically low 4.70-6.10 [facility] Comment on above: Performed By: #### C BC #### [facility] [address] [place] [address] Dr. Kirsty Garcia WBC 5.6 103/ul Normal 4.0-11.0 [facility] Comment on above: Performed By: #### C BC #### [facility] [address] [place] [address] Dr. Kirsty Garcia PROF CHEM 8 (BAS METB)on Anion gap [Moles/Vol] 10.8 mmol/L Normal [facility] Comment on above: Performed By: #### B MP #### [facility] [address] [place] [address] Dr. Kirsty Garcia Calcium [Mass/Vol] 8.9 mg/dL Normal 8.5-10.1 [facility] Comment on above: Performed By: #### B MP #### [facility] [address] [address] [address] Kirsty Garcia Chloride [Moles/Vol] 104 mmol/L Normal 98-107 [facility] Comment on above: Performed By: #### B MP #### [facility] [address] [address] [address] Kirsty Garcia CO2 [Moles/Vol] 29.3 mmol/L Normal 21.0-32.[address] [facility] Comment on above: Performed By: #### B MP #### [facility] [address] [place] [address] Dr. Kirsty Garcia Creatinine [Mass/Vol] 1.42 mg/dL Critically high 0.70-1.30 [facility] Comment on above: Performed By: #### B MP #### [facility] [address] [place] [address] Dr. Kirsty Garcia EGFR-AF UZBEK 59 mL/min/1.73m2 Critically low >=60 [facility] Comment on above: Performed By: #### B MP #### [facility] [address] [place] [address] Dr. Kirsty Garcia EGFR-NON AF UZBEK 49 mL/min/1.73m2 Critically low >=60 [facility] Comment on above: Performed By: #### B MP #### [facility] [address] [address] [address] Kirsty Garcia Glucose [Mass/Vol] 122 mg/dL Critically high 74-106 [facility] Comment on above: Performed By: #### B MP #### [facility] [address] [address] [address] Kirsty Garcia Potassium [Moles/Vol] 4.1 mmol/L Normal 3.5-5.1 [facility] Comment on above: Performed By: #### B MP #### [facility] [address] [place] [address] Dr. Kirsty Garcia Sodium [Moles/Vol] 140 mmol/L Normal 136-145 [facility] Comment on above: Performed By: #### B MP #### [facility] [address] [address] [address] Kirsty Gacria Urea nitrogen [Mass/Vol] 23.0 mg/dL Critically high 7.0-18 .0 [facility] Comment on above: Performed By: #### B MP #### [facility] [address] [address] [address] Kirsty Garcia Urea nitrogen/Creatinine [Mass ratio] 16.2 mg/mg Normal [facility] Comment on above: Performed By: #### B MP #### [facility] [address] [address] [address] Kirsty NEGRONPon 04-05-2021 CNOVSP Visit (SP) Office ([facility]) MAGNOLIA BOYKIN ([id number]) 1945 M Date Time Provider Department 04/05/21 [...] HIGH RISK 02/22/2012 - ESOPHAGEAL DILATATION - ESOPHAGOGASTRODUODENO SCOPY_*FL 03/20/2012 Review of Social History includes: Tobacco [...] edema, Lymph Nodes: No palpable adenopathy. No cervical,supraclavicu lar or axillary adenopathy Skin: no rash or [...] Raciel Nuñez (more content not included)... Normal [facility] Comp Metabolic Panelon 04-05 Albumin [Mass/Vol] 4.3 g/dL Normal 3.9-4.9 [facility] ALP [Catalytic activity/Vol] 84 U/L Normal 38-113 [facility] ALT [Catalytic activity/Vol] 23 U/L Normal 10-54 [facility] Anion gap [Moles/Vol] 8 mmol/L Low 9-18 [facility] AST [Catalytic activity/Vol] 23 U/L Normal 14-40 [facility] Bilirubin [Mass/Vol] 0.3 mg/dL Normal 0.2-1.3 [facility] Calcium [Mass/Vol] 9.3 mg/dL Normal 8.5-10.2 [facility] Chloride [Moles/Vol] 102 mmol/L Normal 97-105 [facility] CO2 [Moles/Vol] 25 mmol/L Normal 22-30 [facility] Creatinine [Mass/Vol] 1.27 mg/dL High 0.73-1.22 [facility] eGFR- Amer. >60 Normal [facility] eGFR-All Other Races 56 . Normal [facility] Comment on above: Result Comment: [...] GFR. Glucose [Mass/Vol] 90 mg/dL Normal 74-99 [facility] Comment on above: Result Comment: The [place] [employer] Association (ADA) provides guidance for cutoff [...] Standards of Medical Care in Diabetes 2016, [place] [employer]. Diabetes Care. 2016.39(Suppl 1). Potassium [Moles/Vol] 4.5 mmol/L Normal 3.7-5.1 [facility] Protein [Mass/Vol] 7.2 g/dL Normal 6.3-8.0 [facility] Sodium [Moles/Vol] 135 mmol/L Low 136-144 [facility] Urea nitrogen [Mass/Vol] 20 mg/dL Normal 9-24 [facility] Remote CBCDIF (for COMMUNITY HEALTH use o nly)on 04-05-2021 Abs Baso 0.03 k/uL Normal <0.11 [facility] Abs Smyth 0.76 k/uL Normal <0.87 [facility] Abs Neut 3.24 k/uL Normal 1.45-7.50 [facility] Absolute nRBC <0.01 Normal <0.01 [facility] Basophils/100 WBC (Bld) 0.6 % Normal C [facility] DTYPE Auto Diff Normal [facility] Eosinophils (Bld) [#/Vol] 0.19 10*3/uL Normal <0.46 [facility] Eosinophils/100 WBC (Bld) 3.6 % Normal [facility] Erythrocyte distribution width (RBC) [Ratio] 13.1 % Normal 11.5-15.0 [facility] Hematocrit (Bld) [Volume fraction] 39.7 % Normal 39.0-51.0 [facility] Hemoglobin (Bld) [Mass/Vol] 13.1 g/dL Normal 13.0-17.0 [facility] Lymphocytes (Bld) [#/Vol] 1.05 10*3/uL Normal 1.00-4.00 [facility] Lymphocytes/100 WBC (Bld) 19.9 % Normal [facility] MCH 31.5 pG Normal 26.0-34.0 [facility] MCHC (RBC) [Mass/Vol] 33.0 g/dL Normal 30.5-36.0 [facility] MCV (RBC) [Entitic vol] 95.4 fL Normal 80.0-100.0 [facility] Monocytes/100 WBC (Bld) 14.4 % Normal C [facility] Neutrophils/100 WBC (Bld) 61.5 % Normal [facility] NRBCs 0.0 /100 WBC Normal 0 [facility] Platelet mean volume (Bld) [Entitic vol] 10.4 fL Normal 9.0-12.7 [facility] Platelets (Bld) [#/Vol] 199 10*3/uL Normal 150-400 [facility] RBC (Bld) [#/Vol] 4.16 10*6/uL Low 4.20-6.00 [facility] WBC (Bld) [#/Vol] 5.27 10*3/uL Normal 3.70-11.00 [facility] CNPNon 03-29-2021 CNPN Telephone ([facility]) MAGNOLIA BOYKIN ([id number]) 1945 M Date Time Provider Department 03/29/21 RACIEL GREER During your visit today, we recorded the following information about you: Allergies As of Date: 03/29/2021 Noted Allergy Reaction IODINE 07/17/2012 8 - GI Upset Date Reviewed: 04/04/2020 Reviewed by: Raciel Greer - Fully Assessed Reason for Visit: Lab Orders [1688] 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] Order(s):CBC + DIFF (FOR REMOTE COMMUNITY HEALTH USE) [SQRCBCDF] Order #: [id number] FUTURE COMP METABOLIC PANEL [SQCMP] Order #: [id number] FUTURE Prescriptions as of 04/07/2021 - lutein-zeaxanthin [...] Status:Closed by ANABELLA GREEN on 04/07/21 Normal [facility] Vital Signs Date Time Vital Sign Value Performing Clinician Facility 06-22-2024 17:05-0400 Diastolic blood pressure 81 mm[Hg] DO Ball Work Phone: [facility] 06-22-2024 17:05-0400 Heart rate 63 /min DO Ball Work Phone: [facility] 06-22-2024 17:05-0400 Respiratory rate 20 /min DO Ball Work Phone: [facility] 06-22-2024 17:05-0400 SaO2% (BldA) [Mass fraction] 99 % DO Ball Work Phone: [facility] 06-22-2024 17:05-0400 Systolic blood pressure 148 mm[Hg] DO Ball Work Phone: [facility] 06-22-2024 16:20-0400 Body temperature 98 [degF] DO Ball Work Phone: [facility] 06-22-2024 16:20-0400 Inhaled oxygen flow rate 6 L/min DO Ball Work Phone: [facility] 06-22-2024 14:50-0400 Body height 182.88 cm DO Ball Work Phone: [facility] 06-22-2024 14:50-0400 Body weight 84 kg DO Ball Work Phone: [facility] 06-22-2024 08:58-0400 Body height 182.88 cm DO Ball Work Phone: [facility] 06-22-2024 08:58-0400 Body mass index (BMI) [Ratio] 25 kg/m2 DO Ball Work Phone: [facility] 06-22-2024 08:58-0400 Body weight 83.63 kg DO Ball Work Phone: [facility] 06-22-2024 08:58-0400 Diastolic blood pressure 72 mm[Hg] DO Ball Work Phone: [facility] 06-22-2024 08:58-0400 Heart rate 60 /min DO Ball Work Phone: [facility] 06-22-2024 08:58-0400 Respiratory rate 12 /min DO Ball Work Phone: [facility] 06-22-2024 08:58-0400 Systolic blood pressure 122 mm[Hg] DO Ball Work Phone: [facility] 03-31-2024 09:00-0400 Blood Pressure Location Richie Trust [facility] 03-31-2024 09:00-0400 Body temperature 97.88 [degF] Richie COOK [facility] 03-31-2024 09:00-0400 Diastolic blood pressure 82 mm[Hg] Richie COOK [facility] 03-31-2024 09:00-0400 Heart rate 66 /min Richie COOK [facility] 03-31-2024 09:00-0400 Respiratory rate 16 /min Richie COOK [facility] 03-31-2024 09:00-0400 Systolic blood pressure 138 mm[Hg] Richie COOK [facility] 12-19-2023 14:20-0400 Body height 182.88 cm [facility] 12-19-2023 14:20-0400 Body mass index (BMI) [Ratio] 25.7 kg/m2 [facility] 12-19-2023 14:20-0400 Body weight 85.89 kg [facility] 12-19-2023 14:20-0400 Diastolic blood pressure 78 mm[Hg] [facility] 12-19-2023 14:20-0400 Heart rate 67 /min [facility] 12-19-2023 14:20-0400 Respiratory rate 12 /min [facility] 12-19-2023 14:20-0400 Systolic blood pressure 134 mm[Hg] [facility] 05-13-2023 14:30-0400 Body height 182.88 cm Ball Other [facility] Other 05-13-2023 14:30-0400 Body mass index (BMI) [Ratio] 25.85 kg/m2 Ball Other [facility] Other 05-13-2023 14:30-0400 Body weight 86.46 kg Ball Other [facility] Other 05-13-2023 14:30-0400 Diastolic blood pressure 84 mm[Hg] Ball Other [facility] Other 05-13-2023 14:30-0400 Respiratory rate 12 /min Ball Other [facility] Other 05-13-2023 14:30-0400 Systolic blood pressure 134 mm[Hg] Ball Other [facility] [facility] Other 12-25-2022 10:00-0400 Body height 182.88 cm Ball Other [facility] Other 12-25-2022 10:00-0400 Body mass index (BMI) [Ratio] 26.01 kg/m2 Ball Other [facility] Other 12-25-2022 10:00-0400 Body weight 87 kg Ball Other [facility] Other 12-25-2022 10:00-0400 Diastolic blood pressure 90 mm[Hg] Ball Other [facility] Other 12-25-2022 10:00-0400 Respiratory rate 12 /min Ball Other [facility] Other 12-25-2022 10:00-0400 Systolic blood pressure 164 mm[Hg] Ball Other [facility] Other 07-31-2022 13:56-0500 Diastolic blood pressure 66 mm[Hg] DO Ball Work Phone: [facility] 07-31-2022 13:56-0500 Heart rate 54 /min DO Ball Work Phone: [facility] 07-31-2022 13:56-0500 Respiratory rate 16 /min DO Ball Work Phone: [facility] 07-31-2022 13:56-0500 SaO2% (BldA) [Mass fraction] 99 % DO Ball Work Phone: [facility] 07-31-2022 13:56-0500 Systolic blood pressure 100 mm[Hg] DO Ball Work Phone: [facility] 07-31-2022 11:48-0500 Body height 182.88 cm DO Ball Work Phone: [facility] 07-31-2022 11:48-0500 Body weight 84.82 kg DO Ball Work Phone: [facility] 04-26-2021 07:54-0400 Diastolic blood pressure 72 mm[Hg] MD Krzysztof Hutchison Work Phone: [facility] 04-26-2021 07:54-0400 Heart rate 60 /min MD Krzysztof Hutchison Work Phone: [facility] 04-26-2021 07:54-0400 Respiratory rate 16 /min MD Krzysztof Hutchison Work Phone: [facility] 04-26-2021 07:54-0400 SaO2% (BldA) [Mass fraction] 98 % MD Krzysztof Hutchison Work Phone: [facility] 04-26-2021 07:54-0400 Systolic blood pressure 115 mm[Hg] MD Krzysztof Hutchison Work Phone: [facility] 04-26-2021 06:23-0400 Body height 182.88 cm MD Kryzsztof Hutchison Work Phone: [facility] 04-26-2021 06:23-0400 Body mass index (BMI) [Ratio] 26.8 kg/m2 MD Krzysztof Hutchison Work Phone: [facility] 04-26-2021 06:23-0400 Body weight 89.81 kg MD Krzysztof Hutchison Work Phone: [facility] Encounters Encounter Date Encounter Type Care Provider Facility Start: 07-07-2024 ambulatory Richie ASHLEY Facility :[facility] Start: 06-22-2024 End: 06-22-2024 Admission to same day surgery center DO Ball Work Phone: [facility] [place] Start: 06-22-2024 End: 06-22-2024 ambulatory DO Ball Work Phone: [facility] Work Phone: Start: 06-22-2024 End: 06-22-2024 ambulatory DO Ball Work Phone: [facility] Work Phone: Start: 06-22-2024 End: 06-22-2024 Patient encounter procedure DO Ball Work Phone: [facility] Work Phone: Start: 06-22-2024 ambulatory Richie ASHLEY Facility :[id number] Start: 06-19-2024 Patient encounter procedure DO Ball Work Phone: [facility] Start: 06-09-2024 End: 06-09-2024 Patient encounter procedure DO Ball Work Phone: [facility] Work Phone: Start: 06-09-2024 End: 06-09-2024 ambulatory DO Ball Work Phone: [facility] Work Phone: Start: 06-09-2024 Encounter for preprocedural laboratory examination Richie Ashley [facility] Start: 05-18-2024 End: 05-18-2024 Patient encounter procedure DO Ball Work Phone: [facility] [place] Work Phone: Start: 05-18-2024 End: 05-18-2024 ambulatory DO Ball Work Phone: [facility] Work Phone: Start: 03-31-2024 End: 03-31-2024 ambulatory Richie ASHLEY Facility:[facility] Start: 03-31-2024 End: 03-31-2024 Patient encounter procedure Richie ASHLEY [facility] Start: 02-12-2024 ambulatory Richie ASHLEY Facility:[facility] Start: 12-19-2023 End: 12-19-2023 ambulatory [facility] Work Phone: Start: 12-19-2023 End: 12-19-2023 Patient encounter procedure [facility] Work Phone: Start: 09-26-2023 End: 09-26-2023 ambulatory Ball Other [facility] Other Start: 09-26-2023 Telephone encounter Benjamin Almeida [facility] Start: 09-18-2023 End: 09-18-2023 ambulatory Benjamin Almeida Other [facility] Other Start: 09-18-2023 Telephone encounter Benjamin Almeida [facility] Start: 07-26-2023 End: 07-26-2023 ambulatory Benjamin Almeida Other [facility] Other Start: 07-26-2023 Telephone encounter Benjamin Almeida [facility] Start: 07-17-2023 End: 07-17-2023 ambulatory Benjamin Almeida Other [facility] Other Start: 07-17-2023 Telephone encounter Benjamin Almeida [facility] Start: 06-20-2023 End: 06-20-2023 ambulatory Benjamin Almeida Other [facility] Other Start: 06-20-2023 Telephone encounter Benjamin Almeida [facility] Start: 05-28-2023 End: 05-28-2023 ambulatory Reuben Giron Other [facility] Other Start: 05-28-2023 Telephone encounter Reuben CONROY [facility] Start: 05-13-2023 End: 05-13-2023 ambulatory Benjamin Almeida Other [facility] Other Start: 05-13-2023 Office outpatient vi sit 15 minutes Juan Pablo [facility] Start: 12-25-2022 End: 12-25-2022 ambulatory Juan Pablo Other [facility] Other Start: 12-25-2022 Office outpatient vi sit 15 minutes Benjamin Almeida [facility] Start: 12-18-2022 End: 12-19-[address] BENJAMIN ALMEIDA Facility:[facility] Start: 07-31-2022 End: 07-31-2022 Admission to same day surgery center DO Juan Pablo Work Phone: [facility] Start: 07-31-2022 End: 07-31-2022 ambulatory DO Benjamin Almeida Work Phone: [facility] Work Phone: Start: 07-27-2022 End: 07-27-2022 ambulatory DO Benjamin Almeida Work Phone: [facility] Work Phone: Start: 07-27-2022 End: 07-27-2022 Patient encounter procedure DO Benjamin Almeida Work Phone: [facility] Start: 07-14-2022 End: 07-15-[address] BENJAMIN ALMEIDA Facility:[facility] Start: 06-19-2022 End: 06-20-[address] BENJAMIN ALMEIDA Facility:[facility] Start: 04-26-2021 End: 04-26-2021 Admission to same day surgery center MD Krzysztof Hutchison Work Phone: [facility] Procedures Date Procedure Procedure Detail Performing Clinician Start: 06-22-2024 OR (TRUS) Prostate Biopsy w/Ultrasound (Not Applicable) DO Juan Pablo Work Phone: Start: 06-09-2024 Plain chest X-ray DO Benjamin Almeida Work Phone: Start: 05-18-2024 MR prostate wo/w con DO Benjamin Almeida Work Phone: Start: 07-31-2022 Esophagogastroduodenoscopy DO Benjamin Aguilera all Work Phone: Start: 06-19-[address] BENJAMIN ALMEIDA Comment on above: Performed By: #### PSASC #### [facility] [address] [place] [address] Dr. Kirsty Garcia Start: 04-26-2021 Esophagogastroduodenoscopy MD Krzysztof casas Work Phone: Colonoscopy Richie ASHLEY Esophagogastroduodenoscopy G paula ASHLEY Hernia repair Richie ASHLEY Structure of wisdom tooth (body structure) Richie ASHLEY Plan of Treatment Date Care Activity Detail Author Start: 06-22-2024 End: 06-22-2024 [facility] Start: 05-18-2024 MR Prostate WO and W contrast IV [facility] Start: 05-18-2024 MR prostate wo/w con MR prostate wo/ w con [facility] Start: 07-31-2022 [facility] Patient Education [facility] Patient referral [facility] Work Phone: Immunizations Immunization Date Immunization Notes Care Provider Yareli bernstein 07-01-2023 COVID-19 (PFIZER) 12Y and older DO Benjamin Almeida Work Phone: [facility] 07-01-2023 Influenza vaccine, quadrivalent, adjuvanted DO Benjamin Almeida Work Phone: [facility] 07-01-2023 influenza virus vaccine, unspecified formulation Richie ASHLEY [facility] 06-19-2022 COVID-19 Pfizer (bivalent) Benjamin Almeida Other [facility] 06-19-2022 Fluzone QIV High-Dos e 65YR+ DO Benjamin Almeida Work Phone: [facility] 06-19-2022 influenza virus vaccine, unspecified formulation Richie ASHLEY [facility] 04-09-2022 zoster vaccine recombinant Benjamin Almeida Other [facility] 11-06-2021 zoster vaccine recombinant Benjamin Almeida Other [facility] 06-20-2021 COVID-19 Vaccine Pfi zer - Documentation Purposes Only Benjamin Almeida Other [facility] Comment on above: Result Comment: 2023: [id number] 06-20-2021 Fluzone QIV High-Dos e 65YR+ DO Benjamin Almeida Work Phone: [facility] 06-20-2021 influenza virus vaccine, unspecified formulation Richie Trust Mico [facility] 11-15-2020 COVID-19 mRNA,[id number] b2 (Pfizer) MD Krzysztof Hutchison Work Phone: [facility] Comment on above: Result Comment: 2023: [id number] 10-25-2020 COVID-19 mRNA,[id number] b2 (Pfizer) MD Krzysztof Hutchison Work Phone: [facility] Comment on above: Result Comment: 2023: [id number] 06-21-2020 Influenza vaccine, quadrivalent, adjuvanted DO [employer] Work Phone: [facility] 06-21-2020 influenza virus vaccine, unspecified formulation Richie Trust Mico [facility] 07-06-2019 influenza virus vaccine, unspecified formulation Richie Trust Mico [facility] 06-23-2019 influenza virus vaccine, unspecified formulation Richie Trust Mico [facility] 06-23-2019 influenza, high dose seasonal, preservative-free DO Ball Work Phone: [facility] 07-21-2018 influenza virus vaccine, unspecified formulation Richie Trust Mico [facility] 07-21-2018 influenza, high dose seasonal, preservative-free DO Ball Work Phone: [facility] 01-08-2018 pneumococcal polysaccharide vaccine, 23 valent Richie Trust Mico [facility] 07-17-2017 influenza virus vaccine, split virus (incl. purified surface antigen) Benjamin Almeida Other [facility] Other 07-17-2017 influenza virus vaccine, unspecified formulation [facility] 07-17-2017 influenza, high dose seasonal, preservative-free DO Benjamin Almeida Work Phone: [facility] 01-14-2017 Td(adult) unspecifie d formulation; Translations: [Td(adult) unspecified formulation] Richie ASHLEY [facility] 01-14-2017 tetanus and diphther ia toxoids, adsorbed, preservative free, for adult use (5 Lf of tetanus toxoid and 2 Lf of diphtheria toxoid) [facility] 01-14-2017 tetanus toxoid, redu nahun diphtheria toxoid, and acellular pertussis vaccine, adsorbed Benjamin Almeida Other [facility] Other 07-04-2016 influenza virus vaccine, split virus (incl. purified surface antigen) Benjamin Almeida Other [facility] Other 07-04-2016 influenza virus vaccine, unspecified formulation [facility] 10-28-2015 pneumococcal conjuga te vaccine, 13 valent Benjamin Almeida Other [facility] 08-10-2015 influenza virus vaccine, unspecified formulation Richie ASHLEY [facility] 08-10-2015 influenza, injectabl e, quadrivalent, preservative free DO Benjamin Almeida Work Phone: [facility] 06-28-2014 tetanus and diphther ia toxoids, adsorbed, preservative free, for adult use (5 Lf of tetanus toxoid and 2 Lf of diphtheria toxoid) Benjamin Almeida Other [facility] 08-18-2013 pneumococcal polysaccharide vaccine, 23 valent Benjamin Almeida Other [facility] Payers Date Payer Category Payer Self-pay [id number] 1957 Medicare [id number] 1957 Unknown [id number] 1945 Unknown [id number] 2.16.84 [id number] 1945 Unknown [id number] 2.16.84 [id number] 1945 Unknown [id number] 2.16.84 [id number] 1945 Unknown [id number] 2.16.8 [id number] 1945 Unknown [id number] 2.16.8 [id number] Medicare Medicare Nonpatient [id number] 0A [id number] Unknown [id number] Unknown [id number] Unknown [id number] 2.16.8 [id number] Unknown [id number] 2.16.8 [id number] Unknown [id number] 2.16.8 [id number] Social History Date Type Detail Facility Start: 04-26-2021 End: 06-22-2024 Tobacco smoking status NHIS Ex-smoker (finding) [facility] Start: 1945 Sex Assigned At Male F [facility] Sex Assigned At [facility] Start: 03-31-2024 Tobacco smoking status Never s moked tobacco (finding) [facility] Tobacco smoking status Never [facility] Goals Date Patient Goal Desired Activity /State Functional Status Date Assessment Result Facility 03-31-2024 Functional Status N/A [facility] Clinical Notes 04-05-2021 to 03-31-2024 Note Date & Type Note Facility 03-31-2024 Hospital Discharge instructions Patient Education 03/31/2024 09:30:01 Magnetic Resonance Imaging Magnetic Resonance Imaging Magnetic resonance imaging (MRI) is a painless test that produces detailed images of organs and tissues inside the body without using X-rays. During an MRI, strong magnets and radio waves work together to form images. MRI images may provide more details about a medical condition than X-rays, CT scans, and ultrasounds can provide. For a standard MRI, you will lie on a table that slides into a tunnel. In an open MRI, the tunnel will be open at the sides. In some cases, dye (contrast material) may be injected into your bloodstream to make the MRI images even clearer. Tell a health care provider about: Any allergies you have. All medicines you are taking, including vitamins, herbs, eye drops, creams, and lfyi-gdh-lxckrsa medicines. Any surgeries you have had. Any medical conditions you have. Any metal you may have in your body. The magnets used in an MRI can cause metal objects in your body to move. Metal can also make it difficult to get clear images. Objects that may contain metal include: ?Any joint replacement (prosthesis), such as an artificial knee or hip. ?An implanted defibrillator, pacemaker, or neurostimulator. ?A metallic ear implant (cochlear implant). ?An artificial heart valve. ?A metallic object in the eye. ?Metal splinters. ?Bullet fragments. ?A port for delivering insulin or chemotherapy. Any tattoos you have. Some of the darker inks can cause problems with testing. Whether you are using a control implant such as an intrauterine device (IUD). Whether you are , may be , or are . Any fear of cramped spaces (claustrophobia). If this is a problem, it usually can be managed with medicines given prior to the MRI. What are the risks? Generally, this is a safe test. However, problems may occur, such as: If you have metal in your body and it is close to the area being tested, it may be hard to get high-quality images. If you are , you should avoid MRI tests during the first three months of . An MRI may affect an unborn baby. If dye is used: ?You may need to stop until the dye leaves your body naturally, if this applies. ?There is a risk of an allergic reaction to the dye. You can take medicines to prevent this reaction or to treat it if you have allergy symptoms. ?The dye can cause damage to your kidneys. Drinking plenty of water before and after the procedure can help prevent this problem. What happens before the procedure? You will be asked to remove all metal, including: ?A watch, jewelry (including jewelry in piercings), and other metal objects. ?Hearing aids. ?Dentures. ?An underwire bra. ?Makeup. Some makeup contains small amounts of metal. Braces and fillings are normally not a problem. If you are , ask your health care provider if you need to pump before your test. You may need to stop temporarily if dye will be used. What happens during the procedure? You may be given earplugs or headphones to listen to music. The MRI machine can be noisy. You will lie flat on your back on a long table. If dye will be used, an IV will be inserted into one of your veins. Dye will be injected into your IV and travel through your bloodstream. The table will slide into a tunnel that has magnets inside. When you are inside the tunnel, you will still be able to talk to your health care provider. You will be asked to lie very still while images are taken. Your health care provider will tell you when you can move. You may have to wait a few minutes to make sure that the images produced during the test are clear. When all images are produced, the table will slide out of the tunnel. The procedure can last from 30 minutes to over an hour. The procedure may vary among health care providers and hospitals. What can I expect after the procedure? You may be taken to a recovery area if sedation medicines were used. Your blood pressure, heart rate, breathing rate, and blood oxygen level will be monitored until you leave the hospital or clinic. If dye was used: ?It will leave your body through your urine within a day. You may be told to drink plenty of fluids to help flush the dye out of your system. ?Do not breastfeed your child until your health care provider says that this is safe. Follow these instructions at home: You may return to your normal activities right away, or as told by your health care provider. It is up to you to get your test results. Ask your health care provider, or the department that is doing the test, when your results will be ready. Keep all follow-up visits. This is important. Talk with your health care provider about what your test results mean. Summary Magnetic resonance imaging (MRI) is a painless test that produces detailed pictures of the inside of your body without using X-rays. Strong magnets and radio waves work together to form very detailed and clear images. In some cases, dye (contrast material) may be injected into your body to make MRI images even clearer. Before your MRI, be sure to tell your health care provider about any metal you may have in your body. Talk with your health care provider about what your test results mean. This information is not intended to replace advice given to you by your health care provider. Make sure you discuss any questions you have with your health care provider. Document Revised: 05/23/2022 Document Reviewed: 01/11/2021 [employer] Patient Education 2022 [employer]. 03/31/2024 09:19:19 Prostate Cancer Screening Prostate Cancer Screening Prostate cancer screening is testing that is done to check for the presence of prostate cancer in men. The prostate gland is a walnut-sized gland that is located below the bladder and in front of the rectum in males. The function of the prostate is to add fluid to semen during ejaculation. Prostate cancer is one of the most common types of cancer in men. Who should have prostate cancer screening? Screening recommendations vary based on age and other risk factors, as well as between the professional organizations who make the recommendations. In general, screening is recommended if: You are age 50 to 70 and have an average risk for prostate cancer. You should talk with your health care provider about your need for screening and how often screening should be done. Because most prostate cancers are slow growing and will not cause , screening in this age group is generally reserved for men who have a 10- to 15-year life expectancy. You are younger than age 50, and you have these risk factors: ?Having a father, brother, or uncle who has been diagnosed with prostate cancer. The risk is higher if your family member's cancer occurred at an early age or if you have multiple family members with prostate cancer at an early age. ?Being a male who is Black or is of [place] or sub-Saharan descent. In general, screening is not recommended if: You are younger than age 40. You are between the ages of 40 and 49 and you have no risk factors. You are 70 years of age or older. At this age, the risks that screening can cause are greater than the benefits that it may provide. If you are at high risk for prostate cancer, your health care provider may recommend that you have screenings more often or that you start screening at a younger age. How is screening for prostate cancer done? The recommended prostate cancer screening test is a blood test called the prostate-specific antigen (PSA) test. PSA is a protein that is made in the prostate. As you age, your prostate naturally produces more PSA. Abnormally high PSA levels may be caused by: Prostate cancer. An enlarged prostate that is not caused by cancer (benign prostatic hyperplasia, or BPH). This condition is very common in older men. A prostate gland infection (prostatitis) or urinary tract infection. Certain medicines such as male hormones (like testosterone) or other medicines that raise testosterone levels. A rectal exam may be done as part of prostate cancer screening to help provide information about the size of your prostate gland. When a rectal exam is performed, it should be done after the PSA level is drawn to avoid any effect on the results. Depending on the PSA results, you may need more tests, such as: A physical exam to check the size of your prostate gland, if not done as part of screening. Blood and imaging tests. A procedure to remove tissue samples from your prostate gland for testing (biopsy). This is the only way to know for certain if you have prostate cancer. What are the benefits of prostate cancer screening? Screening can help to identify cancer at an early stage, before symptoms start and when the cancer can be treated more easily. There is a small chance that screening may lower your risk of dying from prostate cancer. The chance is small because prostate cancer is a slow-growing cancer, and most men with prostate cancer from a different cause. What are the risks of prostate cancer screening? The main risk of prostate cancer screening is diagnosing and treating prostate cancer that would never have caused any symptoms or problems. This is called overdiagnosisand overtreatment. PSA screening cannot tell you if your PSA is high due to cancer or a different cause. A prostate biopsy is the only procedure to diagnose prostate cancer. Even the results of a biopsy may not tell you if your cancer needs to be treated. Slow-growing prostate cancer may not need any treatment other than monitoring, so diagnosing and treating it may cause unnecessary stress or other side effects. Questions to ask your health care provider When should I start prostate cancer screening? What is my risk for prostate cancer? How often do I need screening? What type of screening tests do I need? How do I get my test results? What do my results mean? Do I need treatment? Where to find more information The [place] [employer]: www.cancer.org [place] [employer]: www.auanet.org Contact a health care provider if: You have difficulty urinating. You have pain when you urinate or ejaculate. You have blood in your urine or semen. You have pain in your back or in the area of your prostate. Summary Prostate cancer is a common type of cancer in men. The prostate gland is located below the bladder and in front of the rectum. This gland adds fluid to semen during ejaculation. Prostate cancer screening may identify cancer at an early stage, when the cancer can be treated more easily and is less likely to have spread to other areas of the body. The prostate-specific antigen (PSA) test is the recommended screening test for prostate cancer, but it has associated risks. Discuss the risks and benefits of prostate cancer screening with your health care provider. If you are age 70 or older, the risks that screening can cause are greater than the benefits that it may provide. This information is not intended to replace advice given to you by your health care provider. Make sure you discuss any questions you have with your health care provider. Document Revised: 03/05/2022 Document Reviewed: 03/05/2022 [employer] Patient Education 2022 [employer]. Follow Up Care 02/21/2024 09:52:27 With:GABI GARCES, Richie Kern, URL Address: [address] [place] [id number] When: Unknown [facility] 03-31-2024 Note Patient Education Oncology Prostate Cancer Screening Prostate cancer screening is testing that is done to check for the presence of prostate cancer in men. The prostate gland is a walnut-sized gland that is located below the bladder and in front of the rectum in males. The function of the prostate is to add fluid to semen during ejaculation. Prostate cancer is one of the most common types of cancer in men. Who should have prostate cancer screening? Screening recommendations vary based on age and other risk factors, as well as between the professional organizations who make the recommendations. In general, screening is recommended if: ? You are age 50 to 70 and have an average risk for prostate cancer. You should talk with your health care provider about your need for screening and how often screening should be done. Because most prostate cancers are slow growing and will not cause , screening in this age group is generally reserved for men who have a 10- to 15-year life expectancy. ? You are younger than age 50, and you have these risk factors: ? Having a father, brother, or uncle who has been diagnosed with prostate cancer. The risk is higher if your family member's cancer occurred at an early age or if you have multiple family members with prostate cancer at an early age. ? Being a male who is Black or is of [place] or sub-Saharan descent. In general, screening is not recommended if: ? You are younger than age 40. ? You are between the ages of 40 and 49 and you have no risk factors. ? You are 70 years of age or older. At this age, the risks that screening can cause are greater than the benefits that it may provide. If you are at high risk for prostate cancer, your health care provider may recommend that you have screenings more often or that you start screening at a younger age. How is screening for prostate cancer done? The recommended prostate cancer screening test is a blood test called the prostate-specific antigen (PSA) test. PSA is a protein that is made in the prostate. As you age, your prostate naturally produces more PSA. Abnormally high PSA levels may be caused by: ? Prostate cancer. ? An enlarged prostate that is not caused by cancer (benign prostatic hyperplasia, or BPH). This condition is very common in older men. ? A prostate gland infection (prostatitis) or urinary tract infection. ? Certain medicines such as male hormones (like testosterone) or other medicines that raise testosterone levels. A rectal exam may be done as part of prostate cancer screening to help provide information about the size of your prostate gland. When a rectal exam is performed, it should be done after the PSA level is drawn to avoid any effect on the results. Depending on the PSA results, you may need more tests, such as: ? A physical exam to check the size of your prostate gland, if not done as part of screening. ? Blood and imaging tests. ? A procedure to remove tissue samples from your prostate gland for testing (biopsy). This is the only way to know for certain if you have prostate cancer. What are the benefits of prostate cancer screening? ? Screening can help to identify cancer at an early stage, before symptoms start and when the cancer can be treated more easily. ? There is a small chance that screening may lower your risk of dying from prostate cancer. The chance is small because prostate cancer is a slow-growing cancer, and most men with prostate cancer from a different cause. What are the risks of prostate cancer screening? The main risk of prostate cancer screening is diagnosing and treating prostate cancer that would never have caused any symptoms or problems. This is called overdiagnosisand overtreatment. PSA screening cannot tell you if your PSA is high due to cancer or a different cause. A prostate biopsy is the only procedure to diagnose prostate cancer. Even the results of a biopsy may not tell you if your cancer needs to be treated. Slow-growing prostate cancer may not need any treatment other than monitoring, so diagnosing and treating it may cause unnecessary stress or other side effects. Questions to ask your health care provider ? When should I start prostate cancer screening? ? What is my risk for prostate cancer? ? How often do I need screening? ? What type of screening tests do I need? ? How do I get my test results? ? What do my results mean? ? Do I need treatment? Where to find more information ? The [place] [employer]: www.cancer.org ? [place] [employer]: www.auanet.org Contact a health care provider if: ? You have difficulty urinating. ? You have pain when you urinate or ejaculate. ? You have blood in your urine or semen. ? You have pain in your back or in the area of your prostate. Summary ? Prostate cancer is a common type of cancer in men. The prostate gland is located below the bladder and in front of the rectum. (more content not included)... [facility] 09-18-2023 Evaluation note Encounter Date Diagnosis Assessment Notes Aug, Anemia (ICD-10 - D64.9) [facility] Other 10-25-2023 Evaluation note* Encounter Date Diagnosis Assessment Notes Treatment Notes Treatment Clinical Notes Jun, Elevated PSA (ICD-10 - R97.20) [facility] Other 09-28-2023 Evaluation note* Encounter Date Diagnosis Assessment Notes Treatment Notes Treatment Clinical Notes May, Chronic prostatitis (ICD-10 - N41.1) [facility] Other 08-21-2023 Evaluation note* Encounter Date Diagnosis Assessment Notes Treatment Notes Treatment Clinical Notes Apr, Abscess of foot (ICD-10 - L02.619) Begin antibiotics and refer to the wound clinic Soak and keep clean Apr, Primary hypertension (ICD-10 - I10) This patient is instructed to consume a healthy, low-fat, low-salt diet. They are also encouraged to continue exercise to achieve/maintain a normal BMI. [facility] Other 04-04-2023 Evaluation note* Encounter Date Diagnosis [...] I12.9) Control BP, hydrate and avoid NSAID [facility] Other 11-08-[address] [facility] [facility] NoteHNO ID: [id number] Author: Raciel Greer MD Service: ? Author [...] Raciel Greer MD April 05, 2021 3:15 [facility] No data available for this section [facility] Evaluation note* Diagnosis Onset Date Resolution Status D[facility] assessment information available [facility] Work Phone: Evaluation noteNo InformationNort Café [place] Other Evaluation note* Diagnosis Onset Date Resolution Status Chronic kidney disease acute GERD (gastroesophageal reflux disease) acute Hypertension acute Lumbar spondylosis acute [facility] Work Phone: Evaluation note* Diagnosis Onset Date Resolution Status Anemia acute Chronic kidney disease acute Gastroesophageal reflux dise ase with esophagitis without hemorrhage acute GERD (gastroesophageal reflux disease) acute Lumbar spondylosis acute Medicare annual wellness visit, subsequent acute Primary hypertension acute Prostate nodule acute [facility] Work Phone: Evaluation note* Diagnosis Onset Date Resolution Status Chronic kidney disease acute GERD (gastroesophageal reflux disease) acute Lumbar spondylosis acute Medicare annual wellness visit, subsequent acute Primary hypertension acute Prostate nodule acute [facility] Work Phone: History and physical note Author Reuben Giron [facility] July 31, 2022 1:13pm Note Date/Time July 31, 2022 1 :13pm [facility] [address] [place] [address] Gastroenterology H&P Signed Patient: Magnolia Boykin MR# : [id number] : 1945 Acct:[id number] Age/Sex: 76 / M Adm Date: 2 Loc: Room: Type: [facility] Attending Dr: Reuben Giron MD Copies [...] signed by Reuben Giron MD> 07/31/22 1313 [facility] Work Phone: History general Narrative - Reported* Type Description Date Medical History Hodgkin lymphoma, unspecified, u nspecified site Medical History hypertension Medical History diverticulosis Medical History neuropathy Medical History Hiatal hernia Medical History anemia Medical History Arthritis Surgical History hernia repair Surgical History wisdom teeth Surgical History colonoscopy 2019 Surgical History EGD Hospitalization History see surgical hx [facility] Other Hospital Discharge instructions Additional Instructions DISCHARGE [...] if you have any problems. -Office number [phone] Dis[facility] instructions Additional Instructions DISCHARGE INSTRUCTIONS [...] Follow up with PCP. - Office number [phone].[facility] Work Phone: Progress note No data available for this section [facility] Reason for referral (narrative)* Reason Referral for infecte d callus left foot Diagnosis 1 Abscess of foot (L02 .619) Referral Organization [facility] Juan Pablo gould Referring Provider First Name Referring Provider Last Name Juan Pablo Referring Provider Specialty Internal Me dicine Referred Organization [facility] Referred Address [address], [place],[address] Referred Provider Specialty Wound Care Referral Priority [...] can more easily be done at the [employer] office [employer] Other Chief Complaint and Reason for Visit Chief Complaint Dysphagia Reason for Visit Dysphagia Chief Complaint Dysphagia Chief Complaint Dysphagia Dysphagia Chief Complaint 6 month follow up Reason for Visit Chronic kidney disea se GERD (gastroesophageal reflux disease) Hypertension Lumbar spondylosis Chief Complaint R97.20 Chief Complaint R97.20 Elevated PSA Chief Complaint R97.20 Elevated PSA Wellness Reason for Visit Anemia Chronic kidney disease Gastroesophageal reflux disease with esophagitis without hemorrhage GERD (gastroesophageal reflux disease) Lumbar spondylosis Medicare annual wellness visit, subsequent Primary hypertension Prostate nodule Chief Complaint R97.20 Elevated PSA Wellness Elevated PSA Reason for Visit Chronic kidney disea se GERD (gastroesophageal reflux disease) Lumbar spondylosis Medicare annual wellness visit, subsequent Primary hypertension Prostate nodule Family History No Family History Records Found [...] brother Malignant neoplasm of colon Unknown Unknown mother Malignant neoplasm of pancreas Unknown father Hepatic [...] may be documented in an alternate section No data available for this sectionGoals may be documented in an alternate sectionGoals may be documented in an alternate sectionGoals may be documented in an alternate section (unrecognized sect ion and content) No Status Records FoundNo Status Records FoundNo Status Records FoundNo Status Records Found INFORMATION SOURCE (unrecogn ized section and content) DATE CREATED AUTHOR 11/09/2021 [facility] DATE CREATED AUTHOR AUTHOR'S ORGANIZ ATION 12/26/2022 [facility] DATE CREATED AUTHOR AUTHOR'S ORGANIZ ATION 06/01/2024 Jet Di[facility] DATE CREATED AUTHOR AUTHOR'S ORGANIZ ATION 06/28/2024 [facility] Care Teams (unrecognized sec tion and content) Team Status: Inactive Member Role Status Dates Benjamin Almeida , DO Primary Care Provider Active Reuben Giron MD Attending Provider Active Team Status: Active Member Role Status Dates Benjamin Almeida , Primary Care Provider Active Team Status: Inactive Member Role Status Dates Benjamin Almeida DO Primary Care Provide r, Attending Provider Active Start: December 19, 2023 End: December 19, 2023 Team Status: Inactive Member Role Status Dates Benjamin Almeida DO Primary Care Provider Active Start: May 18, 2024 End: May 18, 2024 Richie Ashley MD Attending Provider Active St art: May 18, 2024 End: May 18, 2024 Team Status: Inactive Member Role Status Dates Benjamin Almeida DO Primary Care Provider Active Start: June 09, 2024 End: June 09, 2024 Richie Ashley MD Attending Provider Active St art: June 09, 2024 End: June 09, 2024 Team Status: Inactive Member Role Status Dates Benjamin Almeida DO Primary Care Provide r, Attending Provider Active Start: June 22, 2024 End: June 22, 2024 Team Status: Inactive Member Role Status Dates Benjamin Almeida DO Primary Care Provider Active Start: June 22, 2024 End: June 22, 2024 Richie Ashley MD Attending Provider Active St art: June 22, 2024 End: June 22, 2024 REASON FOR VISIT (unrecogniz ed section and [...] BE BASED ON THE PRIMARY CLINICAL RECORDS. [email or web address]. provides no warranty or guarantee of the accuracy or completeness of information in this document.
== END 2024-06-29 16:11 | disposition home or self-care (01) ==
LOC: WC 16:10
PROVIDERS: PCP Internal Medicine; Visit Provider Physician Assistant
DX: L60.3 Nail dystrophy (principal); I73.89 Other specified peripheral vascular diseases; L84 Corns and callosities
CPT/HCPCS: 11055; 11721

== ENCOUNTER 2024-10-13 16:08 | Outpatient (OUT) | payer MEDICARE, SELFPAY | END 2024-10-13 16:09 | disposition home or self-care (01) | LOC: WC 16:09 | PROVIDERS: PCP Internal Medicine; Visit Provider Physician Assistant | DX: L84 Corns and callosities (principal); I73.89 Other specified peripheral vascular diseases; L60.3 Nail dystrophy | CPT/HCPCS: 11055; 11721 ==

== ENCOUNTER 2024-12-29 09:58 | Outpatient (OUT) | payer MEDICARE, SELFPAY | END 2024-12-29 09:59 | disposition home or self-care (01) | LOC: WC 09:58 | PROVIDERS: PCP Internal Medicine; Visit Provider Physician Assistant | DX: L84 Corns and callosities (principal); I73.89 Other specified peripheral vascular diseases; L60.3 Nail dystrophy | CPT/HCPCS: 11055; 11721 ==

== ENCOUNTER 2025-04-01 12:53 | Outpatient (OUT) | payer MEDICARE, SELFPAY ==
--- NOTE | 2025-04-01 13:37 | PM.WCHP ---
Wound Care H&P: HPI History of Present Illness Narrative: The patient is a pleasant 79-year-old gentleman with history of neuropathy secondary to chemotherapy who presents for routine nail care and callus management. 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 He does have neuropathic pain especially in the left foot which he states has improved with use of a topical pain compound. Exam Narrative: Exam Narrative: Derm: Toenails 1 through 10 are thickened, elongated, mycotic, and painful.� No evidence of paronychia.� Skin is diffusely dry, thin, and atrophic.� Vascular: DP and PT pulses are palpable bilaterally. Capillary refill is less than 3 seconds to all toes. Digital hair is absent bilaterally. 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 Callus was pared on the left plantar foot beneath the fourth metatarsal head without incident. Follow-up in 3 to 4 months, sooner if any issues arise. Acute Procedures Podiatry Nail Debridement Class B Findings Advanced trophic changes as evidenced by any three of the following: decreased hair growth, nail changes (thickening) and skin texture (thin or shiny) Class C Findings Claudication: No Temperature changes: Yes Edema: No Nail debridement paresthesia (abnormal spontaneous sensations in the feet): Yes Burning: Yes Qualifies If: Qualifiers If:: A patient qualifies for nail debridement if they have: 1 class A finding (Q7) 2 class B findings (Q8) OR 1 class B & 2 class C findings in addition to a primary condition (Q9) Nail Procedure Nail Procedure Time out: Yes Nail procedure: other (Sharp debridement of toenails 1 through 10. Paring of callus beneath the fourth metatarsal head on the left with a dermal curette) Number of affected nails: 10 Location (toes): left and right Procedure successful: Yes Patient tolerated procedure: well and no complications Additional comments: Toenails 1 through 10 were sharply debrided with nail nippers without incident. A dermal curette was used to pare a callus on the left plantar foot. The skin is intact at the base.
== END 2025-04-01 12:54 | disposition home or self-care (01) ==
LOC: WC 12:57
PROVIDERS: PCP Internal Medicine; Visit Provider Physician Assistant
DX: G62.0 Drug-induced polyneuropathy (principal); B35.1 Tinea unguium; L84 Corns and callosities
CPT/HCPCS: 11721

== ENCOUNTER 2025-06-24 09:09 | Outpatient (OUT) | payer MEDICARE, SELFPAY ==
--- OUTSIDE RECORDS SUMMARY | 2025-06-22 08:16 | XMS_ITS ---
Author Name Auto Generated Organization [place] Care Team Providers Care [employer] Consultant Name Role Phone BONG REDDY Attending Unavailable BONG REDDY Attending Unavailable Benjamin Almeida Primary Care Unavailable Codi López Admitting Unavailable Codi López Attending Unavailable Benjamin Almeida Primary Care Unavailable Codi López Admitting Unavailable Codi López Attending Unavailable Bong Reddy Jr Admitting Unavailable Bong eRddy Jr Attending Unavailable Benjamin Almeida Primary Care Unavailable Cristopher ASHLEY Attending Unavailable JAYLANR G ALEXEI Referring Unavailable DOMINIQUEELER, G ALEXEI Attending Unavailable BENJAMIN ALMEIDA Primary Care Unavailable DOMINIQUEELEVijay, G ALEXEI Referring Unavailable BENJAMIN ALMEIDA Primary Care Unavailable ENGELER, G ALEXEI Referring Unavailable BENJAMIN ALMEIDA Primary Care Unavailable CRISTOPHER ASHLEY Referring Unavailable BENJAMIN ALMEIDA Primary Care Unavailable Elmer LÓPEZ Attending Unavailable Elmer LÓPEZ Attending Unavailable BENJAMIN ALMEIDA E Primary Care Unavailable Elmer LÓPEZ Referring Unavailable BENJAMIN ALMEIDA E Primary Care Unavailable ENGELERElmer Referring Unavailable BENJAMIN ALMEIDA Primary Care Unavailable Elmer LÓPEZ Referring Unavailable ENGElmer SAL Attending Unavailable BENJAMIN ALMEIDA E Primary Care Unavailable PROBLEMS DATE TYPE CONDITION / CODE ATTENDING STATUS [facility] 03/09/2025 Active Lung nodule, mul tiple / R91.8(ICD-10) Elmer LÓPEZ Active [facility] 03/09/2025 Active Prostate cancer (HCC) / C61(ICD-10) Elmer LÓPEZ Active [facility] 09/02/2024 Unknown Nontoxic single thyroid nodule / E04.1(ICD-10) Codi López Active [facility] 07/17/2012 Active 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) / C81.03(ICD-10) NA Active [facility] PROCEDURES No Procedure Records Found RESULTS US THYROID Observed: 06/07/2025 4:56 PM Status: COMPLETED Source: [facility] [place] [address] Ultrasound Report Signed Patient: Magnolia Boykin MR#: [id number] : 1945 Acct:[id number] Age/Sex: 79 / M ADM Date: 06/07/25 Loc: Room: Type: [facility] Attending Dr: Bong Reddy Jr, MD Ordering Provider: BONG REDDY MD Date of Service: 06/07/25 US/US thyroid: THROID NODULE Copies to: BONG REDDY MD Thyroid Ultrasound HISTORY: Follow-up thyroid nodules COMPARISON: 09/02/2024 The RIGHT lobe measures 4.1 x 1.9 x 1.7cm. LEFT lobe measures 4.1 x 1.7 x 1.5 cm. Isthmus has an AP dimension of 0.3cm. Right 9 mm next echogenic inferior nodule redemonstrated. Unchanged. Left superior 4 mm cystic nodule redemonstrated, unchanged.. No microcalcifications identified. Symmetric blood flow of the thyroid gland identified. US/US thyroid IMPRESSION: Stable subcentimeter thyroid nodules. No new or enlarging nodules. Impression dictated by: Og Zee M.D. 06/07/2025 4:58 PM Dictation Location: [place] [address] Tech: Ani Meyer Transcribed By: PWS 06/07/251657 Dictated By: Og Zee DO 06/07/251655 Signed By: <Electronically signed by Og Zee DO in OV> 06/07/251657 PROGRESS Observed: 03/09/2025 11:20 AM Status: COMPLETED Source: [facility] HNO ID: [id number] Author: MAUDE BOSCH RN Service: ? Author Type: Registered Nurse Type: Progress Notes Filed: 03/09/2025 12:55 Note Text: AUA Haim Bosch RN PROGRESS Observed: 03/09/2025 11:15 AM Status: COMPLETED Source: [facility] HNO ID: [id number] Author: Elmer LÓPEZ MD Service: ? Author Type: Physician Type: Progress Notes Filed: 03/09/2025 12:55 Note Text: Radiation Oncology - Prostate Cancer Follow-up note PATIENT NAME: Magnolia Boykin PATIENT DIAGNOSIS: 1. 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 NCCN Risk Group: Low Risk Group 2. Hodgkin's lymphoma status post primary chemotherapy with ABVD completed September 2012. No evidence of recurrence or issues related to his prior treatment. HPI: Patient returns for follow-up. Overall doing well. Staying active. Denies any new problems. He did undergo workup and evaluation with Dr. Reddy. FNA demonstrating obtained that showed AUS with benign afirma (confirmed genomic sequencing lap grinder benign). He has further follow-up scheduled. Decipher score: 0.34 (low risk) Ultrasound thyroid: Solid cystic nodule inferior aspect right lobe, 9 x 9 x 9 mm. Corresponds with PET/CT abnormality, FNA recommended. RADIOLOGY: CT chest 03/04/2025:1. Several bilateral 5 mm or less pulmonary nodules are again appreciated, unchanged from prior PET/CT examination of 08/17/2024. Correlation with continued follow-up examinations is recommended. 2. No substantial intrathoracic adenopathy is identified. FDG PET 08/18/2024: IMPRESSION: Since 04/10/2016, ROOSEVELT DISEASE: * No metabolically active lymphadenopathy. EXTRANODAL DISEASE: * No metabolically active extranodal disease. ADDITIONAL FINDINGS: * Lung nodule(s) measuring less than 8 mm without increased metabolic activity. However, the nodule(s) may be below may be resolution of PET. Continue CT surveillance as warranted clinically. * Incidental metabolically active thyroid nodule. Advise sonographic evaluation LABORATORY: Decipher score: 0.34 (low risk) PSA history: 10/2015 2.33 01/29/2018 2.37 02/18/2019 3.95 06/01/2019 3.42 06/06/2020 3.66 02/27/2021 3.77 06/19/2022 3.91 05/20/2023 4.64 07/25/2023 3.9 (27.9% free) after 4-week antibiotic course 02/07/2024 4.89 PSA (ng/mL) Date Value 03/04/2025 4.76 Patient underwent prostate MRI on 05/18/2024 demonstratin cc gland. Focal T2 hypointensity 12 x 7 mm, PI-RADS 4. No gross extracapsular extension seen. No evidence of any other findings within the pelvis. Prostate biopsy with MR fusion on 06/22/24 revealed: Adenocarcinoma, Chantel 6 (3+3) 5 out of 6 cores from the left mid lateral AIDA, in addition [place] 6 from left base right apical. Total # of positive biopsy cores: 7 Total # of biopsy cores sampled: 16 Greatest % cancer in any single core: 10-25% Staging Studies: MR Results: See HPI Previous Treatment for Prostate Cancer: None Genomic Testing: na The patient reports the following pertinent history: Urinary frequency (D/N): 4-6/1-2 Dysuria: No Incontinence: 1- No pads Hematuria: No - Total AUA Score: 18 Bowel Movement Frequency: 1/day Bowel Movement Quality: Normal Blood per Rectum: No Last Colonoscopy: na Androgen Deprivation: none Prior Radiation Therapy, Collagen Vascular Disease, or Inflammatory Bowel Disease: No Any implanted or external electric devices? No Currently on Anticoagulation: No History of Hip Replacement: No History of Prior TURP: No ALLERGIES Allergen Reactions Iodine GI Upset omeprazole (PRILOSEC) 40 mg capsule Take 40 mg by mouth once daily. lutein-zeaxanthin 25-5 mg cap Take by mouth. Zeaxanthin-2.5 mg multivit with minerals/lutein (MULTIVITAMIN 50 PLUS ORAL) Take by mouth. benazepril (LOTENSIN) 20 mg tablet Take 20 mg by mouth once daily. PAST MEDICAL HISTORY Diagnosis Date Anemia Arthritis, degenerative Carotid bruit right carotid Diverticulosis Dysphagia Esophagitis Glomerulonephritis Hiatal hernia Hodgkin's lymphoma (HCC) Hypertension Neuropathy right foot PUD (peptic ulcer disease) PAST SURGICAL HISTORY Procedure Laterality Date COLONSCOPY SCREENING HIGH RISK 02/22/2012 ESOPHAGEAL DILATATION ESOPHAGOGASTRODUODENOSCOPY_*FL 03/20/2012 FAMILY HISTORY Problem Relation Age of Onset Cancer Mother at age 89 Cancer Brother at age 52 Prostate Cancer Brother Other Sleep Disorder No Family History Social History Tobacco Use Smoking status: Former Types: Cigarettes Smokeless tobacco: Never Substance Use Topics Alcohol use: Yes Comment: rarely Drug use: Never REVIEW OF SYSTEMS: GENERAL: feeling well without fatigue, has been having night sweats for the last 2 to 4 months. Denies fevers NECK: denies swelling or pain in neck RESPIRATORY: no cough, no wheezing or shortness of breath CARDIOVASCULAR: no chest pain, no palpitations MUSCULOSKELETAL: denies any painful or swollen joints, no muscle aches SKIN: no rash NEURO: no numbness or paresthesias and no weakness of the extremities As noted in HPI PHYSICAL EXAM: VS: BP 151/96 Pulse 63 Temp (!) 35.6 ?C (96 ?F) Resp 18 Wt 84.2 kg (185 lb 10 oz) SpO2 97% BMI 25.17 kg/m? KARNOFSKY PERFORMANCE STATUS: 100 General Appearance: Alert and oriented. No acute distress. Neck: No appreciable adenopathy or thyroid enlargement or nodularity. Rectal: Deferred ASSESSMENT/PLAN: Prostate adenocarcinoma, initial PSA 4.89, biopsy [place] score 3 + 3 = 6 (grade group 1), clinical stage T1c, N0, M0, stage I [cT1a-c/T2a, N0, M0, PSA <10, GG 1] (AJCC 8th ed.), s/p biopsy. NCCN Risk Group: Low Risk Group 1. Prostate cancer: Low risk disease, decipher test showing correspondingly low risk genomic score. Discussed options again. Patient wants to continue active surveillance. PSA remains stable. 2. Hodgkin's lymphoma status post definitive chemotherapy. No evidence of clinical or radiographic recurrence. 3. Incidental lung nodule on PET scan: Stable on recent CT recommend repeat CT chest 6 months. 4. Incidental hypermetabolic thyroid nodule. FNA of the right thyroid nodule without evidence of malignancy, genomic testing benign he has continued follow-up with Dr. Reddy. Signed by: Elmer López MD cc: Benjamin Almeiad ([facility]) [address] [place], [place] [id number] Cristopher Erlin [address] [address] [address] Reddy[address] CNOV Observed: 03/09/2025 11:15 AM Status: COMPLETED Source: [facility] Office Visit (RADTSA) SIMAMAGNOLIA Erlin ([id number]) 1945 M Date Time Provider Department 03/09/25 11:15 AM Elmer LÓPEZ RADFRIDAA During your visit today, we recorded the following information about you: Temperature Pulse Respiration Blood pressure 96 degrees 63/minute 18/minute 151/96 Weight 84.2 kg Elmer López MD 03/09/2025 12:55 PM Signed Radiation Oncology - Prostate Cancer Follow-up note PATIENT NAME: Magnolia Boykin PATIENT DIAGNOSIS: 1. 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 NCCN Risk Group: Low Risk Group 2. Hodgkin's lymphoma status post primary chemotherapy with ABVD completed September 2012. No evidence of recurrence or issues related to his prior treatment. HPI: Patient returns for follow-up. Overall doing well. Staying active. Denies any new problems. He did undergo workup and evaluation with Dr. Reddy. FNA demonstrating obtained that showed AUS with benign afirma (confirmed genomic sequencing lap grinder benign). He has further follow-up scheduled. Decipher score: 0.34 (low risk) Ultrasound thyroid: Solid cystic nodule inferior aspect right lobe, 9 x 9 x 9 mm. Corresponds with PET/CT abnormality, FNA recommended. RADIOLOGY: CT chest 03/04/2025:1. Several bilateral 5 mm or less pulmonary nodules are again appreciated, unchanged from prior PET/CT examination of 08/17/2024. Correlation with continued follow-up examinations is recommended. 2. No substantial intrathoracic adenopathy is identified. FDG PET 08/18/2024: IMPRESSION: Since 04/10/2016, ROOSEVELT DISEASE: * No metabolically active lymphadenopathy. EXTRANODAL DISEASE: * No metabolically active extranodal disease. ADDITIONAL FINDINGS: * Lung nodule(s) measuring less than 8 mm without increased metabolic activity. However, the nodule(s) may be below may be resolution of PET. Continue CT surveillance as warranted clinically. * Incidental metabolically active thyroid nodule. Advise sonographic evaluation LABORATORY: Decipher score: 0.34 (low risk) PSA history: 10/2015 2.33 01/29/2018 2.37 02/18/2019 3.95 06/01/2019 3.42 06/06/2020 3.66 02/27/2021 3.77 06/19/2022 3.91 05/20/2023 4.64 07/25/2023 3.9 (27.9% free) after 4-week antibiotic course 02/07/2024 4.89 PSA (ng/mL) Date Value 03/04/2025 4.76 Patient underwent prostate MRI on 05/18/2024 demonstratin cc gland. Focal T2 hypointensity 12 x 7 mm, PI-RADS 4. No gross extracapsular extension seen. No evidence of any other findings within the pelvis. Prostate biopsy with MR fusion on 06/22/24 revealed: Adenocarcinoma, [place] 6 (3+3) 5 out of 6 cores from the left mid lateral AIDA, in addition Chantel 6 from left base right apical. Total # of positive biopsy cores: 7 Total # of biopsy cores sampled: 16 Greatest % cancer in any single core: 10-25% Staging Studies: MR Results: See HPI Previous Treatment for Prostate Cancer: None Genomic Testing: na The patient reports the following pertinent history: Urinary frequency (D/N): 4-6/1-2 Dysuria: No Incontinence: 1- No pads Hematuria: No - Total AUA Score: 18 Bowel Movement Frequency: 1/day Bowel Movement Quality: Normal Blood per Rectum: No Last Colonoscopy: na Androgen Deprivation: none Prior Radiation Therapy, Collagen Vascular Disease, or Inflammatory Bowel Disease: No Any implanted or external electric devices? No Currently on Anticoagulation: No History of Hip Replacement: No History of Prior TURP: No ALLERGIES Allergen Reactions Iodine GI Upset omeprazole (PRILOSEC) 40 mg capsule Take 40 mg by mouth once daily. lutein-zeaxanthin 25-5 mg cap Take by mouth. Zeaxanthin-2.5 mg multivit with minerals/lutein (MULTIVITAMIN 50 PLUS ORAL) Take by mouth. benazepril (LOTENSIN) 20 mg tablet Take 20 mg by mouth once daily. PAST MEDICAL HISTORY Diagnosis Date Anemia Arthritis, degenerative Carotid bruit right carotid Diverticulosis Dysphagia Esophagitis Glomerulonephritis Hiatal hernia Hodgkin's lymphoma (HCC) Hypertension Neuropathy right foot PUD (peptic ulcer disease) PAST SURGICAL HISTORY Procedure Laterality Date COLONSCOPY SCREENING HIGH RISK 02/22/2012 ESOPHAGEAL DILATATION ESOPHAGOGASTRODUODENOSCOPY_*FL 03/20/2012 FAMILY HISTORY Problem Relation Age of Onset Cancer Mother at age 89 Cancer Brother at age 52 Prostate Cancer Brother Other Sleep Disorder No Family History Social History Tobacco Use Smoking status: Former Types: Cigarettes Smokeless tobacco: Never Substance Use Topics Alcohol use: Yes Comment: rarely Drug use: Never REVIEW OF SYSTEMS: GENERAL: feeling well without fatigue, has been having night sweats for the last 2 to 4 months. Denies fevers NECK: denies swelling or pain in neck RESPIRATORY: no cough, no wheezing or shortness of breath CARDIOVASCULAR: no chest pain, no palpitations MUSCULOSKELETAL: denies any painful or swollen joints, no muscle aches SKIN: no rash NEURO: no numbness or paresthesias and no weakness of the extremities As noted in HPI PHYSICAL EXAM: VS: BP 151/96 Pulse 63 Temp (!) 35.6 ?C (96 ?F) Resp 18 Wt 84.2 kg (185 lb 10 oz) SpO2 97% BMI 25.17 kg/m? KARNOFSKY PERFORMANCE STATUS: 100 General Appearance: Alert and oriented. No acute distress. Neck: No appreciable adenopathy or thyroid enlargement or nodularity. Rectal: Deferred ASSESSMENT/PLAN: Prostate adenocarcinoma, initial PSA 4.89, biopsy [place] score 3 + 3 = 6 (grade group 1), clinical stage T1c, N0, M0, stage I [cT1a-c/T2a, N0, M0, PSA <10, GG 1] (AJCC 8th ed.), s/p biopsy. NCCN Risk Group: Low Risk Group 1. Prostate cancer: Low risk disease, decipher test showing correspondingly low risk genomic score. Discussed options again. Patient wants to continue active surveillance. PSA remains stable. 2. Hodgkin's lymphoma status post definitive chemotherapy. No evidence of clinical or radiographic recurrence. 3. Incidental lung nodule on PET scan: Stable on recent CT recommend repeat CT chest 6 months. 4. Incidental hypermetabolic thyroid nodule. FNA of the right thyroid nodule without evidence of malignancy, genomic testing benign he has continued follow-up with Dr. Reddy. Signed by: Elmer López MD cc: Benjamin Almeida ([facility]) [address] [place] [address] Cristopher Ashley [address] [place], [place] [id number] Dr. Reddy. Maude Bosch, MAXWELL 03/09/2025 12:55 PM Signed AUA 15 Maude Bosch, MAXWELL Referring Provider: Elmer LÓPEZ [[id number]] Allergies As of Date: 03/09/2025 Noted Allergy Reaction IODINE 07/17/2012 8 - GI Upset Date Reviewed: 03/09/2025 Reviewed by: Maude Bosch, RN - Fully Assessed Primary Visit Diagnosis:Lung nodule, multiple [R91.8] Other Visit Diagnosis:Prostate cancer (HCC) [C61] Order(s):CT CHEST WO IVCON [[id number]] Order #: [id number] FUTURE PROSTATE-SPECIFIC ANTIGEN DIAGNOSTIC [SQPSA] Order #: [id number] FUTURE Prescriptions as of 03/09/2025 - omeprazole (PRILOSEC) 40 mg capsule Take 40 mg by mouth once daily. - lutein-zeaxanthin 25-5 mg cap Take by mouth. Zeaxanthin-2.5 mg - multivit with minerals/lutein (MULTIVITAMIN 50 PLUS ORAL) Take by mouth. - benazepril (LOTENSIN) 20 mg tablet Take 20 mg by mouth once daily. Problem List As Of Date 03/09/2025 Noted Resolved Hodgkin's lymphoma [C81.90] Neuropathy [G62.9] Encounter for screening for malignant neoplasm *01/13/2017 Level of Service: OFFICE/OUTPATIENT ESTABLISHED LOW [facility] 20 MIN [41201] Additional E/M codes: VISIT CPLX INHERENT EANDM ASSOC WITH MED * Disposition: Return in about 6 months (around 09/08/2025). Follow-up and Disposition History for Encounter Date Provider Department Center 03/09/2025 [id number] LÓPEZ [facility] Encounter Status:Closed by Elmer LÓPEZ on 03/09/25 CT CHEST WO IVCON Observed: 03/04/2025 9:22 AM Status: F Source: [facility] * * *Final Report* * * DATE OF EXAM: Mar 04 2025 9:22AM [facility] [id number] - CT CHEST WO IVCON / PROCEDURE REASON: Prostate cancer (HCC) * * * * Physician Interpretation * * * * RESULT: EXAMINATION: CHEST CT WITHOUT CONTRAST CLINICAL HISTORY: Prostate carcinoma Technique: Spiral CT acquisition of the chest from the thoracic inlet to the upper abdomen without contrast. MQ: CTCWOR_4 CT Dose-Length Product: 279 mGy*cm CT Dose Reduction Employed: Automated exposure control (AEC) Comparison: PET/CT 08/17/2024 RESULT: Limitations: None. Lines, tubes, and devices: None. Lung parenchyma , airways, and pleural space: Small area of groundglass/reticular opacities within the posterior aspect of left upper lobe, stable. No new consolidative process or pleural effusion. The trachea and major airways appear patent. Several bilateral 5 mm or less pulmonary nodules are again appreciated, stable in appearance: For example, the right, images 28, 103, 119 series 4. Along the left major fissure, image 103, series 4. Lower neck, lymph nodes, and mediastinum: The visualized thyroid gland is stable. No substantial supraclavicular or axillary lymphadenopathy. No substantial mediastinal or hilar adenopathy is appreciated. Moderate-large in size hiatal hernia is stable. Heart, pericardium, and thoracic vessels: A small amount of coronary artery calcification is again appreciated. No substantial pericardial effusion. The thoracic aorta is normal in caliber. Bones/Soft Tissues: Mild degenerative change within the thoracic spine is again appreciated. No osseous destructive process is identified. Upper Abdomen: Limited unenhanced images through the upper abdomen are stable. Limited unenhanced images through the upper abdomen are stable. Labor/Excavator (topogram) images: No additional findings. IMPRESSION: 1. Several bilateral 5 mm or less pulmonary nodules are again appreciated, unchanged from prior PET/CT examination of 08/17/2024. Correlation with continued follow-up examinations is recommended. 2. No substantial intrathoracic adenopathy is identified. Transcribe Date/Time: Mar 04 2025 10:21A Dictated by: ILENE DOVE MD This examination was interpreted and the report reviewed and electronically signed by: ILENE DOVE MD on Mar 04 2025 11:40AM EST Thank you for allowing us to participate in the care of your patient. Should there be any questions regarding this interpretation, please call [phone]. If you are unable to reach us at the number above, please feel free to contact [facility]Radiology at [phone]. [id number] PROGRESS Observed: 03/04/2025 9:00 AM Status: COMPLETED Source: [facility] HNO ID: [id number] Author: RICO BETHEA RT(R) Service: ? Author Type: Technologist Type: Progress Notes Filed: 03/04/2025 09:00 Note Text: Radiology Service Progress Note PATIENT NAME: Magnolia Boykin DATE OF SERVICE: March 04, 2025 TIME: 9:00 AM PATIENT IDENTITY VERIFICATION COMPLETED USING TWO (2) IDENTIFIERS: Name and Date of confirmed by patient verbally. FALL SCREENING: Has the patient had 2 falls in the last year or 1 fall with injury or currently using an Ambulatory Assistive Device (Walker, Cane, Wheelchair, Crutches, etc.)? No PATIENT GENDER DATA: Assigned male at PATIENT RELEVANT IMPLANT DATA REVIEWED: Not Applicable PATIENT PRESENTS WITH AN IMPLANTABLE OR ATTACHED AUTOCAD: No RADIOLOGY DEPARTMENT: CT; Exam(s) Completed: Chest PERIPHERAL IV DATA: Not applicable SIGNED BY: Rico Bethea RT(R) March 04, 2025 9:00 AM PSA SERPL-MCNC Collected: 8:52 AM Status: F Source: [facility] Order Comment: Specimen Type : BLOOD SPECIMEN Ordering Facility: [facility] Address: [address] [place] [address] TYPE CODE TESTS RESULT OUT OF RANGE REFERENCE UNITS LAB 2857-1(LOINC) PSA SerPl-mCnc 4.76 High <2.60 ng/mL Result Comment: Total PSA te st methodology used is the Electrochemiluminescence Immunoassay by [employer]. Total PSA values by differing methodologies cannot be interchanged. For an individual patient, the significance of a PSA level should be interpreted in a broad clinical context, including age, race, family history, digital rectal exam, prostate size, results of prior testing (prostate biopsy, free PSA, PCA3), and use of 5-alpha reductase inhibitors. Considering the high incidence of asymptomatic cancer in the general population that may not pose an ultimate risk to a patient, the decision to recommend urological evaluation or prostate biopsy should be individualized after consideration of all these factors. REFERENCE: Xena Frank M.D., M.P.H., Richard Mckeon M.D., Ph.D., Hemanth Price M.D., Tara Weber, M.P.H., Gwendolyn Gibson, ScLinda. Effect of Verification Bias on Screening for Prostate Cancer by Measurement of Prostatic Specific Antigen. N Engl J Med 2003,349:335-42. Performed By: #### 2857-1 ## ## [facility] CLIA [id number] [address] [place] [address] [place] CNPN Observed: 11/26/2024 12:00 AM Status: COMPLETED Source: [facility] Telephone (RADTSA) MAGNOLIA BOYKIN ([id number]) 1945 M Date Time Provider Department 11/26/24 Elmer LÓPEZ During your visit today, we recorded the following information about you: Maude Bosch, RN 11/26/2024 11:00 AM Signed Charlotte left message stating Magnolia had his us on 09/29 (with biopsy) and they didn't hear any results. VIOLET- US and Path are scanned in chart. Please advise. Follow up is not scheduled currently until February 2025. MAXWELL Nowak Angela, MAXWELL 11/26/2024 1:09 PM Signed View All Conversations on this Encounter Elmer López MD You; Radt Sand Rad Nurse Pool1 hour ago (11:47 AM) Please get him in to see Dr. Reddy. I talked with them. Elmer López MD You1 hour ago (11:33 AM) Thought I was seeing him sooned. I will call Maude Bosch, MAXWELL 11/26/2024 1:09 PM Signed PSS- please schedule pt to see Dr Reddy regarding Thyroid nodule and recent biopsy. Pt is aware. MAXWELL Nowak Deidre 11/27/2024 10:24 AM Signed Attempted to call Dr. Reddy's office. There was no answer and no option to leave a message. Justa Saenz 11/30/2024 10:47 AM Signed I spoke with Mireille at Dr. Reddy's office. She asked that the last progress note be faxed to [phone]. She will then give to Dr. Reddy for review and get the patient scheduled. Note faxed. LIZETH Farmer Angela, RN 11/30/2024 1:09 PM Signed Please also fax recent nursing phone message and ultrasound report. MAXWELL Nowak Deidre 11/30/2024 2:18 PM Signed Additional information sent Justa Saenz 12/02/2024 8:11 AM Signed Patient is scheduled for Dr. Reddy on 12/15/24. LIZETH Farmer Allergies As of Date: 11/26/2024 Noted Allergy Reaction IODINE 07/17/2012 8 - GI Upset Date Reviewed: 2024 Reviewed by: Maude Bosch RN - Fully Assessed Reason for Visit: Results [95] Prescriptions as of 12/02/2024 - omeprazole (PRILOSEC) 40 mg capsule Take 40 mg by mouth once daily. - lutein-zeaxanthin 25-5 mg cap Take by mouth. Zeaxanthin-2.5 mg - multivit with minerals/lutein (MULTIVITAMIN 50 PLUS ORAL) Take by mouth. - benazepril (LOTENSIN) 20 mg tablet Take 20 mg by mouth once daily. Problem List As Of Date 11/26/2024 Noted Resolved Hodgkin's lymphoma [C81.90] Neuropathy [G62.9] Encounter for screening for malignant neoplasm *01/13/2017 Encounter Status:Closed by JUSTA SAENZ on 12/02/24 US NEEDLE ASPIRATION Observed: 4:00 PM Status: COMPLETED Source: [facility] [place] [address] Ultrasound Report Signed Patient: Magnolia Boykin MR#: [id number] : 1945 Acct:[id number] Age/Sex: 79 / M ADM Date: 09/29/24 Loc: Room: Type: [facility] Attending Dr: Codi López MD Ordering Provider: Elmer López MD Date of Service: 09/29/24 US/US needle aspiration: E04.1 C61 Copies to: Elmer López MD US needle aspiration 09/29/2024 11:28 AM SIGNS AND SYMPTOMS: Thyroid nodule INFORMED CONSENT: Reason for procedure was discussed with the patient. The procedure expectations risks benefits options and alternatives were discussed. All the questions were answered. The patient understood the results cannot be guaranteed. The procedure is indicated and risks were acceptable. Consent was obtained. PROCEDURE: Grayscale sonographic images were used to visualize a heterogeneous nodule at the inferior pole of the right thyroid lobe which corresponds to the PET positive nodule on the recent PET/CT. The skin was marked in this location. Skin was prepped and draped in a sterile manner. 5 mL of lidocaine 2% without epinephrine were used for local anesthesia. A 5 passes of fine-needle aspiration were performed with a 25-gauge needle. Specimens were given to histology. The specimens were deemed to be adequate. The needles were removed and hemostasis was gained using manual pressure. A bandage was placed over the puncture site. The patient tolerated the procedure well. No immediate complications were detected. US/US needle aspiration IMPRESSION: Successful ultrasound-guided fine-needle aspiration of the right thyroid nodule. Impression dictated by: Matthew Ge M.D.09/29/2024 4:07 PM Dictation Location: [place] [address] Tech: Pastora Mckeon Transcribed By: [facility] 09/29/24 1607 Dictated By: Matthew Ge II, MD 09/29/24 1600 Signed By: <Electronically signed by Matthew Ge II, MD in OV> 09/29/24 1607 L Observed: 09/29/2024 11:10 AM Status: F Source: [facility] ----- ------- Specimen: [id number] Received: 09/29/24-4176 Status: DIANNA Ricardo Num: [id number] Spec Type: Cytology Subm Dr: Matthew Ge II, MD Tissues: A FNA SLIDES PATH (RT THY CHANEL) Procedures: -, DIFF QWIK/3, PAPSTN/4 ----- ------- Age/ Patient Sex Location Account Attending Physician ----- ------- Magnolia Boykin 79/M [id number] Elmer López MD ----- ------- SPEC NUM: [id number] RECD: 09/29/24 STATUS: DIANNA ZE NUM: [id number] MERARI: 09/29/[address] [facility] DR: Matthew Ge II, MD ENTERED: 09/29/[address] [facility] [address]: Elmer López MD SPEC TYPE: Cytology DEPT: CNG ENTERED BY: [id number] RECV BY: [id number] ORDERED: -, DIFF QWIK/3, PAPSTN/4 ORDERED: -, DIFF QWIK/3, PAPSTN/4 Supplemental Report Addendum 1 Entered: 10/20/246836 Supplemental for [facility] PATIENT MONITOR: -Ensemble [place] Pilot -Benign (risk of malignancy 4%) -Xpression [place] -N/A -Other Classifiers -BRAF p. V600E c. 1799T>A: Negative -RET/PTC1: Not detected -RET/PTC3: Not detected -MTC: Negative -Parathyroid: Negative TERT PROMOTER REGION: -Tests (2) not ordered ----- ------- Specimen: [id number] Received: 09/29/24 Status: DIANNA Roblesmelani Num: [id number] Spec Type: Cytology Subm Dr: Matthew Ge II, MD Tissues: A FNA SLIDES PATH (RT THY CHANEL) Procedures: -, DIFF QWIK/3, PAPSTN/4 ----- ------- Patient: Magnolia Boykin Erlin [id number] (Continued) ----- ------- Specimen: [id number] Received: 09/29/24 (Continued) Supplemental Report (Continued) Signed (signature on file) Lenard Orantes MD 09/30/24 1049 ----- ------- Specimen: [id number] Received: 09/29/24 Status: DIANNA Ricardo Num: [id number] Spec Type: Cytology Subm Dr: Matthew Ge II, MD Tissues: A FNA SLIDES PATH (RT THY CHANEL) Procedures: -, DIFF QWIK/3, PAPSTN/4 ----- ------- Patient: Magnolia Boykin [id number] (Continued) ----- ------- Specimen: [id number] Received: 09/29/24 (Continued) Supplemental Report (Continued) Addendum Signed (signature on file) Sil Garcia MD 10/20/24 1804 ----- ------- Pathological Diagnosis Right thyroid nodule, fine needle aspiration (ThinPrep and Smear): - Satisfactory for evaluation. - Atypia of undermined significance ([place] Category: III). - See Comment. 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 Thyroid molecular testing (Afirma) is pending and will follow as a supplemental report. Clinical Information Right Thyroid Nodule,prostate CA, Hodgkins Lymphoma Gross Description Received fixed in Cytolyt is 30 ml pink clear fixed fluid for cytology said to have been obtained as Right Thyroid Nodule. ThinPrep preparations are prepared for microscopic examination. Also received are 6 total, smeared slides and a Veracyte vial stored at -20 for microscopic examination. (/nh) Microscopic Description Onsite adequacy evaluation (Pass #1 to #4: Right thyroid nodule, fine needle aspiration: - One smear slide shows sheets of follicular cell, suboptimal for evaluation. Microscopic examination is performed. ----- ------- Specimen: [id number] Received: 09/29/24 Status: DIANNA Roblesmelani Num: [id number] Spec Type: Cytology Subm Dr: Matthew Ge II, MD Tissues: A FNA SLIDES PATH (RT THY CHANEL) Procedures: -, DIFF QWIK/3, PAPSTN/4 ----- ------- Patient: Magnolia Boykin [id number] (Continued) ----- ------- Specimen: [id number] Received: 09/29/24 (Continued) Signed (signature on file) Lenard Orantes MD 09/30/24 1049 ----- ------- Specimen: [id number] Received: 09/29/24 Status: DIANNA Roblesmelani Num: [id number] Spec Type: Cytology Subm Dr: Matthew Ge II, MD Tissues: A FNA SLIDES PATH (RT THY CHANEL) Procedures: -, DIFF QWIK/GÓMEZ Ellis/Josselin ----- ------- Patient: Magnolia Boykin [id number] (Continued) ----- ------- Specimen: [id number] Received: 09/29/24 (Continued) CPT Codes 26045, 97277, 76770 ----- ------- ----- ------- Specimen: [id number] Received: 09/29/24 Status: DIANNA Ricardo Num: [id number] Spec Type: Cytology Subm Dr: Matthew Ge II, MD Tissues: A FNA SLIDES PATH (RT THY CHANEL) Procedures: -, DIFF QWIK/Caleb, PAPN/4 ----- ------- Patient: Magnolia Boykin [id number] (Continued) ----- ------- Signed (signature on file) Lenard Orantes MD 09/30/24 1049 PLATELET COUNT Collected: 10:04 AM Status: F Source: [facility] Order Comment: STAT FOR BX TYPE CODE TESTS RESULT OUT OF RANGE REFERENCE UNITS LAB PLT Platelet Count 208 Normal 150-450 10*3/uL Result Comment: PERFORMED BY : [place] [id number] PATHOLOGIST SIGN CARPENTER LEN SHIELDS M.D. Performed By: #### PLT, PP # ### [place] [id number] [facility] COAGULATION PROFILE Collected: 09/29/2024 10:04 AM S tatus: F Source: [facility] Order Comment: STAT FOR BX TYPE CODE TESTS RESULT OUT OF RANGE REFERENCE UNITS LAB R PT Prothrombin Time 13.2 High 9.0-12.9 s Result Comment: A hematocrit value greater than 55% may lead to inaccurate results in coagulation testing. Patients having hematocrit values >55% require a special collection tube for coagulation studies. Please contact the laboratory at [phone] for redraw instructions. LAB INR INR 1.2 Result Comment: INR Therapeu tic Range A) Pre- and Peroperative OAT started two weeks before surgery. NOT HIP SURGERY: 1.5 - 2.5 HIP SURGERY: 2 - 3 B) Primary and secondary prevention of venous THROMBOSIS: 2 - 3 C) Active venous thrombosis, pulmonary embolism and prevention of recurrent venous thrombosis: 2 - 3 D) Prevention of arterial thromboembolism including patients with mechanical heart valves: 3 - 4.5 LAB PTT Partial Thromboplastin Time 29.0 Normal 25.1-36.5 s Result Comment: A hematocrit value greater than 55% may lead to inaccurate results in coagulation testing. Patients having hematocrit values >55% require a special collection tube for coagulation studies. Please contact the laboratory at [phone] for redraw instructions. PERFORMED BY: [place] [id number] PATHOLOGIST SIGN CARPENTER LEN SHIELDS M.D. Performed By: #### PLT, PP # ### [place] [id number] [facility] CNOV Observed: 09/10/2024 11:00 AM Status: COMPLETED Source: [facility] Office Visit (RADTSA) MAGNOLIA BOYKIN ([id number]) 1945 M Date Time Provider Department 09/10/24 11:00 AM Elmer LÓPEZ During your visit today, we recorded the following information about you: Temperature Pulse Respiration Blood pressure 97.1 degrees 66/minute 16/minute 165/97 Weight 86.1 kg Elmer López MD 09/10/2024 12:43 PM Signed Radiation Oncology - Prostate Cancer Follow-up note PATIENT NAME: Magnolia Boykin PATIENT DIAGNOSIS: Prostate adenocarcinoma, initial PSA 4.89, biopsy [place] score 3 + 3 = 6 (grade group 1), clinical stage T1c, N0, M0, stage I [cT1a-c/T2a, N0, M0, PSA <10, GG 1] (AJCC 8th ed.), s/p biopsy. NCCN Risk Group: Low Risk Group Also with history of Hodgkin's lymphoma status post primary chemotherapy with ABVD completed September 2012. No evidence of recurrence or issues related to his prior treatment. Cancer Staging Hodgkin's lymphoma (HCC) Staging form: Hodgkin and Non-Hodgkins Lymphoma of Lymphnodes - Clinical: Stage II (B - Symptoms) - Signed by Raciel Greer) on 12/15/2018 HPI: Patient returns after further workup. Decipher score: 0.34 (low risk) Ultrasound thyroid: Solid cystic nodule inferior aspect right lobe, 9 x 9 x 9 mm. Corresponds with PET/CT abnormality, FNA recommended. FDG PET 08/18/2024: IMPRESSION: Since 04/10/2016, R[place] DISEASE: * No metabolically active lymphadenopathy. EXTRANODAL DISEASE: * No metabolically active extranodal disease. ADDITIONAL FINDINGS: * Lung nodule(s) measuring less than 8 mm without increased metabolic activity. However, the nodule(s) may be below may be resolution of PET. Continue CT surveillance as warranted clinically. * Incidental metabolically active thyroid nodule. Advise sonographic evaluation LABORATORY: Decipher: Pending PSA history: 10/2015 2.33 01/29/2018 2.37 02/18/2019 3.95 06/01/2019 3.42 06/06/2020 3.66 02/27/2021 3.77 06/19/2022 3.91 05/20/2023 4.64 07/25/2023 3.9 (27.9% free) after 4-week antibiotic course 02/07/2024 4.89 No results found for: PSA Patient underwent prostate MRI on 05/18/2024 demonstratin cc gland. Focal T2 hypointensity 12 x 7 mm, PI-RADS 4. No gross extracapsular extension seen. No evidence of any other findings within the pelvis. Prostate biopsy with MR fusion on 06/22/24 revealed: Adenocarcinoma, [place] 6 (3+3) 5 out of 6 cores from the left mid lateral AIDA, in addition Chantel 6 from left base right apical. Total # of positive biopsy cores: 7 Total # of biopsy cores sampled: 16 Greatest % cancer in any single core: 10-25% Staging Studies: MR Results: See HPI Previous Treatment for Prostate Cancer: None Genomic Testing: na The patient reports the following pertinent history: Urinary frequency (D/N): 4-6/1-2 Dysuria: No Incontinence: 1- No pads Hematuria: No - Total AUA Score: 18 Bowel Movement Frequency: 1/day Bowel Movement Quality: Normal Blood per Rectum: No Last Colonoscopy: na Androgen Deprivation: none Prior Radiation Therapy, Collagen Vascular Disease, or Inflammatory Bowel Disease: No Any implanted or external electric devices? No Currently on Anticoagulation: No History of Hip Replacement: No History of Prior TURP: No ALLERGIES Allergen Reactions Iodine GI Upset omeprazole (PRILOSEC) 40 mg capsule Take 40 mg by mouth once daily. lutein-zeaxanthin 25-5 mg cap Take by mouth. Zeaxanthin-2.5 mg multivit with minerals/lutein (MULTIVITAMIN 50 PLUS ORAL) Take by mouth. benazepril (LOTENSIN) 20 mg tablet Take 20 mg by mouth once daily. PAST MEDICAL HISTORY Diagnosis Date Anemia Arthritis, degenerative Carotid bruit right carotid Diverticulosis Dysphagia Esophagitis Glomerulonephritis Hiatal hernia Hodgkin's lymphoma (HCC) Hypertension Neuropathy right foot PUD (peptic ulcer disease) PAST SURGICAL HISTORY Procedure Laterality Date COLONSCOPY SCREENING HIGH RISK 02/22/2012 ESOPHAGEAL DILATATION ESOPHAGOGASTRODUODENOSCOPY_*FL 03/20/2012 FAMILY HISTORY Problem Relation Age of Onset Cancer Mother at age 89 Cancer Brother at age 52 Prostate Cancer Brother Other Sleep Disorder No Family History Social History Tobacco Use Smoking status: Former Types: Cigarettes Smokeless tobacco: Never Substance Use Topics Alcohol use: Yes Comment: rarely Drug use: Never REVIEW OF SYSTEMS: GENERAL: feeling well without fatigue, has been having night sweats for the last 2 to 4 months. Denies fevers NECK: denies swelling or pain in neck RESPIRATORY: no cough, no wheezing or shortness of breath CARDIOVASCULAR: no chest pain, no palpitations MUSCULOSKELETAL: denies any painful or swollen joints, no muscle aches SKIN: no rash NEURO: no numbness or paresthesias and no weakness of the extremities As noted in HPI PHYSICAL EXAM: VS: BP 165/97 Pulse 66 Temp 36.2 ?C (97.1 ?F) Resp 16 Wt 86.1 kg (189 lb 13.1 oz) SpO2 97% BMI 25.74 kg/m? KARNOFSKY PERFORMANCE STATUS: 100 General Appearance: Alert and oriented. No acute distress. Neck: No appreciable adenopathy or thyroid enlargement or nodularity. Rectal: Deferred ASSESSMENT/PLAN: Prostate adenocarcinoma, initial PSA 4.89, biopsy [place] score 3 + 3 = 6 (grade group 1), clinical stage T1c, N0, M0, stage I [cT1a-c/T2a, N0, M0, PSA <10, GG 1] (AJCC 8th ed.), s/p biopsy. NCCN Risk Group: Low Risk Group 1. Prostate cancer: Low risk disease, decipher test showing correspondingly low risk genomic score. Discussed at length with patient and family plan for active surveillance at this time plan to see patient back in 6 months. 2. Hodgkin's lymphoma status post definitive chemotherapy. Recent hot flashes unclear significance. PET scan without evidence of recurrence or new suspicious findings. 3. Incidental lung nodule on PET scan: Plan CT chest 6 months. 4. Incidental hypermetabolic thyroid nodule. Plan for FNA of the right thyroid nodule. Follow-up pending results. Signed by: Elmer López MD cc: Benjamin Almeida ([facility]) [address] [place], [place] [id number] Cristopher Ashley [address] [place] [phone] Referring Provider: Elmer LÓPEZ [[id number]] Allergies As of Date: 09/10/2024 Noted Allergy Reaction IODINE 07/17/2012 8 - GI Upset Date Reviewed: 2024 Reviewed by: Maude Bosch, RN - Fully Assessed Reason for Visit: Prostate Cancer [590] Primary Visit Diagnosis:Thyroid nodule [E04.1] Other Visit Diagnosis:Prostate cancer (HCC) [C61] Order(s):CYTOLOGY NON-MANAGER LPN [[id number]] Order #: [id number] CT CHEST WO IVCON [[id number]] Order #: [id number] FUTURE PROSTATE-SPECIFIC ANTIGEN DIAGNOSTIC [SQPSA] Order #: [id number] FUTURE Prescriptions as of 09/10/2024 - omeprazole (PRILOSEC) 40 mg capsule Take 40 mg by mouth once daily. - lutein-zeaxanthin 25-5 mg cap Take by mouth. Zeaxanthin-2.5 mg - multivit with minerals/lutein (MULTIVITAMIN 50 PLUS ORAL) Take by mouth. - benazepril (LOTENSIN) 20 mg tablet Take 20 mg by mouth once daily. Problem List As Of Date 09/10/2024 Noted Resolved Hodgkin's lymphoma [C81.90] Neuropathy [G62.9] Encounter for screening for malignant neoplasm *01/13/2017 Level of Service: OFFICE/OUTPATIENT ESTABLISHED LOW [facility] 20 MIN [284[address]] Additional E/M codes: VISIT CPLX INHERENT EANDM ASSOC WITH MED * Disposition: Return in about 6 months (around 03/11/2025). Follow-up and Disposition History for Encounter Date Provider Department Center 09/10/2024 [id number] LÓPEZ Encounter Status:Closed by Elmer LÓPEZ on 09/10/24 PROGRESS Observed: 09/10/2024 10:54 AM Status: COMPLETED Source: [facility] HNO ID: [id number] Author: Elmer LÓPEZ MD Service: ? Author Type: Physician Type: Progress Notes Filed: 09/10/2024 12:43 Note Text: Radiation Oncology - Prostate Cancer Follow-up note PATIENT NAME: Magnolia Boykin PATIENT DIAGNOSIS: Prostate adenocarcinoma, initial PSA 4.89, biopsy [place] score 3 + 3 = 6 (grade group 1), clinical stage T1c, N0, M0, stage I [cT1a-c/T2a, N0, M0, PSA <10, GG 1] (AJCC 8th ed.), s/p biopsy. NCCN Risk Group: Low Risk Group Also with history of Hodgkin's lymphoma status post primary chemotherapy with ABVD completed September 2012. No evidence of recurrence or issues related to his prior treatment. Cancer Staging Hodgkin's lymphoma (HCC) Staging form: Hodgkin and Non-Hodgkins Lymphoma of Lymphnodes - Clinical: Stage II (B - Symptoms) - Signed by Raciel Greer) on 12/15/2018 HPI: Patient returns after further workup. Decipher score: 0.34 (low risk) Ultrasound thyroid: Solid cystic nodule inferior aspect right lobe, 9 x 9 x 9 mm. Corresponds with PET/CT abnormality, FNA recommended. FDG PET 08/18/2024: IMPRESSION: Since 04/10/2016, [place] DISEASE: * No metabolically active lymphadenopathy. EXTRANODAL DISEASE: * No metabolically active extranodal disease. ADDITIONAL FINDINGS: * Lung nodule(s) measuring less than 8 mm without increased metabolic activity. However, the nodule(s) may be below may be resolution of PET. Continue CT surveillance as warranted clinically. * Incidental metabolically active thyroid nodule. Advise sonographic evaluation LABORATORY: Decipher: Pending PSA history: 10/2015 2.33 01/29/2018 2.37 02/18/2019 3.95 06/01/2019 3.42 06/06/2020 3.66 02/27/2021 3.77 06/19/2022 3.91 05/20/2023 4.64 07/25/2023 3.9 (27.9% free) after 4-week antibiotic course 02/07/2024 4.89 No results found for: PSA Patient underwent prostate MRI on 05/18/2024 demonstratin cc gland. Focal T2 hypointensity 12 x 7 mm, PI-RADS 4. No gross extracapsular extension seen. No evidence of any other findings within the pelvis. Prostate biopsy with MR fusion on 06/22/24 revealed: Adenocarcinoma, Chantel 6 (3+3) 5 out of 6 cores from the left mid lateral AIDA, in addition [place] 6 from left base right apical. Total # of positive biopsy cores: 7 Total # of biopsy cores sampled: 16 Greatest % cancer in any single core: 10-25% Staging Studies: MR Results: See HPI Previous Treatment for Prostate Cancer: None Genomic Testing: na The patient reports the following pertinent history: Urinary frequency (D/N): 4-6/1-2 Dysuria: No Incontinence: 1- No pads Hematuria: No - Total AUA Score: 18 Bowel Movement Frequency: 1/day Bowel Movement Quality: Normal Blood per Rectum: No Last Colonoscopy: na Androgen Deprivation: none Prior Radiation Therapy, Collagen Vascular Disease, or Inflammatory Bowel Disease: No Any implanted or external electric devices? No Currently on Anticoagulation: No History of Hip Replacement: No History of Prior TURP: No ALLERGIES Allergen Reactions Iodine GI Upset omeprazole (PRILOSEC) 40 mg capsule Take 40 mg by mouth once daily. lutein-zeaxanthin 25-5 mg cap Take by mouth. Zeaxanthin-2.5 mg multivit with minerals/lutein (MULTIVITAMIN 50 PLUS ORAL) Take by mouth. benazepril (LOTENSIN) 20 mg tablet Take 20 mg by mouth once daily. PAST MEDICAL HISTORY Diagnosis Date Anemia Arthritis, degenerative Carotid bruit right carotid Diverticulosis Dysphagia Esophagitis Glomerulonephritis Hiatal hernia Hodgkin's lymphoma (HCC) Hypertension Neuropathy right foot PUD (peptic ulcer disease) PAST SURGICAL HISTORY Procedure Laterality Date COLONSCOPY SCREENING HIGH RISK 02/22/2012 ESOPHAGEAL DILATATION ESOPHAGOGASTRODUODENOSCOPY_*FL 03/20/2012 FAMILY HISTORY Problem Relation Age of Onset Cancer Mother at age 89 Cancer Brother at age 52 Prostate Cancer Brother Other Sleep Disorder No Family History Social History Tobacco Use Smoking status: Former Types: Cigarettes Smokeless tobacco: Never Substance Use Topics Alcohol use: Yes Comment: rarely Drug use: Never REVIEW OF SYSTEMS: GENERAL: feeling well without fatigue, has been having night sweats for the last 2 to 4 months. Denies fevers NECK: denies swelling or pain in neck RESPIRATORY: no cough, no wheezing or shortness of breath CARDIOVASCULAR: no chest pain, no palpitations MUSCULOSKELETAL: denies any painful or swollen joints, no muscle aches SKIN: no rash NEURO: no numbness or paresthesias and no weakness of the extremities As noted in HPI PHYSICAL EXAM: VS: BP 165/97 Pulse 66 Temp 36.2 ?C (97.1 ?F) Resp 16 Wt 86.1 kg (189 lb 13.1 oz) SpO2 97% BMI 25.74 kg/m? KARNOFSKY PERFORMANCE STATUS: 100 General Appearance: Alert and oriented. No acute distress. Neck: No appreciable adenopathy or thyroid enlargement or nodularity. Rectal: Deferred ASSESSMENT/PLAN: Prostate adenocarcinoma, initial PSA 4.89, biopsy [place] score 3 + 3 = 6 (grade group 1), clinical stage T1c, N0, M0, stage I [cT1a-c/T2a, N0, M0, PSA <10, GG 1] (AJCC 8th ed.), s/p biopsy. NCCN Risk Group: Low Risk Group 1. Prostate cancer: Low risk disease, decipher test showing correspondingly low risk genomic score. Discussed at length with patient and family plan for active surveillance at this time plan to see patient back in 6 months. 2. Hodgkin's lymphoma status post definitive chemotherapy. Recent hot flashes unclear significance. PET scan without evidence of recurrence or new suspicious findings. 3. Incidental lung nodule on PET scan: Plan CT chest 6 months. 4. Incidental hypermetabolic thyroid nodule. Plan for FNA of the right thyroid nodule. Follow-up pending results. Signed by: Elmer López MD cc: Benjamin Almeida ([facility]) [address] [place] [id number] Cristopher Erlin Ashley [address] [place] [phone] THYROID Observed: 09/02/2024 3:28 PM Status: COMPLETED Source: [facility] Main [address] [address] Ultrasound Report Signed Patient: Magnolia Boykin MR#: [id number] : 1945 Acct:[id number] Age/Sex: 79 / M ADM Date: 09/02/24 Loc: Room: Type: [facility] Attending Dr: Codi López MD Ordering Provider: Elmer López MD Date of Service: 09/02/24 US/US thyroid: E04.1 Copies to: Elmer López MD Thyroid ultrasound Reason for exam: Abnormal PET/CT Comparison: Outside PET/CT 08/17/2024 no report. Technique: Grayscale and color Doppler images of the thyroid gland were obtained. Findings: Right lobe measures 4.9 x 2.1 x 1.9 cm. Left lobe measures 3.5 x 1.5 x 1.4 cm. Isthmus measures 0.21 cm no hyperemia seen. A solid/cystic nodule is seen involving the inferior aspect of the right lobe measuring 9 x 9 x 9 mm. No microcalcifications. A colloid cyst is noted involving the left lobe measuring 4 x 4 by 3 mm. US/US thyroid Impression: A solid/cystic nodule seen involving the inferior aspect of the right lobe measuring 9 x 9 x 9 mm likely representing the abnormality seen by PET/CT. FNA is suggested. Impression dictated by: Salvatore Francis Jr., D.O.09/02/2024 3:30 PM Dictation Location: [id number] Tech: Brooke Mata Transcribed By: JUAN DANIEL 09/02/24 1530 Dictated By: Salvatore Francis Jr, DO 09/02/24 1528 Signed By: <Electronically signed by Salvatore Francis Jr, DO in OV> 09/02/24 1530 CNOV Observed: 2024 1:15 PM Status: COMPLETED Source: [facility] Office Visit (RADTSA) MAGNOLIA BOYKIN ([id number]) 1945 M Date Time Provider Department 08/27/24 1:15 PM Elmer LÓPEZ During your visit today, we recorded the following information about you: Temperature Pulse Respiration Blood pressure 96.7 degrees 61/minute 18/minute 154/93 Weight 84.8 kg Elmer López MD 2024 1:17 PM Signed Radiation Oncology - Prostate Cancer Follow-up note PATIENT NAME: Magnolia Boykin PATIENT DIAGNOSIS: Prostate adenocarcinoma, initial PSA 4.89, biopsy Chantel score 3 + 3 = 6 (grade group 1), clinical stage T1c, N0, M0, stage I [cT1a-c/T2a, N0, M0, PSA <10, GG 1] (AJCC 8th ed.), s/p biopsy. NCCN Risk Group: Low Risk Group Also with history of Hodgkin's lymphoma status post primary chemotherapy with ABVD completed September 2012. No evidence of recurrence or issues related to his prior treatment. Cancer Staging Hodgkin's lymphoma (HCC) Staging form: Hodgkin and Non-Hodgkins Lymphoma of Lymphnodes - Clinical: Stage II (B - Symptoms) - Signed by Raciel Greer) on 12/15/2018 HPI: Patient returns after further workup and evaluation for his newly diagnosed early-stage prostate cancer. FDG PET 08/18/2024: IMPRESSION: Since 04/10/2016, ROOSEVELT DISEASE: * No metabolically active lymphadenopathy. EXTRANODAL DISEASE: * No metabolically active extranodal disease. ADDITIONAL FINDINGS: * Lung nodule(s) measuring less than 8 mm without increased metabolic activity. However, the nodule(s) may be below may be resolution of PET. Continue CT surveillance as warranted clinically. * Incidental metabolically active thyroid nodule. Advise sonographic evaluation LABORATORY: Decipher: Pending PSA history: 10/2015 2.33 01/29/2018 2.37 02/18/2019 3.95 06/01/2019 3.42 06/06/2020 3.66 02/27/2021 3.77 06/19/2022 3.91 05/20/2023 4.64 07/25/2023 3.9 (27.9% free) after 4-week antibiotic course 02/07/2024 4.89 No results found for: PSA Patient underwent prostate MRI on 05/18/2024 demonstratin cc gland. Focal T2 hypointensity 12 x 7 mm, PI-RADS 4. No gross extracapsular extension seen. No evidence of any other findings within the pelvis. Prostate biopsy with MR fusion on 06/22/24 revealed: Adenocarcinoma, [place] 6 (3+3) 5 out of 6 cores from the left mid lateral AIDA, in addition [place] 6 from left base right apical. Total # of positive biopsy cores: 7 Total # of biopsy cores sampled: 16 Greatest % cancer in any single core: 10-25% Staging Studies: MR Results: See HPI Previous Treatment for Prostate Cancer: None Genomic Testing: na The patient reports the following pertinent history: Urinary frequency (D/N): 4-6/1-2 Dysuria: No Incontinence: 1- No pads Hematuria: No - Total AUA Score: 18 Bowel Movement Frequency: 1/day Bowel Movement Quality: Normal Blood per Rectum: No Last Colonoscopy: na Androgen Deprivation: none Prior Radiation Therapy, Collagen Vascular Disease, or Inflammatory Bowel Disease: No Any implanted or external electric devices? No Currently on Anticoagulation: No History of Hip Replacement: No History of Prior TURP: No ALLERGIES Allergen Reactions Iodine GI Upset omeprazole (PRILOSEC) 40 mg capsule Take 40 mg by mouth once daily. lutein-zeaxanthin 25-5 mg cap Take by mouth. Zeaxanthin-2.5 mg multivit with minerals/lutein (MULTIVITAMIN 50 PLUS ORAL) Take by mouth. benazepril (LOTENSIN) 20 mg tablet Take 20 mg by mouth once daily. PAST MEDICAL HISTORY Diagnosis Date Anemia Arthritis, degenerative Carotid bruit right carotid Diverticulosis Dysphagia Esophagitis Glomerulonephritis Hiatal hernia Hodgkin's lymphoma (HCC) Hypertension Neuropathy right foot PUD (peptic ulcer disease) PAST SURGICAL HISTORY Procedure Laterality Date COLONSCOPY SCREENING HIGH RISK 02/22/2012 ESOPHAGEAL DILATATION ESOPHAGOGASTRODUODENOSCOPY_*FL 03/20/2012 FAMILY HISTORY Problem Relation Age of Onset Cancer Mother at age 89 Cancer Brother at age 52 Prostate Cancer Brother Other Sleep Disorder No Family History Social History Tobacco Use Smoking status: Former Types: Cigarettes Smokeless tobacco: Never Substance Use Topics Alcohol use: Yes Comment: rarely Drug use: Never REVIEW OF SYSTEMS: GENERAL: feeling well without fatigue, has been having night sweats for the last 2 to 4 months. Denies fevers NECK: denies swelling or pain in neck RESPIRATORY: no cough, no wheezing or shortness of breath CARDIOVASCULAR: no chest pain, no palpitations MUSCULOSKELETAL: denies any painful or swollen joints, no muscle aches SKIN: no rash NEURO: no numbness or paresthesias and no weakness of the extremities As noted in HPI PHYSICAL EXAM: VS: BP 154/93 Pulse 61 Temp (!) 35.9 ?C (96.7 ?F) Resp 18 Wt 84.8 kg (186 lb 15.2 oz) SpO2 99% BMI 25.35 kg/m? KARNOFSKY PERFORMANCE STATUS: 100 General Appearance: Alert and oriented. No acute distress. Neck: No appreciable adenopathy or thyroid enlargement or nodularity. Rectal: Deferred ASSESSMENT/PLAN: Prostate adenocarcinoma, initial PSA 4.89, biopsy [place] score 3 + 3 = 6 (grade group 1), clinical stage T1c, N0, M0, stage I [cT1a-c/T2a, N0, M0, PSA <10, GG 1] (AJCC 8th ed.), s/p biopsy. NCCN Risk Group: Low Risk Group 1. Prostate cancer low risk awaiting decipher genomic test 2. Hodgkin's lymphoma status post definitive chemotherapy. Recent hot flashes unclear significance. PET scan without evidence of recurrence or new suspicious findings. 3. Incidental lung nodule on PET scan recommend follow-up CT in 6 months. 4. Incidental hypermetabolic thyroid nodule. Recommend ultrasound for further evaluation. Plan to have him back after this and after decipher test has resulted. Signed by: Elmer López MD cc: Benjamin Almeida ([facility]) [address] [place] [address] Cristopher Erlin Ashley [address] [place], [place] [id number] Referring Provider: Elmer LÓPEZ [[id number]] Allergies As of Date: 2024 Noted Allergy Reaction IODINE 07/17/2012 8 - GI Upset Date Reviewed: 2024 Reviewed by: Maude Bosch, MAXWELL - Fully Assessed Reason for Visit: Prostate Cancer [590] Primary Visit Diagnosis:Prostate cancer (HCC) [C61] Other Visit Diagnosis:Thyroid nodule [E04.1] Order(s):US THYROID/PARATHYROID [[id number]] Order #: [id number] FUTURE Prescriptions as of 2024 - omeprazole (PRILOSEC) 40 mg capsule Take 40 mg by mouth once daily. - lutein-zeaxanthin 25-5 mg cap Take by mouth. Zeaxanthin-2.5 mg - multivit with minerals/lutein (MULTIVITAMIN 50 PLUS ORAL) Take by mouth. - benazepril (LOTENSIN) 20 mg tablet Take 20 mg by mouth once daily. Problem List As Of Date 2024 Noted Resolved Hodgkin's lymphoma [C81.90] Neuropathy [G62.9] Encounter for screening for malignant neoplasm *01/13/2017 Encounter Status:Closed by Elmer LÓPEZ on 08/27/24 PROGRESS Observed: 2024 1:15 PM Status: COMPLETED Source: [facility] HNO ID: [id number] Author: Elmer LÓPEZ MD Service: ? Author Type: Physician Type: Progress Notes Filed: 2024 13:17 Note Text: Radiation Oncology - Prostate Cancer Follow-up note PATIENT NAME: Magnolia Boykin PATIENT DIAGNOSIS: Prostate adenocarcinoma, initial PSA 4.89, biopsy [place] score 3 + 3 = 6 (grade group 1), clinical stage T1c, N0, M0, stage I [cT1a-c/T2a, N0, M0, PSA <10, GG 1] (AJCC 8th ed.), s/p biopsy. NCCN Risk Group: Low Risk Group Also with history of Hodgkin's lymphoma status post primary chemotherapy with ABVD completed September 2012. No evidence of recurrence or issues related to his prior treatment. Cancer Staging Hodgkin's lymphoma (HCC) Staging form: Hodgkin and Non-Hodgkins Lymphoma of Lymphnodes - Clinical: Stage II (B - Symptoms) - Signed by Raciel Greer) on 12/15/2018 HPI: Patient returns after further workup and evaluation for his newly diagnosed early-stage prostate cancer. FDG PET 08/18/2024: IMPRESSION: Since 04/10/2016, ROOSEVELT DISEASE: * No metabolically active lymphadenopathy. EXTRANODAL DISEASE: * No metabolically active extranodal disease. ADDITIONAL FINDINGS: * Lung nodule(s) measuring less than 8 mm without increased metabolic activity. However, the nodule(s) may be below may be resolution of PET. Continue CT surveillance as warranted clinically. * Incidental metabolically active thyroid nodule. Advise sonographic evaluation LABORATORY: Decipher: Pending PSA history: 10/2015 2.33 01/29/2018 2.37 02/18/2019 3.95 06/01/2019 3.42 06/06/2020 3.66 02/27/2021 3.77 06/19/2022 3.91 05/20/2023 4.64 07/25/2023 3.9 (27.9% free) after 4-week antibiotic course 02/07/2024 4.89 No results found for: PSA Patient underwent prostate MRI on 05/18/2024 demonstratin cc gland. Focal T2 hypointensity 12 x 7 mm, PI-RADS 4. No gross extracapsular extension seen. No evidence of any other findings within the pelvis. Prostate biopsy with MR fusion on 06/22/24 revealed: Adenocarcinoma, [place] 6 (3+3) 5 out of 6 cores from the left mid lateral AIDA, in addition [place] 6 from left base right apical. Total # of positive biopsy cores: 7 Total # of biopsy cores sampled: 16 Greatest % cancer in any single core: 10-25% Staging Studies: MR Results: See HPI Previous Treatment for Prostate Cancer: None Genomic Testing: na The patient reports the following pertinent history: Urinary frequency (D/N): 4-6/1-2 Dysuria: No Incontinence: 1- No pads Hematuria: No - Total AUA Score: 18 Bowel Movement Frequency: 1/day Bowel Movement Quality: Normal Blood per Rectum: No Last Colonoscopy: na Androgen Deprivation: none Prior Radiation Therapy, Collagen Vascular Disease, or Inflammatory Bowel Disease: No Any implanted or external electric devices? No Currently on Anticoagulation: No History of Hip Replacement: No History of Prior TURP: No ALLERGIES Allergen Reactions Iodine GI Upset omeprazole (PRILOSEC) 40 mg capsule Take 40 mg by mouth once daily. lutein-zeaxanthin 25-5 mg cap Take by mouth. Zeaxanthin-2.5 mg multivit with minerals/lutein (MULTIVITAMIN 50 PLUS ORAL) Take by mouth. benazepril (LOTENSIN) 20 mg tablet Take 20 mg by mouth once daily. PAST MEDICAL HISTORY Diagnosis Date Anemia Arthritis, degenerative Carotid bruit right carotid Diverticulosis Dysphagia Esophagitis Glomerulonephritis Hiatal hernia Hodgkin's lymphoma (HCC) Hypertension Neuropathy right foot PUD (peptic ulcer disease) PAST SURGICAL HISTORY Procedure Laterality Date COLONSCOPY SCREENING HIGH RISK 02/22/2012 ESOPHAGEAL DILATATION ESOPHAGOGASTRODUODENOSCOPY_*FL 03/20/2012 FAMILY HISTORY Problem Relation Age of Onset Cancer Mother at age 89 Cancer Brother at age 52 Prostate Cancer Brother Other Sleep Disorder No Family History Social History Tobacco Use Smoking status: Former Types: Cigarettes Smokeless tobacco: Never Substance Use Topics Alcohol use: Yes Comment: rarely Drug use: Never REVIEW OF SYSTEMS: GENERAL: feeling well without fatigue, has been having night sweats for the last 2 to 4 months. Denies fevers NECK: denies swelling or pain in neck RESPIRATORY: no cough, no wheezing or shortness of breath CARDIOVASCULAR: no chest pain, no palpitations MUSCULOSKELETAL: denies any painful or swollen joints, no muscle aches SKIN: no rash NEURO: no numbness or paresthesias and no weakness of the extremities As noted in HPI PHYSICAL EXAM: VS: BP 154/93 Pulse 61 Temp (!) 35.9 ?C (96.7 ?F) Resp 18 Wt 84.8 kg (186 lb 15.2 oz) SpO2 99% BMI 25.35 kg/m? KARNOFSKY PERFORMANCE STATUS: 100 General Appearance: Alert and oriented. No acute distress. Neck: No appreciable adenopathy or thyroid enlargement or nodularity. Rectal: Deferred ASSESSMENT/PLAN: Prostate adenocarcinoma, initial PSA 4.89, biopsy [place] score 3 + 3 = 6 (grade group 1), clinical stage T1c, N0, M0, stage I [cT1a-c/T2a, N0, M0, PSA <10, GG 1] (AJCC 8th ed.), s/p biopsy. NCCN Risk Group: Low Risk Group 1. Prostate cancer low risk awaiting decipher genomic test 2. Hodgkin's lymphoma status post definitive chemotherapy. Recent hot flashes unclear significance. PET scan without evidence of recurrence or new suspicious findings. 3. Incidental lung nodule on PET scan recommend follow-up CT in 6 months. 4. Incidental hypermetabolic thyroid nodule. Recommend ultrasound for further evaluation. Plan to have him back after this and after decipher test has resulted. Signed by: Elmer López MD cc: Benjamin Almeida ([facility]) [address] [place] [address] Cristopher Ashley [address] [place] [id number] CNPN Observed: 08/26/2024 12:00 AM Status: COMPLETED Source: [facility] Telephone (RADGreenerUA) SIMAMAGNOLIA Kern ([id number]) 1945 M Date Time Provider Department 08/26/24 Elmer LÓPEZ KELSIRobson During your visit today, we recorded the following information about you: Maude Bosch RN 08/26/2024 8:22 AM Signed Sherri was contacted due to no result yet from testing. Here is their response: Reno Santoro, Thank you for your portal inquiry regarding Magnolia Erlin Boykin, please be advised that the material was received yesterday, barring any repeats or delays results are expected by 09/08. Best, Kristina VIOLET- pt is on for follow up tomorrow post PET and for decipher results. Would you like us to keep this appt or reschedule for after decipher is done? Please advise. Maude Bosch RN Allergies As of Date: 08/26/2024 Noted Allergy Reaction IODINE 07/17/2012 8 - GI Upset Date Reviewed: 08/04/2024 Reviewed by: Will Pappas LPN - Fully Assessed Reason for Visit: Results [95] Future Appointment [256] Cmt: Sherri Prescriptions as of 08/26/2024 - omeprazole (PRILOSEC) 40 mg capsule Take 40 mg by mouth once daily. - lutein-zeaxanthin 25-5 mg cap Take by mouth. Zeaxanthin-2.5 mg - multivit with minerals/lutein (MULTIVITAMIN 50 PLUS ORAL) Take by mouth. - benazepril (LOTENSIN) 20 mg tablet Take 20 mg by mouth once daily. 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 Evaluate for possible lymphoma involvement. EXAM CATEGORY: Subsequent treatment strategy. TECHNIQUE: Radiopharmaceutical was administered intravenously followed by PET imaging from the eyes to thighs. Free breathing, low dose CT of the same body region was acquired without IV contrast for attenuation correction and anatomic localization. Unenhanced imaging is limited for the evaluation of some pathology and the acquired CT was not designed to produce diagnostic CT scan quality. Physiologic/non-pathologic uptake in some body regions could confound or obscure some pathology. * CT Dose-Length Product (DLP): 272 mGy*cm * CT Dose Reduction Employed: Yes * Blood glucose: 91 mg/dL * Injection site: Right Forearm-Antecubital * Injected activity: 10.7 mCi * Uptake Time: 47 minutes * Radiopharmaceutical: T58-Fyvnonymzaijvrvbgj (FDG) COMPARISON: PET CT 04/10/2016 CORRELATION: CT 09/02/2014 RESULT: REFERENCES: FDG uptake is used as a surrogate marker for glucose metabolism. All reported standardized uptake values represent maximum SUV (SUVmax) per body weight, unless otherwise specified. SUV reference values, as follows: * Blood Pool (Descending Aorta): SUVmax 2.6 previously 2.1 * Background Liver: SUVmax 3.5 previously 3.5; SUVmean 2.5 previously 2.5 Localizer Images: No additional findings. LYMPH NODES: Supradiaphragmatic Nodes: No radiotracer avid lymphadenopathy. Infradiaphragmatic Nodes: No radiotracer avid lymphadenopathy. HEAD AND NECK: Head: No radiotracer avid lesion or mass effect in the imaged intracranial compartment. Aerodigestive Tract: No radiotracer avid lesion. Lymph Nodes: No radiotracer avid lymphadenopathy. Neck Soft Tissues: Focal 0.7 cm tracer avid right thyroid nodule with maximum SUV 4.4 (3:60). CHEST: Lungs and Pleura: No radiotracer avid mass, nodule, or consolidation. No pleural effusion. Scattered subcentimeter pulmonary nodules are overall stable since 04/10/2016 for example 3 mm right middle lobe nodule (3:112) and 4 mm left lower lobe nodule (3:110). No increased radiotracer uptake associated with the lung nodule(s) measuring less than 8 mm. However, PET is often not sensitive for lung nodules smaller than 8 mm. Lymph Nodes: No radiotracer avid lymphadenopathy. Mediastinum: No radiotracer avid mass. Cardiovascular: Blood pool activity. No pericardial effusion. Normal heart size. Chest Wall: No radiotracer avid soft tissue lesion. ABDOMEN AND PELVIS: Hepatobiliary: No radiotracer avid lesion. No measurable mass. Spleen: No radiotracer avid lesion. No splenomegaly. Pancreas: No radiotracer avid lesion. Adrenals: No radiotracer avid nodule. Urinary Tract: Physiologic radiotracer excretion in the renal collecting systems and urinary bladder. No hydronephrosis. Photopenic presumed renal cyst(s). GI Tract: No radiotracer avid lesion. No bowel dilation. Peritoneum: No radiotracer avid lesion. No ascites. Lymph Nodes: No radiotracer avid lymphadenopathy. Vasculature: Blood pool activity. No abdominal aortic aneurysm. Pelvic Organs: No radiotracer avid lesion. Enlarged prostate. MUSCULOSKELETAL: Bones: No radiotracer avid lesion. No lytic or sclerotic lesion. Degenerative changes. Nonspecific focal uptake within the L5-S1 intervertebral disc on the right possibly representing subacute disc herniation . Soft Tissues: No radiotracer avid lesion. IMPRESSION: Since 04/10/2016, R[place]SEVELT DISEASE: * No metabolically active lymphadenopathy. EXTRANODAL DISEASE: * No metabolically active extranodal disease. ADDITIONAL FINDINGS: * Lung nodule(s) measuring less than 8 mm without increased metabolic activity. However, the nodule(s) may be below may be resolution of PET. Continue CT surveillance as warranted clinically. * Incidental metabolically active thyroid nodule. Advise sonographic evaluation. Deauville Score: 1 * Score 1: No uptake above the background * Score 2: Uptake equal to or below mediastinum * Score 3: Uptake above mediastinum but equal to or below liver * Score 4: Uptake slightly to moderately above liver * Score 5: Uptake markedly above liver or a new site of disease * Score X: New area(s) of uptake unlikely to be related to lymphoma Transcribe Date/Time: Aug 18 2024 3:22P Dictated by: INDRA SALGADO, This examination was interpreted and the report reviewed and electronically signed by: KAYLIN BURCH MD on Aug 18 2024 4:45PM EST Thank you for allowing us to participate in the care of your patient. Should there be any questions regarding this interpretation, please call [phone]. If you are unable to reach us at the number above, please feel free to contact [facility] at [phone]. [id number] PROGRESS Observed: 08/17/2024 10:15 AM Status: COMPLETED Source: [facility] HNO ID: [id number] Author: RICO BETHEA RT(R) Service: ? Author Type: Technologist Type: Progress Notes Filed: 08/17/2024 12:45 Note Text: RADIOLOGY SERVICE PROGRESS NOTE SERVICE DATE: 08/17/2024 SERVICE TIME: 12:45 PM PATIENT IDENTITY VERIFICATION COMPLETED USING TWO (2) STANDARD IDENTIFIERS: Name and Date of confirmed by patient verbally POST EXAM PIV STATUS: Discontinued PROCEDURE TYPE: NM INJECT: PET/CT BODY SCAN. 10.7 mCi F18 FDG. No other medications given.. ADMINISTRATION TIME: 1005 PATIENT DISCHARGED TO: Ambulatory patient, left NM department area. Is this a therapy: No A Diagnostic radioactive procedure has taken place, with no further precautions necessary other than routine body substance precautions. More information regarding radiation safety can be found using this link: [email or web address] SIGNATURE: RT Jenny(R) PATIENT NAME: Magnolia Boykin DATE: August 17, 2024 TIME: 12:45 PM PAGER/CONTACT #: PROGRESS Observed: 08/17/2024 10:15 AM Status: COMPLETED Source: [facility] HNO ID: [id number] Author: ABDIAS GARCIA RN Service: ? Author Type: Registered Nurse Type: Progress Notes Filed: 08/17/2024 10:08 Note Text: Radiology Service Progress Note DATE OF SERVICE: August 17, 2024 TIME: 10:07 AM PATIENT IDENTITY VERIFICATION COMPLETED USING TWO (2) STANDARD IDENTIFIERS: Name and Date of confirmed by patient verbally. FALL SCREENING: Has the patient had 2 falls in the last year or 1 fall with injury or currently using an Ambulatory Assistive Device (Walker, Cane, Wheelchair, Crutches, etc.)? No PATIENT GENDER DATA: Male EXAM: CT -CONTRAST INDUCED NEPHROPATHY RISK FACTORS: Not applicable CREATININE: Creatinine Date Value Ref Range Status 08/04/2024 1.27 (H) 0.73 - 1.22 mg/dL Final 04/05/2021 1.27 (H) 0.73 - 1.22 mg/dL Final 04/04/2020 1.20 0.73 - 1.22 mg/dL Final Estimated Glomerular Filtration Rate Date Value Ref Range Status 08/04/2024 59 (L) >=60 mL/min/1.73m? Final Comment: Estimated Glomerular Filtration Rate (eGFR) is calculated using the 2020 CKD-EPI creatinine equation. This equation utilizes serum creatinine, sex, and age as parameters. The creatinine assay has traceable calibration to isotope dilution-mass spectrometry. Refer to KDIGO guidelines for clinical interpretation. In patients with unstable renal function, e.g. those with acute kidney injury, the eGFR may not accurately reflect actual GFR. eGFR- Date Value Ref Range Status 04/05/2021 >60 Final P.O.C.T. RESULTS: POC done: Yes, See Lab Tab August 17, 2024 TREATMENT: N/A IV SITE: Ambulatory: A peripheral IV was started in the Right antecubital site with a Angio cath: 22 gauge. IV SITE APPEARANCE: Clean,Dry and Intact SIGNATURE: Abdias Garcia RN PATIENT NAME: Magnolia Boykin DATE: August 17, 2024 TIME: 10:07 AM CNOV Observed: 08/04/2024 10:00 AM Status: COMPLETED Source: [facility] Office Visit (RADTSA) MAGNOLIA BOYKIN ([id number]) 1945 M Date Time Provider Department 08/04/24 10:00 AM LAB/PORT RADT YAIMA SIERRA During your visit today, we recorded the following information about you: Will Pappas LPN 08/04/2024 9:53 AM Signed Magnolia Boykin presents in office today for: Lab Draw during Office Visit . Ordering Provider: Alexei López M.D. Test (s) ordered: CBC CMP LDH Method for obtaining blood: Phlebotomy was performed, accessing left antecubital vein. Needle removed intact. Dressing secured. Patient denies discomfort, dizziness, light-headedness or weakness and left the department without assist. 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 - lutein-zeaxanthin 25-5 mg cap Take by mouth. Zeaxanthin-2.5 mg - multivit with minerals/lutein (MULTIVITAMIN 50 PLUS ORAL) Take by mouth. - benazepril (LOTENSIN) 20 mg tablet Take 20 mg by mouth once daily. Problem List As Of Date 08/04/2024 Noted Resolved Hodgkin's lymphoma [C81.90] Neuropathy [G62.9] Encounter for screening for malignant neoplasm *01/13/2017 Visit Notes: >> Will Pappas LPN SatAug 04, 2024 9:52 AM Status: Signed Magnolia Boykin presents in office today for: Lab Draw during Office Visit . Ordering Provider: Alexei López M.D. Test (s) ordered: CBC CMP LDH Method for obtaining blood: Phlebotomy was performed, accessing left antecubital vein. Needle removed intact. Dressing secured. Patient denies discomfort, dizziness, light-headedness or weakness and left the department without assist. Will PappasLANCE Encounter Status:Closed by WILL PAPPAS on 08/04/24 LDH SERPL-CCNC Collected: 08/04/2024 9:28 AM Status: F Source: [facility] Order Comment: Specimen Type : BLOOD SPECIMEN Ordering Facility: [facility] Address: [address] [place], [place] [id number] TYPE CODE TESTS RESULT OUT OF RANGE REFERENCE UNITS LAB 2532-0([facility]) LDH SerPl-cCnc 189 135-225 U/L Performed By: #### 2532-0, 2 4323-8 #### [facility] CLIA [id number] [address] [place] [id number] COMP METAB 2000 PNL SERPL Collected: 9:28 AM Status: F Source: [facility] Order Comment: Specimen Type : BLOOD SPECIMEN Ordering Facility: [facility] Address: [address] [place], [place] [id number] TYPE CODE TESTS RESULT OUT OF RANGE REFERENCE UNITS LAB 2885-2(LOINC) Prot SerPl-mCnc 7.7 6.3-8.0 g/dL LAB 1751-7(LOINC) Albumin SerPl-mCnc 4.5 3.9-4.9 g/dL LAB 92719-8(LOINC) Calcium SerPl-mCnc 9.1 8.5-10.2 mg/dL LAB 1975-2(LOINC) Bilirub SerPl-mCnc 0.4 0.2-1.3 mg/dL LAB 6768-6(LOINC) ALP SerPl-cCnc 87 38-113 U/L LAB 1920-8(LOINC) AST SerPl-cCnc 22 14-40 U/L LAB 1742-6(LOINC) ALT SerPl-cCnc 20 10-54 U/L LAB 2345-7(LOINC) Glucose SerPl-mCnc 104 High 74-99 mg/dL Result Comment: The [place] Diabetes Association (ADA) provides guidance for cutoff [...] Standards of Medical Care in Diabetes 2016, [place] [employer]. Diabetes Care. 2016.39(Suppl 1). LAB 3094-0(LOINC) BUN SerPl-mCnc 26 High 9-24 mg/ dL LAB 2160-0(LOINC) Creat SerPl-mCnc 1.27 High 0.73-1.22 mg/dL LAB 2951-2(LOINC) Sodium SerPl-sCnc 139 136-144 mmol/L LAB 2823-3(LOINC) Potassium SerPl-sCnc 4.5 3.7-5.1 mmol/L LAB 2075-0(LOINC) Chloride SerPl-sCnc 106 98-107 mmol/L LAB 2028-9(LOINC) CO2 SerPl-sCnc 22 22-30 mmo l/L LAB 75380-8(LOINC) Anion Gap SerPl-sCnc 11 8-15 mmol/L LAB 89836-6(LOINC) Creatinine + eGFR Pnl SerPlBld 59 Low >=60 mL/min/1 .73m??? Result Comment: Estimated Gl omerular Filtration Rate (eGFR) is calculated using the 2020 CKD-EPI creatinine equation. This equation utilizes serum creatinine, sex, and age as parameters. The creatinine assay has traceable calibration to isotope dilution-mass spectrometry. Refer to KDIGO guidelines for clinical interpretation. In patients with unstable renal function, e.g. those with acute kidney injury, the eGFR may not accurately reflect actual GFR. Performed By: #### 2532-0, 2 4323-8 #### [facility] CLIA [id number] [address] [place] [address] CBC W AUTO DIFF BLD Collected: 08/04/2024 9:[address] atus: F Source: [facility] Order Comment: Specimen Type : BLOOD SPECIMEN Ordering Facility: [facility] Address: [address] [place] [address] TYPE CODE TESTS RESULT OUT OF RANGE REFERENCE UNITS LAB 6690-2([facility]) WBC # Bld Auto 5.46 3.70-11.00 k/uL LAB 789-8([facility]) RBC # Bld Auto 4.25 4.20-6.00 m/ uL LAB 718-7([facility]) Hgb Bld-mCnc 14.1 13.0-17.0 g/dL LAB 4544-3([facility]) Hct VFr Bld Auto 40.8 39.0-51.0 % LAB 787-2([facility]) MCV RBC Auto 96.0 80.0-100.0 fL LAB 785-6([facility]) MCH RBC Qn Auto 33.2 26.0-34.0 p g LAB 786-4([facility]) MCHC RBC Auto-mCnc 34.6 30.5-36.0 g/dL LAB 02088-6([facility]) RDW RBC-Rto 12.5 11.5-15.0 % LAB 777-3([facility]) Platelet # Bld Auto 194 150-400 k/uL LAB 26335-0([facility]) PMV Bld Auto 10.3 9.0-12.7 fL LAB 770-8([facility]) Neutrophils/leuk NFr Bld Auto 64.6 % LAB 751-8([facility]) Neutrophils # Bld Auto 3.53 1.45-7.50 k/uL LAB 736-9([facility]) Lymphocytes/leuk NFr Bld Auto 17.6 % LAB 731-0([facility]) Lymphocytes # Bld Auto 0.96 Low 1.00-4.00 k/uL LAB 5905-5([facility]) Monocytes/leuk NFr Bld Auto 12.5 % LAB 742-7([facility]) Monocytes # Bld Auto 0.68 <0.87 k/uL LAB 713-8([facility]) Eosinophil/leuk NFr Bld Auto 4.6 % LAB 711-2([facility]) Eosinophil # Bld Auto 0.25 <0.46 k/uL LAB 706-2(LOINC) Basophils/leuk NFr Bld Auto 0.5 % LAB 704-7(LOINC) Basophils # Bld Auto 0.03 <0.11 k/uL LAB 63515-0(LOINC) Imm Granulocytes/dominick k NFr Bld Auto 0.2 % LAB 83928-6(LOINC) Imm Granulocytes # Bld Auto <0.03 <0.10 k/uL LAB 62653-0(LOINC) nRBC/100 WBC Bld-Rto 0.0 /100 WBC LAB 771-6(LOINC) nRBC # Bld Auto <0.01 <0.01 k/u L LAB 56110-3([facility]) Differential method Bld Auto Performed By: #### 13720-5 # ### [facility] CLIA [id number] [address] [place] [address] CNOV Observed: 08/04/2024 9:00 AM Status: COMPLETED Source: [facility] Office Visit ([facility]) MAGNOLIA BOYKIN ([id number]) 1945 M Date Time Provider Department 08/04/24 9:00 AM Elmer LÓPEZ During your visit today, we recorded the following information about you: Temperature Pulse Respiration Blood pressure 97.6 degrees 69/minute 16/minute 151/94 Weight 84.3 kg Will Pappas LPN 08/04/2024 9:03 AM Signed Pacemaker/Defibrillator?N Previous Cancer(s)?Y-Hodgkins Lymphoma 2011 Previous Radiation?N--chemo Lupus/Scleroderma?N On body monitoring device?N AUA= 18 Elmer López MD 08/10/2024 1:43 PM Signed Radiation Oncology - Prostate Cancer New Patient/Consult Note PATIENT NAME: Magnolia Boykin PATIENT REQUESTING PROVIDER: Dr. Ashley DIAGNOSIS: 78 year old male with prostate adenocarcinoma, initial PSA 4.89, biopsy [place] score 3 + 3 = 6 (grade group 1), clinical stage T1c, N0, M0, stage I [cT1a-c/T2a, N0, M0, PSA <10, GG 1] (AJCC 8th ed.), s/p biopsy. 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 No evidence of recurrence or issues related to his prior treatment. Cancer Staging Hodgkin's lymphoma (HCC) Staging form: Hodgkin and Non-Hodgkins Lymphoma of Lymphnodes - Clinical: Stage II (B - Symptoms) - Signed by Raciel Greer) on 12/15/2018 HPI: 78 year old male with prostate adenocarcinoma who presents for an opinion regarding the role of radiation therapy in the management of the patient's disease. Final recommendations will be communicated back to the requesting physician by way of the shared medical record, or letter to requesting physician via US mail. The patient was diagnosed with prostate cancer and comes in today to discuss treatment options. Patient presented with an elevated PSA of 4.89 on 02/07/2024. He has had a slowly rising PSA as noted below. He has a prior history of options lymphoma with prior primary chemotherapy completed 2012. No evidence recurrence or issues. PSA history: 10/2015 2.33 01/29/2018 2.37 02/18/2019 3.95 06/01/2019 3.42 06/06/2020 3.66 02/27/2021 3.77 06/19/2022 3.91 05/20/2023 4.64 07/25/2023 3.9 (27.9% free) after 4-week antibiotic course 02/07/2024 4.89 No results found for: PSA Patient underwent prostate MRI on 05/18/2024 demonstratin cc gland. Focal T2 hypointensity 12 x 7 mm, PI-RADS 4. No gross extracapsular extension seen. No evidence of any other findings within the pelvis. Prostate biopsy with MR fusion on 06/22/24 revealed: Adenocarcinoma, Chantel 6 (3+3) 5 out of 6 cores from the left mid lateral AIDA, in addition Chantel 6 from left base right apical. Total # of positive biopsy cores: 7 Total # of biopsy cores sampled: 16 Greatest % cancer in any single core: 10-25% Staging Studies: MR Results: See HPI Previous Treatment for Prostate Cancer: None Genomic Testing: na The patient reports the following pertinent history: Urinary frequency (D/N): 4-6/1-2 Dysuria: No Incontinence: 1- No pads Hematuria: No - Total AUA Score: 18 Bowel Movement Frequency: 1/day Bowel Movement Quality: Normal Blood per Rectum: No Last Colonoscopy: na Androgen Deprivation: none Prior Radiation Therapy, Collagen Vascular Disease, or Inflammatory Bowel Disease: No Any implanted or external electric devices? No Currently on Anticoagulation: No History of Hip Replacement: No History of Prior TURP: No ALLERGIES Allergen Reactions Iodine GI Upset omeprazole (PRILOSEC) 40 mg capsule Take 40 mg by mouth once daily. lutein-zeaxanthin 25-5 mg cap Take by mouth. Zeaxanthin-2.5 mg multivit with minerals/lutein (MULTIVITAMIN 50 PLUS ORAL) Take by mouth. benazepril (LOTENSIN) 20 mg tablet Take 20 mg by mouth once daily. PAST MEDICAL HISTORY Diagnosis Date Anemia Arthritis, degenerative Carotid bruit right carotid Diverticulosis Dysphagia Esophagitis Glomerulonephritis Hiatal hernia Hodgkin's lymphoma (HCC) Hypertension Neuropathy right foot PUD (peptic ulcer disease) PAST SURGICAL HISTORY Procedure Laterality Date COLONSCOPY SCREENING HIGH RISK 02/22/2012 ESOPHAGEAL DILATATION ESOPHAGOGASTRODUODENOSCOPY_*FL 03/20/2012 FAMILY HISTORY Problem Relation Age of Onset Cancer Mother at age 89 Cancer Brother at age 52 Prostate Cancer Brother Other Sleep Disorder No Family History Social History Tobacco Use Smoking status: Former Types: Cigarettes Smokeless tobacco: Never Substance Use Topics Alcohol use: Yes Comment: rarely Drug use: Never REVIEW OF SYSTEMS: GENERAL: feeling well without fatigue, has been having night sweats for the last 2 to 4 months. Denies fevers NECK: denies swelling or pain in neck RESPIRATORY: no cough, no wheezing or shortness of breath CARDIOVASCULAR: no chest pain, no palpitations MUSCULOSKELETAL: denies any painful or swollen joints, no muscle aches SKIN: no rash NEURO: no numbness or paresthesias and no weakness of the extremities As noted in HPI PHYSICAL EXAM: VS: BP (P) 151/94 Pulse 69 Temp 36.4 ?C (97.6 ?F) Resp 16 Wt 84.3 kg (185 lb 13.6 oz) SpO2 98% BMI 25.20 kg/m? KARNOFSKY PERFORMANCE STATUS: 100 General Appearance: Alert and oriented. No acute distress. Lymph: No neck supraclavicular or axillary inguinal adenopathy Chest: No respiratory distress. Lungs clear to auscultation bilaterally. Abdomen: Soft. Nontender. Nondistended. Musculoskeletal: No edema. Normal ROM in extremities. No bone or spine tenderness. Neuro: Speech fluent. Gait normal. No focal deficits. Rectal: Deferred RADIOLOGY/LABORATORY DATA: see HPI ASSESSMENT/PLAN: Prostate adenocarcinoma, initial PSA 4.89, biopsy [place] score 3 + 3 = 6 (grade group 1), clinical stage T1c, N0, M0, stage I [cT1a-c/T2a, N0, M0, PSA <10, GG 1] (AJCC 8th ed.), s/p biopsy. NCCN Risk Group: Low Risk Group Patient presents with a localized adenocarcinoma of the prostate. Patient's performance status is good. He remains active. He is having some night sweats which are new. Given his history of osteosarcoma like to further restage him with PET/CT. In addition would also like to assess decipher genomic risk for help and determination whether to proceed with definitive treatment or active surveillance for his prostate cancer. Discussed at length with patient and his family. Patient expressed understanding and information presented. 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 #:[id number] COMPLETE BLOOD COUNT AND DIFFERENTIAL [SQCBCDIF] Order #: [id number]. #:[id number] LACTATE DEHYDROGENASE [SQLD6] Order #: [id number]. #:[id number] Prescriptions as of 08/10/2024 - omeprazole (PRILOSEC) 40 mg capsule Take 40 mg by mouth once daily. - lutein-zeaxanthin 25-5 mg cap Take by mouth. Zeaxanthin-2.5 mg - multivit with minerals/lutein (MULTIVITAMIN 50 PLUS ORAL) Take by mouth. - benazepril (LOTENSIN) 20 mg tablet Take 20 mg by mouth once daily. Problem List As Of Date 08/04/2024 Noted Resolved Hodgkin's lymphoma [C81.90] Neuropathy [G62.9] Encounter for screening for malignant neoplasm *01/13/2017 Visit Notes: >> Will Pappas LPN Tue Aug 04, 2024 8:51 AM Status: Signed Pacemaker/Defibrillator?N Previous Cancer(s)?Y-Hodgkins Lymphoma 2012 Previous Radiation?N--chemo Lupus/Scleroderma?N On body monitoring device?N AUA= 18 Medications Discontinued During This Encounter Prescriptions - FAMOTIDINE ORAL (Discontinued) Take 20 mg by mouth. Follow-up and Disposition History for Encounter Date Provider Department Center 08/04/2024 [id number] LÓPEZ [facility] Encounter Status:Closed by Elmer LÓPEZ on 08/10/24 PROGRESS Observed: 08/04/2024 9:00 AM Status: COMPLETED Source: [facility] HNO ID: [id number] Author: Elmer LÓPEZ MD Service: ? Author Type: Physician Type: Progress Notes Filed: 08/10/2024 13:43 Note Text: Radiation Oncology - Prostate Cancer New Patient/Consult Note PATIENT NAME: Magnolia Boykin PATIENT REQUESTING PROVIDER: Dr. Ashley DIAGNOSIS: 78 year old male with prostate adenocarcinoma, initial PSA 4.89, biopsy [place] score 3 + 3 = 6 (grade group 1), clinical stage T1c, N0, M0, stage I [cT1a-c/T2a, N0, M0, PSA <10, GG 1] (AJCC 8th ed.), s/p biopsy. 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 No evidence of recurrence or issues related to his prior treatment. Cancer Staging Hodgkin's lymphoma (HCC) Staging form: Hodgkin and Non-Hodgkins Lymphoma of Lymphnodes - Clinical: Stage II (B - Symptoms) - Signed by Raciel Greer) on 12/15/2018 HPI: 78 year old male with prostate adenocarcinoma who presents for an opinion regarding the role of radiation therapy in the management of the patient's disease. Final recommendations will be communicated back to the requesting physician by way of the shared medical record, or letter to requesting physician via [place] mail. The patient was diagnosed with prostate cancer and comes in today to discuss treatment options. Patient presented with an elevated PSA of 4.89 on 02/07/2024. He has had a slowly rising PSA as noted below. He has a prior history of options lymphoma with prior primary chemotherapy completed 2012. No evidence recurrence or issues. PSA history: 10/2015 2.33 01/29/2018 2.37 02/18/2019 3.95 06/01/2019 3.42 06/06/2020 3.66 02/27/2021 3.77 06/19/2022 3.91 05/20/2023 4.64 07/25/2023 3.9 (27.9% free) after 4-week antibiotic course 02/07/2024 4.89 No results found for: PSA Patient underwent prostate MRI on 05/18/2024 demonstratin cc gland. Focal T2 hypointensity 12 x 7 mm, PI-RADS 4. No gross extracapsular extension seen. No evidence of any other findings within the pelvis. Prostate biopsy with MR fusion on 06/22/24 revealed: Adenocarcinoma, Chantel 6 (3+3) 5 out of 6 cores from the left mid lateral AIDA, in addition Chantel 6 from left base right apical. Total # of positive biopsy cores: 7 Total # of biopsy cores sampled: 16 Greatest % cancer in any single core: 10-25% Staging Studies: MR Results: See HPI Previous Treatment for Prostate Cancer: None Genomic Testing: na The patient reports the following pertinent history: Urinary frequency (D/N): 4-6/1-2 Dysuria: No Incontinence: 1- No pads Hematuria: No - Total AUA Score: 18 Bowel Movement Frequency: 1/day Bowel Movement Quality: Normal Blood per Rectum: No Last Colonoscopy: na Androgen Deprivation: none Prior Radiation Therapy, Collagen Vascular Disease, or Inflammatory Bowel Disease: No Any implanted or external electric devices? No Currently on Anticoagulation: No History of Hip Replacement: No History of Prior TURP: No ALLERGIES Allergen Reactions Iodine GI Upset omeprazole (PRILOSEC) 40 mg capsule Take 40 mg by mouth once daily. lutein-zeaxanthin 25-5 mg cap Take by mouth. Zeaxanthin-2.5 mg multivit with minerals/lutein (MULTIVITAMIN 50 PLUS ORAL) Take by mouth. benazepril (LOTENSIN) 20 mg tablet Take 20 mg by mouth once daily. PAST MEDICAL HISTORY Diagnosis Date Anemia Arthritis, degenerative Carotid bruit right carotid Diverticulosis Dysphagia Esophagitis Glomerulonephritis Hiatal hernia Hodgkin's lymphoma (HCC) Hypertension Neuropathy right foot PUD (peptic ulcer disease) PAST SURGICAL HISTORY Procedure Laterality Date COLONSCOPY SCREENING HIGH RISK 02/22/2012 ESOPHAGEAL DILATATION ESOPHAGOGASTRODUODENOSCOPY_*FL 03/20/2012 FAMILY HISTORY Problem Relation Age of Onset Cancer Mother at age 89 Cancer Brother at age 52 Prostate Cancer Brother Other Sleep Disorder No Family History Social History Tobacco Use Smoking status: Former Types: Cigarettes Smokeless tobacco: Never Substance Use Topics Alcohol use: Yes Comment: rarely Drug use: Never REVIEW OF SYSTEMS: GENERAL: feeling well without fatigue, has been having night sweats for the last 2 to 4 months. Denies fevers NECK: denies swelling or pain in neck RESPIRATORY: no cough, no wheezing or shortness of breath CARDIOVASCULAR: no chest pain, no palpitations MUSCULOSKELETAL: denies any painful or swollen joints, no muscle aches SKIN: no rash NEURO: no numbness or paresthesias and no weakness of the extremities As noted in HPI PHYSICAL EXAM: VS: BP (P) 151/94 Pulse 69 Temp 36.4 ?C (97.6 ?F) Resp 16 Wt 84.3 kg (185 lb 13.6 oz) SpO2 98% BMI 25.20 kg/m? KARNOFSKY PERFORMANCE STATUS: 100 General Appearance: Alert and oriented. No acute distress. Lymph: No neck supraclavicular or axillary inguinal adenopathy Chest: No respiratory distress. Lungs clear to auscultation bilaterally. Abdomen: Soft. Nontender. Nondistended. Musculoskeletal: No edema. Normal ROM in extremities. No bone or spine tenderness. Neuro: Speech fluent. Gait normal. No focal deficits. Rectal: Deferred RADIOLOGY/LABORATORY DATA: see HPI ASSESSMENT/PLAN: Prostate adenocarcinoma, initial PSA 4.89, biopsy [place] score 3 + 3 = 6 (grade group 1), clinical stage T1c, N0, M0, stage I [cT1a-c/T2a, N0, M0, PSA <10, GG 1] (AJCC 8th ed.), s/p biopsy. NCCN Risk Group: Low Risk Group Patient presents with a localized adenocarcinoma of the prostate. Patient's performance status is good. He remains active. He is having some night sweats which are new. Given his history of osteosarcoma like to further restage him with PET/CT. In addition would also like to assess decipher genomic risk for help and determination whether to proceed with definitive treatment or active surveillance for his prostate cancer. Discussed at length with patient and his family. Patient expressed understanding and information presented. Signed by: Elmer López MD cc: Benjamin Almeida ([facility]) [address] [place] [address] Cristopher Ashley [address] [place] [phone] AMBULATORY VISIT SUMMARY Observed: 07/07 11:04 AM Status: F Source: [facility] Ambulatory Visit Summary MAGNOLIA BOYKIN :1945 Visit Date:07/07/2024 Ambulatory Visit Instructions Your Diagnosis Prostate cancer BPH with obstruction/lower urinary tract symptoms Microscopic hematuria Your Care Team Attending Physician - Cristopher ASHLEY MD Primary Care Physician - BENJAMIN ALMEIDA DO This Is Your Medications List Contact prescribing physician if questions or concerns benazepril (benazepril 20 mg Tab) multivitamin with minerals (ICaps with Lutein and Zeaxan oral tablet) omeprazole (omeprazole 40 mg Cap-DR) Procedures Performed MRI-US fusion guided transperineal biopsy of prostate (06/22/2024), Colonoscopy, Esophagogastroduodenoscopy, Hernia repair, [place] tooth. Discharge Vitals Heart Rate (Peripheral) 60 Respiratory Rate 16 Blood Pressure 140/90 Height 184 cm Height 72 in Weight 85 kg Weight 187 lb BMI 25.11 What to do next You Need to Schedule the Following Appointments Follow Up with GABI GARCES, PAXTON Figueroa When: Comments: referral to Dr. López, f/u pending this Where: [address] [phone]- Someone Will Contact You Regarding These Appointments [facility] [place] External Ambulatory Referral, Other (needs to be filled in), Other Referral, Referral to Dr. López for prostate cancer, 07/07/24 10:57:00 EDT, Prostate cancer Medications What How Much When Instructions Unchanged [...] tract symptoms Diverticulosis Dysphagia Elevated PSA Hypertension Microscopic hematuria Nodular sclerosis Hodgkin's disease Prostate cancer Patient Survey You may receive a survey via text or e-mail asking about your office visit. Please share your experience with us by completing your survey. We appreciate your feedback and thank you for choosing us for your care. Education Materials Prostate Cancer The prostate is a small gland that produces fluid that makes up semen (seminal fluid). It is located below the bladder in men, in front of the rectum. Prostate cancer is the abnormal growth of cells in the prostate gland. What are the causes? The exact cause of this condition is not known. What increases the risk? You are more likely to develop this condition if: ? You are 65 years of age or older. ? You have a family history of prostate cancer. ? You have a family history of breast and ovarian cancer. ? You have genes that are passed from parent to child (inherited), such as BRCA1 and BRCA2. ? You have Herrera syndrome. men and men of descent are diagnosed with prostate cancer at higher rates than other men. The reasons for this are not well understood and are likely due to a combination of genetic and environmental factors. What are the signs or symptoms? Symptoms of this condition include: ? Problems with urination. This may include: ? A weak or interrupted flow of urine. ? Trouble starting or stopping urination. ? Trouble emptying the bladder all the way. ? The need to urinate more often, especially at night. ? Blood in urine or semen. ? Persistent pain or discomfort in the lower back, lower abdomen, or hips. ? Trouble getting an erection. ? Weakness or numbness in the legs or feet. How is this diagnosed? This condition can be diagnosed with: ? A digital rectal exam. For this exam, a health care provider inserts a gloved finger into the rectum to feel the prostate gland. ? A blood test called a prostate-specific antigen (PSA) test. ? A procedure in which a sample of tissue is taken from the prostate and checked under a microscope (prostate biopsy). ? An imaging test called transrectal ultrasonography. Once the condition is diagnosed, tests will be done to determine how far the cancer has spread. This is called staging the cancer. Staging may involve imaging tests, such as a bone scan, CT scan, PET scan, or MRI. Stages of prostate cancer The stages of prostate cancer are as follows: ? Stage 1 (I). At this stage, the cancer is found in the prostate only. The cancer is not visible on imaging tests, and it is usually found by accident, such as during prostate surgery. ? Stage 2 (II). At this stage, the cancer is more advanced than it is in stage 1, but the cancer has not spread outside the prostate. ? Stage 3 (III). At this stage, the cancer has spread beyond the outer layer of the prostate to nearby tissues. The cancer may be found in the seminal vesicles, which are near the bladder and the prostate. ? Stage 4 (IV). At this stage, the cancer has spread to other parts of the body, such as the lymph nodes, bones, bladder, rectum, liver, or lungs. Prostate cancer grading Prostate cancer is also graded according to how the cancer cells look under a microscope. This is called the [place] score and the total score can range from 6?10, indicating how likely it is that the cancer will spread (metastasize) to other parts of the body. The higher the score, the greater the likelihood that the cancer will spread. ? Chantel 6 or lower: This indicates that the cancer cells look similar to normal prostate cells (well differentiated). ? Chantel 7: This indicates that the cancer cells look somewhat similar to normal prostate cells (moderately differentiated). ? Chantel 8, 9, or 10: This indicates that the cancer cells look very different than normal prostate cells (poorly differentiated). How is this treated? Treatment for this condition depends on several factors, including the stage of the cancer, your age, personal preferences, and your overall health. Talk with your health care provider about treatment options that are recommended for you. Common treatments include: ? Observation for early stage prostate cancer (active surveillance). This involves having exams, blood tests, and in some cases, more biopsies. For some men, this is the only treatment needed. ? Surgery. Types of surgeries include: ? Open surgery (radical prostatectomy). In this surgery, a larger incision is made to remove the prostate. ? A laparoscopic radical prostatectomy. This is a surgery to remove the prostate and lymph nodes through several small incisions. It is often referred to as a minimally invasive surgery. ? A robotic radical prostatectomy. This is laparoscopic surgery to remove the prostate and lymph nodes with the help of robotic arms that are controlled by the surgeon. ? Cryoablation. This is surgery to freeze and destroy cancer cells. ? Radiation treatment. Types of radiation treatment include: ? External beam radiation. This type aims beams of radiation from outside the body at the prostate to destroy cancerous cells. ? Brachytherapy. This type uses radioactive needles, seeds, wires, or tubes that are implanted into the prostate gland. Like external beam radiation, brachytherapy destroys cancerous cells. An advantage is that this type of radiation limits the damage to surrounding tissue and has fewer side effects. ? Chemotherapy. This treatment kills cancer cells or stops them from multiplying. It kills both cancer cells and normal cells. ? Targeted therapy. This treatment uses medicines to kill cancer cells without damaging normal cells. ? Hormone treatment. This treatment involves taking medicines that act on testosterone, one of the male hormones, by: ? Stopping your body from producing testosterone. ? Blocking testosterone from reaching cancer cells. Follow these instructions at home: Lifestyle ? Do not use any products that contain nicotine or tobacco. These products include cigarettes, chewing tobacco, and vaping devices, such as e-cigarettes. If you need help quitting, ask your health care provider. ? Eat a healthy diet. To do this: ? Eat foods that are high in fiber. These include beans, whole grains, and fresh fruits and vegetables. ? Limit foods that are high in fat and sugar. These include fried or sweet foods. ? Treatment for prostate cancer may affect sexual function. If you have a partner, continue to have intimate moments. This may include touching, holding, hugging, and caressing your partner. ? Get plenty of sleep. ? Consider joining a support group for men who have prostate cancer. Meeting with a support group may help you learn to manage the stress of having cancer. General instructions ? Take mxlm-ezc-uabntnd and prescription medicines only as told by your health care provider. ? If you have to go to the hospital, notify your cancer specialist (oncologist). ? Keep all follow-up visits. This is important. Where to find more information ? [place] Cancer Society: www.cancer.org ? [place] Society of Clinical Oncology: www.cancer.net ? National Cancer [place]: www.cancer.gov Contact a health care provider if: ? You have new or increasing trouble urinating. ? You have new or increasing blood in your urine. ? You have new or increasing pain in your hips, back, or chest. Get help right away if: ? You have weakness or numbness in your legs. ? You cannot control urination or your bowel movements (incontinence). ? You have chills or a fever. Summary ? The prostate is a small gland that is involved in the production of semen. It is located below a man's bladder, in front of the rectum. ? Prostate cancer is the abnormal growth of cells in the prostate gland. ? Treatment for this condition depends on the stage of the cancer, your age, personal preferences, and your overall health. Talk with your health care provider about treatment options that are recommended for you. ? Consider joining a support group for men who have prostate cancer. Meeting with a support group may help you learn to manage the stress of having cancer. This information is not intended to replace advice given to you by your health care provider. Make sure you discuss any questions you have with your health care provider. Document Revised: 12/06/2021 Document Reviewed: 12/06/2021 [employer] Patient Education ? 2023 [employer]. UROLOGY OFFICE/CLINIC NOTE Observed: 11:03 AM Status: F Source: [facility] Urology Office/Clinic Note Chief Complaint PO MRI fusion bx HPI Staff PO MRI fusion bx 06/22/24, review pathology report Previous DX: BPH w/LUTS, elevated PSA. PSA 01/2024 - 4.89 Dysuria: denies pain or burning Incomplete bladder emptying: denies Hematuria: denies visible blood Frequency: every 2 hours Urgency: denies Nocturia: 1x Stream: denies hesitancy, yes weak stream Leaking: denies Post void dripping: denies Wearing pads/ Depends: denies Urge incontinence: denies Stress incontinence: denies Incontinence without Sensory Awareness: denies Abdominal pain: denies Flank pain: denies Sexual complaints: denies History of Present Illness Tests reviewed: reviewed UA, MRI, operative note and path report I have reviewed the previous health record information and history for this patient from Dr. Ashley. I have reviewed and verified the staff [...] See HPI. Physical Exam Vitals & Measurements HR: 60(Peripheral) RR: 16 BP: 140/90 HT: 72 in HT: 184 cm WT: 85 kg WT: 187 lb BMI: 25.11 General Appearance: alert, no distress, well nourished, well developed male. Assessment/Plan 1. Prostate cancer (C61: Malignant neoplasm of prostate) PSA: 10/2015 - 2.33 01/08/17 - 2.38 01/29/18 - 2.37 02/18/19 - 3.95 06/01/19 - 3.42 06/06/20 - 3.66 02/27/21 - 3.77 06/19/22 - 3.91 06/20/23 - 4.64 07/25/23 - 3.9 & 27.9% (after 4wk abx course) 02/07/24 - 4.89 Personal hx of Hodgkin's lymphoma, followed with [facility] oncology. SONU 03/31/24: ~40g, no nodules Prostate MRI 05/18/24 [facility] [place] - Prostate volume 75mL. PI-RADS 4 in posterior lateral aspect of L peripheral zone. No gross extracapsular extension. No evidence of lymphadenopathy. MRI fusion bx 06/22/24 - T2a [place] 6 (3+3), GG1 x3 cores. Highest percent involvement 40%. PI present at R lateral apex. iPSA <10. The pathology report, which shows the presence of prostate cancer, was disclosed to the patient in detail today. I discussed with the patient all the management options, including active surveillance, brachytherapy, EBRT, SBRT, ADT, combination of therapy options. I went over the pros and cons of each therapy today, and the [employer] prostate cancer book was provided. Explained possible SEs of radiation. Also discussed referral to radiation oncology. Advised pt he is a candidate for active surveillance given age, low grade cancer, and iPSA <10. Pt agrees to proceed with referral to rad onc. -Referral to Dr. López -Consider sending pathological tissue for decipher testing 2. BPH with obstruction/lower urinary tract symptoms (N40.1: Benign prostatic hyperplasia with lower urinary tract symptoms) IPSS 16 (19). Not currently taking any BPH meds. Not voicing any urinary habit complaints. 3. Microscopic hematuria (R31.29: Other microscopic hematuria) Distant hx of smoking. UA today shows large blood and trace leuks (trace-intact blood previously). Expected PO. -Cont sx monitoring and routine UAs. Pt knows to notify the office if he were to experience gross hematuria or clots. The patient is here with his family today. Unfortunately adenocarcinoma the prostate was diagnosed but this is a low [place] score low-grade low stage. Negative lymphadenopathy on his prior MRI. He does have bilateral disease. The region of interest on the fusion biopsy was positive as well as 2 other areas. Low percent of core. Will refer to radiation oncology for an opinion. We have briefly gone over different radiation options. I did provide him with a pamphlet with some information regarding prostate cancer. They agree with the plan. Follow-up With When Contact Information GABI GARCES, Cristopher Kern, URL [address] [place] [phone] Additional Instructions: referral to Dr. López, f/u pending this Patient Education Prostate Cancer I, Ragini Nugent, personally scribed for Dr. Ashley on 07/07/2024 11:03:24. . Documentation recorded by the Ragini nelson acurately reflects the services(s) I performed and decisions made by me. Authenticated by Dr. Ashley on 07/07/2024 11:05:01. Portions of this record may have been created with voice recognition artificial intelligence software, specifically [employer], [employer] and or [employer] Reviewed. Substitutions may have occurred due to the inherent limitations of voice recognition and artificial intelligence software. Problem List/Past Medical History Ongoing Anemia Arthritis BPH with obstruction/lower urinary tract symptoms Diverticulosis Dysphagia Elevated PSA Hypertension Microscopic hematuria Nodular sclerosis Hodgkin's disease Prostate cancer Historical No qualifying data Procedure/Surgical History MRI-US fusion guided transperineal biopsy of prostate (06/22/2024), Colonoscopy, Esophagogastroduodenoscopy, Hernia repair, [place] tooth. Medications benazepril 20 mg Tab, 20 mg= 1 tab(s), Oral, Daily ICaps with Lutein and Zeaxan oral tablet, 1 tab(s), Oral, Daily omeprazole 40 mg Cap-DR, 40 mg= 1 cap(s), Oral, Daily Allergies iodine (Hives) Social History Tobacco Never (less than 100 in lifetime) Tobacco Use:. Never Smokeless Tobacco Use:. Cigarettes, 07/07/2024 Family History Cirrhosis of liver: Father. Pancreatic cancer: Mother. Primary malignant neoplasm of colon: Brother. Immunizations Vaccine Date Status Comments influenza virus vaccine, inactivated 06/26/2024 Recorded influenza virus vaccine, inactivated 07/01/2023 Recorded influenza virus vaccine, inactivated 06/19/2022 Recorded SARS-CoV-2 (COVID-19) mRNAMUL.[id number] 06/19/2022 Recorded zoster vaccine, inactivated 04/09/2022 Recorded zoster vaccine, inactivated 11/06/2021 Recorded influenza virus vaccine, inactivated 06/20/2021 Recorded SARS-CoV-2 (COVID-19) mRNA BNT-162b2 vax 06/20/2021 Recorded 2024-03-23: TPV70 SARS-CoV-2 (COVID-19) mRNA BNT-162b2 vax 11/15/2020 Recorded 2024-03-23: TPV70 SARS-CoV-2 (COVID-19) mRNA BNT-162b2 vax 10/25/2020 Recorded 2024-03-23: TPV70 influenza virus vaccine, inactivated 06/21/2020 Recorded influenza virus vaccine, inactivated 07/06/2019 Recorded influenza virus vaccine, inactivated 06/23/2019 Recorded influenza virus vaccine, inactivated 07/21/2018 Recorded pneumococcal 23-valent vaccine 01/08/2018 Recorded influenza virus vaccine, inactivated 07/17/2017 Recorded Td(adult) unspecified formulation 01/14/2017 Recorded influenza virus vaccine, inactivated 08/10/2015 Recorded Lab Results Ambulatory Point of Care Results Bilirubin Urine Dipstick: Negative (07/07/24 10:21:00) Blood Urine Dipstick: 3+ Large (07/07/24 10:21:00) Glucose Urine Dipstick: Negative (07/07/24 10:21:00) Ketones Urine Dipstick: Negative (07/07/24 10:21:00) Leukocytes Urine Dipstick: Trace (07/07/24 10:21:00) Nitrite Urine Dipstick: Negative (07/07/24 10:21:00) Protein Urine Dipstick: 2+ (100 mg/dl) (07/07/24 10:21:00) Specific [place] Urine Dipstick: 1.025 (07/07/24 10:21:00) Urine Appearance Urine Dipstick: Clear (07/07/24 10:21:00) Urine Color Urine Dipstick: Yellow (07/07/24 10:21:00) Urobilinogen Urine Dipstick: Normal 0.2-1 EU/dl (07/07/24 10:21:00) pH Urine Dipstick: 7 (07/07/24 10:21:00) Result Comment: Electronical ly Signed By: Cristopher ASHLEY MD\.br\Date and Time Signed: 07/07/24 11:06 EDT\.br\Electronically Co-Signed By: Ragini Nugent\.br\Date and Time Co-Signed: 07/07/24 11:03 EDT PATIENT EDUCATION Observed: 07/07/2024 10:57 AM Status: F Source: [facility] Patient Education Oncology Prostate Cancer The prostate is a small gland that produces fluid that makes up semen (seminal fluid). It is located below the bladder in men, in front of the rectum. Prostate cancer is the abnormal growth of cells in the prostate gland. What are the causes? The exact cause of this condition is not known. What increases the risk? You are more likely to develop this condition if: ? You are 65 years of age or older. ? You have a family history of prostate cancer. ? You have a family history of breast and ovarian cancer. ? You have genes that are passed from parent to child (inherited), such as BRCA1 and BRCA2. ? You have Herrera syndrome. men and men of descent are diagnosed with prostate cancer at higher rates than other men. The reasons for this are not well understood and are likely due to a combination of genetic and environmental factors. What are the signs or symptoms? Symptoms of this condition include: ? Problems with urination. This may include: ? A weak or interrupted flow of urine. ? Trouble starting or stopping urination. ? Trouble emptying the bladder all the way. ? The need to urinate more often, especially at night. ? Blood in urine or semen. ? Persistent pain or discomfort in the lower back, lower abdomen, or hips. ? Trouble getting an erection. ? Weakness or numbness in the legs or feet. How is this diagnosed? This condition can be diagnosed with: ? A digital rectal exam. For this exam, a health care provider inserts a gloved finger into the rectum to feel the prostate gland. ? A blood test called a prostate-specific antigen (PSA) test. ? A procedure in which a sample of tissue is taken from the prostate and checked under a microscope (prostate biopsy). ? An imaging test called transrectal ultrasonography. Once the condition is diagnosed, tests will be done to determine how far the cancer has spread. This is called staging the cancer. Staging may involve imaging tests, such as a bone scan, CT scan, PET scan, or MRI. Stages of prostate cancer The stages of prostate cancer are as follows: ? Stage 1 (I). At this stage, the cancer is found in the prostate only. The cancer is not visible on imaging tests, and it is usually found by accident, such as during prostate surgery. ? Stage 2 (II). At this stage, the cancer is more advanced than it is in stage 1, but the cancer has not spread outside the prostate. ? Stage 3 (III). At this stage, the cancer has spread beyond the outer layer of the prostate to nearby tissues. The cancer may be found in the seminal vesicles, which are near the bladder and the prostate. ? Stage 4 (IV). At this stage, the cancer has spread to other parts of the body, such as the lymph nodes, bones, bladder, rectum, liver, or lungs. Prostate cancer grading Prostate cancer is also graded according to how the cancer cells look under a microscope. This is called the Chantel score and the total score can range from 6?10, indicating how likely it is that the cancer will spread (metastasize) to other parts of the body. The higher the score, the greater the likelihood that the cancer will spread. ? Chantel 6 or lower: This indicates that the cancer cells look similar to normal prostate cells (well differentiated). ? Chantel 7: This indicates that the cancer cells look somewhat similar to normal prostate cells (moderately differentiated). ? [place] 8, 9, or 10: This indicates that the cancer cells look very different than normal prostate cells (poorly differentiated). How is this treated? Treatment for this condition depends on several factors, including the stage of the cancer, your age, personal preferences, and your overall health. Talk with your health care provider about treatment options that are recommended for you. Common treatments include: ? Observation for early stage prostate cancer (active surveillance). This involves having exams, blood tests, and in some cases, more biopsies. For some men, this is the only treatment needed. ? Surgery. Types of surgeries include: ? Open surgery (radical prostatectomy). In this surgery, a larger incision is made to remove the prostate. ? A laparoscopic radical prostatectomy. This is a surgery to remove the prostate and lymph nodes through several small incisions. It is often referred to as a minimally invasive surgery. ? A robotic radical prostatectomy. This is laparoscopic surgery to remove the prostate and lymph nodes with the help of robotic arms that are controlled by the surgeon. ? Cryoablation. This is surgery to freeze and destroy cancer cells. ? Radiation treatment. Types of radiation treatment include: ? External beam radiation. This type aims beams of radiation from outside the body at the prostate to destroy cancerous cells. ? Brachytherapy. This type uses radioactive needles, seeds, wires, or tubes that are implanted into the prostate gland. Like external beam radiation, brachytherapy destroys cancerous cells. An advantage is that this type of radiation limits the damage to surrounding tissue and has fewer side effects. ? Chemotherapy. This treatment kills cancer cells or stops them from multiplying. It kills both cancer cells and normal cells. ? Targeted therapy. This treatment uses medicines to kill cancer cells without damaging normal cells. ? Hormone treatment. This treatment involves taking medicines that act on testosterone, one of the male hormones, by: ? Stopping your body from producing testosterone. ? Blocking testosterone from reaching cancer cells. Follow these instructions at home: Lifestyle ? Do not use any products that contain nicotine or tobacco. These products include cigarettes, chewing tobacco, and vaping devices, such as e-cigarettes. If you need help quitting, ask your health care provider. ? Eat a healthy diet. To do this: ? Eat foods that are high in fiber. These include beans, whole grains, and fresh fruits and vegetables. ? Limit foods that are high in fat and sugar. These include fried or sweet foods. ? Treatment for prostate cancer may affect sexual function. If you have a partner, continue to have intimate moments. This may include touching, holding, hugging, and caressing your partner. ? Get plenty of sleep. ? Consider joining a support group for men who have prostate cancer. Meeting with a support group may help you learn to manage the stress of having cancer. General instructions ? Take uyia-ids-eqxonpp and prescription medicines only as told by your health care provider. ? If you have to go to the hospital, notify your cancer specialist (oncologist). ? Keep all follow-up visits. This is important. Where to find more information ? [place] Cancer Society: www.cancer.org ? [place] Society of Clinical Oncology: www.cancer.net ? National Cancer [place]: www.cancer.gov Contact a health care provider if: ? You have new or increasing trouble urinating. ? You have new or increasing blood in your urine. ? You have new or increasing pain in your hips, back, or chest. Get help right away if: ? You have weakness or numbness in your legs. ? You cannot control urination or your bowel movements (incontinence). ? You have chills or a fever. Summary ? The prostate is a small gland that is involved in the production of semen. It is located below a man's bladder, in front of the rectum. ? Prostate cancer is the abnormal growth of cells in the prostate gland. ? Treatment for this condition depends on the stage of the cancer, your age, personal preferences, and your overall health. Talk with your health care provider about treatment options that are recommended for you. ? Consider joining a support group for men who have prostate cancer. Meeting with a support group may help you learn to manage the stress of having cancer. This information is not intended to replace advice given to you by your health care provider. Make sure you discuss any questions you have with your health care provider. Document Revised: 12/06/2021 Document Reviewed: 12/06/2021 [employer] Patient Education ? 2023 [employer] ALLERGIES DATE TYPE / CODE NAME / CODE REACTION SEVERITY SOURCE 12/21/2024 Drug Allergy/36665673 2(SNOMED CT) iodine/M356021243( RXNORM) Hives Unknown [facility] 07/17/2012 DRUG INGREDI/76485837 3(SNOMED CT) IODINE GI UPSET [facility] /830838256(SNO MED CT) iodine [id number] [facility] ENCOUNTERS ADMIT/DISCHARGE ACCOUNT NUMBER ADMITTING ENCOUNTER CLASS LOCATION SOURCE 06/22/2025/06/22/20 [id number] Ambulatory Building:[facility] 06/07/2025/06/07/20 [id number] [facility] 03/09/2025/03/09/20 [id number] Ambulatory [facility] 03/04/2025 [id number] [facility] 03/04/2025/03/04/20 [id number] [facility] 12/15/2024/12/16/19 [id number] Ambulatory Building:CIE NT [facility] EPIC 09/29/2024/09/29/19 [id number] [facility] 09/10/2024/09/10/20 24 [id number] Ambulatory [facility] 09/02/2024/09/02/20 24 [id number] [facility]odi [facility]pez [facility] 08/27/2024/08/27/20 24 [id number] Ambulatory [facility] 08/17/2024/08/17/20 24 [id number] [facility] 08/04/2024/08/04/20 24 [id number] Ambulatory [facility] 08/04/2024/08/04/20 24 [id number] Ambulatory [facility] 07/07/2024/07/07/20 24 [id number] [place] [facility] Exam 6 [facility] PAYERS ENCOUNTER GUARANTOR PAYER SUBSCRIBER SOURCE 06/22/2025 MAGNOLIA LAROSEB: [id number] [place] [address]Tel: () Primary Insurance:MEDICAREPoli Number: [id number] Date:7876-74-30Fllk Name:Medicare MAGNOLIA LAROSEB: [id number] [place] [phone] [facility] 06/22/2025 Secondary Insurance:AARPPolicy Number: [id number] Date:2024-09-23 MAGNOLIA LAROSEB: [id number] [address] [address] [facility] 06/07/2025 Magnolia [address]aser[address] [address]Fnp: () Primary Insurance:MedicarePoli cy Number: [id number] Date:2024-12-15 Magnolia LaroseB: [id number] [place] [phone]: () [facility] 06/07/2025 Secondary Insurance:[facility] Health ClaimsPolicy Number: [id number] Date:2024-12-15 Magnolia LaroseB: [id number] [place] [phone]: (HP) [facility] 06/07/2025 Tertiary Insurance:Self PayPolicy Number: Effective Date:2025-05-10 [facility] Primary Insurance:MEDICARE A AND BPolicy Number: [id number] Date:6069-87-94Txzp Name:Erlin LAROSEB: [id number] [address] [place] [address] [facility] 03/09/2025 Secondary Insurance:[facility] AARP SUPPLEMENTPolicy Number: [id number] Date:9557-31-40Bsvo Name:Krupa LAROSEB: [id number] [address] [place] [address] [facility] 03/04/2025 Primary Insurance:MEDICARE A AND BPolicy Number: [id number] Date:0068-00-97Yxeq Name:Erlin LAROSEB: [id number] [address], [place] [address] [facility] 03/04/2025 Secondary Insurance:[facility] AARP SUPPLEMENTPolicy Number: [id number] Date:9391-48-43Vmuq Name:Krupa LAROSEB: [id number] [address] [place] [address] [facility] 03/04/2025 Primary Insurance:MEDICARE A AND BPolicy Number: [id number] Date:2745-57-96Oybi Name:Erlin LAROSEB: [id number] [address] [place] [address] [facility] 03/04/2025 Secondary Insurance:[facility] AARP SUPPLEMENTPolicy Number: [id number] Date:7840-84-54Onsi Name:Krupa LAROSEB: [id number] [address], [place] [address] [facility] 12/15/2024 MAGNOLIA BOYKINDOB: [id number] [address]Tel: (HP) Primary Insurance:MEDICAREPoli cy Number: [id number] Date:7859-26-49Phfe Name:Medicare GERALD P STOCKMASTERDOB: [id number] [place] [phone] [facility] EPIC 12/15/2024 Secondary Insurance:AARPPolicy Number: [id number] Date:2024-09-23 MAGNOLIA CARDENASERDOB: [id number] [place] [phone] [facility] EPIC 09/29/2024 Magnolia Zavalaster1530 [address] [place] [phone]: (HP) Primary Insurance:MedicarePoli cy Number: [id number] Date:2024-09-10 Magnolia ZavalasterDOB: [id number] [place] [phone]: (HP) [facility] 09/29/2024 Secondary Insurance:[facility] Health ClaimsPolicy Number: [id number] Date:2024-09-10 Magnolia LaroseB: [id number] [place] [phone]: () [facility] 09/29/2024 Tertiary Insurance:Self PayPolicy Number: Effective Date:2024-09-14 [facility] Primary Insurance:MEDICARE A AND BPolicy Number: [id number] Date:8642-46-85Zwyz Name:Erlin LAROSEB: [id number] [address] [address] [facility] 09/10/2024 Secondary Insurance:[facility] SUPPLEMENTPolicy Number: [id number] Date:2724-78-39Ykby Name:Krupa BOYKINDOB: [id number] [address] [address] [facility] 09/02/2024 Magnolia Cardenaser1530 [address]Tel: () Primary Insurance:MedicarePoli cy Number: [id number] Date:2024 Magnolia BoykinB: [id number] [address]Tel: () [facility] 09/02/2024 Secondary Insurance:[employer] Health ClaimsPolicy Number: [id number] Date:2024 Magnolia BoykinDOB: [id number] [place] [phone]: () [facility] 09/02/2024 Tertiary Insurance:Self PayPolicy Number: Effective Date:2024-08-31 [facility] 20[facility] Primary Insurance:MEDICARE A AND BPolicy Number: [id number] Date:7916-80-97Trii Name:Erlin LAROSEB: [id number], [place] [address] [facility] 2024 Secondary Insurance:[facility] AARP SUPPLEMENTPolicy Number: [id number] Date:0492-17-86Rlan Name:Krupa LAROSEB: [id number] [address], [place] [address] [facility] 08/17/2024 Primary Insurance:MEDICARE A AND BPolicy Number: [id number] Date:0978-07-70Ibhh Name:Erlin LAROSEB: [id number], [place] [address] [facility] 08/17/2024 Secondary Insurance:[facility] AARP SUPPLEMENTPolicy Number: [id number] Date:4405-68-18Xpvw Name:Krupa LAROSEB: [id number] [address], [place] [address] [facility] 08/04/2024 Primary Insurance:MEDICARE A AND BPolicy Number: [id number] Date:1953-61-35Jpps Name:Erlin LAROSEB: [id number], [place] [address] [facility] 08/04/2024 Secondary Insurance:[facility] AARP SUPPLEMENTPolicy Number: [id number] Date:9962-05-04Uiub Name:Krupa LAROSEB: [id number] [address], [place] [address] [facility] 08/04/2024 Primary Insurance:MEDICARE A AND BPolicy Number: [id number] Date:9681-68-73Fwdp Name:Erlin LAROSEB: [id number], [place] [address] [facility] 08/04/2024 Secondary Insurance:[facility] AARP SUPPLEMENTPolicy Number: [id number] Date:7229-06-27Gcyo Name:Krupa LAROSEB: [id number], [place] [address] [facility] 07/07/2024 MAGNOLIA BOYKINB: [id number] [facility] 46Tel: ~[phone] Primary Insurance:MEDICAREPoli cy Number: [id number] Date:1245-32-90Q[address], [place] [address]TP: MAGNOLIA [facility] 07/07/2024 Secondary Insurance:AARPPolicy Number: [id number] Date:6729-60-58[address], [place] [address]KU: MAGNOLIA K[facility]
[2025-06-24 09:42] LABS: Microalbum Creatinine Ratio Ur 174.6 mg/g (0.0-29.9)
[2025-06-24 11:16] LABS: Alanine Aminotransferase 31 U/L (16-63); Albumin Globulin Ratio 0.9; Albumin Level 3.8 g/dL (3.4-5.0); Alkaline Phosphatase 96 U/L (46-116); Anion Gap 13.0; Aspartate Amino Transferase 27 U/L (15-37); Blood Urea Nitrogen 26.0 mg/dL (7.0-18.0); Calcium 8.7 mg/dL (8.5-10.1); Carbon Dioxide 25.0 mmol/L (21.0-32.0); Chloride 106 mmol/L (98-107); Estimated GFR (African America 59 (>=60 mL/min/1.73m^2); Estimated GFR (Non-African Ame 49 (>=60 mL/min/1.73m^2); Globulin 4.1 g/dL; Glucose 104 mg/dL (74-106); Potassium 4.0 mmol/L (3.5-5.1); Sodium 140 mmol/L (136-145); Total Protein 7.9 g/dL (6.4-8.2)
[2025-06-24 11:53] LABS: Hematocrit 40.8 % (42.0-54.0); Hemoglobin 13.4 g/dL (14.0-18.0); Immature Granulocytes Abs Auto 0.01 10^3/uL (0.00-0.03); Immature Granulocytes Pct Auto 0.2 % (0.0-0.5); Lymphocytes Absolute Auto 1.0 10^3/uL (1.2-3.8); Mean Corpuscular HGB Conc 32.8 g/dL (29.9-35.2); Mean Corpuscular Hemoglobin 32.1 pg (25.9-34.0); Mean Corpuscular Volume 97.8 fL (80.0-94.0); Platelet Count 194 10^3/uL (150-450); Red Blood Count 4.17 10^6/uL (4.70-6.10); White Blood Count 5.9 10^3/uL (4.0-11.0)
== END 2025-06-24 09:10 | disposition home or self-care (01) ==
LOC: LAB 09:11
PROVIDERS: PCP Internal Medicine; Visit Provider Internal Medicine
DX: N18.31 Chronic kidney disease, stage 3a (principal); D64.9 Anemia, unspecified; I12.9 Hypertensive chronic kidney disease with stage 1 through stage 4 chronic kidney disease, or unspecified chronic kidney disease
CPT/HCPCS: 36415; 80053; 82043; 82570; 85025

== ENCOUNTER 2025-07-29 13:06 | Outpatient (OUT) | payer MEDICARE, SELFPAY ==
--- OUTSIDE RECORDS SUMMARY | 2025-07-22 05:57 | XMS_ITS | Continuity of Care Document ---
Author Organization [facility] Address [address] [place] [address] Phone Care Team Providers Care Clinical Resource Manager Name Role Phone Benjamin Almeida DO Primary Care Provider Dana Borges Jr, MD Attending Provider Benjamin Crabtree DO Attending Provider Care Teams Patient Care Team Team Status: Active Member Role/Relationship Status Dates Benjamin Almeida DO Primary Care Provider Active Visit Care Team Team Status: Inactive Member Role/Relationship Status Dates Benjamin Almeida DO Primary Care Provider Active Start: June 07, 2025 End: June 07, 2025Dana Borges Jr, MDAttfrancoise ProviderActiveStart: June 07, 2025 End: June 07, 2025 Visit Care Team Team Status: Inactive Member Role/Relationship Status Dates Benjamin Almeida DO Primary Care Provider Active Start: June 24, 2025 End: June 24Joanna Tinajero ProviderActiveStart: June 24, 2025 End: June 24, 2025 Patient Care Team Team Status: Inactive Member Role/Relationship Status Dates Benjamin Almeida DO Primary Care Provider Active Start: July 22, 2025 End: July 22Joanna Tinajero ProviderActiveStart: July 22, 2025 End: July 22, 2025 Chief Complaint and Reason for Visit Chief Complaint Admit Date E04.1 June 07, 2025 9:43am Wellness June 24, 2025 8: 21am Possible Infected Knee July 22 10:34am Reason for Visit Admit Date Chronic kidney disease June 24, 2025 8:21am GERD (gastroesophageal reflux disease) O ctober 2024 8:21am Lumbar spondylosis June 24, 2025 8: 21am Lung nodule June 24, 2025 8: 21am Medicare annual wellness visit, subseque nt June 24, 2025 8:21am Primary hypertension June 24, 2025 8 :21am Prostate cancer June 24, 2025 8: 21am Thyroid nodule June 24, 2025 8: 21am Allergies, Adverse Reactions, Alerts Allergen Type Severity Reaction Last Updated Verified Status iodine Allergy Unknown Hives July 22, 2025 10:38am Yes Active Social History Smoking Status Status Start Date End Date Date of Observa tion Ex-smoker (finding) June 24, 2025 9:01am Observation Status Observation Response Date of Response Legal Sex Male (finding) Sex Assigned At BirthMaleDecember 1944 Family History Relationship Condition Age at Onset Recorded Date/T israel brother Malignant neoplasm of colon Unknown DeceasedUnknownmotherMalignant neoplasm of pancreasUnknownDeceasedUnknownfather Hepatic cirrhosisUnknownDeceasedUnknown Problems Active Problems Problem Diagnosis/Recorded Date Onset Date Status C ments Medicare annual wellness visit, subsequent June 19, 2024 7:34am Unknown Active Gastroesophageal reflux disease with esophagitis without hemorrhageMarch 2023 2:55pmUnknownActivePoor urinary streamMarch 2023 2:39pmUnknownActive Thyroid noduleJanuary 2024 1:10pmUnknownActivePET/CT, Thyroid US: 9mm nodule right lobe - 08/2024,FNA: AUS (atypia of undetermined significance) [place] III - 09/2024, US: right 9mm, left 4mm nodules - 05/2025Prostate cancer August 10, 2024 6:88iw6051RexnnoBTR w/ nodule - 04/2024,TRUS/bx - 05/2024,Chantel 3 + 3, group 1,[employer] - low riskActive surveillance Neoplasm of uncertain behavior of skinMarch 2023 2:38pmUnknownActiveAnemia December 18, 2023 2:55pmUnknownActiveDysphagiaAugust 2020 6:28amUnknown ActiveChronic kidney diseaseMarch 2023 7:06amUnknownActive Creatinine/GFR:1.20/59 - 11/2022, 1.39/50 - 05/2023, 1.29/59 - 9/enal US: no hydronephrosis, simple cysts - 05/2023Lung noduleJanuary 2024 1:12pmUnknown ActivePET/CT: not FDG avid, 8mm - 08/2024,CT: 5mm nodules - 02/2025Primary hypertensionMarch 2023 2:55pmUnknownActiveBenign prostatic hyperplasia with lower urinary tract symptomsMarch 2023 2:55pmUnknownActiveGERD (gastroesophageal reflux disease)December 18, 2023 7:04amUnknownActiveLumbar spondylosisMarch 2023 7:07amUnknownActiveLumbar spondylosisMarch 2023 2:55pmUnknownActive Medications Medication Status Dose Units Route Directions Qty Days Refills S tart Date Stop Date End Date Reason(s) Instructions Adherence Benazepril 20 mg tablet Discontinued 0 .ROUTE.IGDUNTA733Jniuv 2023 2:31pmApril 2024 6:40amTAKE 1 TABLET BY MOUTH EVERY DAY FOR 90 DAYSOmeprazole 40 mg capsule,delayed release(DR/EC) Ggzskhrdzcbh10PUQGDjspf209520Nugpro 2023 8:26pmAugust 2024 5:52pmtake on an empty stomach, 30 minutes prior to bkfstBenazepril 20 mg tabletActive0 .ROUTE.CMYAAXN938Pbbnf 2024 6:40amTAKE 1 TABLET BY MOUTH EVERY DAY FOR 90 DAYSComplies with drug therapyOmeprazole 40 mg capsule,delayed release(DR/EC) Active0.ROUTE.SWQIEYU301Ipboij 2024 5:52pmTAKE 1 CAPSULE DAILY ON AN EMPTY STOMACH 30 MINUTES BEFORE BREAKFASTComplies with drug therapyAmlodipine 2.5 mg tabletDiscontinued2.0ZOWWWscgg94063Theylty 2024 12:00amOctober 2024 10:23amAmlodipine 2.5 mg tabletActive2.5RNJPKdxmx93809Phubknp 2024 10:23am Complies with drug therapyOmeprazole 40 mg capsule,delayed release(DR/EC) Iwnkwehdylgh16USWYOynyd4432Agsnqtar 2021 1:00amAugust 2023 8:27pm Multivitamin vmmuctFygfcc1GXYAWPrzckSmddzqsxy 2023 12:00amComplies with drug therapyLutein-Zeaxanthin 25-5 mg rdexaxqPbtnab3TLKEGWlbtyTbosetaea 2023 12:00amComplies with drug therapyMultivitamin GwrvzmHssepnuzpsyw7GYPXSSpwqo April 26, 2021 12:00amMarch 2023 2:57pmFamotidine 20 mg Tablet Xafxlxbkchwf50BZHIGiosmVukfst 2020 12:00amNovember 2021 2:23pm Benazepril 20 mg reypasNjjpvypwgwwo39YJZDAnoxnSetqwe 2020 12:00amApril 2023 2:31pmLutein-Zeaxanthin 25-5 mg ZwboiuwHaxqcaquextm6FNFSYFyjxrHwwhoo 2020 12:00amMarch 2023 2:57pmTriamcinolone Acetonide 0.1 % cream Qrczxw9YOGYZSUYRQEPQAgruy gvmnb14294Sdhoy 2024 12:00amComplies with drug therapyLatanoprost 0.005 % htwbkGftryv3PTDUBCIE-HZSSEurtfQmrlbbz 2024 12:00amComplies with drug therapyCephalexin 500 mg mkbbbghAtibzf126LOTTSjwan times sxvxy59262Rneenso 2024 12:00amComplies with drug therapyMupirocin 2 % meqkprfaNaeefy1KEOVRTSXEHAYNQiwso vtjgi69380Pkhnrjf 2024 12:00amComplies with drug therapy Immunizations Immunization Event Date Not Given Reason Dose Number File Conversion Operator Lot Number Reason(s) Given Vaccine Information Statement (VIS) Detail Administration Location COVID-19 Elfego Mcgarry (Vital Vio) February 2nd, 2021 COVID-19 mRNA, Comirnaty (Pfizer)June 20OVID-19 mRNA, Comirnaty (Pfizer)November 15OVID-19 mRNA Bivalent Booster (Pfizer)June 19OVID-19 (PFIZER) 12Y and olderOctober 2022Fluzone TIV High-Dose 65YR+July 17, 2017Fluzone TIV High-Dose 65YR+July 21, 2018 Fluzone TIV High-Dose 65YR+June 23, 2019Fluzone QIV High-Dose 65YR+June 20, 2021Fluzone QIV High-Dose 65YR+June 19, 2022Influenza vaccine, quadrivalent, adjuvantedSeptember 2019Influenza vaccine, quadrivalent, adjuvantedOctober 2022influenza, unspecified formulationOctober 2015 influenza, unspecified formulationOctober 2016Pneumococcal Conjugate Vaccine, 13 valentFebruary 2015Pneumococcal Polysacc. Vaccine, 23 valent August 18, 2013Pneumococcal Polysacc. Vaccine, 23 valentApril 2017 Quadrivalent InfluenzaNovember 2014Zoster Vaccine Recombinant, Adjuvanted November 06, 2021Zoster Vaccine Recombinant, AdjuvantedJuly 2021 Td(adult) unspecified formulationApril 2016Tetanus, Diphtheria adult, 5 Lf pres free absOctober 2013Tetanus, Diphtheria adult, 5 Lf pres free absApril 2016Tetanus, Diphtheria adult, 5 Lf pres free absOctober [id number] [facility] Procedures Procedure Date Performed Status US thyroid June 07, 2025 9:45am comp leted Relevant Diagnostic Tests and/or Laboratory Data Laboratory Results Test Collection Date/Time Result Date/Time Result Interpretation Reference Range Result Comment Performing Site Urine Random Creatinine June 24 9:14am June 24, 2025 9:14am 116.80 mg/dL 20.00-300.00Basophils # (Auto)June 24, 2025 9:22amOctober 2024 9:22am 0.0 10 3/uL0.0-0.1Anion GapOct2024 9:22amOctober 2024 9:22am13.0 Urine Random MicroalbuminOct2024 9:14amOctober 2024 9:14am20.4 mg/dL<=30.0Basophils (%) (Auto)June 24, 2025 9:22amOctober 2024 9:22am 0.7 %0.2-2.0Albumin/Globulin RatioOct2024 9:22amOctober 2024 9:22am0.9Urine Microalbumin/Creatinine RatioOct2024 9:14amOctober 2024 9:53lk869.6 mg/gAbove high normal0.0-29.9NO MICROALBUMINURIA 0-29 MG/GCLINICAL MICROALBUMINURIA 30-300 MG/GMACROALBUMINURIA >300 MG/GEosinophils # (Auto)June 24, 2025 9:22amOctober 2024 9:22am0.3 10 3/uL0.0-0.7Albumin June 24, 2025 9:22amOctober 2024 9:22am3.8 g/dL3.4-5.0Eosinophils (%) (Auto)June 24, 2025 9:22amOctober 2024 9:22am5.6 %0.9-7.0Alkaline PhosphataseOct2024 9:22amOctober 2024 9:22am96 U/L46-116 HematocritOct2024 9:22amOctober 2024 9:22am40.8 %Below low normal 42.0-54.0Alanine Aminotransferase (ALT/SGPT)June 24, 2025 9:22amOctober 2024 9:22am31 U/D94-16KyddtnaavvAibbchq 2nd, 2025 9:22amOctober 2024 9:22am 13.4 g/dLBelow low hswjve18.0-18.0Aspartate Amino Transf (AST/SGOT)June 24, 2025 9:22amOctober 2024 9:22am27 U/Y09-54Llhcnhnz Granulocyte # (Auto) June 24, 2025 9:22amOctober 2024 9:22am0.01 10 3/uL0.00-0.03 BUN/Creatinine RatioOct2024 9:22amOctober 2024 9:22am18.4Immature Granulocyte % (Auto)June 24, 2025 9:22amOctober 2024 9:22am0.2 %0.0-0.5 Blood Urea NitrogenOct2024 9:22amOctober 2024 9:22am26.0 mg/dL Above high normal7.0-18.0Lymphocytes # (Auto)June 24, 2025 9:22amOctober 2024 9:22am1.0 10 3/uLBelow low normal1.2-3.8Calcium LevelOct2024 9:22amOctober 2024 9:22am8.7 mg/dL8.5-10.1Lymphocytes (%) (Auto)June 24, 2025 9:22amOctober 2024 9:22am16.7 %Below low acnath08.5-60.0Chloride LevelOct2024 9:22amOct2024 9:41yu621 mmol/V13-552Mdbl Corpuscular HemoglobinOct2024 9:22amOct2024 9:22am32.1 pg 25.9-34.0Carbon Dioxide LevelOctober 2024 9:22amOct2024 9:22am 25.0 mmol/L21.0-32.0Mean Corpuscular Hemoglobin ConcentOctober 2024 9:22am June 24, 2025 9:22am32.8 g/dL29.9-35.2CreatinineOct2024 9:22am June 24, 2025 9:22am1.41 mg/dLAbove high normal0.70-1.30Mean Corpuscular VolumeOct2024 9:22amOct2024 9:22am97.8 fLAbove high normal 80.0-94.0Estimated GFR ()June 24, 2025 9:22amOctober 2024 9:76hk14Vxnqt low normal>=60 mL/min/1.73m 2Monocytes # (Auto)June 24, 2025 9:22amOctober 2024 9:22am0.6 10 3/uL0.3-0.8Estimated GFR (Non- AmericanOctober 2024 9:22amOctober 2024 9:17bo95Uqpwe low normal>=60 mL/min/1.73m 2Monocytes (%) (Auto)June 24, 2025 9:22amOctober 2024 9:22am10.6 %1.7-12.0GlobulinOct2024 9:22amOctober 2024 9:22am4.1 g/dLMean Platelet VolumeOctober 2024 9:22amOctober 2024 9:22am11.8 fL 9.5-13.5Glucose LevelOct2024 9:22amOctober 2024 9:20ij640 mg/dL 74-106Neutrophils # (Auto)June 24, 2025 9:22amOctober 2024 9:22am3.9 10 3/uL1.4-6.5Potassium LevelOctober 2024 9:22amOctober 2024 9:22am4.0 mmol/L3.5-5.1Neutrophils (%) (Auto)June 24, 2025 9:22amOctober 2024 9:22am66.2 %43.0-75.0Sodium LevelOctober 2024 9:22amOctober 2024 9:20ox750 mmol/A956-586Hgjghunu CountOctober 2024 9:22amOctober 2024 9:89cm404 10 3/qW418-990Xyayr BilirubinOctober 2024 9:22amOctober 2024 9:22am0.6 mg/dL0.2-1.0Red Blood CountOctober 2024 9:22amOctober 2024 9:22am4.17 10 6/uLBelow low normal4.70-6.10Total ProteinOctober 2024 9:22am June 24, 2025 9:22am7.9 g/dL6.4-8.2Red Cell Distribution WidthOctober 2024 9:22amOctober 2024 9:22am12.6 %11.0-15.0Corrected White Blood Count June 24, 2025 9:22amOctober 2024 9:22am5.9 10 3/uL4.0-11.0 Diagnostic Imaging Reports Author Og Zee [facility] HospitalAuthoredSeptember 2024 4:56pmReport Dictated Date/TimeDictated ByStatusRadiology ReportSeptember 2024 4:56pm Kendrick MontañoSt. [facility] of [facility] [place] [address] [place] [address] Ultrasound Report Signed Patient: Terell Boykin MR# : [id number] : 1945 Acct:[id number] Age/Sex: 79 / M ADM Date: 5 Loc: Room: Type: [facility] Attending Dr: Dana Borges Jr, MD Ordering Provider: DANA BORGES MD Date of Service: 06/07/25 US/US thyroid: THROID NODULE Copies to: DANA BORGES MD~ Thyroid Ultrasound HISTORY: Follow-up thyroid nodules COMPARISON: [...] Zee M.D. 06/07/2025 4:58 PM Dictation Location: [place] [address] Tech: Ani Pradoz Transcribed By: JUAN DANIEL 06/07/25 8073 Dictated By: Og Zee DO 06/07/251655 Signed By: <Electronically signed by Og Zee DO in OV> 06/07/251657 Vital Signs Vital Reading Result Reference Range Collection Date/Time Height 72 [in_i] June 24, 2025 8:69ysUwamou76.08 kgOctober 2024 8:31amHeart Rate60 /min 60-100October 2024 8:31amRespiratory rate12 /gfz12-32Elakdnq 2024 8:31amBP Jofapzbs715 mm[Hg]100-140October 2024 8:31amBP Rpgfipsrq16 mm[Hg] 60-100October 2024 8:31amBMI (Body Mass Index)25.1 kg/b9Wbhkzcr 2024 8:86uvRyziyw32 [in_i]July 22, 2025 10:10jaTgkcab03.63 kgOctober 2024 10:37amBody Kswvnklhvrd62.9 [degF]97.6-99.0July 22, 2025 10:37amHeart Rate 64 /txc77-767Ybgzapb 2024 10:37amRespiratory rate18 /jkv20-53Pflcdqu 2024 10:37amOxygen saturation by Pulse xbjnnacd00 %95-100October 2024 10:37amBP Rmpvdirt761 mm[Hg]100-140October 2024 10:37amBP Rmpfbxplb75 mm[Hg]60-100October 2024 10:37amBMI (Body Mass Index)25.9 kg/g7Qfzqhlb 2024 10:37am Advance Directives Advance Directive Response Recorded Date/ Time Advance Directives No June 24, 2025 9:01am Insurance Providers Guarantor Erlin Harrington Address [address] [place] [id number] Info.Home Phone: Coverage Status Update:2025 Payer Group Member ID Coverage Type Subscriber Relationship to Subscriber Effective Date Expiration Date [facility] Id: [id number] Stockmaster , P Id: [id number] [address] [place], [place] [address] Home Phone: [facility] [id number] Stockmaster , P Id: [id number] [address] [place] [address] Home Phone: [employer] Nonpatient [id number] Boykin , P Id: [id number] [address] [place], [place] [address] Home Phone: [facility] Health Claims [facility] [id number] Stockmaster , P Id: [id number] [address] [place] [address] Home Phone: selr Encounters Encounter Location(s) Arrival/Admit Date Discharge/Departure Date Discharge/Departure Disposition Provider(s) Departed Clinical -Ultrasound [facility] June 07, 2025 9:43am June 07, 2025 9:44am Discharged to home care or self care (routine discharge) DANA BORGES MD Departed Physician/ Provider Office Visit -[facility] June 24, 2025 8:21am June 24, 2025 9:01am Discharged to home care or self care (routine discharge) Benjamin Almeida DO Departed Physician/ Provider Office Visit -[facility] July 22, 2025 10:34am July 22, 2025 10:56am Discharged to home care or self care (routine discharge) Benjamin Almeida DO Recent Diagnosis Onset Date Admit Date Chronic kidney disease Unknown June 242024 8:21am GERD (gastroesophageal reflux disease) Unknown June 24, 2025 8:21am Lumbar spondylosis Unknown June 24, 2025 8:21am Lung nodule Unknown June 24 8:21am Medicare annual wellness visit, subsequent Unkno wn June 24, 2025 8:21am Primary hypertension Unknown June 8:21am Prostate cancer 2023June 24 8:21am Thyroid nodule Unknown June 24 8:21am Assessments Diagnosis Onset Date Resolution Status Admit Date Chronic kidney disease acuteOct5 8:21amGERD (gastroesophageal reflux disease)acuteOct2024 8:21amLumbar spondylosisacuteOct2024 8:21amLung noduleacute October 2024 8:21amMedicare annual wellness visit, subsequentacuteOct2024 8:21amPrimary hypertensionacuteOct2024 8:21amProstate cancer cuteOctober 2024 8:21amThyroid noduleacuteOct2024 8:21am Plan of Treatment Author Benjamin Almeida [facility] HospitalAuthoredSeptember 2024 7:10amI have instructed this patient to consume a healthy, low-fat, low-salt diet. I have also encouraged them to continue exercise with weight loss to achieve/maintain a BMI < 30. I have instructed this patient on the correct procedure for obtaining home BP measurements:? - rest for 5 minutes w/o talking. - positioned w/ feet on floor and arms supported. - average best 2/3 readings w/ goal < 135/85. - update office w/ home readings in 2 weeks. Continue Benazepril without interruption I instructed this patient on the benefits of adequate control of hypertension and diabetes, if appropriate. I have also instructed them to avoid use of NSAIDs due to the adverse effects on renal function. I instructed them on adequate fluid balance and to consume at least 48 oz of fluids daily. I also instructed them to monitor for an unexplained increase in weight and lower extremity edema. They have been instructed to notify the office for any changes or concerns. Renal US 05/2023 w/o hydronephrosis Creatinine/GFR stable I have instructed this patient to avoid lying flat after eating.?? I have also recommended to avoid eating 2 hours prior to bedtime.?? They were also informed that smaller, frequent meals may be better tolerated. I have discussed additional treatment options for persistent symptoms, which includes: weight loss, H2 blockers and PPI. I have also instructed them to notify the office with any pain or difficulty swallowing. Continue Omeprazole without interruption I have instructed this patient to avoid bending, twisting or lifting. I have also instructed on use of intermittent heat and ice as needed. They may schedule a massage or gentle manipulation. I instructed them on the safe use of Tylenol, Lidocaine and stretching exercises. I informed them of alternative modes of treatment for severe pain, which may include referral to physical therapy or pain management. PET/CT: not FDG avid, 8mm - 08/[address] 6mo PET/CT, Thyroid US: 9mm nodule right lobe - 08/2024, FNA: AUS (atypia of undetermined significance) [place] III - 09/2024 Plan to repeat US 6mo MRI w/ nodule - 04/2024, TRUS/bx - 05/2024, Chantel 3 + 3, group 1, [employer] - low risk Active surveillance I have instructed this patient on the recommended lifestyle changes, which includes a low fat, high fiber diet along with a regular exercise routine. I have also reviewed the recommended age-appropriate preventive testing for this patient. I have also reviewed the recommended vaccines for their age and risk factors. Future Tests Future scheduled test information is unavailable Pending Tests Pending diagnostic test information is unavailable Future Visits Future appointment information is unavailable Future Procedures Future procedure information is unavailable Future Medications Future medication information is unavailable Patient Instructions Patient instructions are unavailable
--- OUTSIDE RECORDS SUMMARY | 2025-07-29 13:10 | XMS_ITS | Clinical Summary ---
Author Organization [employer] tem Address [facility] [address] [place] [address] Care Team Providers Care Pole Shaver Name Role Phone Unavailable Primary Care Provider Unavailabl e Allergies No known active allergies Medications MedicationSigDispense QuantityRefillsLast FilledStart DateEnd DateStatus benazepriL (LOTENSIN) 20 mg tablet Take 20 mg by mouth in the morning.01/31/2022ctive Active Problems ProblemNoted DateDiagnosed DateCerumen debris on tympanic /20/2022 Social History Tobacco UseTypesPacks/DayYears UsedDateSmoking Tobacco: NeverSmokeless Tobacco: NeverAlcohol UseStandard Drinks/WeekCommentsNever0 (1 standard drink = 0.6 oz pure alcohol)Sex and Gender InformationValueDate RecordedSex Assigned at Not on fileLegal NqjNttm5604/06/2022 11:11 AM EDTGender IdentityNot on fileSexual OrientationNot on file Last Filed Vital Signs Vital SignReadingTime TakenCommentsBlood Fxvlitid573/78004/11/2022 10:12 AM EDT Pulse--Temperature--Respiratory Rate--Oxygen Saturation--Inhaled Oxygen Concentration--Xsesxu28.7 kg (189 lb)04/11/2022 10:12 AM PNCHvtgyi134.9 cm (6') 04/11/2022 10:12 AM EDTBody Mass Index25.63004/11/2022 10:12 AM EDT Plan of Treatment Health MaintenanceDue DateLast DoneCommentsDepression Gxxuwbqvu19/05/1959Tobacco Nfvibuznq73/05/1959DTaP,Tdap and Td Vaccines (1 - Tdap)1966Zoster (Shingles) Vaccine (1 of 2)1997Fall Risk Gyamrjbug73/05/2012RSV ( or age 60+ yrs) (1 - 1-dose 75+ series)2022Influenza Eedgufh1805/24/2025 06/23/2019, 07/21/2018 Medical Devices Not on file Insurance * Guarantor: Terell BoykinAccount TypeRelation to PatientDate of PhoneBilling AddressPersonal/TvlpycFydz1945 [address] [address]
--- OUTSIDE RECORDS SUMMARY | 2025-07-29 13:10 | XMS_ITS ---
Author Organization [facility] Address [address] [place] [address] Care Team Providers Care Cause Analyst Name Role Phone Benjamin Almeida DO Primary Care Provider [phone] Active Problems ProblemNoted DateDiagnosed DateEncounter for screening for malignant neoplasm of vcfouttp36/23/2017Hodgkin's lymphoma Cancer Staging: Clinical:Stage II(B - Symptoms) - Signed by Raciel Greer) on 12/15/2018 Neuropathy Overview (07/17/2012): right foot Current Treatment and Therapy Plans No current plan information found. Past Treatment and Therapy Plans Plan NameStart DateDiscontinue DateTreatment MedicationsDiscontinue ReasonPlan ProviderCyclesPEGFILGRASTIM 6 ONCE10/10/2012* pegfilgrastim (NEULASTA) Kelsey De Anda, TOOL STRAIGHTENER.CNP1 of 1 cycle startedPlan NameStart DateDiscontinue DateTreatment MedicationsDiscontinue ReasonPlan ProviderCyclesPEGFILGRASTIM 6 ONCE07/18/2012* pegfilgrastim (NEULASTA) Butch Guzman P1 of 1 cycle startedPlan NameStart DateDiscontinue Date Treatment MedicationsDiscontinue ReasonPlan ProviderCyclesABVD - VINBLASTINE 6 DOXORUBICIN 25 BLEOMYCIN 10 DACARBAZINE 375 D1,15 - Q28D05/17/2009* bleomycin iv piggyback (BLENOXANE) * dacarbazine iv piggyback (DTIC-DOME) * DOXOrubicin (ADRIAMYCIN) * palonosetron (ALOXI) * pegfilgrastim (NEULASTA) * vinBLAStine (VELBAN) Butch Guzman P6 of 8 cycles started Lifetime Dose Tracking * ChemicalLifetime DoseAutomatic EntryManual Ghguoikqjfkvngnizcdukwjdd618.8 Mkjov519.8 Units0 Units
--- OUTSIDE RECORDS SUMMARY | 2025-07-29 13:10 | XMS_ITS | Clinical Summary ---
Author Organization [facility] Address [address] [facility] [place] [address] Care Team Providers Care Comber Setter Name Role Phone Benjamin Almeida DO Primary Care Provider [phone] Allergies Active AllergyReactionsCriticalityNoted FnfyTgxkqbcuVssctj77/25/2012 Other Reaction(s): GI Upset, Hives, Unknown Medications MedicationSigDispense QuantityRefillsLast FilledStart DateEnd DateStatus omeprazole (PriLOSEC) [address] capsule Active Lutein-Zeaxanthin 25-5 MG capsule Take by mouthActive Multiple Vitamins-Minerals (MULTIVIT/MULTIMINERAL ADULT PO) Take by mouthActive benazepril (Lotensin) 20 MG tablet Take 20 mg by mouth03/31/2024ctive latanoprost (Xalatan) 0.005 % ophthalmic solution APPLY ONE DROP TO BOTH EYES ONCE A DAY AT WBRLMRN63/02/2025Active Active Problems ProblemNoted DateDiagnosed HewlBxeaam03/24/6906Bridercpp05/24/2025PH with obstruction/lower urinary tract cfgoqwwq91/24/4305Qlwysctukhimaq67/24/2025 Okybffvrr82/24/2025Elevated PSA12/14/2024History of Hodgkin's orzgxsa2112/14/2024 Hodgkin's edpagvzr15/24/1054Bvbsfliipvjf16/24/2025Microscopic hematuria 12/14/20246650Renbdqpbcm90/24/2025 Overview (12/14/2024): right foot Nodular sclerosis Hodgkin's twgipkw0012/14/2024Prostate ysowse5512/14/2024Throat pain12/14/2024erumen debris on tympanic leafloka93/20/2022Encounter for screening for malignant neoplasm of /23/2017 Encounters DateTypeDepartmentCare FlgkMtfxcgotiyq50/30/2025 8:30 AM EDTOffice Visit [facility] [address] [place] [address] Dana Borges MD Thyroid nodule (Primary Dx)06/22/2025amboo flowsheet [facility] [address] [place] [address] aDna Borges MD 06/22/20254781Hwhohn94/15/2025External Result Encounter [facility] External Department Unsolicited Dana Borges MD from Last 3 Months Family History Medical HistoryRelationNameCommentsLiver diseaseFatherCancerMotherRelationName StatusCommentsFatherDeceasedMotherDeceased Social History Tobacco UseTypesPacks/DayYears UsedDateSmoking Tobacco: NeverSmokeless Tobacco: Never Tobacco Cessation:Counseling Given: Not Answered Alcohol UseStandard Drinks/WeekCommentsNot Currently0 (1 standard drink = 0.6 oz pure alcohol)Sex and Gender InformationValueDate RecordedSex Assigned at Not on fileLegal UbkTnwv1012/05/2022 6:50 PM EDTGender IdentityNot on fileSexual OrientationNot on file Last Filed Vital Signs Vital SignReadingTime TakenCommentsBlood Rteatlnk994/80006/22/2025 8:22 AM EDT Gamyh506406/22/2025 8:22 AM EDTTemperature--Respiratory Rate--Oxygen Saturation-- Inhaled Oxygen Concentration--Xrummy48.7 kg (189 lb)06/22/2025 8:22 AM EDTHeight 182.9 cm (6')06/22/2025 8:22 AM EDTBody Mass Index25.63006/22/2025 8:22 AM EDT Plan of Treatment DateTypeDepartmentCare Team (Latest Contact Info)Emdiatpyugl40/29/2026 8:00 AM EDTOffice Visit [facility] [address] [facility] [address] [place] [address] Dana Borges MD [address] [facility] [address] [place] [address] Health MaintenanceDue DateLast DoneCommentsPneumococcal Vaccine: 65+ Years (2 of 2 - PCV)COVID-19 Vaccine ( season)2025 06/26/2024, 07/01/2023, 06/20/2021, Additional history existsInfluenza Vaccine (#1), 07/01/2023, 06/19/2022, Additional history exists Procedures Procedure NamePriorityDate/TimeAssociated DiagnosisCommentsUS OZVNVOL7706/07/2025 4:56 PM EDT from Last 3 Months Results * US thyroid (06/07/2025 4:56 PM EDT)Anatomical RegionLateralityModalityHead, NeckUltrasoundSpecimen (Source)Anatomical Location / LateralityCollection Method / VolumeCollection TimeReceived Time06/07/2025 4:56 PM EDT Impressions 06/07/2025 5:00 PM EDT Stable subcentimeter thyroid nodules. No new or enlarging nodules. ?? Impression dictated by: Og Zee M.D. ??06/07/2025 4:58 PM ? Dictation Location: RADIO-PC-23 ? Tech: Ani Pradoz ? Transcribed By: ? PWS ?06/07/258 ? Dictated By: ?Og Zee DO ?09/15/25 1656 ? Signed By: <Electronically signed by Og Zee, DO in OV> ? 06/07/25 1658 Narrative 06/07/2025 5:00 PM EDT [facility] ?[facility] ?[address] ? [place] [address] ? Ultrasound Report ? Signed ? Patient: Stockmaster,Terell P ?MR#: [id number] ?? [id number] ? : 1945 ?Acct:[id number] ? Age/Sex: 79 / M ?ADM Date: 06/07/25 ? Loc: UL ?Room: ?Type: REG CLI ?? Attending Dr: Dana Borges Jr, MD ? Ordering Provider: DANA BORGES MD ?? Date of Service: 06/07/25 ?? /US thyroid: THROID NODULE ? Copies to: DANA BORGES MD ? Thyroid Ultrasound ? HISTORY: Follow-up thyroid nodules ? COMPARISON: 09/02/2024 ? The RIGHT lobe measures 4.1 x 1.9 x 1.7cm. ? LEFT lobe measures 4.1 x 1.7 x 1.5 cm. ? Isthmus has an AP dimension of 0.3cm. ? Right 9 mm next echogenic inferior nodule redemonstrated. ??Unchanged. ??Left superior 4 mm cystic nodule redemonstrated, unchanged.. ? No microcalcifications identified. ? Symmetric blood flow of the thyroid gland identified. ? US/US thyroid ?? Procedure Note Radiology, Radiologist, - 06/07/2025 [facility] [address] [place], [place] [id number] Ultrasound Report Signed Patient: Terell Boykin PMR#: [id number] : 1945cct:[id number] Age/Sex: 79 / MADM Date: 06/07/25 Loc: Room:Type: [facility] Attending Dr: Dana Borges Jr, MD Ordering Provider: DANA BORGES MD Date of Service: 06/07/25 US/US thyroid: THROID NODULE Copies to: DANA BORGES MD Thyroid Ultrasound HISTORY: Follow-up thyroid nodules COMPARISON: 09/02/2024 The RIGHT lobe measures 4.1 x 1.9 x 1.7cm. LEFT lobe measures 4.1 x 1.7 x 1.5 cm. Isthmus has an AP dimension of 0.3cm. Right 9 mm next echogenic inferior nodule redemonstrated. Unchanged.Left superior 4 mm cystic nodule redemonstrated, unchanged.. No microcalcifications identified. Symmetric blood flow of the thyroid gland identified. US/US thyroid IMPRESSION: Stable subcentimeter thyroid nodules. No new or enlarging nodules. Impression dictated by: Og Zee M.D. 06/07/2025 4:58 PM Dictation Location: [place] [address] Tech: Ani Meyer Transcribed By: JUAN DANIEL 06/07/251657 Dictated By: Og Zee DO 06/07/251655 Signed By: <Electronically signed by Og Zee DO in OV> 06/07/251657 Authorizing ProviderResult TypeResult StatusHilary Darinel Borges MDIMG US PROCEDURES Final Result from Last 3 Months Insurance * Guarantor: Terell Boykin PAccount TypeRelation to PatientDate of PhoneBilling AddressPersonal/ZpzpsnHpel1945 [id number] [address] Care Teams Team MemberRelationshipSpecialtyStart DateEnd Date Benjamin Almeida DO [address] [place] [address] PCP - GeneralInternal Medicine06/22/25
--- OUTSIDE RECORDS SUMMARY | 2025-07-29 13:10 | XMS_ITS | Clinical Summary ---
Author Organization [facility] Address [address] [place] [address] Care Team Providers Care Grounds Caretaker Name Role Phone Benjamin Almeida DO Primary Care Provider [phone] Allergies Active AllergyReactionsCriticalityNoted DateCommentsIodineGI Upset07/17/2012 Medications MedicationSigDispense QuantityRefillsLast FilledStart DateEnd DateStatus benazepril (LOTENSIN) 20 mg tablet Take 20 mg by mouth once daily. 08/24/2014ctive lutein-zeaxanthin 25-5 mg cap Take by mouth. Zeaxanthin-2.5 mgActive multivit with minerals/lutein (MULTIVITAMIN 50 PLUS ORAL) Take by mouth.Active omeprazole (PRILOSEC) 40 mg capsule Take 40 mg by mouth once daily.Active Active Problems ProblemNoted DateDiagnosed DateEncounter for screening for malignant neoplasm of tmdphamg41/23/2017Hodgkin's lymphoma Cancer Staging: Clinical:Stage II(B - Symptoms) - Signed by Raciel Greer) on 12/15/2018 Neuropathy Overview (07/17/2012): right foot Immunizations ImmunizationAdministration DatesNext Dueinfluenza (HD-IIV3) vaccine, age 65+ yr, high dose, trivalent, PF (FLUZONE HIGH-DOSE)06/23/2019,07/21/2018 Family History Medical HistoryRelationCommentsCancerBrother 1died at age 52Prostate Cancer Brother 2CancerMotherdied at age 89Other Sleep DisorderNo Family HistoryRelation StatusCommentsBrother 1Brother 2AliveMother Social History Tobacco UseTypesPacks/DayYears UsedDateSmoking Tobacco: FormerCigarettes Smokeless Tobacco: NeverAlcohol UseStandard Drinks/WeekCommentsYes0 (1 standard drink = 0.6 oz pure alcohol)rarelyPHQ-2AnswerDate RecordedPHQ-2 eorhp297 Area Deprivation IndexAnswerDate RecordedNational Score (1-100), lower number is lower wtot227908/04/2024State Score (1-10), lower number is lower hsre31110/04/2023 Data from: https://www.neighborhoodatlas.[facility]/. Last address used for [address]/04/2024Sex and Gender InformationValueDate RecordedSex Assigned at BirthNot on fileLegal FweVdub56/02/2012 10:16 AM EST Gender IdentityNot on fileSexual OrientationNot on file Last Filed Vital Signs Vital SignReadingTime TakenCommentsBlood Jivwmewy705/9603/09/2025 11:17 AM EDT Ewbrv634303/09/2025 11:17 AM LAFAydshokiznw35.6 ??C (96 ??F)03/09/2025 11:17 AM EDTRespiratory Kxrm752203/09/2025 11:17 AM EDTOxygen Ilhacifaeq95%03/09/2025 11:17 AM EDTInhaled Oxygen Concentration--Kquwqt18.2 kg (185 lb 10 oz)03/09/2025 11:17 AM ETQYilmys131.9 cm (6' 0.01 )04/05/2021 10:27 AM EDTBody Mass Index25.17 04/05/2021 10:27 AM EDT Plan of Treatment DateTypeDepartmentCare Team (Latest Contact Info)Jloiuqhcwwr34/18/2025 8:45 AM ESTAppointment Radiology [address] CT [address] [place] [address] CT Chest09/09/2025 8:45 AM ESTOffice Visit [facility] [address] [place] [address] [place] [address] labs09/28/2025 2:15 PM ESTOffice Visit Radiation Oncology [address] [place] [address] [place] [address] Elmer López MD [address] [place] [address] [place] [address] [facility] DateLast DoneCommentsAnxiety Screening 1965Depression Oufczvqia67/05/1965Hepatitis C Ywhndyqop78/05/1965Medicare Annual Wellness Visit08/23/2012RSV Vaccine (1 - 1-dose 75+ series)2022 Advance Directive Akpvxuukjx15/01/2025Covid-19 Vaccine ( season) /05/2023, 06/19/2022, 06/20/2021, Additional history existsInfluenza Vaccine (#1)/12/2023, 07/01/2023, 06/19/2022, Additional history existsDTaP,Tdap,Td Vaccine (2 - Td or Tdap)7001/14/2017, 01/14/2017, 06/28/2014Diabetes Wpyuzdnic48/08/2024, 04/05/2021, 04/04/2020, Additional history existsPneumococcal Vaccine: 50+Rrvaviexe79/18/2018, 10/28/2015, 08/18/2013Shingrix XapzktcOqywchqnn04/18/2022, 11/06/2021 Procedures Procedure NamePriorityDate/TimeAssociated DiagnosisCommentsCOMPREHENSIVE METABOLIC LLIRYEhutxku34/12/2024 9:28 AM EST 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) from Last 3 Months or Most Recently Relevant to Health Maintenance Results * (ABNORMAL) COMPREHENSIVE METABOLIC PANEL (08/04/2024 9:28 AM EST)Component ValueRef RangeTest MethodAnalysis TimePerformed AtPathologist Signature Protein, Total7.76.3 - 8.0 g/dL08/04/2024 10:37 AM ESTNOR[facility]CO[facility] LABAlbumin4.53.9 - 4.9 g/dL08/04/2024 10:37 AM ESTN[facility] LABCalcium, Total9.18.5 - 10.2 mg/dL08/04/2024 10:37 AM [facility] LABBilirubin, Total0.40.2 - 1.3 mg/dL 08/04/2024 10:37 AM [facility] LABAlkaline Calziyufuck8674 - 113 U/L110/04/2023 10:37 AM [facility] JMFSMN7125 - 40 U/L110/04/2023 10:37 AM [facility] LFKTQM7955 - 54 U/L110/04/2023 10:37 AM [facility] PVGSpumdvv647(H)74 - 99 mg/dL08/04/2024 10:37 AM [facility] LABComment: The [place] Diabetes Association (ADA) provides guidance for cutoff values for fasting glucose andrandom glucose. The ADA defines fasting as no [...] Standards of Medical Care in Diabetes 2016, [place] Diabetes Association. Diabetes Care. 2016.39(Suppl 1). BUN26(H)9 - 24 mg/dL08/04/2024 10:37 AM [facility] LAB Creatinine1.27(H)0.73 - 1.22 mg/dL08/04/2024 10:37 AM [facility] SCKWyypaj391083 - 144 mmol/L110/04/2023 10:37 AM [facility] LABPotassium4.53.7 - 5.1 mmol/L110/04/2023 10:37 AM EST [facility] GETVxrvmbwj39974 - 107 mmol/L110/04/2023 10:37 AM [facility]NOR[facility] CDNVR43689 - 30 mmol/L110/04/2023 10:37 AM [facility] LABAnion Phf837 - 15 mmol/L110/04/2023 10:37 AM [facility] LABEstimated Glomerular Filtration Rate59(L)>=60 mL/min/1.73m 08/04/2024 10:37 AM [facility] LABComment:Estimated Glomerular Filtration Rate (eGFR) is calculated using the 2020 CKD-EPI creatinine equation. This equation utilizes serum creatinine, sex, and age as parameters. The creatinine assay has traceable calibration to isotope dilution- mass spectrometry. Refer to KDIGO guidelines for clinical interpretation. In patients with unstable renal function, e.g. those with acute kidney injury, the eGFRmay not accurately reflect actual GFR.Specimen (Source)Anatomical Location / LateralityCollection Method / VolumeCollection TimeReceived TimeBloodBLOOD SPECIMEN / UnknownVenipuncture / Dfgxbma6808/04/2024 9:28 AM EST08/04/2024 9:37 AM EST Narrative Authorizing ProviderResult TypeResult StatusG Alexei López MDLABORATORYFinal ResultPerforming OrganizationAddressCity/State/ZIP CodePhone Number [facility] [address] [place] [address] from Last 3 Months or Most Recently Relevant to Health Maintenance Insurance MemberSubscriberPlan / Payer (Effective 2021-Present)Name:Terell Boykin Relation to Subscriber:SelfName:JaimeeOtis gloverkenyatta Kern Payer ID:[id number] (NAIC) Group ID:Not on file Type:[employer] [facility] Address: [address] [place] [address] Care Teams Team MemberRelationshipSpecialtyStart DateEnd Date Benjamin Almeida DO PCP - GeneralInternal Medicine03/31/12
--- OUTSIDE RECORDS SUMMARY | 2025-07-29 13:18 | XMS_ITS | CCD ---
Author Organization [facility] Care Team Providers Care Copier Repair Technician Name Role Phone MD Krzysztof Hutchison Attending Provider DO Benjamin Perez Primary Care Provider DO Benjamin Perez Primary Care Provider MD Reuben Giron Attending Provider [phone] Benjamin Perez Unavailable CHRIS, DR KELLER Primary Care Unavailable KRYSTLE KERR Admitting Unavailable KRYSTLE KERR Attending Unavailable KRYSTLE KERR Consulting Unavailable CHRIS, DR KELLER Primary Care Unavailable CHRIS, DR KELLER Admitting Unavailable CHRIS, DR KELLER Attending Unavailable CHRIS, DR KELLER Consulting Unavailable MEGA, DR PHYLICIA Ramirez Consulting Unavailable CHRIS, DR KELLER Primary Care Unavailable CHRIS, DR KELLER Admitting Unavailable CHRIS, DR KELLER Referring Unavailable BALL, DR KELLER Attending Unavailable CHRIS, DR KELLER Consulting Unavailable Reuben Giron Unavailable BENJAMIN PEREZ Primary Care Physician DO Benjamin Perez Primary Care Provider MD Cristopher Zaldivar Attending Provider [phone] Cristopher ZALDIVAR Attending Unavailable Cristopher ZALDIVAR Attending Unavailable BENJAMIN PEREZ Referring Unavailable Cristopher ZALDIVAR Attending Unavailable Benjamin Perez DO Primary Care Provider Benjamin Perez DO Primary Care Provider Codi Benz MD Attending Provider Benjamin Perez DO Primary Care Provider Codi Benz MD Attending Provider Elmer BENZ Referring Unavailable BENJAMIN PEREZ Primary Care Unavailable Elmer BENZ Attending Unavailable Elmer BENZ Referring Unavailable BALL, E Primary Care Unavailable ENGELER, G ALEXEI Referring Unavailable BALL, E Primary Care Unavailable ENGELER, G ALEXEI Attending Unavailable ENGELER, G ALEXEI Referring Unavailable BALL, E Primary Care Unavailable ENGELER, G ALEXEI Referring Unavailable BALL, E Primary Care Unavailable ENGELER, G ALEXEI Attending Unavailable ENGELER, G ALEXEI Referring Unavailable BALL, E Primary Care Unavailable BALL, E Primary Care Unavailable ENGELER, G ALEXEI Attending Unavailable CRISTOPHER ZALDIVAR Referring Unavailable BALLBENJAMIN E Primary Care Unavailable Ball DOBenjamin Primary Care Provider Bong Reddy MD Attending Provider Unavailab Bong Mary Jr Admitting Unavailable Bong Reddy Jr Attending Unavailable Benjamin Perez Primary Care Unavailable Engeler, Elmer. Alexei Admitting Unavailable EngelerCodi Attending Unavailable Benjamin Perez Primary Care Unavailable Engeler, G. Alexei Admitting Unavailable EngelerCodi Attending Unavailable Benjamin Perez Primary Care Unavailable Benjamin Perez Primary Care Unavailable Cristopher Zaldivar Admitting Unavailable Cristopher Zaldivar Attending Unavailable Benjamin Perez DO Primary Care Provider Benjamin Perez DO Primary Care Provider Benjamin Perez DO Attending Provider BONG REDDY Attending Unavailable BONG REDDY Attending Unavailable Allergies Allergy ClassificationReported Allergen(s)Allergy TypeDate of OnsetReaction(s) Facility (20 sources)Iodine; Translations: [iodine]Drug Cwashew82-93-8365Ptdo (disorder), GI [facility] (3 sources)Iodine / Sodium IodideDrug AllergyWomen & Infants [facility] [place] [facility] Other Medications Current Medications MedicationDrug Class(es)DatesSig (Normalized)Sig (Original)amLODIPine 2.5 mg oral tablet (2 sources)Dihydropyridine Calcium Channel BlockerStart: 07-14-2025 End: 59-93-0442addi 1 tablet by mouth once dailyAmlodipine 2.5 mg tablet Active 2.5 MG PO Daily 30 5 July 15, 2025 10:23am Complies with drug therapy benazepril hydrochloride 20 mg oral tablet (20 sources)Angiotensin Converting Enzyme InhibitorStart: 12-49-5831szpwnzpbsk (Lotensin) 20 MG tablet Take 20 mg by mouth 03/31/2024 ActiveStart: 01-15-2024 End: 55-40-1854saht 1 tablet by mouth once dailyBenazepril 20 mg tablet Active 0 .ROUTE .COMPLEX 90 3 January 04, 2025 6:40am TAKE 1 TABLET BY MOUTH EVERY DAY FOR 90 DAYS Complies with drug therapyStart: 43-83-8410twbu 1 tablet by mouth once dailyBenazepril Active 0 .ROUTE .COMPLEX 90 January 15, 2024 2:31pm TAKE 1 TABLET BY MOUTH EVERY DAY FOR90 DAYSStart: 08-24-2014 End: 82-04-1270jeue 1 tablet by mouth once dailyBenazepril 20 mg tablet Discontinued 20 MG PO Daily April 26, 2021 12:00am January 15, 2024 2:31pm cephalexin 500 mg oral capsule (1 source)Cephalosporin AntibacterialStart: 30-74-4833cosn 1 capsule by mouth three times dailyCephalexin 500 mg capsule Active 500 MG PO Three times daily 30 July 22, 2025 12:00am Complies with drug therapyICaps with Lutein and Zeaxan oral tablet (2 sources)Start: 12-23-8727cbpc 1 tablet by mouth once dailyICaps with Lutein and Zeaxan oral tablet 1 tab(s), Oral, Daily Start Date: 03/31/24 Status: Ordered latanoprost 0.05 mg/ml ophthalmic solution (4 sources)Prostaglandin AnalogStart: 60-06-0785gwhb 1 drop(s) into the eye(s) once dailyLatanoprost 0.005 % drops Active 1 DROPS EYE-BOTH Daily June 24, 2025 12:00am Complies with drug therapyStart: 72-25-8245pdtp 1 drop(s) into the eye(s) once daily at bedtimelatanoprost (Xalatan) 0.005 % ophthalmic solution APPLY ONE DROP TO BOTH EYES ONCE A DAY AT XCTYRKG9405/25/2025 ActivelevoFLOXacin 250 mg oral tablet (5 sources)Quinolone AntimicrobialStart: 11-51-9372mqleWAFDdmkl 250 MG 2 tablets on first day followed by 1 daily Orally Once a day for 21 days May, Activelutein 25 mg / zeaxanthin 5 mg oral capsule (20 sources)Start: 90-53-3232cqpf 1 capsule by mouth once dailyLutein-Zeaxanthin 25-5 mg capsule Active 1 CAP PO Daily June 09, 2024 12:00am Complies with drug therapyStart: 04-26-2021 End: 38-55-6155lzaa 1 capsule by mouth once dailyLutein-Zeaxanthin 25-5 mg Capsule Discontinued 1 CAP PO Daily April 26, 2021 12:00am December 18, 2023 2:57pmLutein-Zeaxanthin 25-5 MG capsule Take by mouth Activelutein-zeaxanthin 25-5 mg cap Take by mouth. Zeaxanthin-2.5 mg ActiveMultiple Vitamins-Minerals (MULTIVIT/MULTIMINERAL ADULT PO) (3 sources)Multiple Vitamins-Minerals (MULTIVIT/MULTIMINERAL ADULT PO) Take by mouth Activemultivit with minerals/lutein (MULTIVITAMIN 50 PLUS ORAL) (10 sources)multivit with minerals/lutein (MULTIVITAMIN 50 PLUS ORAL) Take by mouth. ActiveMultivitamin preparation (11 sources)Start: 97-42-2090midn 1 tablet by mouth once dailyMultivitamin Active 1 TAB PO Daily June 09, 2024 12:00amStart: 66-12-5269pzui 1 tablet by mouth once dailyMultivitamin Active 1 TAB PO Daily April 26, 2021 6:11am Start: 04-26-2021 End: 97-75-2977pnxe 1 tablet by mouth once dailyMultivitamin Discontinued 1 TAB PO Daily April 26, 2021 12:00am December 18, 2023 2:57pmStart: 27-63-8577bcxy 1 tablet by mouth once dailyMultivitamin Active 1 TAB PO Daily April 25, 2021 11:00pmMultivitamin tablet (5 sources)Start: 29-06-2503fgic 1 tablet by mouth once dailyMultivitamin tablet Active 1 TAB PO Daily June 09, 2024 12:00am Complies with drug therapy Start: 66-01-9778tkpb 1 tablet by mouth once dailyStart: 80-42-7388xglp 1 tablet by mouth once dailyMultivitamin tablet Active 1 TAB PO Daily June 09, 2024 12:00amStart: 12-43-2216oljh 1 tablet by mouth once dailyMultivitamin tablet Active 1 TAB PO Daily June 08, 2024 11:00pmmupirocin 0.02 mg/mg topical ointment (1 source)RNA Synthetase Inhibitor AntibacterialStart: 16-31-7829Duqeuojca 2 % ointment Active 1 APPLIC TOPICAL Twice daily 22 10 0 July 22, 2025 12:00am Complies with drug therapyomeprazole 40 mg delayed release oral capsule (20 sources)Proton Pump InhibitorStart: 31-71-2347Josmnukear 40 mg capsule,delayed release(DR/EC) Active 0 .ROUTE .COMPLEX 90 3 April 29, 2025 5:52pm TAKE 1 CAPSULE DAILY ON AN EMPTY STOMACH 30 MINUTES BEFORE BREAKFAST Complies with drug therapyStart: 05-05-2024 End: 29-95-7843Ppttcmszzb 40 mg capsule,delayed release(DR/EC) Discontinued 40 MG PO Daily 30 22 08May 05, 2024 8:26pm April 29, 2025 5:52pm take on an empty stomach, 30 minutes prior to bkfstStart: 07-31-2022 End: 49-78-2509rejg 1 capsule by mouth once dailyOmeprazole 40 mg capsule,delayed release(DR/EC) Discontinued 40 MG PO Daily 30 July 31, 2022 1:00am May 05, 2024 8:27pmpredniSONE 5 mg oral tablet (8 sources)Start: 55-10-1505aump 1 tablet by mouth once dailytriamcinolone acetonide 1 mg/ml topical cream (4 sources)CorticosteroidStart: 50-59-5498Korbiqmzrdjzk Acetonide 0.1 % cream Active 1 APPLIC TOPICAL Twice daily 80 30 5 December 21, 2024 12:00am Complies with drug therapy Completed/Discontinued Medications MedicationDrug Class(es)DatesSig (Normalized)Sig (Original)amoxicillin 875 mg / clavulanate 125 mg oral tablet (7 sources)Penicillin-class AntibacterialStart: 86-72-9854tawr 1 tablet by mouth every twelve hoursAmoxicillin-Pot Clavulanate 875-125 MG 1 tablet Orally every 12 hrs for 10 days Apr, Not-Taking/PRNfamotidine 20 mg oral tablet (20 sources)Histamine-2 Receptor AntagonistStart: 04-26-2021 End: 34-08-1781cftx 1 tablet by mouth once dailyFamotidine 20 mg Tablet Discontinued 20 MG PO Daily April 26, 2021 12:00am July 31, 2022 2:23pm Lutein (8 sources)Lutein Not-Taking/PRNLutein Not-TakingmethylPREDNISolone (8 sources)CorticosteroidStart: 25-91-6134Godz-Medrol 40 mg Mar, 40 mg Multivitamin Tablet (5 sources)Start: 04-26-2021 End: 22-49-4283zgbq 1 tablet by mouth once dailyMultivitamin Tablet Discontinued 1 TAB PO Daily April 26, 2021 12:00am December 18, 2023 2:57pmStart: 04-26-2021 End: 44-94-4627inab 1 tablet by mouth once dailyMultivitamin Tablet Discontinued 1 TAB PO Daily April 25, 2021 11:00pm December 18, 2023 1:57pmSenior Multivitamin Plus (8 sources)Senior Multivitamin Plus Not-Taking/PRNSenior Multivitamin Plus Not-Taking Problems Active Problems Problem ClassificationProblemDateDocumented DateEpisodic/ChronicCancer of prostate (20 sources)Malignant neoplasm of prostate; Translations: [Malignant tumor of prostate]Onset: 30-72-9342AsmtjqdZdyonyz on above:MRI w/ nodule - 04/2024,TRUS/bx - 05/2024,[place] 3 + 3, group 1,[facility] - low riskActive surveillance Chronic kidney disease (20 sources)Chronic kidney disease stage 3A ; Translations: [Stage 3a chronic kidney disease]80-51-6611XklcceiNmcoxuk on above:Creatinine/GFR:1.20/59 - 11/2022, 1.39/50 - 05/2023, 1.29/59 - 4Renal US: no hydronephrosis, simple cysts - 3Deficiency and other anemia (2 sources)Anemia, unspecified; Translations: [Anemia, unspecified]Episodic Deficiency and other anemia (15 sources)Anemia; Translations: [Anemia, unspecified]Onset: 12-14-2024 91-84-6015LfppejbfCyopamrqfkuvom and diverticulitis (5 sources)Diverticular disease; Translations: [Diverticulosis of intestine, part unspecified, without perforation or abscess without bleeding]Onset: 486451-92-6358EgzfnfwMamyvgawkl disorders (20 sources)Gastro-esophageal reflux disease with esophagitis; Translations: [Gastroesophageal reflux disease with esophagitis without hemorrhage]12-18-2023 ChronicEssential hypertension (20 sources)Essential hypertension; Translations: [Essential (primary) hypertension]Onset: 92-18-3610KugucovZgpinuyelmcnb symptoms and ill-defined conditions (16 sources)Poor stream of urine; Translations: [Poor urinary stream]Onset: 913533-61-7957EiznhhaqXdhzkja`s disease (20 sources)Hodgkin's disease, nodular sclerosis of intra-abdominal lymph nodes; Translations: [Nodular sclerosis Hodgkin lymphoma, intra-abdominal lymph nodes] Onset: 430720-42-0407VsyyelyCggooaxsmto of prostate (20 sources)Nocturia due to benign prostatic hypertrophy; Translations: [Benign prostatic hyperplasia with lower urinary tract symptoms]Onset: 03-31-2024 04-41-3565YrspgvtXzzwmxoxakqo with complications and secondary hypertension (13 sources)Chronic kidney disease due to hypertension; Translations: [Hypertensive chronic kidney disease withstage 1 through stage 4 chronic kidney disease, or unspecified chronic kidney disease]Onset: 28-23-7446Rrxxtom Inflammatory conditions of male genital organs (6 sources)Chronic prostatitis; Translations: [Chronic prostatitis]Chronic Neoplasms of unspecified nature or uncertain behavior (10 sources)Neoplasm of uncertain behavior of skin; Translations: [Neoplasm of uncertain behavior of skin]36-81-4111QwyubcltTpodrhpepmqava (5 sources)Arthritis; Translations: [Unspecified osteoarthritis, unspecified site]Onset: 092702-91-0285SntkeafJncts gastrointestinal disorders (20 sources)Dysphagia; Translations: [Dysphagia, unspecified]Onset: 12-14-2024 18-54-2736TdfojufdCigaq gastrointestinal disorders (1 source)Dysphagia, unspecified; Translations: [Dysphagia, unspecified]Episodic Other lower respiratory disease (7 sources)Nodule of lung; Translations: [Solitary pulmonary nodule]09-28-2024 EpisodicComment on above:PET/CT: not FDG avid, 8mm - 08/2024- plan CT 6moPET/CT: not FDG avid, 8mm - 08/2024,CT: 5mm nodules - 02/2025Other lower respiratory disease (1 source)Solitary pulmonary nodule; Translations: [Solitary pulmonary nodule] 16-08-0769AqcxnmafVotpn lower respiratory disease (2 sources)Multiple nodules of lung; Translations: [Other nonspecific abnormal finding of lung field]17-97-6841LavearbeOvysq lower respiratory disease (1 source)Other nonspecific abnormal finding of lung field; Translations: [Lung nodule, multiple]Onset: 98-89-1720NrrsrrrwUsvcy nervous system disorders (13 sources)Neuropathy; Translations: [Polyneuropathy, unspecified]Onset: 751299-74-7817VfdaaoeLvxgvqzbud arthritis and related disease (8 sources)Inflammatory polyarthropathy; Translations: [Inflammatory polyarthropathy]ChronicSkin and subcutaneous tissue infections (8 sources)Abscess of foot; Translations: [Cutaneous abscess of unspecified foot]EpisodicSpondylosis; intervertebral disc disorders; other back problems (20 sources)Lumbar spondylosis; Translations: [Spondylosis without myelopathy or radiculopathy, lumbar region]00-84-7931NqkzlctQvzrsxn disorders (15 sources)Thyroid nodule; Translations: [Nontoxic single thyroid nodule]Onset: 351756-34-3411FfopigaUtbnicz on above:PET/CT, Thyroid US: 9mm nodule right lobe - ET/CT, Thyroid US: 9mm nodule right lobe - 08/2024,FNA: AUS (atypia of undetermined significance) [place] III - 09/2024PET/CT, Thyroid US: 9mm nodule right lobe - 08/2024,FNA: AUS (atypia of undetermined significance) [place] III - 09/2024, US: right 9mm, left 4mm nodules - 05/2025 Past or Other Problems Problem ClassificationProblemDateDocumented DateEpisodic/ChronicChronic kidney disease (1 source)Chronic kidney diseaseHodgkin`s disease (3 sources)History of Hodgkin lymphoma; Translations: [Personal history of Hodgkin lymphoma]Onset: 908936-79-2103MgasshkyWyxfq aftercare (1 source)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; Translations: [OTH [facility] CURRENT DRUG THERAPY]Onset: 15-99-7235YfkzofdxLvywr ear and sense organ disorders (3 sources)Impacted cerumen; Translations: [Impacted cerumen, unspecified ear] Onset: 488040-16-7729QzimqcuuNdjaw injuries and conditions due to external causes (4 sources)Food in esophagus causing other injury, initial encounter; Translations: [FOOD ESOPH CAUS OTH INJURY INIT ENC]Onset: 74-21-2946Quuwnrwz Other screening for suspected conditions (not mental disorders or infectious disease) (20 sources)Encounter for screening for malignant neoplasm of prostate; Translations: [Elevated prostate specific antigen [PSA]]Onset: 01-13-2017 EpisodicOther upper respiratory disease (3 sources)Pain in throat; Translations: [Pain in throat]Onset: 12-14-2024 75-51-7546Fojeplqh Results Test NameValueInterpretationReference RangeFacilityBasophils Auto (Bld) [#/Vol] Ordered By: Benjamin Perez on 27-43-8881Jbtdsjmga (Bld) [#/Vol]0.0 10 3/uL0.0-0.1 [facility] HospitalBasophils/100 WBC Auto (Bld)Ordered By: Benjamin Perez on 63-25-8589Bfthaamhv/100 WBC (Bld)0.7 %0.2-2.0[facility] HospitalEosinophils/100 WBC Auto (Bld)Ordered By: Benjamin Perez on 73-79-6606Ccstwhubyan/100 WBC (Bld)5.6 %0.9-7.0[facility] Erythrocyte distribution width Auto (RBC) [Ratio]Ordered By: Benjamin Perez on 76-61-5560Hmksfbyggcz distribution width (RBC) [Ratio]12.6 %11.0-15.0[facility] HospitalGlobulin Calc (S) [Mass/Vol]Ordered By: Benjamin Perez on 86-21-4410Hsbcdjij (S) [Mass/Vol]4.1 g/dLWilson Memorial Hospital Glomerular filtration rate (GFR) estimation in non- AmericanOrdered By: Benjamin Perez on 05-76-1152MMM/1.73 sq M.predicted among non-blacks MDRD (S/P/Bld) [Vol rate/Area]49 mL/min/{1.73_m2}Low>=60 mL/min/1.73m 2FMercy HealthHematocrit Auto (Bld) [Volume fraction]Ordered By: Benjamin Perez on 51-97-5151Noaycwrksn (Bld) [Volume fraction]40.8 %Low42.0-54.0 [facility] HospitalHemoglobin [Mass/volume] in BloodOrdered By: Benjamin Perez on 68-86-6644Jhprfkmbrr (Bld) [Mass/Vol]13.4 g/dLLow14.0-18.0 [facility] HospitalLaboratory - Chemistry and Chemistry - challengeOrdered By: Benjamin Perez on 45-24-6748Dslzbqg [Mass/Vol]3.8 g/dL 3.4-5.0[facility] HospitalALP [Catalytic activity/Vol]96 U/L46-116 [facility] HospitalALT [Catalytic activity/Vol]31 U/L16-63 [facility] HospitalAST [Catalytic activity/Vol]27 U/L15-37 [facility] HospitalBilirubin [Mass/Vol]0.6 mg/dL0.2-1.0[facility] HospitalCalcium [Mass/Vol]8.7 mg/dL8.5-10.1FMercy HealthChloride [Moles/Vol]106 mmol/O84-270VknubicgmWilson Memorial HospitalCO2 [Moles/Vol]25.0 mmol/L21.0-32.0[facility] Creatinine [Mass/Vol]1.41 mg/dLHigh0.70-1.30[facility] GFR/1.73 sq M.predicted MDRD (S/P/Bld) [Vol rate/Area]59 mL/min/{1.73_m2}Low>=60 mL/min/1.73m 2FMercy HealthGlucose [Mass/Vol]104 mg/jG12-992 [facility] HospitalPotassium [Moles/Vol]4.0 mmol/L3.5-5.1FMercy HealthProtein [Mass/Vol]7.9 g/dL6.4-8.2FUniversity Hospitals Geneva Medical Centerodium [Moles/Vol]140 mmol/S607-918BaufltlnpWilson Memorial HospitalUrea nitrogen [Mass/Vol]26.0 mg/dLHigh7.0-18.0[facility] HospitalUrea nitrogen/Creatinine [Mass ratio]18.4 mg/mgWilson Memorial HospitalLaboratory - Hematology and Cell countsOrdered By: Benjamin Perez on 64-13-3406Bfnwzjnu granulocytes/100 WBC (Bld)0.2 %0.0-0.5FMercy HealthLeukocytes [#/volume] corrected for nucleated erythrocytes in Blood by Automated counOrdered By: Benjamin Perez on 08-09-3121GAB corrected for nucl RBC Auto (Bld) [#/Vol]5.9 10 3/uL4.0-11.0[facility] Lymphocytes Auto (Bld) [#/Vol]Ordered By: Benjamin Perez on 62-80-8796Jhausplzfnj (Bld) [#/Vol]1.0 10 3/uLLow1.2-3.8[facility] Lymphocytes/100 WBC Auto (Bld)Ordered By: Benjamin Perez on 06-24-2025 Lymphocytes/100 WBC (Bld)16.7 %Low20.5-60.0[facility] Auto (RBC) [Entitic mass]Ordered By: Benjamin Perez on 71-05-8016MZR (RBC) [Entitic mass]32.1 pg25.9-34.0[facility], IncHC Auto (RBC) [Mass/Vol]Ordered By: Benjamin Perez on 44-61-2790MAXX (RBC) [Mass/Vol]32.8 g/dL 29.9-35.2FMercy HealthMCV Auto (RBC) [Entitic vol]Ordered By: Benjamin Perez on 62-34-7579DTE (RBC) [Entitic vol]97.8 rHVynf75.0-94.0 [facility] HospitalMicroalbumin [Mass/volume] in UrineOrdered By: Benjamin Perez on 56-52-2385Kbbpgna DL <= 20 mg/L (U) [Mass/Vol]20.4 mg/dL<=30.0 [facility] HospitalMonocytes Auto (Bld) [#/Vol]Ordered By: Benjamin Perez on 70-07-6370Uggjcxxzd (Bld) [#/Vol]0.6 10 3/uL0.3-0.8[facility] HospitalMonocytes/100 WBC Auto (Bld)Ordered By: Benjamin Perez on 15-82-8338Hdbaljnlx/100 WBC (Bld)10.6 %1.7-12.0[facility] Neutrophils Auto (Bld) [#/Vol]Ordered By: Benjamin Perez on 12-88-2021Fdwhlrxkycn (Bld) [#/Vol]3.9 10 3/uL1.4-6.5FMercy HealthNeutrophils/100 WBC Auto (Bld)Ordered By: Benjamin Perez on 82-11-0363Fgvrxuuesve/100 WBC (Bld) 66.2 %43.0-75.0[facility] HospitalNo Panel InformationOrdered By: Benjamin Perez on 91-64-6656Wcpoqvwyeum # (Auto)0.3 10 3/uL0.0-0.7FMercy HealthImmature Granulocyte # (Auto)0.01 10 3/uL0.00-0.03 [facility] HospitalUrine Random Fcatgquiaw873.80 mg/dL20.00-300.00 [facility] HospitalPlatelet mean volume Auto (Bld) [Entitic vol] Ordered By: Benjamin Perez on 09-72-5954Sefnanyy mean volume (Bld) [Entitic vol] 11.8 fL9.5-13.5FMercy HealthPlatelets Auto (Bld) [#/Vol] Ordered By: Benjamin Perez on 06-38-6639Kmdpmajcc (Bld) [#/Vol]194 10 3/dZ490-954 [facility] HospitalRBC Auto (Bld) [#/Vol]Ordered By: Benjamin Perez on 15-79-9911SOG (Bld) [#/Vol]4.17 10 6/uLLow4.70-6.10[facility] Centererum or plasma albumin/globulin mass ratioOrdered By: Benjamin Perez on 16-27-2697Yktnxav/Globulin [Mass ratio]0.9 {ratio}[facility] Centererum or plasma anion gap determinationOrdered By: Benjamin Perez on 45-49-7624Yiufk gap [Moles/Vol]13.0 mmol/LFMercy Health Urine microalbumin/creatinine mass ratioOrdered By: Benjamin Perez on 06-24-2025 Albumin/Creatinine DL <= 20 mg/L (U) [Mass ratio]174.6 mg/gHigh0.0-29.9[facility] HospitalComment on above:NO MICROALBUMINURIA 0-29 MG/GCLINICAL MICROALBUMINURIA 30-300 MG/GMACROALBUMINURIA >300 MG/YIFAN thyroidon 20-12-9161PF thyroidTRINITY [facility] [place] [address] [place] [address] Ultrasound Report Signed Patient: Magnolia Boykin MR#: [id number] : 1945 Acct:[id number] Age/Sex: 79 / M ADM Date: 06/07/25 Loc: Room: Type: [facility] Attending Dr: Bong Reddy Jr, MD Ordering [...] Zee M.D. 06/07/2025 4:58 PM Dictation Location: [place] [address] Tech: Ani Meyer Transcribed By: [facility] 06/07/25 1658 Dictated By: Og Zee DO 06/07/251655 Signed By: 06/07/[address] [place] [address] Physician GroupCNOVon 43-75-2877PCNSPhgjcx Visit (RADTSA) MAGNOLIA BOYKIN ([id number]) 1945 M Date Time Provider Department 03/09/25 11:15 AM Elmer BENZ During your visit today, we recorded the following information about you: Temperature Pulse Respiration Blood pressure 96 degrees 63/minute 18/minute 151/96 Weight 84.2 kg Elmer Benz MD 03/09/2025 12:55 PM Signed Radiation Oncology - Prostate Cancer Follow-up note PATIENT NAME: Magnolia Boykin PATIENT DIAGNOSIS: 1. Prostate adenocarcinoma, initial PSA 4.89, biopsy [place] score 3 + 3 = 6 (grade [...] AUS with benign afirma (confirmed genomic sequencing injury/safety hazard assessment benign). He has further follow-up scheduled. Decipher [...] fatigue, has been having night sweats for (more content not included)...NormalThe [facility] CHEST WO IVCONon 84-72-0575UR CHEST WO IVCON* * *Final Report* * * DATE OF EXAM: Mar 04 2025 9:22AM [facility] 0541 - CT CHEST WO IVCON [...] images through the upper abdomen are stable. Surveyor Oil Well Directional (topogram) images: No additional findings. IMPRESSION: 1. [...] any questions regarding this interpretation, please call [phone]. If you are unable to reach us at the number above, please feel free to contact [facility] at [phone]. [id number] [facility] System Chest WO contraston 69-30-3560GSQQBJSUIA: 1. Several bilateral 5 mm or less [...] any questions regarding this interpretation, please call [phone]. If you are unable to reach us at the number above, please feel free to contact [facility] at [phone].DIVISION OF RADIOLOGY* * *Final Report* * * DATE OF EXAM: Mar 04 2025 9:22AM [facility] 0541 - CT CHEST WO IVCON [...] images through the upper abdomen are stable. Surveyor Oil Well Directional (topogram) images: No additional findings. DIVISION OF RADIOLOGYProvider, [facility] [place] - 03/04/2025 * * *Final Report* * * DATE OF EXAM: Mar 04 2025 9:22AM [facility] 0541 - CT CHEST WO IVCON [...] images through the upper abdomen are stable. Surveyor Oil Well Directional (topogram) images: No additional findings. IMPRESSION IMPRESSION: 1. Several bilateral 5 mm or [...] any questions regarding this interpretation, please call [phone]. If you are unable to reach us at the number above, please feel free to contact [facility] at [phone]. [facility] HospitalRad[facility] Study observation (narrative)[facility] Chest WO contrastOrdered By: [facility] Provider on 73-58-2965Qtkzydejq ClinicPSA SerPl-nc on 79-83-0376Hbbugqes specific Ag [Mass/Vol]4.76 ng/mLHigh<2.60[facility] on above:Order Comment: Specimen Type: BLOOD SPECIMENOrdering Facility: [facility] [address] [place], [place] [address]Result Comment: Total PSA test methodology used is the Electrochemiluminescence Immunoassay by [employer]. Total PSA values by differing methodologies cannot be interchanged. For an individual patient, the significance of a PSA level should be interpreted in a broad clinical context, including age, race, family history, digital rectal exam, prostate size, results of priortesting (prostate biopsy, free PSA, PCA3), and use of 5-alpha reductase inhibitors. Considering thehigh incidence of asymptomatic cancer in the general population that may not pose an ultimate risk to a patient, the decision to recommend urological evaluation or prostate biopsy should be individualized after consideration of all these factors. REFERENCE: Xena Frank M.D., M.P.H., Richard Mckeon M.D., Ph.D., Hemanth Price M.D., Tara Weber, M.P.H., Gwendolyn Gibson, Sc.Joe. Effect of Verification Bias on Screening for Prostate Cancer by Measurement of Prostatic Specific Antigen. N Engl J Med 2003,349:335-42.Performed By: #### 2857-1 ####[facility]IA [id number] [address] STATES OF AMERICACNPNon 71-40-9749KVXQWqvdmlket (RADTSA) MAGNOLIA BOYKIN ([id number]) 1945 Date Time Provider Department 11/26/24 Elmer BENZ During your visit today, we recorded the following information about you: Maude Negron, RN 11/26/2024 11:00 AM Signed Charlotte left message stating Magnolia had his us on 09/29 (with biopsy) and they didn't hear any results. VIOLET- US and Path are scanned in chart. Please advise. Follow up is not scheduled currently until February 2025. MAXWELL Nowak Angela, RN 11/26/2024 1:09 PM Signed View All Conversations on this Encounter Elmer Benz MD You; Radt Sand Rad Nurse Pool1 hour ago (11:47 AM) Please get him in to see Dr. Reddy. I talked with them. Elmer Benz MD You1 hour ago (11:33 AM) Thought I was seeing him sooned. I will call Maude Negron RN 11/26/2024 1:09 PM Signed PSS- please schedule [...] the last progress note be faxed to [phone]. She will then give to Dr. Reddy [...] Upset Date Reviewed: 2024 Reviewed by: Maude Negron, MAXWELL - Fully Assessed Reason for Visit: Results [...] *01/13/2017 Encounter Status:Closed by JUSTA SAENZ on 12/02/24[facility]Path[facility] study report documentOrdered By: Lenard Orantes on 09-30-2024 Pathology studyWilson Memorial Hospital Other Coagulation Profileon 65-43-7339aHFS Coag (Bld) [Time] 29.0 nXubiec56.1-36.5The [facility] Physician GroupComment on above:Order Comment: STAT FOR BXResult Comment: A hematocrit value greater than 55% may lead to inaccurate results in coagulation testing. Patients having hematocrit values >55% require a special collection tube for coagulation studies. Please contact the laboratory at [phone] for redraw instructions. PERFORMED BY: [address] [address] PATHOLOGIST LEAD WEB APPLICATION DEVELOPER LEN SHIELDS M.D.Performed By: #### PLT, PP #### [place] [address] USAINR Coag (PPP) [Relative time]1.2 {INR}NormalThe [facility] Physician GroupComment on above:Order Comment: STAT FOR BXResult Comment: INR Therapeutic Range A) Pre- and Peroperative OAT started two weeks before surgery. NOT HIP SURGERY: 1.5 - 2.5 HIP SURGERY: 2 - 3 B) Primary and secondary prevention of venous THROMBOSIS: 2 - 3 C) Active venous thrombosis, pulmonary embolism and prevention of recurrent venous thrombosis: 2 - 3 D) Prevention of arterial thromboembolism including patients with mechanical heart valves: 3 - 4.5Performed By: #### PLT, PP #### [facility] [address] [place] [address] USAPT Coag (PPP) [Time]13.2 sHigh9.0-12.9The [facility] Physician GroupComment on above:Order Comment: STAT FOR BXResult Comment: A hematocrit value greater than 55% may lead to inaccurate results in coagulation testing. Patients having hematocrit values >55% require a special collection tube for coagulation studies. Please contact the laboratory at [phone] for redraw instructions.Performed By: #### PLT, PP #### [facility] [address] [place] [address] USAINR in Platelet poor plasma by Coagulation assayOrdered By: Elmer Benz on 40-68-5730VVA Coag (PPP) [Relative time]INR in Platelet poor plasma by Coagulation assayWilson Memorial HospitalComment on above:INR Therapeutic Range A) Pre- and Peroperative OAT started two weeks before surgery. NOT HIP SURGERY: 1.5 - 2.5 HIP SURGERY: 2 - 3B) Primary and secondary prevention of venous THROMBOSIS: 2 - 3C) Active venous thrombosis, pulmonary embolismand prevention of recurrent venous thrombosis: 2 - 3D) Prevention of arterial thromboembolismincluding patients with mechanical heart valves: 3 - 4.5Lon 09-29-2024L Specimen: [id number] Received: 09/29/24 Status: DIANNA Kunz Num: [id number] Spec Type: Cytology Subm Dr: Matthew Ge II, MD Tissues: A FNA SLIDES PATH (RT THY CHANEL) Procedures: -, DIFF QWIK/3, PAPSTN/4 Age/ Patient Sex Location Account Attending Physician Magnolia Boykin 79/M [id number] Elmer Benz MD SPEC NUM: [id number] RECD: 09/29/24 STATUS: DIANNA KUNZ NUM: [id number] MERARI: 09/29/24-[address] 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 V600E c. 1799T>A: Negative -RET/PTC1: Not detected -RET/PTC3: Not detected -MTC: Negative -Parathyroid: Negative TERT PROMOTER REGION: -Tests (2) not ordered Specimen: [id number] Received: 09/29/24 Status: DIANNA uKnz Num: [id number] Spec Type: Cytology Subm Dr: Matthew Ge II, MD Tissues: A FNA SLIDES PATH (RT THY CHANEL) Procedures: -, DIFF QWIK/3, PAPSTN/4 Patient: Magnolia Boykin [id number] (Continued) Specimen: [id number] Received: 09/29/24 (Continued) Supplemental Report (Continued) Signed (signature on file) Lenard Orantes MD 09/30/24 1049 Specimen: [id number] Received: 09/29/24 Status: DIANNA Kunz Num: [id number] Spec Type: Cytology Subm Dr: Matthew Ge, MD IMANI Tissues: A FNA SLIDES PATH (RT THY CHANEL) Procedures: -, DIFF QWIK/3, PAPSTN/4 Patient: Magnolia Boykin [id number] (Continued) Specimen: [id number] Received: 09/29/24 (Continued) Supplemental Report (Continued) Addendum Signed (signature on file) Sil Garcia MD 10/20/24 1804 Pathological Diagnosis Right thyroid nodule, fine needle aspiration (ThinPrep and Smear): - Satisfactory for evaluation. - Atypia of undermined significance ([place] Category: III). - See Comment. Comment: The [...] vial stored at -20 for microscopic examination. (YC/nh) Microscopic Description Onsite adequacy evaluation (Pass #1 to #4: Right thyroid nodule, fine needle aspiration: - One smear slide shows sheets of follicular cell, suboptimal for evaluation. Microscopic examination is performed. Specimen: [id number] Received: 09/29/24 Status: DIANNA Haleigh Num: [id number] Spec Type: Cytology Subm Dr: Matthew Ge II, MD Tissues: A FNA SLIDES PATH (RT THY CHANEL) Procedures: -, DIFF QWIK/3, PAPSTN/4 Patient: Magnolia Boykin [id number] (Continued) Specimen: [id number] Received: 09/29/24-1247 (Continued) Signed (signature on file) Lenard Orantes MD 09/30/24 1049 (more content not included)...NormalThe [facility] Physician GroupPlatelet Counton 07-32-9892Tjmanswqb (Bld) [#/Vol]208 10*3/hCKhyglb279-360 The [facility] Physician GroupComment on above:Order Comment: STAT FOR BXResult Comment: PERFORMED BY: [place] [address] PATHOLOGIST LEAD WEB APPLICATION DEVELOPER LEN SHIELDS M.D.Performed By: #### PLT, PP #### [facility] [address] [place] [address] USAPlatelets Auto (Bld) [#/Vol]Ordered By: Elmer Benz on 27-11-6423Gjbtxwkix (Bld) [#/Vol]Platelets [#/volume] in Blood by Automated -549YilzeohqdWilson Memorial HospitalProthrombin time (PT)Ordered By: Elmer Benz on 91-37-7876OH Coag (PPP) [Time]Prothrombin time (PT)High9.0-12.9 Wilson Memorial HospitalComment on above:A hematocrit value greater than 55% may lead to inaccurate results in coagulation testing. Patientshaving hematocrit values >55% require a special collection tube for coagulation studies. Please contact the laboratory at [phone] for redraw instructions. US needle aspirationon 87-84-5591PC needle aspirationTRINITY [facility] [address] [place] [address] Ultrasound Report Signed Patient: Magnolia Boykin MR#: [id number] : 1945 Acct:[id number] Age/Sex: 79 / M ADM Date: 09/29/24 Loc: Room: Type: [facility] Attending Dr: Codi Benz MD Ordering Provider: Elmer Benz MD Date of Service: 09/29/24 US/US needle aspiration: E04.1 C61 Copies to: Elmer Benz MD US needle aspiration 09/29/2024 11:28 AM [...] Matthew Ge M.D.09/29/2024 4:07 PM Dictation Location: [place] [address] Tech: Pastora Mckeon Transcribed By: JUAN DANIEL 09/29/24 1607 Dictated By: Matthew Ge II, MD 09/29/24 1600 Signed By: 09/29/24 1607[facility] Physician GroupaPTT in Platelet poor plasma by Coagulation assayOrdered By: Elmer Benz on 13-75-3199gTCT Coag (PPP) [Time] Activated partial thromboplastin time (aPTT) in platelet poor plasma by coagulation a25.1-36.5FMercy HealthComment on above:A hematocrit value greater than 55% may lead to inaccurate results in coagulation testing. Patientshaving hematocrit values >55% require a special collection tube for coagulation studies. Please contact the laboratory at [phone] for redraw instructions.DOUGOV 74-85-0722NJEDYukiqo Visit (RADTSA) MAGNOLIA BOYKIN ([id number]) 1945 M Date Time Provider Department 09/10/24 11:00 AM Elmer BENZ During your visit today, we recorded the following information about you: Temperature Pulse Respiration Blood pressure 97.1 degrees 66/minute 16/minute 165/97 Weight 86.1 kg Elmer Benz MD 09/10/2024 12:43 PM Signed Radiation Oncology [...] of the extremities As noted in HPI PHYSICA (more content not included)...NormalThe [facility] thyroid on 30-08-2912JG [facility] [address] [place] [address] Ultrasound Report Signed Patient: Magnolia Boykin MR#: [id number] : 1945 Acct:[id number] Age/Sex: 79 / M ADM Date: 09/02/24 Loc: Room: Type: [facility] Attending Dr: Codi Benz MD Ordering Provider: Elmer Benz MD Date of Service: 09/02/24 US/US thyroid: E04.1 Copies to: Elmer Benz MD Thyroid ultrasound Reason for exam: Abnormal [...] FNA is suggested. Impression dictated by: Salvatore Farncis Jr., DAntwonOAntwon09/02/2024 3:30 PM Dictation Location: [facility]18 Tech: Brooke Mata Transcribed By: JUAN DANIEL 09/02/24 1530 Dictated By: Salvatore Francis Jr, DO 09/02/24 1528 Signed By: 09/02/24 1530[facility] Physician GroupOV 40-27-4346CTSCZpkgsu Visit (RADTSA) SIMAMAGNOLIA Erlin ([id number]) 1945 M Date Time Provider Department 08/27/24 1:15 PM Elmer BENZ During your visit today, we recorded the following information about you: Temperature Pulse Respiration Blood pressure 96.7 degrees 61/minute 18/minute 154/93 Weight 84.8 kg Elmer Benz MD 2024 1:17 PM Signed Radiation Oncology - Prostate Cancer Follow-up note PATIENT NAME: Magnolia Boykin PATIENT DIAGNOSIS: Prostate adenocarcinoma, initial PSA 4.89, biopsy [place] score 3 + 3 = 6 (grade [...] with MR fusion on 06/22/24 revealed: Adenocarcinoma, [place] 6 (3+3) 5 out of 6 cores from the left mid lateral AIDA, in addition [place] 6 from left base right apical. Total [...] Wt 84.8 kg (186 lb 15.2 oz) S (more content not included)...NormalMiami Valley Hospitalon 86-47-3082RALALysblaldw (RADTSA) SIMAMAGNOLIA ([id number]) 1945 M Date Time Provider Department 08/26/24 Elmer BENZ During your visit today, we recorded the following information about you: Maude Negron RN 08/26/2024 8:22 AM Signed [facility] was contacted due to no result yet from testing. Here is their response: Good morning Maude, Thank you for your portal inquiry regarding Magnolia Boykin, please be advised that the material was received yesterday, barring any repeats or delays results are expected by 09/08. Best, Kristina VIOLET- pt is on for follow up tomorrow post PET and for decipher results. Would you like us to keep this appt or reschedule for after decipher is done? Please advise. Maude Negron RN Allergies As of Date: 08/26/2024 Noted Allergy Reaction IODINE 07/17/2012 8 - GI Upset Date Reviewed: 08/04/2024 Reviewed by: Will Walden LPN - Fully Assessed Reason for Visit: Results [95] Future Appointment [256] Cmt: Dec[facility] Prescriptions as of 08/26/2024 - omeprazole (PRILOSEC) [...] malignant neoplasm *01/13/2017 Encounter Status:Closed by MAUDE NEGRON on 08/26/24NoalCWexner Medical CenterGLUCOSE, BLOOD (POC)on 72-32-2858Oykpisp [Mass/Vol]91 mg/dL74 - 99 mg/dLGerman HospitalComment on above:Location:[facility], [address] [place] [address] , [place], [place], [facility] The Accu-Chek Inform II glucose meter has not been approved for testing on patients receiving intensive medical intervention or therapy and results from this point of care glucose test should not be used for patient management decisions in these cases. Inaccurate results may also occur from other interfering factors, such as N-acetylcysteine (blood concentrations of greater than 5mg/dL), galactose, extremes of hematocrit (<10 or >65), or high doses of ascorbic acid (vitamin C) greater than 3mg/dL. Consider alternate testing mechanisms (e.g. core lab, blood gas instrument) in the above situations. [facility] PET/CT SKULL-THIGH SUBQon 37-64-0963HF PET/CT SKULL-THIGH SUBQ* * *Final Report* * * DATE OF EXAM: Aug 17 2024 11:46AM NRN 0063 - SD PET/CT SKULL-THIGH SUBQ / PROCEDURE REASON: Nodular [...] * Uptake Time: 47 minutes * Radiopharmaceutical: E25-Ydyhafdzknarxirjuv (FDG) COMPARISON: PET CT 04/10/2016 CORRELATION: CT [...] EST Thank you for allowing us to pa (more content not included)...NormalAdams County HospitalBasophils Auto (Bld) [#/Vol]on 86-40-8673Yulbrlxsr (Bld) [#/Vol] Automated basophil count<0.11Wilson Memorial HospitalBasophils/100 WBC Auto (Bld)on 67-10-6123Nuitphltl/100 WBC (Bld)Automated basophil %Wilson Memorial HospitalBlood manual differential comment interpretation narrativeon 46-87-5696Sfzpvd differential comment Alex (Bld) [Interp]Blood manual differential comment interpretation narrativeWilson Memorial Hospital CBC W Auto Differential panel (Bld)on 56-28-2014Daqtnsgon (Bld) [#/Vol]0.03 10*3/uLNINFGerman HospitalBasophils/100 WBC (Bld)0.5 %[facility] Differential cell count method Nom (Bld)AutoCleveland ClinicEosinophils (Bld) [#/Vol]0.25 10*3/uLNINFGerman HospitalEosinophils/100 WBC (Bld)4.6 %German HospitalErythrocyte distribution width (RBC) [Ratio]12.5 %11.5 - 15.0 %German HospitalHematocrit (Bld) [Volume fraction]40.8 %39.0 - 51.0 %[facility] Hemoglobin (Bld) [Mass/Vol]14.1 g/dL13.0 - 17.0 g/dLGerman HospitalImmature granulocytes (Bld) [#/Vol]NINFCMercy HealthImmature granulocytes/100 WBC (Bld)0.2 %German HospitalInterpretation and review of laboratory results AbnormalGerman HospitalLymphocytes (Bld) [#/Vol]0.96 10*3/uLLowGerman Hospital Lymphocytes/100 WBC (Bld)17.6 %[facility] County HospitalH (RBC) [Entitic mass]33.2 pg 26.0 - 34.0 pgCParkview HealthHC (RBC) [Mass/Vol]34.6 g/dL30.5 - 36.0 g/dL [facility] Wert County HospitalV (RBC) [Entitic vol]96.0 fL80.0 - 100.0 fLCMercy Health Monocytes (Bld) [#/Vol]0.68 10*3/uLNINFGerman HospitalMonocytes/100 WBC (Bld) 12.5 %German HospitalNeutrophils (Bld) [#/Vol]3.53 10*3/uLGerman Hospital Neutrophils/100 WBC (Bld)64.6 %German HospitalNucleated RBC (Bld) [#/Vol]NINF German HospitalNucleated RBC/100 WBC (Bld) [Ratio]0.0 %/100 WBCGerman Hospital Platelet mean volume (Bld) [Entitic vol]10.3 fL9.0 - 12.7 fLCMercy Health Platelets (Bld) [#/Vol]194 10*3/Summa HealthRBC (Bld) [#/Vol]4.25 10*6/uL 4.20 - 6.00 m/Summa HealthWBC (Bld) [#/Vol]5.46 10*3/uLAdams County Hospital ClinicBasophils (Bld) [#/Vol]0.03 10*3/uLNormal<0.11CWexner Medical CenterComment on above:Order Comment: Specimen Type: BLOOD SPECIMENOrdering Facility: [facility] Address:[address] [place], [place] [address]Performed By: #### 44316-8 ####[facility] LABCLIA [id number] [place], [place] [address]Ydtvpsbbh/100 WBC (Bld)0.5 % NormalDiley Ridge Medical Center on above:Order Comment: Specimen Type: BLOOD SPECIMENOrdering Facility: [facility] Address:[address] [place], [place] [address]Performed By: #### 38953-4 ####[facility] LABCLIA [id number] [place] [address] Differential cell count method Nom (Bld)AutoNormalClevelCone Health Annie Penn Hospital Comment on above:Order Comment: Specimen Type: BLOOD SPECIMENOrdering Facility: [facility] Address:[address] [place] [address] Performed By: #### 76183-7 ####[facility] LABIA [id number] [place], [place] [address]Dxzdogxofed (Bld) [#/Vol]0.25 10*3/uLNormal<0.46[facility] on above:Order Comment: Specimen Type: BLOOD SPECIMENOrdering Facility: [facility] Address:[address] [place], [place] [address]Performed By: #### 49580-4 ####[facility] LABIA [id number] [place], [place] [address]Rgadtjemnsn/100 WBC (Bld)4.6 %NormalDiley Ridge Medical Center on above:Order Comment: Specimen Type: BLOOD SPECIMENOrdering Facility: [facility] Address:[address] [place], [place] [address]Performed By: #### 68759-4 ####[facility] LABIA [id number] [place], [place] [address]Zpemhlqfidf distribution width (RBC) [Ratio]12.5 %Mphjec39.5-15.0[facility] on above: Order Comment: Specimen Type: BLOOD SPECIMENOrdering Facility: [facility] Address:[address] [place], [place] [address]Performed By: #### 84000- 8 ####[facility] LABCLIA [id number] [place], [place] [address]Nkxihdxyzv (Bld) [Volume fraction]40.8 %Wnqjws25.0-51.0 [facility] on above:Order Comment: Specimen Type: BLOOD SPECIMENOrdering Facility: [facility] Address:[address] [place], [place] [address]Performed By: #### 78347-0 ####[facility] LABCLIA [id number] [place], [place] [address]Ofmzcrtihy (Bld) [Mass/Vol]14.1 g/qRVecqyh14.0-17.0[facility] on above: Order Comment: Specimen Type: BLOOD SPECIMENOrdering Facility: [facility] Address:[address] [place], [place] [address]Performed By: #### 05090- 8 ####[facility] LABCLIA [id number] [place], [place] [address]Doagbsse granulocytes (Bld) [#/Vol]10*3/uLNormal<0.10 [facility] on above:Order Comment: Specimen Type: BLOOD SPECIMENOrdering Facility: [facility] Address:[address] [place], [place] [address]Performed By: #### 99469-2 ####[facility] LABCLIA [id number] [place], [place] [address]Nltdlreq granulocytes/100 WBC (Bld)0.2 %NormalDiley Ridge Medical Center on above: Order Comment: Specimen Type: BLOOD SPECIMENOrdering Facility: [facility] Address:[address] [place], [place] [address]Performed By: #### 84582- 8 ####[facility] LABIA [id number] [place], [place] [address]Nialjiicfto (Bld) [#/Vol]0.96 10*3/uLLow1.00-4.00 [facility] on above:Order Comment: Specimen Type: BLOOD SPECIMENOrdering Facility: [facility] Address:[address] [place], [place] [address]Performed By: #### 25202-0 ####[facility] LABCLIA [id number] [place], [place] [address]Pnheusmnjci/100 WBC (Bld)17.6 %NormalDiley Ridge Medical Center on above:Order Comment: Specimen Type: BLOOD SPECIMENOrdering Facility: [facility] Address:[address] [place], [place] [address]Performed By: #### 53504-4 ####[facility] LABCLIA [id number] [place], [place] [address]NBB (RBC) [Entitic mass]33.2 jsIvzveb85.0-34.0[facility] on above:Order Comment: Specimen Type: BLOOD SPECIMENOrdering Facility: [facility] Address:[address] [place], [place] [address]Performed By: #### 54737-9 ####[facility] LABCLIA [id number] [place], [place] [address]FNFW (RBC) [Mass/Vol]34.6 g/mGLnoouy10.5-36.0[facility] on above: Order Comment: Specimen Type: BLOOD SPECIMENOrdering Facility: [facility] Address:[address] [place], [place] [address]Performed By: #### 81752- 8 ####[facility] LABCLIA [id number] [place], [place] [address]DET (RBC) [Entitic vol]96.0 sKFretgc87.0-100.0[facility] on above:Order Comment: Specimen Type: BLOOD SPECIMENOrdering Facility: [facility] Address:[address] [place], [place] [address]Performed By: #### 87145-0 ####[facility] LABCLIA [id number] [place], [place] [address]Mhswvmobv (Bld) [#/Vol]0.68 10*3/uLNormal<0.87[facility] on above:Order Comment: Specimen Type: BLOOD SPECIMENOrdering Facility: [facility] Address:[address] [place], [place] [address]Performed By: #### 11733- 8 ####[facility] LABCLIA [id number] [place], [place] [address]Dplastixd/100 WBC (Bld)12.5 %NormalDiley Ridge Medical Center on above:Order Comment: Specimen Type: BLOOD SPECIMENOrdering Facility: [facility] Address:[address] [place], [place] [address]Performed By: #### 20842-3 ####[facility] LABCLIA [id number] [place], [place] [address]Uullesarypc (Bld) [#/Vol]3.53 10*3/uLNormal1.45-7.50[facility] on above:Order Comment: Specimen Type: BLOOD SPECIMENOrdering Facility: [facility] Address:[address] [place], [place] [address]Performed By: #### 60506-4 ####[facility] LABCLIA [id number] [place], [place] [address]Gzyylfejywr/100 WBC (Bld)64.6 %NormalDiley Ridge Medical Center on above:Order Comment: Specimen Type: BLOOD SPECIMENOrdering Facility: [facility] Address:[address] [place], [place] [address]Performed By: #### 98553-9 ####[facility] LABIA [id number] [place], [place] [address]Uzwbxsefj RBC (Bld) [#/Vol] 10*3/uLNormal<0.01[facility] on above:Order Comment: Specimen Type: BLOOD SPECIMENOrdering Facility: [facility] Address:[address] [place], [place] [address]Performed By: #### 93169-7 ####[facility] LABCLIA [id number] [place], [place] [address]Veunjszlz RBC/100 WBC (Bld) [Ratio]0.0 /100 WBCNormal [facility] on above:Order Comment: Specimen Type: BLOOD SPECIMENOrdering Facility: [facility] Address:[address] [place], [place] [address]Performed By: #### 22706-9 ####[facility] LABCLIA [id number] [place], [place] [address]Yorgqdxt mean volume (Bld) [Entitic vol]10.3 fLNormal9.0-12.7CMetroHealth Parma Medical Center on above:Order Comment: Specimen Type: BLOOD SPECIMENOrdering Facility: [facility] Address:[address] [place] [address] Performed By: #### 66475-6 ####[facility] LABCLIA [id number] [place], [place] [address]Teyrwjkfd (Bld) [#/Vol]194 10*3/fJTgpbui693-826CsaedwutzDiley Ridge Medical Center on above:Order Comment: Specimen Type: BLOOD SPECIMENOrdering Facility: [facility] Address:[address] [place], [place] [address]Performed By: #### 09922-7 ####[facility] LABCLIA [id number] [place], [place] [address]PIN (Bld) [#/Vol]4.25 10*6/uLNormal4.20-6.00[facility] on above:Order Comment: Specimen Type: BLOOD SPECIMENOrdering Facility: [facility] Address:[address] [place], [place] [address]Performed By: #### 13515-1 ####[facility] LABCLIA [id number] [place], [place] [address]SZQ (Bld) [#/Vol]5.46 10*3/uLNormal3.70-11.00Adams County HospitalComment on above: Order Comment: Specimen Type: BLOOD SPECIMENOrdering Facility: [facility] Address:[address] [place], [place] [address]Iibjgwwcj By: #### 90273- 8 ####[facility] LABCLIA [id number] [place], [place] [address]PIDBvg 15-49-7020ISJPSjqwrv Visit (RADTSA) MAGNOLIA BOYKIN ([id number]) 1945 M Date Time Provider Department 08/04/24 10:00 AM LAB/PORT RADT YAIMA RADTSA During your visit today, we recorded the following information about you: Will Walden LPN 08/04/2024 9:53 AM Signed Magnolia Boykin presents in office today for: Lab Draw during Office Visit . Ordering Provider: Alexei Benz M.D. Test (s) ordered: CBC CMP LDH Method for obtaining blood: Phlebotomy was performed, accessing left antecubital vein. Needle removed intact. Dressing secured. Patient denies discomfort, dizziness, light-headedness or weakness and left the department without assist. Will Walden LPN Referring Provider: Elmer BENZ [[id number]] Allergies As of Date: 08/04/2024 Noted Allergy Reaction IODINE 07/17/2012 8 - GI Upset Date Reviewed: 08/04/2024 Reviewed by: Will Walden LPN - Fully Assessed Primary Visit Diagnosis:Prostate [...] malignant neoplasm *01/13/2017 Visit Notes: >> Will Walden LPN e Aug 04, 2024 9:52 AM Status: Signed Magnolia Boykin presents in office today for: Lab Draw during Office Visit . Ordering Provider: Alexei Benz M.D. Test (s) ordered: CBC CMP LDH Method for obtaining blood: Phlebotomy was performed, accessing left antecubital vein. Needle removed intact. Dressing secured. Patient denies discomfort, dizziness, light-headedness or weakness and left the department without assist. 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 Zaldivar DIAGNOSIS: 78 year old male with prostate adenocarcinoma, initial PSA 4.89, biopsy [place] score 3 + 3 = 6 (grade [...] wheezing or shortness of breath CARDIOVASCULAR: no ches (more content not included)...NormalAdams County HospitalComprehensive metabolic 2000 panelOrdered By: Alberta Beverly on 08-04-2024 Albumin [Mass/Vol]4.5 g/dL3.9 - 4.9 g/dLBogard ClinicALP [Catalytic activity/Vol]87 U/L38 - 113 U/LCleveland ClinicALT [Catalytic activity/Vol]20 U/L10 - 54 U/LCleveland ClinicAnion gap [Moles/Vol]11 mmol/L8 - 15 mmol/L Bogard ClinicAST [Catalytic activity/Vol]22 U/L14 - 40 U/LCleveland Clinic Bilirubin [Mass/Vol]0.4 mg/dL0.2 - 1.3 mg/dLBogard ClinicCalcium [Mass/Vol] 9.1 mg/dL8.5 - 10.2 mg/dLBogard ClinicChloride [Moles/Vol]106 mmol/L98 - 107 mmol/LCleveland ClinicCO2 [Moles/Vol]22 mmol/L22 - 30 mmol/LCleveland Clinic Creatinine [Mass/Vol]1.27 mg/dLHigh0.73 - 1.22 mg/dLGerman HospitalGFR/1.73 sq M.predicted among non-blacks MDRD (S/P/Bld) [Vol rate/Area]59 mL/min/{1.73_m2} Low- PINFCleveland ClinicComment on above:Estimated Glomerular Filtration Rate (eGFR) is calculated using the 2020 CKD-EPI creatinine equation. This equation utilizes serum creatinine, sex, and age as parameters. The creatinine assay has traceable calibration to isotope dilution-mass spectrometry. Refer to KDIGO guidelines for clinical interpretation. In patients with unstable renal function, e.g. those with acute kidney injury, the eGFRmay not accurately reflect actual GFR.Glucose [Mass/Vol]104 mg/eHPtvj84 - 99 mg/dLGerman Hospital Comment on above:The [place] Diabetes Association (ADA) provides guidance for [...] Standards of Medical Care in Diabetes 2016, [place] [employer] Association. Diabetes Care. 2016.39(Suppl 1). Interpretation and review of laboratory resultsAbnormalCleveland ClinicPotassium [Moles/Vol]4.5 mmol/L3.7 - 5.1 mmol/LClevelatrium health union ClinicProtein [Mass/Vol]7.7 g/dL 6.3 - 8.0 g/dLBogard ClinicSodium [Moles/Vol]139 mmol/L136 - 144 mmol/L German HospitalUrea nitrogen [Mass/Vol]26 mg/dLHigh9 - 24 mg/dLDayton Children'S HospitalComprehensive metabolic 2000 panelon 10-56-8975Tqxymii [Mass/Vol]4.5 g/dLNormal3.9-4.9CMetroHealth Parma [facility] on above:Order Comment: Specimen Type: BLOOD SPECIMENOrdering Facility: [facility] Address:[address] [place], [place] [address]Performed By: #### 2532- 0, 24914-9 ####[facility] LABCLIA [id number] [place], [place] [address]SOA [Catalytic activity/Vol]87 U/QYxcaxw35-428 [facility] on above:Order Comment: Specimen Type: BLOOD SPECIMENOrdering Facility: [facility] Address:[address] [place], [place] [address]Performed By: #### 2532-0, 87995-5 ####[facility] LABCLIA [id number] [place], [place] [address]YDZ [Catalytic activity/Vol]20 U/WXnzlvm71-72TibrmzbncDiley Ridge Medical Center on above:Order Comment: Specimen Type: BLOOD SPECIMENOrdering Facility: [facility] Address:[address] [place], [place] [address]Performed By: #### 2532-0, 49902-8 ####[facility]ITALMAX [facility] LABCLIA [id number] [facility] [place] [address]Fnrfj gap [Moles/Vol]11 mmol/LNormal8-15 [facility] on above:Order Comment: Specimen Type: BLOOD SPECIMENOrdering Facility: [facility] Address:[address] [place], [place] [address]Performed By: #### 2532-0, 40677-1 ####[facility] LABCLIA [id number] [place], [place] [address]UBI [Catalytic activity/Vol]22 U/VRideeq73-15XbjdmzpyhDiley Ridge Medical Center on above:Order Comment: Specimen Type: BLOOD SPECIMENOrdering Facility: [facility] Address:[address] [place], [place] [address]Performed By: #### 2532-0, 98795-5 ####[facility]ITALMAX [facility] LABCLIA [id number] [place], [place] [address]Fstiplhva [Mass/Vol]0.4 mg/dLNormal0.2-1.3 [facility] on above:Order Comment: Specimen Type: BLOOD SPECIMENOrdering Facility: [facility] Address:[address] [place], [place] [address]Performed By: #### 2532-0, 50805-5 ####[facility] LABCLIA [id number] [facility] [place], [place] [address]Slyjced [Mass/Vol]9.1 mg/dLNormal8.5-10.2CMetroHealth Parma Medical Center on above: Order Comment: Specimen Type: BLOOD SPECIMENOrdering Facility: [facility] Address:[address] [place], [place] [address]Performed By: #### 2532- 0, 24654-5 ####[facility] LABCLIA [id number] [place], [place] [address]Luomgyom [Moles/Vol]106 mmol/ZEnsmbd55-922WqjsjjnatDiley Ridge Medical Center on above:Order Comment: Specimen Type: BLOOD SPECIMENOrdering Facility: [facility] Address:[address] [place], [place] [address]Performed By: #### 2532-0, ####[facility] LABCLIA [id number] [place], [place] [address]LI6 [Moles/Vol]22 mmol/FEmnsaz49-60GqrugealgDiley Ridge Medical Center on above:Order Comment: Specimen Type: BLOOD SPECIMENOrdering Facility: [facility] Address:[address] [place], [place] [address]Performed By: #### 2532- 0, ####[facility] LABCLIA [id number] [place], [place] [address]Umvcwqxzfh [Mass/Vol]1.27 mg/dLHigh0.73-1.22 [facility] on above:Order Comment: Specimen Type: BLOOD SPECIMENOrdering Facility: [facility] Address:[address] [place], [place] [address]Performed By: #### 2532-0, 62999-4 ####[facility] LABCLIA [id number] [place] [address] Creatinine and Glomerular filtration rate.predicted panel (S/P/Bld)59 mL/min/1.73m???Low>=60[facility] on above:Order Comment: Specimen Type: BLOOD SPECIMENOrdering Facility: [facility] Address:[address] [place], [place] [address]Result Comment: Estimated Glomerular Filtration Rate (eGFR) is calculated using the 2020 CKD-EPI creatinine equation. This equation utilizes serum creatinine, sex, and age as parameters. The creatinine assay has traceable calibration to isotope dilution-mass spectrometry. Refer to KDIGO guidelines for clinical interpretation. In patients with unstable renal function, e.g. those with acute kidney injury, the eGFR may not accurately reflect actual GFR.Performed By: #### 2532-0, 23843-1 ####[facility] LABCLIA [id number] [place], [place] [address]Mipczxv [Mass/Vol]104 mg/fLOgup72-02SlprohrcwDiley Ridge Medical Center on above:Order Comment: Specimen Type: BLOOD SPECIMENOrdering Facility: [facility] Address:[address] [place], [place] [address]Result Comment: The [place] Diabetes Association (ADA) provides guidance for cutoff values for fasting glucose and random glucose. The ADA defines fasting as no caloric intake for at least 8 hours. Fasting plasma glucose results between 100 to 125 mg/dL indicate increased risk for diabetes (prediab etes). Fasting plasma glucose results greater than or [...] Standards of Medical Care in Diabetes 2016, [place] [employer]. Diabetes Care. 2016.39(Suppl 1).Performed By: #### 2532-0, 95145-9 ####[facility] LABCLIA [id number] [place], [place] [address]Hnrkbyylf [Moles/Vol]4.5 mmol/LNormal3.7-5.1CMetroHealth Par[facility] on above:Order Comment: Specimen Type: BLOOD SPECIMENOrdering Facility: [facility] Address:[address] [place] [address]Rhickomys By: #### 2532-0, ####[facility] LABIA [id number] [place], [place] [address]Tcjyxfl [Mass/Vol]7.7 g/dLNormal6.3-8.0[facility] on above:Order Comment: Specimen Type: BLOOD SPECIMENOrdering Facility: [facility] Address:[address] [place], [place] [address]Performed By: #### 2532- 0, 75859-1 ####[facility] LABIA [id number] [place], [place] [address]Ckuauo [Moles/Vol]139 mmol/DXenwlj403-013UjjupegrtDiley Ridge Medical Center on above:Order Comment: Specimen Type: BLOOD SPECIMENOrdering Facility: [facility] Address:[address] [place], [place] [address]Performed By: #### 2532-0, 73557-5 ####[facility] LABCLIA [id number] [place], [place] [address]Ydoe nitrogen [Mass/Vol]26 mg/dLHigh9-24[facility] on above: Order Comment: Specimen Type: BLOOD SPECIMENOrdering Facility: [facility] Address:[address] [place], [place] [address]Performed By: #### 2532- 0, 13368-1 ####[facility] LABCLIA [id number] [place], [place] [address]Ifnseloatmd/100 WBC Auto (Bld)on 08-04-2024 Eosinophils/100 WBC (Bld)Automated eosinophil %[facility] Erythrocyte distribution width Auto (RBC) [Ratio]on 91-76-4389Lmnkxvazuue distribution width (RBC) [Ratio]Erythrocyte distribution width [Ratio] by Automated count11.5-15.0[facility] HospitalHematocrit Auto (Bld) [Volume fraction]on 40-61-5467Bcqvtheqzk (Bld) [Volume fraction]Hematocrit [Volume Fraction] of Blood by Automated count39.0-51.0[facility] HospitalHemoglobin [Mass/volume] in Bloodon 10-42-5264Gfffftpxmq (Bld) [Mass/Vol] Hemoglobin [Mass/volume] in Blood13.0-17.0[facility] LACTATE DEHYDROGENASEon 25-17-5773MJB [Catalytic activity/Vol]189 U/L135 - 225 U/LCMercy HealthLDH SerPl-cCncon 96-37-9827LHL [Catalytic activity/Vol]189 U/CNwctie775-221UahjmnusfDiley Ridge Medical Center on above:Order Comment: Specimen Type: BLOOD SPECIMENOrdering Facility: [facility] Address:[address] [place], [place] [address]Mzovzglsx By: #### 2532-0, 95144-4 ####[facility] LABCLIA [id number] [place], [place] [address]GLI [Catalytic activity/Vol]on 52-57-8699Hsdnvlbmmhxfok and review of laboratory resultsNormalCPremier Health Miami Valley Hospitaloratory - Chemistry and Chemistry - challengeon 52-87-2291Akmyatd [Mass/Vol]4.5 g/dL 3.9-4.9[facility] HospitalALP [Catalytic activity/Vol]87 U/L38-113 [facility] HospitalALT [Catalytic activity/Vol]20 U/L10-54 [facility] HospitalAST [Catalytic activity/Vol]22 U/L14-40 [facility] HospitalBilirubin [Mass/Vol]0.4 mg/dL0.2-1.3FMercy HealthCalcium [Mass/Vol]9.1 mg/dL8.5-10.2FMercy HealthChloride [Moles/Vol]106 mmol/J54-107OqmbrkuhtWilson Memorial HospitalCO2 [Moles/Vol]22 mmol/M98-09HpenhbwbvWilson Memorial HospitalCreatinine [Mass/Vol]1.27 mg/dLHigh0.73-1.22[facility] HospitalGlucose [Mass/Vol]104 mg/sZFllm54-57PnuapvyhiWilson Memorial HospitalComment on above: The [place] Diabetes Association (ADA) provides guidance for cutoff values for fasting glucose andrandom glucose. The ADA defines fasting as no caloric intake for at least 8 hours. Fasting plasma glucose results between 100 to 125 mg/dL indicate increased risk for diabetes (prediabetes).Fasting plasma glucose results greater than or equal to 126 mg/dL meet the criteria for diagnosis of diabetes. In the absence of unequivocal hyperglycemia, results should be confirmed by repeat testing. In a patient with classic symptoms of hyperglycemia or hyperglycemic crisis, random plasma glucose resultsgreater than or equal to 200 mg/dL meet the criteria for diagnosis of diabetes.Reference: Standardsof Medical Care in Diabetes 2016, [place] Diabetes Association. Diabetes Care. 2016.39(Suppl 1).LDH [Catalytic activity/Vol]189 U/D302-244JgehndjyvWilson Memorial HospitalPotassium [Moles/Vol]4.5 mmol/L3.7-5.1FUniversity Hospitals Geneva Medical Centerodium [Moles/Vol]139 mmol/Q176-295BjgtxveqmWilson Memorial HospitalUrea nitrogen [Mass/Vol]26 mg/dLHigh9-24[facility] HospitalLaboratory - Hematology and Cell countson 58-63-1186Ziwpuhdxlnw (Bld) [#/Vol]0.25 10*3/uL <0.46[facility] HospitalImmature granulocytes/100 WBC (Bld)0.2 % [facility] HospitalLeukocytes [#/volume] corrected for nucleated erythrocytes in Blood by Automated counon 54-61-1704RXD corrected for nucl RBC Auto (Bld) [#/Vol]Leukocytes [#/volume] corrected for nucleated erythrocytes in Blood by Automated coun3.70-11.00[facility] HospitalLymphocytes Auto (Bld) [#/Vol]on 17-29-0843Itqkhynxkhg (Bld) [#/Vol]Lymphocytes [#/volume] in Blood by Automated countLow1.00-4.00[facility] Lymphocytes/100 WBC Auto (Bld)on 71-15-8981Ltidkoeioef/100 WBC (Bld) Lymphocytes/100 leukocytes in Blood by Automated countSelect Medical Specialty Hospital - [facility], IncH Auto (RBC) [Entitic mass]on 16-15-1929TEN (RBC) [Entitic mass]MCH [Entitic mass] by Automated count26.0-34.0[facility] Memorial HospitalMCHC Auto (RBC) [Mass/Vol]on 62-86-3394UJMD (RBC) [Mass/Vol]MCHC [Mass/volume] by Automated count30.5-36.0[facility] HospitalMCV Auto (RBC) [Entitic vol]on 75-17-5937GNX (RBC) [Entitic vol]MCV [Entitic volume] by Automated count 80.0-100.0[facility] HospitalMonocytes Auto (Bld) [#/Vol]on 29-06-7688Svpxeydwc (Bld) [#/Vol]Automated blood monocyte count<0.87[facility] HospitalMonocytes/100 WBC Auto (Bld)on 60-68-2116Xtpllvqsi/100 WBC (Bld)Automated monocyte %[facility] Memorial HospitalNeutrophils Auto (Bld) [#/Vol]on 28-19-3078Pltpgsconye (Bld) [#/Vol]Neutrophils [#/volume] in Blood by Automated count1.45-7.50[facility] Neutrophils/100 WBC Auto (Bld)on 44-39-8715Bujfwpbpmeb/100 WBC (Bld)Automated neutrophil %[facility] HospitalNo Panel Informationon 08-04-2024 Estimated GFR (CKD-EPI)59 mL/min/1.73m???Low>=60[facility] HospitalComment on above:Estimated Glomerular Filtration Rate (eGFR) is calculated using the 2020 CKD-EPI creatinine equation. This equation utilizes serum creatinine, sex, and age as parameters. The creatinine assay has traceable calibration to isotope dilution-mass spectrometry. Refer to KDIGO guidelines for clinical interpretation. In patients with unstable renal function, e.g. those with acute kidney injury, the eGFRmay not accurately reflect actual GFR.Immature Granulocyte # (Auto)<0.03 k/uL<0.10[facility] Memorial HospitalNucleated RBC Auto (Bld) [#/Vol]on 37-69-1842Ckvminnde RBC (Bld) [#/Vol]Nucleated erythrocytes [#/volume] in Blood by Automated count<0.01[facility] Memorial HospitalNucleated erythrocytes [Presence] in Blood by Automated counton 72-80-1439Tmfmaemcy RBC Auto Ql (Bld)Nucleated erythrocytes [Presence] in Blood by Automated countWilson Memorial HospitalPlatelet mean volume Auto (Bld) [Entitic vol]on 43-95-9452Wbjhngiv mean volume (Bld) [Entitic vol]Platelet mean volume [Entitic volume] in Blood by Automated count9.0-12.7FMercy HealthPlatelets Auto (Bld) [#/Vol]on 49-95-6215Rctivmrbx (Bld) [#/Vol]Platelets [#/volume] in Blood by Automated -414OoesympjtWilson Memorial HospitalProtein [Mass/volume] in Serum or Plasmaon 06-15-4502Hurugre [Mass/Vol]Protein [Mass/volume] in Serum or Plasma6.3-8.0[facility] HospitalRBC Auto (Bld) [#/Vol]on 52-92-9292DMO (Bld) [#/Vol]Erythrocytes [#/volume] in Blood by Automated count4.20-6.00[facility] Serum or plasma anion gap determinationon 32-08-4838Rlxom gap [Moles/Vol]Serum or plasma anion gap determination8[facility] HospitalAmbulatory Visit Summaryon 10-04-2983Wjgczempwa Visit SummaryAmbulatory Visit Summary MAGNOLIA BOYKIN :1945 Visit Date:07/07/2024 Ambulatory Visit Instructions Your Diagnosis Prostate cancer BPH with obstruction/lower urinary tract symptoms Microscopic hematuria Your Care Team Attending Physician - Cristopher ZALDIVAR MD Primary Care Physician - CHRIS HELLER, This Is Your Medications List Contact prescribing physician if questions or concerns benazepril (benazepril 20 mg Tab) multivitamin with minerals (ICaps with Lutein and Zeaxan oral tablet) omeprazole (omeprazole 40 mg Cap-DR) Procedures Performed MRI-US fusion guided transperineal biopsy of prostate (06/22/2024), Colonoscopy, Esophagogastroduodenoscopy, Hernia repair, [place] tooth. Discharge Vitals Heart Rate (Peripheral) 60 Respiratory Rate 16 Blood Pressure 140/90 Height 184 cm Height 72 in Weight 85 kg Weight 187 lb BMI 25.11 What to do next You Need to Schedule the Following Appointments Follow Up with ZEN GARCES, Cristopher Kern, URL When: Comments: referral to Dr. Benz, f/u pending this Where: [address] [place] [address]- Someone Will Contact You Regarding These Appointments [facility] External Ambulatory Referral, Other (needs to be filled in), Other Referral, Referral to Dr. Benz for prostate cancer, 07/07/24 10:57:00 EDT, Prostate [...] 30 DAYS Contact prescribing physician if questions orconcerns Allergies iodine (Hives) Problems Ongoing - Any [...] such as a bone scan, CT scan, PETscan, or MRI. Stages of prostate cancer The stages of prostate cancer are as follows: ? Stage 1 (I). At this stage, the cancer is found in the prostate only. The cancer is not visible on imaging tests, and it is usually found by accident, such as during prostate surgery. ? Stage 2 (more content not included)...[facility]idence HospitalUrology Office/Clinic Noteon 82-29-8908Dkxujar Office/Clinic NoteUrology Office/Clinic Note Chief Complaint PO MRI fusion [...] and history for this patient from Dr. Zaldivar. I have reviewed and verified the staff [...] Personal hx of Hodgkin's lymphoma, followed with [facility] oncology. SONU 03/31/24: ~40g, no nodules Prostate MRI 05/18/24 [facility] [place] - Prostate volume 75mL. PI-RADS 4 in posterior lateral aspect of L peripheral zone. No gross extracapsular extension. No evidence of lymphadenopathy. MRI fusion bx 06/22/24 - T2a Chantel 6 (3+3), GG1 x3 cores. Highest percent [...] cons of each therapy today, and the [employer] prostate cancer book was provided. Explained possible SEs of radiation. Also discussed referral to radiation oncology. Advised pt he is a candidate for active surveillance given age, low grade cancer, and iPSA <10. Pt agrees to proceed with referral to rad onc. -Referral to Dr. Benz -Consider sending pathological tissue for decipher testing [...] was diagnosed but this is a low Chantel score low-grade low stage. Negative lymphadenopathy on [...] the plan. Follow-up With When Contact Information Cristopher ZALDIVAR MD, URL [address] [place] [id number]- Additional Instructions: referral to Dr. Benz, f/u pending this Patient Education Prostate Cancer IRagini, personally scribed for Dr. Zaldivar on 07/07/2024 11:03:24. . Documentation recorded by the brendaibRagini rogel acurately reflects the services(s) I performed anddecisions made by me. Authenticated by Dr. Zaldivar on 07/07/2024 11:05:01. Portions of this record may have been created with voice recognition artificial intelligence software, specifically [employer], [employer] and or [employer]. Substitutions may have occurred due to the (more content not included)...Providence HospitalComment on above:Result Comment: Electronically Signed By: Cristopher ZALDIVAR MD\.br\Date and Time Signed: 07/07/24 11:06 EDT\.br\Electronically Co-Signed By: Ragini Nugent\.br\Date and Time Co-Signed: 07/07/24 11:03 EDTPathology Request for Lab Corpon 06-22-2024 Pathology Request for Lab [facility] Physician [facility] HospitalComment on above:Order Comment: PATHOLOGY UROLOGY SPECIMENResult Comment: See report. Scanned copy available in EMR. PERFORMED BY: [facility] [address] [place] [address] PATHOLOGIST [employer]PLICATION DEVELOPER YULIYA OSORIO M.D.Performed By: #### PATH [facility] #### [place] [address] USAActivated partial thromboplastin time (aPTT) in platelet poor plasma by coagulation aOrdered By: Cristopher Zaldivar on 06-54-5751sLNH Coag (PPP) [Time]28.2 s25.1-36.5FMercy HealthComment on above:A hematocrit value greater than 55% may lead to inaccurate results in coagulation testing. Patientshaving hematocrit values >55% require a special collection tube for coagulation studies. Please contact the laboratory at [phone] for redraw instructions.Basophils Auto (Bld) [#/Vol]Ordered By: Cristopher Zaldivar on 29-23-2182Qbquwtyiv (Bld) [#/Vol]0.0 10*3/uL0.0-0.2FMercy HealthBasophils/100 WBC Auto (Bld)Ordered By: Cristopher Zaldivar on 06-09-2024 Basophils/100 WBC (Bld)0.6 %.[facility] HospitalCalcium [Mass/volume] in Serum or PlasmaOrdered By: Cristopher Zaldivar on 17-33-0617Qyoyaaf [Mass/Vol]9.1 mg/dL8.6-10.3FMercy HealthCarbon dioxide, total [Moles/volume] in Serum or PlasmaOrdered By: Cristopher Zaldivar on 24-40-4358TE3 [Moles/Vol]27.5 mmol/L21.0-31.0[facility] Memorial HospitalChloride [Moles/volume] in Serum or PlasmaOrdered By: Cristopher Zaldivar on 78-37-6191Fnhmgkre [Moles/Vol]105 mmol/O87-666KkuyjjouyWilson Memorial HospitalCreatinine [Mass/volume] in Serum or PlasmaOrdered By: Cristopher Zaldivar on 75-24-1677Vdftusikhy [Mass/Vol]1.25 mg/dL0.70-1.30Wilson Memorial HospitalEosinophils Auto (Bld) [#/Vol]Ordered By: Cristopher Zaldivar on 59-95-0380Xmkpscjqutk (Bld) [#/Vol]0.3 10*3/uL0.0-0.45[facility] Memorial HospitalEosinophils/100 WBC Auto (Bld) Ordered By: Cristopher Zaldivar on 21-44-7722Ksgegymzojp/100 WBC (Bld)5.3 %.[facility] Memorial HospitalErythrocyte distribution width Auto (RBC) [Ratio]Ordered By: Cristopher Zaldivar on 12-91-0742Yavgemcjjra distribution width (RBC) [Ratio]13.8 % 12.0-14.8[facility] Memorial HospitalGlucose [Mass/volume] in Serum or PlasmaOrdered By: Cristopher Zaldivar on 98-57-1701Wwzfykg [Mass/Vol]95 mg/bH13-170 [facility] HospitalComment on above:ADA recommended reference rangeRandom Glucose Reference Range is dependent on time and content of last meal. Glucose of more than 200 mg/dL in a nonstressed, ambulatory subject supports the diagnosisof Diabetes Mellitus.Hematocrit Auto (Bld) [Volume fraction]Ordered By: Cristopher Zaldivar on 36-79-5289Sqpevuuhxl (Bld) [Volume fraction]37.8 %Low38.8-50.0[facility] Memorial HospitalHemoglobin [Mass/volume] in BloodOrdered By: Cristopher Zaldivar on 93-04-9409Sffxszmgfi (Bld) [Mass/Vol]13.0 g/dL13.0-17.0[facility] Memorial HospitalLeukocytes [#/volume] corrected for nucleated erythrocytes in Blood by Automated coun Ordered By: Cristopher Zaldivar on 57-52-8316NOS corrected for nucl RBC Auto (Bld) [#/Vol]5.1 10*3/uL4.1-10.5FMercy HealthLymphocytes Auto (Bld) [#/Vol]Ordered By: Cristopher Zaldivar on 74-77-2432Rnfuxfukksf (Bld) [#/Vol]0.9 10*3/uLLow1.00-4.8[facility] Memorial HospitalLymphocytes/100 WBC Auto (Bld)Ordered By: Cristopher Zaldivar on 45-21-8130Fqtknuyjtgg/100 WBC (Bld)18.5 %. [facility], IncH Auto (RBC) [Entitic mass]Ordered By: Cristopher Zaldivar on 73-47-5530BJO (RBC) [Entitic mass]32.8 pg27.5-35.2FMercy HealthMCHC Auto (RBC) [Mass/Vol]Ordered By: Cristopher Zaldivar on 21-42-7937NZHV (RBC) [Mass/Vol]34.4 g/dL32.5-35.6FMercy HealthMCV Auto (RBC) [Entitic vol]Ordered By: Cristopher Zaldivar on 26-71-1637APJ (RBC) [Entitic vol]95.5 fL83.5-101Wilson [facility] HospitalMonocytes Auto (Bld) [#/Vol]Ordered By: Cristopher Zaldivar on 89-42-1589Upcttppiu (Bld) [#/Vol] 0.6 10*3/uL0.0-0.8[facility] HospitalMonocytes/100 WBC Auto (Bld) Ordered By: Cristopher Zaldivar on 06-62-9702Aooztpvaf/100 WBC (Bld)11.7 %.[facility] HospitalNeutrophils Auto (Bld) [#/Vol]Ordered By: Cristopher Zaldivar on 08-56-3622Yousedycpho (Bld) [#/Vol]3.2 10*3/uL1.8-7.7FMercy HealthNeutrophils/100 WBC Auto (Bld)Ordered By: Cristopher Zaldivar on 06-09-2024 Neutrophils/100 WBC (Bld)63.9 %.[facility] HospitalNo Panel InformationOrdered By: Cristopher Zaldivar on 61-21-7761Frtdbeopo GFR (CKD-EPI)59.678 mL/MinWilson Memorial HospitalPharmacy Creatinine Clearance (ChemN/A Wilson Memorial HospitalNucleated erythrocytes [Presence] in Blood by Automated countOrdered By: Cristopher Zaldivar on 65-66-2488Pewjsazqr RBC Auto Ql (Bld) 0.1 /100{WBC}0-0.5FMercy HealthPlatelet mean volume Auto (Bld) [Entitic vol]Ordered By: Cristopher Zaldivar on 32-81-8377Wtpftxfq mean volume (Bld) [Entitic vol]8.5 fL6.6-10.1FMercy HealthPlatelets Auto (Bld) [#/Vol]Ordered By: Cristopher Zaldivar on 80-80-9140Ocbueulsd (Bld) [#/Vol]188 10*3/oW663-725FcqsngrnuWilson Memorial HospitalPotassium [Moles/volume] in Serum or PlasmaOrdered By: Cristopher Zaldivar on 20-83-9980Mgjyiejvh [Moles/Vol]4.6 mmol/L 3.5-5.1FMercy HealthRBC Auto (Bld) [#/Vol]Ordered By: Cristopher Zaldivar on 86-33-1967WXS (Bld) [#/Vol]3.96 10*6/uL3.90-5.60[facility] Centererum or plasma anion gap determinationOrdered By: Cristopher Zaldivar on 53-11-3049Wxxqo gap [Moles/Vol]10.1 mmol/L6.0-15.0[facility] Centerodium [Moles/volume] in Serum or PlasmaOrdered By: Cristopher Zaldivar on 35-99-0944Jsurdf [Moles/Vol]138 mmol/H521-530UlruhtktuWilson Memorial HospitalUrea nitrogen [Mass/volume] in Serum or PlasmaOrdered By: Cristopher Zaldivar on 61-01-1561Ephf nitrogen [Mass/Vol]24 mg/dL7-25Wilson Memorial HospitalWBC Auto (Bld) [#/Vol]Ordered By: Cristopher Zaldivar on 07-39-4966JHD (Bld) [#/Vol]5.1 10*3/uL4.1-10.5FMercy HealthCreatinine (Bld) [Mass/Vol]Ordered By: Cristopher Zaldivar on 76-91-9033Scwpvnhlja [Mass/Vol]1.6 mg/dL High0.6-1.3FMercy HealthComment on above:ER/ESD physician is notified/shown all ISTAT results.Critical values may be confirmed by laboratory testing ifdeemed necessary by ER attending doctor.No Panel InformationOrdered By: Cristopher Zaldivar on 40-03-3516Ejkaimh Estimated GFR (eGFR)44.378Wilson Memorial HospitalAmbulatory Visit Summaryon 35-04-9002Cpujtljuzv Visit SummaryAmbulatory Visit Summary MAGNOLIA BOYKIN :1945 Visit Date:03/31/2024 Ambulatory Visit Instructions Your Diagnosis Elevated PSA BPH with obstruction/lower urinary tract symptoms Asymptomatic microscopic hematuria Tests Performed MRI Pelvis (Soft Tissue) w/ + w/o contrast -- Results Pending -- Please visit your patient portal for your results or contact your primary care physician. Your Care Team Attending Physician - Cristopher ZALDIVAR MD Primary Care Physician - BENJAMIN PEREZ DO Referring Physician - BENJAMIN PEREZ DO This Is Your Medications List Contact prescribing physician if questions or concerns benazepril (benazepril 20 mg Tab) multivitamin with minerals (ICaps with Lutein and Zeaxan oral tablet) omeprazole (omeprazole 40 mg Cap-DR) Procedures Performed Colonoscopy, Esophagogastroduodenoscopy, Hernia repair, [place] tooth. Discharge Vitals Temperature (Temporal Artery) 36.6 ?C Heart Rate (Peripheral) 66 Respiratory Rate 16 Blood Pressure 138/82 Height 184 cm Height 72 in Weight 85 kg Weight 187 lb BMI 25.11 What to do next You Need to Schedule the Following Appointments Follow Up with ZEN GARCES, PAXTON Figueroa When: Where: [address] [place], [place] [id number]- Medications What How Much When Instructions Unchanged [...] 30 DAYS Contact prescribing physician if questions orconcerns Allergies iodine (Hives) Problems Ongoing - Any [...] including vitamins, herbs, eye drops, creams, and acct-med-ysxnnls medicines. ? Any surgeries you have had. [...] You can take medicines to prevent this reactionor to treat it if you have allergy symptoms. ? The dye can cause damage to your kidneys. Drinking plenty of (more content not included)...NormalSouthwest General Health CenterUrology Office/Clinic Noteon [id number] Office/Clinic NoteUrology Office/Clinic Note Chief Complaint New patient elevated PSA HPI Staff New pt. Referral per Benjamin Perez due to elevated PSA. IPSS 19 PSA [...] male new pt referred by Dr. Benjamin Perez for elevated PSA and BPH. 1. Elevated [...] with prostate MRI. -Schedule prostate MRI @ [facility] We discussed risks of MRI fusion prostate [...] a fusion biopsy, as opposed to continued closemonitoring over time. They agree with the plan Portions of this record may have been created with voice recognition artificial intelligence software, specifically [employer], [employer] and or [employer]. Substitutions may have occurred due to the inherent limitations of voice recognition and artificial intellig (morecontent not included)...Providence HospitalComment on above:Result Comment: Electronically Signed By: Cristopher ZALDIVAR MD\.br\Date and Time Signed: 03/31/24 09:33 EDT\.br\Electronically Co-Signed By: Ragini Nugent\.br\Date and Time Co- Signed: 03/31/24 09:30 EDTPROF CHEM 8 (BAS METB)on 40-36-6120Hjbak gap [Moles/Vol]14.7 mmol/LNormalSumma Health Akron CampusComment on above:Performed By: #### BMP #### [facility] [address] [place] [address] Dr. Kirsty GarciaCalcium [Mass/Vol]9.0 mg/dLNormal8.5-10.1[facility] Comment on above:Performed By: #### BMP #### [facility] [address] [address] [address] Kisrty GarciaChloride [Moles/Vol]105 mmol/ZQfkcxu47-505WkmSumma Health Akron Campus Comment on above:Performed By: #### BMP #### [facility] [address] [address] [address] Kirsty GarciaCO2 [Moles/Vol]27.7 mmol/HRshntt84.0-32.0[facility] Comment on above:Performed By: #### BMP #### [facility] [address] [address] [address] Kirsty GarciaCreatinine [Mass/Vol]1.20 mg/dLNormal0.70-1.30The [facility] HospitalComment on above:Performed By: #### BMP #### [facility] [address] [address] [address] Lofton ChangEGFR-AF NAURUAN>60Normal>=60The [facility] HospitalComment on above:Performed By: #### BMP #### [facility] [address] [place] [address] Dr. Kirsty HernandezGFR-NON AF QLGXCITC82 mL/min/1.88g4Dztztbaxln low>=60The [facility] HospitalComment on above:Performed By: #### BMP #### [facility] [address] [place] [address] Dr. Kirsty GarciaGlucose [Mass/Vol]101 mg/cPEfrhlj44-744Yfh [facility] Comment on above:Performed By: #### BMP #### [facility] [address] [place] [address] Dr. Kirsty GarciaPotassium [Moles/Vol]4.4 mmol/LNormal3.5-5.1[facility] Comment on above:Performed By: #### BMP #### [facility] [address] [address] [address] Kirsty GarciaSodium [Moles/Vol]143 mmol/QZjofxa639-948Csp [facility] Comment on above:Performed By: #### BMP #### [facility] [address] [address] [address] Kirsty GarciaUrea nitrogen [Mass/Vol]21.0 mg/dLCritically high7.0-18.0The [facility] HospitalComment on above:Performed By: #### BMP #### [facility] [address] [place] [address] Dr. Kirsty GarciaUrea nitrogen/Creatinine [Mass ratio]17.5 mg/mgNoalThKindred HealthcareComment on above:Performed By: #### BMP #### [facility] [address] [address] [address] Kirsty Erickson RANDOM W/MICROSCOPICon 73-03-2272BOMZKIHQCRCO SEENNormalNONE SEENSumma Health Akron CampusComment on above:Performed By: #### UAMIC #### [facility] [address] [address] [address] Kirsty Williamirubin Ql (U)NegativeNormalNEGATIVEChildren'S Hospital For Rehabilitation on above:Performed By: #### UAMIC #### [facility] [address] [place] [address] Dr. Kirsty GarciaCASTNONE SEENNormalNONE SEENSumma Health Akron CampusComment on above:Performed By: #### UAMIC #### [facility] [address] [address] [address] Kirsty Chambersarity (U)CLEARNormalCLEARSumma Health Akron CampusComment on above: Performed By: #### UAMIC #### [facility] [address] [address] [address] Kirsty Alberto (U)LT. YELLOWNormalYSouthview Medical CenterComformerly [facility] on above:Performed By: #### UAMIC #### [facility] [address] [place] [address] Dr. Kirsty GarciaCrystals LM Nom (Urine sed)NONE SEENNormalNONE SEENSumma Health Akron CampusComformerly [facility] on above:Performed By: #### UAMIC #### [facility] [address] [place] [address] Dr. Lofton ChangEpithelial cells LM Ql (Urine sed)NONE SEENNormalNONE SEEN /RARE [facility] CampusComformerly [facility] on above:Performed By: #### UAMIC #### [facility] [address] [address] [address] Kirsty GarciaGlucose Ql (U)NegativeNormalNEGATIVESumma Health Akron CampusComment on above:Performed By: #### UAMIC #### [facility] [address] [address] [address] Kirsty GarciaHemoglobin Ql (U)NegativeNormalNEGATIVEChildren'S Hospital For Rehabilitation on above:Performed By: #### UAMIC #### [facility] [address] [address] [address] Kirsty GarciaKetones Ql (U)NegativeNormalNEGATIVEMemorial Health System Selby General Hospital HospitalComment on above:Performed By: #### UAMIC #### [facility] [address] [address] [address] Kirsty GarciaLEUKOCYTESNegativeNormalNEGATIVEThe [facility] HospitalComment on above:Performed By: #### UAMIC #### [facility] [address] [place] [address] Dr. Kirsty GarciaMUCOUSNONE SEENNormalNONE SEENThe [facility] HospitalComment on above:Performed By: #### UAMIC #### [facility] [address] [address] [address] Kirsty GarciaNitrite Ql (U)NegativeNormalNEGATIVESumma Health Akron CampusComment on above:Performed By: #### UAMIC #### [facility] [address] [place] [address] Dr. Kirsty GarciapH (U)6.5 [pH]Normal5-9The [facility] HospitalComment on above: Performed By: #### UAMIC #### [facility] [address] [place] [address] Dr. Kirsty GarciaPoiocCKO8-1Lvfbtf8-4Ytr [facility] HospitalComment on above:Performed By: #### UAMIC #### [facility] [address] [address] [address] Kirsty GarciaSPEC GRAVITY1.318Rlolle6.005-<=1.025The [facility] HospitalComment on above:Performed By: #### UAMIC #### [facility] [address] [place] [address] Dr. Kirsty GarciaUA PROTEINTRACENormalNEGATIVE/ TRACEThe [facility] HospitalComment on above:Performed By: #### UAMIC #### [facility] [address] [place] [address] Dr. Kirsty Grimesbilinogen Qn (U)0.2 {Karlie'U}/dLNormal0.2 - 1.0The [facility] HospitalComment on above:Performed By: #### UAMIC #### [facility] [address] [place] [address] Dr. Kirsty GarciaWBCNONCaleb SEENNormalNONE SEENThe [facility] HospitalComment on above: Performed By: #### UAMIC #### [facility] [address] [place] [address] Dr. Kirsty Brower T PROTEIN CREAT RATIOon 05-06-9321Izqjhfu (U) [Mass/Vol] 28.4 mg/dLCritically high<=12.0The [facility] HospitalComment on above:Performed By: #### URTPCR #### [facility] [address] [place] [address] Dr. Kirsty Crawley PROT CREAT RAT0.77NormalThe [facility] HospitalComment on above: Performed By: #### URTPCR #### [facility] [address] [place] [address] Dr. Kirsty Brower CREAT36.66 mg/dRPftpdp57.00-300.00The [facility] Comment on above:Performed By: #### URTPCR #### [facility] [address] [place] [address] Dr. Kirsty Gonzales KIDNEYS BLADDERon 37-82-4665QX KIDNEYS BLADDEREXAMINATION: US KIDNEYS BLADDER HISTORY: Chronic kidney disease [...] Electronically authenticated by: PHYLICIA AYOUB Date: 2022-12-18 09:[address] [place], [place] [address]COVID-19 Positive/NegativeOrdered By: Reuben Giron on 35-34-5054ZRSF-CoV-2 (COVID-19) N gene LYNDSAY+probe Ql (Resp)NegativeNegative Wilson Memorial HospitalComment on above:Testing for SARS-CoV-2 by RT- PCRThis test was developed and its performance characteristics determined by [employer] ([employer]) and validated at the [facility]. This test has not been FDA [...] unless the authorization is terminated or revoked sooner.CBC AUTO DIFFon 32-99-4654YKBQ #0.0 103/ul Normal0.0-0.1The [facility] HospitalComment on above:Performed By: #### CBC #### [facility] [address] [place] [address] Dr. Kirsty Leesophils/100 WBC (Bld)0.4 %Normal0.2-2.0[facility] Comment on above:Performed By: #### CBC #### [facility] [address] [place] [address] Dr. Kirsty Sotomayor #0.2 103/ulNormal0.0-0.7The [facility] HospitalComment on above: Performed By: #### CBC #### [facility] [address] [place] [address] Dr. Kirsty Hernandezosinophils/100 WBC (Bld)2.8 %Normal0.9-7.0The [facility] Comment on above:Performed By: #### CBC #### [facility] [address] [place] [address] Dr. Kirsty Hernandezrythrocyte distribution width (RBC) [Ratio]12.3 %Budrof90.0-15.0 The [facility] HospitalComment on above:Performed By: #### CBC #### [facility] [address] [place] [address] Dr. Kirsty GarciaHematocrit (Bld) [Volume fraction]42.5 %Yyfbel69.0-54.0The [facility] HospitalComment on above:Performed By: #### CBC #### [facility] [address] [place] [address] Dr. Kirsty GarciaHemoglobin (Bld) [Mass/Vol]14.1 g/hHFozlbj62.0-18.0The [facility] Health Centerment on above:Performed By: #### CBC #### [facility] [address] [place] [address] Dr. Kirsty Bergman #0.02 10e3/ulNormal0.00-0.03The [facility] HospitalComment on above:Performed By: #### CBC #### [facility] [address] [place] [address] Dr. Kirsty Bergman %0.3 %Normal0.0-0.5The [facility] HospitalComment on above: Performed By: #### CBC #### [facility] [address] [place] [address] Dr. Kirsty SmithH #1.4 103/ulNormal1.2-3.8The [facility] HospitalComment on above:Performed By: #### CBC #### [facility] [address] [address] [address] Kirsty Lafleurmphocytes/100 WBC (Bld)18.2 %Critically low20.5-60.0The [facility] HospitalComment on above:Performed By: #### CBC #### [facility] [address] [place] [address] Dr. Kirsty AshleyUAL DIFF REQNONormalThe [facility] HospitalComment on above: Performed By: #### CBC #### [facility] [address] [place] [address] Dr. Kirsty Carter (RBC) [Entitic mass]32.3 cvAjrzyd62.9-34.0The [facility] HospitalComment on above:Performed By: #### CBC #### [facility] [address] [place] [address] Dr. Kirsty Carter (RBC) [Mass/Vol]33.2 g/mLDvyucr72.9-35.2The [facility] HospitalComment on above:Performed By: #### CBC #### [facility] [address] [place] [address] Dr. Kirsty CarterV (RBC) [Entitic vol]97.5 fLCritically high80.0-94.0The [facility] HospitalComment on above:Performed By: #### CBC #### [facility] [address] [place] [address] Dr. Kirsty Spangler #0.9 103/ulCritically high0.3-0.8The [facility] Comment on above:Performed By: #### CBC #### [facility] [address] [place] [address] Dr. Kirsty Adamsocytes/100 WBC (Bld)11.6 %Normal1.7-12.0[facility] Comment on above:Performed By: #### CBC #### [facility] [address] [place] [address] Dr. Kirsty Guallpa #5.3 103/ulNormal1.4-6.5The [facility] HospitalComment on above:Performed By: #### CBC #### [facility] [address] [address] [address] Kirsty GarciaNeutrophils/100 WBC (Bld)66.7 %Jhgccd79.0-75.0The [facility] HospitalComformerly [facility] on above:Performed By: #### CBC #### [facility] [address] [place] [address] Dr. Kirsty GarciaPlatelet mean volume (Bld) [Entitic vol]10.0 fLNormal9.5-13.5The [facility] HospitalComment on above:Performed By: #### CBC #### [facility] [address] [place] [address] Dr. Kirsty GarciaPLT189 103/wzHpqiqa888-176Omy [facility] HospitalComment on above: Performed By: #### CBC #### [facility] [address] [place] [address] Dr. Kirsty GarciaRBC4.36 106/ulCritically low4.70-6.10The [facility] HospitalComment on above:Performed By: #### CBC #### [facility] [address] [place] [address] Dr. Kirsty GarciaWBC7.9 103/ulNormal4.0-11.0The [facility] HospitalComment on above: Performed By: #### CBC #### [facility] [address] [place] [address] Dr. Kirsty GarciaPROF CHEM 8 (BAS METB)on 66-88-1376Wqvdv gap [Moles/Vol]11.7 mmol/LNormalThe [facility] HospitalComment on above:Performed By: #### BMP #### [facility] [address] [place] [address] Dr. Kirsty GarciaCalcium [Mass/Vol]9.0 mg/dLNormal8.5-10.1The [facility] Comment on above:Performed By: #### BMP #### [facility] [address] [place] [address] Dr. Kirsty GarciaChloride [Moles/Vol]106 mmol/ZVlbgjy89-656Bjm [facility] Comment on above:Performed By: #### BMP #### [facility] [address] [address] [address] Kirsty GarciaCO2 [Moles/Vol]26.4 mmol/UTgsvfh17.0-32.0[facility] Comment on above:Performed By: #### BMP #### [facility] [address] [address] [address] Kirsty GarciaCreatinine [Mass/Vol]1.42 mg/dLCritically high0.70-1.30The [facility] HospitalComment on above:Performed By: #### BMP #### [facility] [address] [address] [address] Kirsty HernandezGFR-AF CLOOHOIE63 mL/min/1.88r8Ziewctxxjg low>=60The [facility] HospitalComment on above:Performed By: #### BMP #### [facility] [address] [place] [address] Dr. Kirsty HernandezGFR-NON AF AMGKTMNS43 mL/min/1.29j7Eqyeugzpiu low>=60The [facility] HospitalComment on above:Performed By: #### BMP #### [facility] [address] [address] [address] Kirsty GarciaGlucose [Mass/Vol]105 mg/eFYgxoyv27-941DkuSumma Health [facility]ron Campus Comment on above:Performed By: #### BMP #### [facility] [address] [address] [address] Kirsty GarciaPotassium [Moles/Vol]4.1 mmol/LNormal3.5-5.1[facility] Comment on above:Performed By: #### BMP #### [facility] [address] [address] [address] Kirsty GarciaSodium [Moles/Vol]140 mmol/LWfcerq998-406Gzv [facility] Comment on above:Performed By: #### BMP #### [facility] [address] [address] [address] Kirsty GarciaUrea nitrogen [Mass/Vol]27.0 mg/dLCritically high7.0-18.0The [facility] HospitalComment on above:Performed By: #### BMP #### [facility] [address] [address] [address] Kirsty GarciaUrea nitrogen/Creatinine [Mass ratio]19.0 mg/mgNormalThKindred HealthcareComment on above:Performed By: #### BMP #### [facility] [address] [place] [address] Dr. Kirsty CazaresC AUTO DIFFon 42-14-2381LKUG #0.0 103/ulNormal0.0-0.1The [facility] HospitalComment on above:Performed By: #### CBC #### [facility] [address] [place] [address] Dr. Kirsty GarciaBasophils/100 WBC (Bld)0.7 %Normal0.2-2.0[facility] Comment on above:Performed By: #### CBC #### [facility] [address] [place] [address] Dr. Kirsty Sotomayor #0.2 103/ulNormal0.0-0.7The [facility] on above: Performed By: #### CBC #### [facility] [address] [place] [address] Dr. Kirsty Hernandezosinophils/100 WBC (Bld)3.0 %Normal0.9-7.0[facility] Comment on above:Performed By: #### CBC #### [facility] [address] [place] [address] Dr. Kirsty Hernandezrythrocyte distribution width (RBC) [Ratio]12.4 %Utauag76.0-15.0 [facility] CampusComment on above:Performed By: #### CBC #### [facility] [address] [place] [address] Dr. Kirsty GarciaHematocrit (Bld) [Volume fraction]42.5 %Wwhnsv31.0-54.0The [facility] Health Centerment on above:Performed By: #### CBC #### [facility] [address] [place] [address] Dr. Kirsty GarciaHemoglobin (Bld) [Mass/Vol]14.0 g/fKIphaqn26.0-18.0The [facility] HospitalComment on above:Performed By: #### CBC #### [facility] [address] [place] [address] Dr. Kirsty Bergman #0.01 10e3/ulNormal0.00-0.03The [facility] HospitalComment on above:Performed By: #### CBC #### [facility] [address] [place] [address] Dr. Kirsty Bergman %0.2 %Normal0.0-0.5The [facility] HospitalComment on above: Performed By: #### CBC #### [facility] [address] [place] [address] Dr. Kirsty Richards #1.1 103/ulCritically low1.2-3.8The [facility] Comment on above:Performed By: #### CBC #### [facility] [address] [place] [address] Dr. Kirsty Smithhocytes/100 WBC (Bld)19.7 %Critically low20.5-60.0The [facility] HospitalComment on above:Performed By: #### CBC #### [facility] [address] [place] [address] Dr. Kirsty Ford DIFF REQNONormalThe [facility] HospitalComment on above: Performed By: #### CBC #### [facility] [address] [place] [address] Dr. Kirsty Carter (RBC) [Entitic mass]32.3 tbHdvcfu46.9-34.0The [facility] HospitalComment on above:Performed By: #### CBC #### [facility] [address] [place] [address] Dr. Kirsty Carter (RBC) [Mass/Vol]32.9 g/uOPhqfjv07.9-35.2The [facility] HospitalComment on above:Performed By: #### CBC #### [facility] [address] [place] [address] Dr. Yilan ChangMCV (RBC) [Entitic vol]97.9 fLCritically high80.0-94.0The [facility] HospitalComment on above:Performed By: #### CBC #### [facility] [address] [place] [address] Dr. Kirsty Spangler #0.5 103/ulNormal0.3-0.8The [facility] HospitalComment on above:Performed By: #### CBC #### [facility] [facility] [address] [place] [address] Dr. Kirsty Adamsocytes/100 WBC (Bld)9.5 %Normal1.7-12.0[facility] Comment on above:Performed By: #### CBC #### [facility] [address] [place] [address] Dr. Kirsty Guallpa #3.7 103/ulNormal1.4-6.5The [facility] HospitalComment on above:Performed By: #### CBC #### [facility] [address] [place] [address] Dr. Kirsty Monteutrophils/100 WBC (Bld)66.9 %Adwgpa51.0-75.0[facility] HospitalComment on above:Performed By: #### CBC #### [facility] [address] [place] [address] Dr. Kirsty Mclaughlinlet mean volume (Bld) [Entitic vol]10.0 fLNormal9.5-13.5The [facility] HospitalComment on above:Performed By: #### CBC #### [facility] [address] [place] [address] Dr. Kirsty GarciaPLT195 103/nzGeiopa544-674Mul [facility] HospitalComment on above: Performed By: #### CBC #### [facility] [address] [place] [address] Dr. Kirsty GarciaRBC4.34 106/ulCritically low4.70-6.10The [facility] HospitalComment on above:Performed By: #### CBC #### [facility] [address] [place] [address] Dr. Kirsty GarciaWBC5.6 103/ulNormal4.0-11.0The [facility] HospitalComment on above: Performed By: #### CBC #### [facility] [address] [address] [address] Kirsty GarciaPROF CHEM 8 (BAS METB)on 98-04-6012Ovqfg gap [Moles/Vol]10.8 mmol/LNormalThe [facility] HospitalComment on above:Performed By: #### BMP #### [facility] [address] [address] [address] Kirsty GarciaCalcium [Mass/Vol]8.9 mg/dLNormal8.5-10.1[facility] Comment on above:Performed By: #### BMP #### [facility] [address] [place] [address] Dr. Kirsty GarciaChloride [Moles/Vol]104 mmol/BCmgrzc01-186Pfi [facility] Comment on above:Performed By: #### BMP #### [facility] [address] [place] [address] Dr. Kirsty GarciaCO2 [Moles/Vol]29.3 mmol/INvpifb85.0-32.0[facility] Comment on above:Performed By: #### BMP #### [facility] [address] [place] [address] Dr. Kirsty GarciaCreatinine [Mass/Vol]1.42 mg/dLCritically high0.70-1.30The [facility] HospitalComment on above:Performed By: #### BMP #### [facility] [address] [place] [address] Dr. Lofton ChangEGFR-AF RIFYRCGX85 mL/min/1.72r9Cfjzwdstns low>=60The [facility] HospitalComment on above:Performed By: #### BMP #### [facility] [address] [address] [address] Lofton ChangEGFR-NON AF KCKTMVJQ84 mL/min/1.80s7Cetncstlqd low>=60The [facility] HospitalComment on above:Performed By: #### BMP #### [facility] [address] [address] [address] Kirsty GarciaGlucose [Mass/Vol]122 mg/dLCritically fvja81-232Czs [facility] HospitalComment on above:Performed By: #### BMP #### [facility] [address] [address] [address] Kirsty GarciaPotassium [Moles/Vol]4.1 mmol/LNormal3.5-5.1[facility] Comment on above:Performed By: #### BMP #### [facility] [address] [address] [address] Kirsty GarciaSodium [Moles/Vol]140 mmol/JMhdjeb877-200Vqe [facility] Comment on above:Performed By: #### BMP #### [facility] [address] [address] [address] Kirsty GarciaUrea nitrogen [Mass/Vol]23.0 mg/dLCritically high7.0-18.0The [facility] HospitalComment on above:Performed By: #### BMP #### [facility] [address] [address] [address] Kirsty Roldan nitrogen/Creatinine [Mass ratio]16.2 mg/mgNormalThe [facility] HospitalComment on above:Performed By: #### BMP #### [facility] [address] [address] [address] Kirsty Garcia Vital Signs Date TimeVital SignValuePerforming NpcsrbgxcQnbcutfy03-17-0584 10:37-0400Body igoyge551.88 cmBenjamin Ball DO Work Phone: [facility]10-30-2025 10:37-0400 Body mass index (BMI) [Ratio]25.9 kg/f8Xlqtjuby Ball DO Work Phone: [facility]10-30-2025 10:37-0400 Body oiduipoafya53.9 [degF] Ball DO Work Phone: [facility]10-30-2025 10:37-0400 Body fxgync50.63 kgBenjamin Ball DO Work Phone: 1(419)[address] [place], [place] 3706710-30-2025 10:37-0400 Diastolic blood zzusfctd19 mm[Hg] Ball DO Work Phone: [phone])[address] [place], [place] 3706710-30-2025 10:37-0400 Heart rate64 /minBenjamin Ball DO Work Phone: 1(419)[address] [place], [place] 3706710-30-2025 10:37-0400 Respiratory rate18 /minBenjamin Ball DO Work Phone: 1(419)[address] [place], [place] 3706710-30-2025 10:37-0400 SaO2% (BldA) [Mass fraction]97 % Ball DO Work Phone: [phone])[address] [place], [place] 3706710-30-2025 10:37-0400 Systolic blood rmvbwduv421 mm[Hg] Ball DO Work Phone: 1(419)[address] [place], [place] 3706710-02-2025 08:31-0400 Body poliyu936.88 cmBenjamin Ball DO Work Phone: [phone])[address] [place], [place] 3706710-02-2025 08:31-0400 Body mass index (BMI) [Ratio]25.1 kg/e5Tbhvphww Ball DO Work Phone: 1(580)[address] [place], [place] 3706710-02-2025 08:31-0400 Body gpcnei37.08 kgBenjamin Ball DO Work Phone: [phone])[address] [place], [place] 3706710-02-2025 08:31-0400 Diastolic blood mm[Hg] Ball DO Work Phone: 1(419)[address] [place], [place] 3706710-02-2025 08:31-0400 Heart rate60 /minBenjamin Ball DO Work Phone: [phone])[address] [place], [place] 3706710-02-2025 08:31-0400 Respiratory rate12 /minBenjamin Ball DO Work Phone: [phone])[address] [place], [place] 3706710-02-2025 08:31-0400 Systolic blood etbtqsdu659 mm[Hg] Ball DO Work Phone: [facility]09-30-2025 08:22-0400 Body .9 cmBong Reddy MD Work Phone: [phone] HospitalNbkzmrrafp90-99-3647 08:22-0400Body mass index (BMI) [Ratio]25.63 kg/z5TyuwruBong Reddy MD Work Phone: [phone] HospitalFzzcbuymed74-48-6933 08:22-0400Body .73 kgBong Reddy MD Work Phone: [phone] HospitalUwltvcfemv99-10-6322 08:22-0400Diastolic blood mfgkewbn33 mm[Hg]Bong Reddy MD Work Phone: 1([phone])[phone] HospitalHdaumdzwbj56-23-2962 08:22-0400Heart rate58 /min Bong Reddy MD Work Phone: [phone] HospitalGqubuaqcdq33-56-7693 08:22-0400Systolic blood qbjjaqhn044 mm[Hg]Bong Reddy MD Work Phone: [phone] HospitalWgwrkmehto25-18-9897 11:17-0400Body mass index (BMI) [Ratio]25.17 kg/m2EVIN Benz MD Work Phone: [facility]06-17-2025 11:17-0400Body temperature 96.01 [degF]EVIN Benz MD Work Phone: [facility]06-17-2025 11:17-0400Body vssynu13.2 kgEVIN Benz MD Work Phone: [facility]06-17-2025 11:17-0400Diastolic blood vfiuxxeo24 mm[Hg]EVIN Benz MD Work Phone: [facility]06-17-2025 11:17-0400Heart rate63 /min EVIN Benz MD Work Phone: [facility]06-17-2025 11:17-0400Respiratory rate 18 /GenevieveEVIN Benz MD Work Phone: 1([phone]) [phone] [address]17-2025 11:17-8653CvJ2% (BldA) [Mass fraction]97 %NA Rene GARCES Work Phone: [facility]06-17-2025 11:17-0400Systolic blood zhyqbnvi554 mm[Hg]NA Rene GARCES Work Phone: [facility]03-31-2025 09:03-0400Body cjngdy558.88 cmBenjamin Ball DO Work Phone: 1(001)820-[address] [place], [place] 0884003-31-2025 09:03-0400 Body mass index (BMI) [Ratio]25.5 kg/z0Padvvkwy Ball DO Work Phone: 1(032)[address] [place], [place] 3706703-31-2025 09:03-0400 Body ecxlaz22.44 kgBenjamin Ball DO Work Phone: 1(500)[address] [place], [place] 3706703-31-2025 09:03-0400 Diastolic blood ozvwdpwt15 mm[Hg] Ball DO Work Phone: 1(452)[address]03-31-2025 09:03-0400 Heart rate64 /minBenjamin Ball DO Work Phone: 1(568)[address]03-31-2025 09:03-0400 Respiratory rate12 /minBenjamin Ball DO Work Phone: 1(472)[address] [place], [place] 3706703-31-2025 09:03-0400 Systolic blood msfzwfda804 mm[Hg] Ball DO Work Phone: 1(567)333-[address] [place], [place] 0884001-07-2025 11:25-0500 Diastolic blood lcepvgae45 mm[Hg] Ball DO Work Phone: 1(312)351-[address] [place], [place] 0884001-07-2025 11:25-0500 Heart rate61 /minBenjamin Ball DO Work Phone: 1(127)417-[address] [place], [place] 0884001-07-2025 11:25-0500 Respiratory rate16 /minBenjamin Ball DO Work Phone: 1(870)896-[address] [place], [place] 0884001-07-2025 11:25-0500 SaO2% (BldA) [Mass fraction]97 % Ball DO Work Phone: [facility]01-07-2025 11:25-0500 Systolic blood tahfhoux065 mm[Hg] Ball DO Work Phone: [facility]01-07-2025 10:00-0500 Body .88 cmBenjamin Ball DO Work Phone: [facility]01-07-2025 10:00-0500 Body qhdnke52.72 kgBenjamin Ball DO Work Phone: [facility]12-19-2024 10:51-0500 Body mass index (BMI) [Ratio]25.74 kg/m2EVIN Benz MD Work Phone: [facility]12-19-2024 10:51-0500Body temperature 97.11 [degF]EVIN Benz MD Work Phone: [facility]12-19-2024 10:51-0500Body mbmibz56.1 kgEVIN Benz MD Work Phone: [facility]12-19-2024 10:51-0500Diastolic blood cjxulhli16 mm[Hg]EVIN Benz MD Work Phone: [facility] HospitalComment on above:repeat 157/96 09-10-2024 10:51-0500Heart rate66 /Genevieve Benz MD Work Phone: [facility]12-19-2024 10:51-0500Respiratory rate 16 /Genevieve Benz MD Work Phone: [facility]12-19-2024 10:51-0779SuZ8% (BldA) [Mass fraction]97 %EVIN Benz MD Work Phone: [facility]12-19-2024 10:51-0500Systolic blood mm[Hg]EVIN Benz MD Work Phone: [facility] HospitalComment on above:repeat 157/96 2024 13:01-0500Body mass index (BMI) [Ratio]25.35 kg/m2EVIN Benz MD Work Phone: [facility]12-05-2024 13:01-0500Body temperature 96.69 [degF]EVIN Benz MD Work Phone: [facility]12-05-2024 13:01-0500Body quojla90.8 kgEVIN Benz MD Work Phone: [facility]12-05-2024 13:01-0500Diastolic blood rlffrwxi59 mm[Hg]EVIN Benz MD Work Phone: [facility]12-05-2024 13:01-0500Heart rate61 /min EVIN Benz MD Work Phone: [facility]12-05-2024 13:01-0500Respiratory rate 18 /GenevieveEVIN Benz MD Work Phone: [facility]12-05-2024 13:01-9178LeO2% (BldA) [Mass fraction]99 %EVIN Benz MD Work Phone: [facility]12-05-2024 13:01-0500Systolic blood fijustgx796 mm[Hg]EVIN Benz MD Work Phone: [facility]11-12-2024 08:46-0500Body mass index (BMI) [Ratio]25.2 kg/m2EVIN Benz MD Work Phone: [facility]11-12-2024 08:46-0500Body temperature 97.59 [degF]EVIN Benz MD Work Phone: [facility]11-12-2024 08:46-0500Body tdiwew86.3 kgEVIN Benz MD Work Phone: [facility]11-12-2024 08:46-0500Heart rate69 /min EVIN Benz MD Work Phone: [facility]11-12-2024 08:46-0500Respiratory rate 16 /GenevieveEVIN Benz MD Work Phone: [facility]11-12-2024 08:46-3145JlH8% (BldA) [Mass fraction]98 %NA Rene GARCES Work Phone: [facility]10-15-2024 10:22-0400Blood Pressure LocationCristopher ZALDIVAR [facility] [place] 013090-15-2024 10:22-0400Diastolic blood mxuriyyy46 mm[Hg]Cristopher ZALDIVAR [facility] [place] 013090-15-2024 10:22-0400Heart rate60 /minCristopher ZALDIVAR [facility] [place] 013090-15-2024 10:22-0400Respiratory rate16 /minCristopher ZALDIVAR [facility] [place] 013090-15-2024 10:22-0400Systolic blood hvuvgasp456 mm[Hg]Cristopher ZALDIVAR [facility]09-30-2024 17:05-0400Diastolic blood vghtpldo90 mm[Hg]DO Ball Work Phone: [facility]09-30-2024 17:05-0400 Heart rate63 /minDO Ball Work Phone: [facility]09-30-2024 17:05-0400 Respiratory rate20 /minDO Ball Work Phone: [facility]09-30-2024 17:05-0400 SaO2% (BldA) [Mass fraction]99 %DO Ball Work Phone: [facility]09-30-2024 17:05-0400 Systolic blood imvjskgf691 mm[Hg]DO Ball Work Phone: 1(893)[address]09-30-2024 16:20-0400 Body xwliebpevie47 [degF]DO Ball Work Phone: 1(075)[address] [place], [place] 3706709-30-2024 16:20-0400 Inhaled oxygen flow rate6 L/minDO Ball Work Phone: 1(556)[address] [place], [place] 3706709-30-2024 14:50-0400 Body uqtggo918.88 cmDO [employer] Work Phone: 1(760)[address] [place], [place] 3706709-30-2024 14:50-0400 Body uowluz84 kgDO [employer] Work Phone: 1(500)[address] [place], [place] 3706709-30-2024 08:58-0400 Body zemkgw203.88 cmDO Ball Work Phone: 1(055)[address] [place], [place] 3706709-30-2024 08:58-0400 Body mass index (BMI) [Ratio]25 kg/m2DO [employer] Work Phone: 1(021)[address] [place], [place] 3706709-30-2024 08:58-0400 Body yyvakz58.63 kgDO [employer] Work Phone: 1(222)[address] [place], [place] 3706709-30-2024 08:58-0400 Diastolic blood jknbyjsv31 mm[Hg]DO Ball Work Phone: 1(051)[address] [place], [place] 3706709-30-2024 08:58-0400 Heart rate60 /minDO Ball Work Phone: 1(736)784-[address] [place], [place] 0884009-30-2024 08:58-0400 Respiratory rate12 /minDO Ball Work Phone: 1(543)[facility] [place], [place] [address]884009-30-2024 08:58-0400 Systolic blood rxunwmic019 mm[Hg]DO Ball Work Phone: 1(444)[address]07-09-2024 09:00-0400 Blood Pressure LocationGregory [employer] [facility]07-09-2024 09:00-0400Body bwnyspqgbpn04.88 [degF]Cristopher ZALDIVAR [facility]07-09-2024 09:00-0400Diastolic blood cusapbbx11 mm[Hg]Cristopher ZALDIVAR [facility]07-09-2024 09:00-0400Heart rate66 /minCristopher ZALDIVAR [facility]07-09-2024 09:00-0400Respiratory rate16 /minCristopher ZALDIVAR [facility]07-09-2024 09:00-0400Systolic blood iovdgzug865 mm[Hg]Cristopher ZALDIVAR [facility]03-28-2024 14:20-0400Body .88 cm[facility]03-28-2024 14:20-0400Body mass index (BMI) [Ratio]25.7 kg/b1UnbiuljwhWilson [facility] Hospital03-28-2024 14:20-0400Body .89 kgWilson [facility]03-28-2024 14:20-0400Diastolic blood bcovlueb97 mm[Hg] [facility]03-28-2024 14:20-0400Heart rate67 /[facility]03-28-2024 14:20-0400Respiratory rate12 /[facility]03-28-2024 14:20-0400Systolic blood egimncxx182 mm[Hg] [facility]08-21-2023 14:30-0400Body osbamp788.88 cm Benjamin Perez Other [employer] Other 08-21-2023 14:30-0400Body mass index (BMI) [Ratio] 25.85 kg/l0Irlidjdk Ball Other [employer] Other 08-21-2023 14:30-0400Body ytwhzx18.46 kgBenjamin Ball Other [employer] Other 08-21-2023 14:30-0400Diastolic blood oyajutse27 mm[Hg] Ball Other [employer] Other 08-21-2023 14:30-0400Respiratory rate12 /minBenjamin Ball Other [employer] Other 08-21-2023 14:30-0400Systolic blood cwzbzexf978 mm[Hg] Ball Other [employer] Other 04-04-2023 10:00-0400Body kbgafw413.88 cmBenjamin Ball Other [employer] Other 04-04-2023 10:00-0400Body mass index (BMI) [Ratio] 26.01 kg/l7Vmkrpmhi Ball Other [employer] Other 04-04-2023 10:00-0400Body rmayhn97 kgBenjamin Ball Other [employer] Other 04-04-2023 10:00-0400Diastolic blood mm[Hg] Ball Other [employer] Other 04-04-2023 10:00-0400Respiratory rate12 /minBenjamin Ball Other [employer] Other 04-04-2023 10:00-0400Systolic blood ivnzbwwq759 mm[Hg] Ball Other [facility] Other [id number] 13:56-0500Diastolic blood vjruwsjz70 mm[Hg] DO Ball Work Phone: [facility]11-08-2022 13:56-0500 Heart rate54 /minDO Ball Work Phone: [facility]11-08-2022 13:56-0500 Respiratory rate16 /minDO Ball Work Phone: [facility]11-08-2022 13:56-0500 SaO2% (BldA) [Mass fraction]99 %DO Ball Work Phone: [facility]11-08-2022 13:56-0500 Systolic blood khvbwqii164 mm[Hg]DO Ball Work Phone: [facility]11-08-2022 11:48-0500 Body .88 cmDO Benjamin Perez Work Phone: [facility]11-08-2022 11:48-0500 Body yxndab02.82 kgDO Benjamin Perez Work Phone: [facility]08-04-2021 07:54-0400 Diastolic blood uzjqkail53 mm[Hg]MD Krzysztof Hutchison Work Phone: [facility]08-04-2021 07:54-0400 Heart rate60 /minMD Krzysztof Hutchison Work Phone: [facility]08-04-2021 07:54-0400 Respiratory rate16 /minMD Krzysztof Hutchison Work Phone: [facility]08-04-2021 07:54-0400 SaO2% (BldA) [Mass fraction]98 %MD Krzysztof Hutchison Work Phone: [facility]08-04-2021 07:54-0400 Systolic blood uwxiamzj114 mm[Hg]MD Krzysztof Hutchison Work Phone: [facility]08-04-2021 06:230400 Body asdizz425.88 cmUT Krzysztof Hutchison Work Phone: [facility]08-04-2021 06:230400 Body mass index (BMI) [Ratio]26.8 kg/m2UT Krzysztof Hutchison Work Phone: [facility]08-04-2021 06:230400 Body ontakw57.81 kgUT Krzysztof Hutchison Work Phone: [facility] Encounters Encounter DateEncounter TypeCare ProviderFacilityStart: 07-22-2025 End: 98-26-3162ibyakluxspSrhiaggo Ball DO Work Phone: [facility] ClinicStart: 07-22-2025 End: 28-74-4608Kdnbbys encounter procedureBenjamin Ball DO-[facility] Work Phone: Start: 06-24-2025 End: 69-58-1785sbjspngqgdTlbssglh Ball DO Work Phone: [facility] Work Phone: Start: 06-24-2025 End: 47-30-5230Bkdbjdi encounter procedureBenjamin Ball DO-[facility] Work Phone: Start: 06-22-2025 End: 35-44-4165Kqigka flowsJeanette Reddy MD Work Phone: [facility] OtolaryngologyStart: 06-22-2025 End: 80-65-4323Mcntxk Hilda Reddy MD Work Phone: [facility] OtolaryngologyStart: 06-22-2025 End: 67-76-7382Sahxua outpatient visit 15 minutesBong Reddy MD Work Phone: [facility] OtolaryngologyComment on above:Thyroid nodule (Primary Dx)Start: 06-22-2025 End: 76-85-6264cmimnackxwBUPLAA Darinel Cerda AvailableStart: 06-07-2025 End: 76-61-6207Sdgnfjp encounter procedureBONG REDDY MD-[facility] Work Phone: Start: 06-07-2025 End: 57-29-3658hmkavgnkmrJtmhyciz Ball DO Work Phone: [facility] Work Phone: Start: 03-09-2025 End: 80-85-9218Gjshwj outpatient visit 15 minutesG Alexei Benz MD Work Phone: Radiation OncologyComment on above:Lung nodule, multiple (Primary Dx); Prostate cancer (HCC)Start: 03-09-2025 End: 97-69-2690fztrnazwobU ALEXEI ALVAREZacility:[facility] Start: 03-04-2025 End: 26-87-0105Rzdnolnflw hospital visit by physicianArrival Time Radiology Work Phone: Radiology Pet CTComment on above:Prostate cancer (HCC) [C61]Start: 03-04-2025 End: 90-66-6422tvrmuewrrrYVVWTZIW E BALLFacility:[facility] Hospitaltart: 12-21-2024 End: 67-28-5430dhaujiadogSeqcxmrb Ball DO Work Phone: [facility] Work Phone: Start: 12-21-2024 End: 50-28-0650Uylprnz encounter procedureBenjamin Ball DO Work Phone: [facility] Work Phone: Start: 12-15-2024 End: 20-62-5863zvwabvpinsAQAFTZ Darinel Cerda AvailableStart: 11-26-2024 End: 04-19-1451Apxvfjacv encounterG Alexei Benz MD Work Phone: Radiation OncologyComment on above:ResultsStart: 09-29-2024 End: 70-81-3262Qhdbctt encounter procedureBensean Perez DO Work Phone: [facility] Work Phone: Start: 09-29-2024 End: 11-86-8472ndnejactknAoxrtmav Ball DO Work Phone: [facility] Work Phone: Start: 09-10-2024 End: 06-53-0201fpxwqwdqrrD PHILLIP ENGELERFacility:[facility] Start: 09-10-2024 End: 63-90-4111Utedkg outpatient visit 15 minutesG Alexei Benz MD Work Phone: Radiation OncologyComment on above:Thyroid nodule (Primary Dx); Prostate cancer (HCC)Start: 09-02-2024 End: 97-91-9181Enppzep encounter procedureBeevelin Perez DO Work Phone: [facility] Work Phone: Start: 09-02-2024 End: 38-44-4933brxhuyybijL. Alexei Alvarezacility:[facility]ertart: 2024 End: 59-56-7683ghspkwmhxwH PHILLIP ENGELERFacility:[facility] Start: 2024 End: 25-91-4096Smdjtkn encounter procedureG Alexei Benz MD Work Phone: Radiation OncologyComment on above:Prostate cancer (HCC) (Primary Dx); Thyroid noduleStart: 08-26-2024 End: 66-99-2842Usvwsdpef encounterG Alexei Benz MD Work Phone: Radiation OncologyComment on above:Results; Future Appointment (Decipher)Start: 08-17-2024 End: 32-75-2458bhfpgwyjhjUShannan ALVAREZacility: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 Dx)Start: 07-07-2024 End: 20-61-2330egfxmvqzveDubizsi P COOKFacility:EU yStart: 07-07-2024 End: 16-16-0595Lfwxkxw encounter procedureCristopher ZALDIVAR [facility] Yaima Start: 06-22-2024 End: 60-39-6863Tlndssivd to same day surgery centerDO Benjamin Perez Work Phone: [facility]Start: 06-22-2024 End: 14-32-9986jusdzmhrxiLT Benjamin Perez Work Phone: [facility] Work Phone: Start: 06-22-2024 End: 43-64-5697thptxhphbzVZ Benjamin Perez Work Phone: [facility] Work Phone: Start: 06-22-2024 End: 57-18-6472Xuivzvf encounter procedureDO Benjamin Perez Work Phone: [facility] Work Phone: Start: 06-22-2024 End: 47-70-7564lxdazhchlsTzmjlua P COOKFacility:[id number]: 06-19-2024 Patient encounter procedureDO Benjamin Perez Work Phone: [facility] Centertart: 06-09-2024 End: 06-29-8492pbvildfqctWL Benjamin Perez Work Phone: [facility] Work Phone: Start: 06-09-2024 End: 03-43-6560Qzihpzb encounter procedureDO Benjamin Perez Work Phone: [facility]-Pre-Surgical Testing Work Phone: Start: 05-18-2024 End: 00-07-9680avcbuemksfXN Benjamin Perez Work Phone: [facility] Work Phone: Start: 05-18-2024 End: 04-42-0065Jloqcpa encounter procedureDO Benjamin Perez Work Phone: [facility] Work Phone: Start: 03-31-2024 End: 03-28-3271tjdsgkwyqyAqkdxrn P COOKFacility:[place]Start: 03-31-2024 End: 18-37-3672Daamqkh encounter procedureGregory P COOK [facility] Start: 49-42-8005fzoagazxtuRneudjq COOKFacility:EU Jennifertart: 12-19-2023 End: 42-94-2561lbxdsnqakcVuqzamzwoProtestant Hospital Work Phone: Start: 12-19-2023 End: 33-24-5966Cfycxsq encounter procedureFirelands Physician [facility] Work Phone: Start: 09-26-2023 End: 20-39-0770dwnlkxqgspYalyvgrb Ball Other [employer] Other Start: 30-76-2016Ehqmdmxax encounterBenjamin BallFPG [facility] ClinicStart: 09-18-2023 End: 82-97-1025sxmepbuyvyCyqsfjys Ball Other [employer] Other Start: 55-73-7101Ywtbjyggx encounterBenjamin BallFPG [facility] ClinicStart: 07-26-2023 End: 53-11-8356mpzivialoyWzrdkjqk Ball Other [employer] Other Start: 83-27-7580Btejjihfg encounterBenjamin BallFPG Ball Medical ClinicStart: 07-17-2023 End: 36-78-5775sagjzuufkgAvbagchd Ball Other noLinkoTec Other Start: 45-21-0264Cwsyrocbc encounterBenjamin BallFPG Ball Medical ClinicStart: 06-20-2023 End: 30-04-4691oqmrodwteyBvxhrwrx Ball Other noDestineer i-nexus Other Start: 02-70-7049Iyrsahhvr encounterBenjamin BallFPG Ball Medical ClinicStart: 05-28-2023 End: 29-02-1049mhwrondoxwJzvjzvb Ditty Other noDestineer i-nexus Other Start: 91-73-1381Tireqzjua encounterCameron DittyFPG GastroenterologyStart: 05-13-2023 End: 59-63-0715xxhcbzqtalJlyypbdz Ball Other [employer] Other Start: 26-42-6199Iucagf outpatient visit 15 minutes [facility] ClinicStart: 12-25-2022 End: 95-78-0399gqetxikmyaUhwmqwsc Ball Other [employer] Other Start: 72-78-2454Lyxthe outpatient visit 15 minutes [facility] ClinicStart: 12-18-2022 End: 79-19-2401aatjukulxdZE BENJAMIN PEREZFacility:D9Iwlkp: 07-31-2022 End: 89-42-9924Gjthordsb to same day surgery centerDO Benjamin Perez Work Phone: [facility]-Digestive HealthStart: 07-31-2022 End: 00-81-1484emorrocwbbEO Benjamin Ball Work Phone: [facility] Work Phone: Start: 07-27-2022 End: 11-07-1465kejxxsklvkBB Benjamin Perez Work Phone: [facility] Work Phone: Start: 07-27-2022 End: 97-41-5605Oprlowd encounter procedureDO Benjamin Perez Work Phone: [facility]-Pre-Surgical Testing Start: 07-14-2022 End: 54-31-7994ppttsszymyCO BENJAMIN PEREZFacility:C9Uttpd: 06-19-2022 End: 30-06-9065mgbfdwfzcbWJ BNEJAMIN PEREZFacility:J9Lffzw: 04-26-2021 End: 12-60-3814Hwgickjgy to same day surgery centerMD Krzysztof Hutchison Work Phone: [facility]-Digestive Health Procedures DateProcedureProcedure DetailPerforming ClinicianStart: 11-28-5335QU scan of thyroidBenjamin Perez DO Work Phone: Start: 11-01-6084Js thorax w/o contrast materialG Alexei Benz MD Work Phone: Start: 49-87-2103ZrtylouakwXlqtnvhq Ball DO Work Phone: Start: 89-03-4574QN scan of thyroidBensean Perez DO Work Phone: Start: 74-87-9011Qyos bld gluc mntr dev cleared fda spec home useCcf ProviderStart: 52-90-8344Nadsi count complete auto&auto difrntl wbcG Alexei Benz MD Work Phone: Start: 76-05-0204BP (TRUS) Prostate Biopsy w/Ultrasound (Not Applicable)DO Benjamin Perez Work Phone: Start: 07-92-5718FTD-US fusion guided transperineal biopsy of prostateCristopher ZALDIVAR Start: 85-92-4661Bkofa chest X-rayDO Benjamin Perez Work Phone: Start: 80-99-7442NW prostate wo/w conDO Benjamin Perez Work Phone: Start: 64-89-3611YccqjnrwypuppcpbqupuqixplgFN Benjamin Perez Work Phone: Start: 26-31-0041PLA screeningDR BENJAMIN PEREZComment on above:Performed By: #### [facility]ASC #### [facility] [address] [place] [address] Dr. Kirsty GarciaStart: 86-16-1021RueyspnogxvwjwbvphayyntsqjDK Martin Beerman Work Phone: ColonoscopyCristopher ZALDIVAR EsophagogastroduodenoscopyCristopher ZALDIVAR Hernia repairCristopher ZALDIVAR Structure of wisdom tooth (body structure)Cristopher ZALDIVAR Plan of Treatment DateCare ActivityDetailAuthorStart: 44-04-8025Jykpuprq ScreeningDiabetes ScreeningCleveland ClinicStart: 28-01-9463Mtmis microalbumin profileDTaP,Tdap,Td Vaccine (2 - Td or Tdap)[facility]art: 09-14-2025 End: 40-72-6810Lkjujyy encounter zlmydvnzg31/23/2025 10:45 AM EST Office Visit Radiation Oncology [address] [place] [address] Elmer Benz MD [address] [place] [address] [place] [address] follow up from CTRadiation OncologyComment on above:follow up from CTStart: 09-09-2025 End: 01-57-5342Mgyypet encounter procedureAllen Parish Hospital LaboratoryComment on above:labsCT ChestStart: 09-08-2025 End: 70-27-7642ET Chest WO contrastCT CHEST WO IVCON Radiology Routine Lung nodule, multiple Expected: 09/08/2025, Expires: 04/08/2026[facility] Work Phone: Comment on above:Expected: 09/08/2025, Expires: 04/08/2026Start: 09-08-2025 End: 13-77-8892Jxfbcghs specific Ag [Mass/volume] in Serum or PlasmaPROSTATE- SPECIFIC ANTIGEN DIAGNOSTIC Lab Routine Lung nodule, multiple Prostate cancer (HCC) Expected: 09/08/2025, Expires: 12/08/2025leveland ClinicComment on above: Expected: 09/08/2025, Expires: 12/08/2025Start: 06-22-2025 End: 62-76-0432Ryctsgv encounter gtkquoulb70/30/2025 8:30 AM EDT Office Visit YAN Car Otolaryngology [address] [facility] [address] [place] [address] Bong Reddy MD [address] [facility] [address] [place] [address] ArrivedNOMS [place] OtolaryngologyComment on above:ArrivedStart: 90-21-6955Kmnjohdlk vaccinationInfluenza Vaccine (#1)[facility] HealthcareStart: 03-11-2025 End: 01-86-8799AL Chest WO contrastCT CHEST WO IVCON Radiology Routine Prostate cancer (HCC) Expected: 03/11/2025, Expires: 10/10/2025leveland ClinicComment on above:Expected: 03/11/2025, Expires: 10/10/2025Start: 03-11-2025 End: 22-11-8168Hhgaprdd specific Ag [Mass/volume] in Serum or PlasmaPROSTATE- SPECIFIC ANTIGEN DIAGNOSTIC Lab Routine Prostate cancer (HCC) Expected: 03/11/2025, Expires: 5Cleveland ClinicComment on above:Expected: 03/11/2025, Expires: 06/10/2025Start: 03-11-2025 End: 21-49-8375Kryoqrl encounter dggdqihgo01/19/2025 10:00 AM EDT Office Visit Radiation Oncology [address] [place] [address] [place] [address] Elmer Benz MD [address] [place] [address] [place] [address] Follow upRadiation OncologyComment on above:Follow upStart: 03-09-2025 End: 60-30-9974Yqusxwe encounter ykljjrpwl72/17/2025 11:15 AM EDT Office Visit Radiation Oncology [address] [place] [address] [place] [address] Elmer Benz MD [address] [place] [address] Follow upRadiation OncologyComment on above:Follow upStart: 03-04-2025 End: 81-71-5507Lsnrnmd encounter procedureNortSelect Specialty Hospital LaboratoryComment on above:labCT Chest w/o contrastStart: 80-49-5800HcoxrcayuCincinnati VA Medical Centertart: 71-31-3120ZpaisteqniQhjwricxeCincinnati VA Medical Centertart: 00-53-5226Sxbqozb Directive DiscussionAdvance Directive Discussion [facility]tart: 09-03-2024 End: 04-42-8668CD Thyroid glandUS THYROID/PARATHYROID Radiology Routine Thyroid nodule Expected: 09/03/2024, Expires: 09/26/2025[facility] Work Phone: Comment on above:Expected: 09/03/2024, Expires: 09/26/2025Start: 2024 End: 56-52-9359Gknbazo encounter /05/2024 1:15 PM EST Office Visit Radiation Oncology [address] [place] [address] Elmer Benz MD [address] [place] [address] follow up after PETRadiation OncologyComment on above:follow up after PETStart: 08-17-2024 End: 08-80-1670Ppgzstf encounter exhknrgzd87/25/2024 10:15 AM EST Appointment Radiology Pet CT [address] [place] [address] PET Radiology Pet CTComment on above:PETStart: 06-22-2024 End: 65-86-9883GyqybsenfCincinnati VA Medical Centertart: 08-91-4662Swaub-19 Vaccine ( season)Covid-19 Vaccine ( season)[facility] Hospitaltart: 37-68-9931PZ Prostate WO and W contrast [facility]tart: 88-12-4623VI prostate wo/w conMR prostate wo/w [place] Hospitaltart: 00-62-9872Ibjyfmg Directive DiscussionAdvance Directive DiscussionOhioHealth Shelby Hospitaltart: 15-19-6350NCZ Vaccine (1 - 1-dose 75+ series)RSV Vaccine (1 - 1-dose 75+ series)[facility]tart: 07-31-2022 [facility] Centertart: 59-05-1205Ylizawsrjmnp Vaccine: 65+ Years (2 of 2 - PCV)Pneumococcal Vaccine: 65+ Years (2 of 2 - PCV)[facility] HealthcareStart: 12-01-2012Medicare Annual Wellness VisitMedicare Annual Wellness VisitOhioHealth Shelby Hospitaltart: 12-60-2287Mjsqkri ScreeningAnxiety ScreeningOhioHealth Shelby Hospitaltart: 00-34-9060Ltyoposhmu ScreeningDepression ScreeningOhioHealth Shelby Hospitaltart: 40-40-1473Jxrqdbwka C screeningHepatitis C ScreeningProtestant Deaconess Hospitalprehensive metabolic 2000 panel - Serum or Plasma [facility] HospitalCYTOLOGY NON-GYNCYTOLOGY NON-ARCHITECTURE CONSULTANT Lab Routine Thyroid nodule Ordered: 4COhioHealth [facility]ville [facility] Center Work Phone: Comment on above:Ordered: 4Patient Education [facility] CtrPatient referralSelect Medical Specialty [facility] Work Phone: End: 25-04-3478KYR+CT 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-- W 18F-FDG IVNM PET/CT SKULL-THIGH SUBSEQUENT Radiology Routine 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) 1 Occurrences starting 08/04/2024 until 5COhioHealth [facility]ville Health Center Work Phone: Comment on above:1 Occurrences starting 08/04/2024 until 09/03/2025PET+CT 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-- W 18F-FDG IVNM PET/CT SKULL-THIGH SUBSEQUENT Radiology Routine 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) 08/17/2024 11:46 AM [facility] Work Phone: [facility] Immunizations Immunization DateImmunizationNotesCare JxdzkwhzNbkfibxj62-12-4632rfysqfz and diphtheria toxoids, adsorbed, preservative free, for adult use (5 Lf of tetanus toxoid and 2 Lf of diphtheria toxoid)Benjamin Perez DO Work Phone: [facility]10-04-2024influenza virus vaccine, unspecified formulationCristopher ZALDIVAR [facility]10-09-2023COVID-19 (PFIZER) 12Y and olderDO Benjamin Perez Work Phone: [facility]10-09-2023Influenza vaccine, quadrivalent, adjuvantedDO Benjamin Perez Work Phone: [facility]10-09-2023influenza virus vaccine, unspecified formulationGregmyra ZALDIVAR [facility]09-27-2022COVID-19 Pfizer (bivalent)Benjamin Perez Other [facility]09-27-2022Fluzone QIV High-Dose 65YR+DO Benjamin Perez Work Phone: [facility]09-27-2022influenza virus vaccine, unspecified formulationGregmyra ZALDIVAR [facility]07-18-2022zoster vaccine recombinantBenjayolis Perez Other [facility]02-14-2022zoster vaccine recombinantBenjamin Chris Other [facility]09-28-2021COVID-19 Vaccine Pfizer - Documentation Purposes OnlyBenjamin Chris Other [facility] HospitalComment on above: Result Comment: 2024-03-23: [id number] QIV High-Dose 65YR+DO Benjamin Perez Work Phone: [facility]09-28-2021influenza virus vaccine, unspecified formulationGregmyra ZALDIVAR [facility]02-23-2021COVID-19 mRNA,FDC182g7 (Pfizer)MD Krzysztof Hutchison Work Phone: [facility] HospitalComment on above: Result Comment: 2024-03-23: [id number]-27 mRNA,HFB045c3 (Pfizer)MD Krzysztof Hutchison Work Phone: [facility] HospitalComment on above: Result Comment: 2024-03-23: [id number] vaccine, quadrivalent, adjuvantedDO [employer] Work Phone: [facility]09-29-2020influenza virus vaccine, unspecified formulationGregSnippit Media, Inc. [facility]10-14-2019influenza virus vaccine, unspecified formulationGregSnippit Media, Inc. [facility]10-01-2019influenza virus vaccine, unspecified formulationGregSnippit Media, Inc. [facility]10-01-2019influenza, high dose seasonal, preservative-freeDO Benjamin Perez Work Phone: [facility]10-29-2018influenza virus vaccine, unspecified formulationGregSnippit Media, Inc. [facility]10-29-2018influenza, high dose seasonal, preservative-freeDO [employer] Work Phone: [facility]04-18-2018 pneumococcal polysaccharide vaccine, 23 valentTrace Regional Hospitalmyra [employer] [facility]10-25-2017influenza virus vaccine, split virus (incl. purified surface antigen)Benjamin Perez Other [employer] Other 984279-29-6018myguqlhcp virus vaccine, unspecified formulationWilson [facility] Hospital10-25-2017influenza, high dose seasonal, preservative-freeDO [employer] Work Phone: [facility]04-24-2017Td(adult) unspecified formulation; Translations: [Td(adult) unspecified formulation] CristopherSnippit Media, Inc. [facility]04-24-2017tetanus and diphtheria toxoids, adsorbed, preservative free, for adult use (5 Lf of tetanus toxoid and 2 Lf of diphtheria toxoid)[facility]04-24-2017tetanus toxoid, reduced diphtheria toxoid, and acellular pertussis vaccine, adsorbedTrumannsean ePrez Other noDestineer i-nexus Other 10-091638-65-9650yjanbzhos virus vaccine, split virus (incl. purified surface antigen) Chris Other [employer] Other 10-081826-95-1486ptozjzwim virus vaccine, unspecified formulationWilson [facility]02-05-2016pneumococcal conjugate vaccine, 13 valentBeevelin Perez Other [facility]11-18-2015influenza virus vaccine, unspecified formulationDugway [employer] [facility] [place] 013091-18-2015influenza, injectable, quadrivalent, preservative freeDO Benjamin Perez Work Phone: [facility]10-06-2014tetanus and diphtheria toxoids, adsorbed, preservative free, for adult use (5 Lf of tetanus toxoid and 2 Lf of diphtheria toxoid)Benjamin Perez Other [facility]11-26-2013 pneumococcal polysaccharide vaccine, 23 valentBenjamin Perez Other [facility] Payers DatePayer CategoryPayerPolicy [id number] [id number] Health Insurance [id number] 2012Medicare [id number] [id number] 2.16.840.1.964783.3.57[id number] 2.16.840.1.315399.3.57[id number] 2.16.840.1.311258.3.57[id number] 2.16.840.1.465969.3.57[id number] 2..840.1.826381.3.57[id number] 2.16.840.1.230148.3.57[id number] 2.16.840.1.836529.3.57[id number] 2..840.1.200[id number] 658s6465-l876-794r-a8h5-[id number] 2.16.840.1.5[id number] 2.16.840.1.594892.3.579.2.531 [id number] 2.16.840.1.1[id number] 2.16.840.1.538813.3.579.2.531 Social History DateTypeDetailFacilityStart: 04-26-2021 End: 36-40-6386Vwnzkfh smoking status NHISEx-smoker (finding)[facility] Centertart: 73-08-8436Scn Assigned At [facility] Centertart: 08-04-2024 End: 52-08-7040Abi Assigned At [facility]ertart: 03-31-2024 End: 60-79-7378Dshangw smoking statusNever smoked tobacco (finding)[facility] HospitalyTobacco smoking statusNever [facility] SandislandtonyHistory of tobacco use Current smokerGerman HospitalHistory of tobacco useCigarette SmokerOhioHealth Shelby Hospitaltart: 08-04-2024 End: 85-09-7987Qhwnccn use and exposureSmokeless tobacco non-userOhioHealth Shelby Hospitaltart: 08-04-2024 End: 49-92-9815Axqwyumbj beverage intakeCurrent drinker of alcohol (finding) [facility]tart: 08-04-2024 End: 65-00-0191Znzmmhp of Social functionOhioHealth Shelby Hospitaltart: 07-31-2012 Alcohol CommentrarelSheltering Arms Hospitaltart: 49-23-5722Hmw assigned at [facility] centerNot on fileOhioHealth Shelby Hospitaltart: 09-29-2024 End: 60-66-0054BtaSude (finding)[facility] Centertart: 12-15-2024 End: 04-53-7270Xskobbcbq beverage intakeEx-drinker (finding)[facility] Goals DatePatient GoalDesired Activity/State Functional Status OgnqCvzpqcmiiySvjoxgClldogiv46-38-7644Tkstxfhchi StatusN/AExec[facility] of [facility]07-09-2024Functional StatusN/AExec[facility]06-16-2015Are you deaf, or do you have serious difficulty hearingYes 03/08/2015 9:23 AM EDCheri Alva Yes German HospitalLeawja53-46-3282Ort you blind, or do you have serious difficulty seeing, even when wearing glassesNo 03/08/2015 9:23 AM EDCheri Alva No German HospitalYmdkum45-98-7108Qk you have serious difficulty walking or climbing stairsYes 03/08/2015 9:23 AM EDT Cheri Novoa YesGerman HospitalFylzql79-78-4553Gu you have difficulty dressing or bathingNo 03/08/2015 9:23 AM EDT Cheri Novoa [facility] HospitalSeerjr43-64-2408Dndfcfb of a physical, mental, or emotional condition, do you have difficulty doing errands alone such as visiting a physician's office or shoppingNo 03/08/2015 9:23 AM Cheri Chino No [facility] Mental Status AfxcIicxyiyjnaSwxucbJdjnfjxm57-64-9343Qxmmyui of a physical, mental, or emotional condition, do you have serious difficulty concentrating, remembering, or making decisionsNo 03/08/2015 9:23 AM Cheri Alva [facility] Clinical Notes 07-31-2022 to 06-24-2025 Note Date & BcvtUodiMnotbvvd90-08-9611 Evaluation note* Diagnosis Onset Date Resolution Status Admit Date Chronic kidney disease acuteOctober 2024 8:21amGERD (gastroesophageal reflux disease)acuteOctober 2024 8:21amLumbar spondylosisacuteOctober 2024 8:21amLung noduleacute October 2024 8:21amMedicare annual wellness visit, subsequentacuteOctober 2024 8:21amPrimary hypertensionacuteOctober 2024 8:21amProstate cancer cuteOctober 2024 8:21amThyroid noduleacuteOctober 2024 8:21am [facility] Work Phone: [phone]) 661-766709-30-2025 History of Present illness Narrative* Bong Reddy MD - 06/22/2025 8:30 AM EDT Subjective Patient ID: Magnolia Boykin is a 79 y.o. 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 Cerumen debris on tympanic membrane 04/11/2022 Diverticulosis 12/14/2024 Dysphagia 12/14/2024 Elevated PSA 12/14/2024 Encounter for screening for malignant neoplasm of prostate 01/13/2017 History of Hodgkin's disease 12/14/2024 Hodgkin's lymphoma (HCC) 12/14/2024 Hypertension 12/14/2024 Microscopic hematuria 12/14/2024 Neuropathy 12/14/2024 Nodular sclerosis Hodgkin's disease (HCC) 12/14/2024 Prostate cancer (HCC) 12/14/2024 Throat pain 12/14/2024 Resolved Ambulatory Problems Diagnosis Date Noted No Resolved Ambulatory Problems Past Medical History: Diagnosis Date Cancer (HCC) Past Surgical History: Procedure Laterality Date COLONOSCOPY ESOPHAGEAL DILATION Allergies Allergen Reactions Iodine Other Reaction(s): GI Upset, Hives, Unknown Current Outpatient Medications on File Prior to Visit Medication Sig Dispense Refill benazepril (Lotensin) 20 MG tablet Take 20 mg by mouth latanoprost (Xalatan) 0.005 % ophthalmic solution APPLY ONE DROP TO BOTH EYES ONCE A DAY AT BEDTIME Lutein-Zeaxanthin 25-5 MG capsule Take by mouth Multiple Vitamins-Minerals (MULTIVIT/MULTIMINERAL ADULT PO) Take by mouth omeprazole (PriLOSEC) [address] capsule No current facility-administered medications on file prior to visit. Objective Last Recorded Vitals Vitals: 06/22/25 0822 BP: 141/80 Pulse: 58 ENT Physical Exam Constitutional Appearance: patient appears well-developed, well-nourished and well-groomed, Communication/Voice: communication appropriate for developmental age; vocal quality normal; Assessment/Plan Diagnoses and all orders for this visit: Thyroid nodule Very reassuring US. As pt had an abnormal PET scan of the thyroid, I will continue annual US documented in this encounterSaint John's HospitalJsompcdlfd91-58-5828 Radiology Diagnostic study [facility] [place] [address] [place] [address] Ultrasound Report Signed Patient: Magnolia Boykin MR# : [id number] : 1945 Acct:[id number] Age/Sex: 79 / M ADM Date: 5 Loc: Room: Type: [facility] Attending Dr: Bong Reddy Jr, MD Ordering Provider: BONG REDDY MD Date of Service: 06/07/25 US/US thyroid: THROID NODULE Copies to: BONG REDDY MD~ Thyroid Ultrasound HISTORY: Follow-up thyroid nodules [...] Zee M.D. 06/07/2025 4:58 PM Dictation Location: [place] [address] Tech: Ani Meyer Transcribed By: [facility] 06/07/251657 Dictated By: Og Zee DO 06/07/251655 Signed By: 06/07/25 165 [facility]06-17-2025 NoteHNO ID: [id number] Author: MAUDE NEGRON RN Service: ? Author Type: Registered Nurse Type: Progress Notes Filed: 03/09/2025 12:55 Note Text: CHELSEY Negron [facility] History of Present illness Narrative* Maude Negron RN - 03/09/2025 11:20 AM EDT CHELSEY Negron RN * Elmer Benz MD - 03/09/2025 11:15 AM EDT Radiation Oncology - Prostate Cancer Follow-up note PATIENT NAME: Magnolia Boykin PATIENT DIAGNOSIS: 1. Prostate adenocarcinoma, initial PSA 4.89, biopsy [place] score 3 + 3 = 6 (grade group 1), clinical stage T1c, N0, M0, stage I [cT1a-c/T2a, N0, M0, PSA <10, GG 1] (AJCC 8th ed.), s/pbiopsy. NCCN Risk Group: Low Risk Group 2. [...] AUS with benign afirma (confirmed genomic sequencing injury/safety hazard assessment benign). He has further follow-up scheduled. Decipher [...] PI-RADS 4. No gross extracapsular extension seen. Noevidence of any other findings within the pelvis. Prostate biopsy with MR fusion on 06/22/24 revealed: Adenocarcinoma, [place] 6 (3+3) 5 out of 6 cores from the left mid lateral AIDA, in addition Gleason6 from left base right apical. Total # [...] BP 151/96 Pulse 63 Temp (!) 35.6 C (96 F) Resp 18 Wt 84.2 kg (185 lb 10 oz) SpO2 97% BMI 25.17 kg/m KARNOFSKY PERFORMANCE STATUS: 100 General Appearance: Alert [...] decipher test showing correspondingly low risk genomic score.Discussed options again. Patient wants to continue active surveillance. PSA remains stable. 2. Hodgkin's lymphoma status post definitive chemotherapy. No evidence of clinical or radiographic recurrence. 3. Incidental lung nodule on PET scan: Stable on recent CT recommend repeat CT chest 6 months. 4. Incidental hypermetabolic thyroid nodule. FNA of the right thyroid nodule without evidence of malignancy, genomic testing benign he has continued follow- up with Dr. Reddy. Signed by: Elmer Benz MD cc: Benjamin Perez (Jocelyn) [address] [place] [address] Cristopher Erlin Zaldivar [address] [place] [id number]. documented in this encounterGerman Hospital06-17-2025 NoteHNO ID: [id number] Author: Elmer BENZ MD Service: ? Author Type: Physician Type: [...] AUS with benign afirma (confirmed genomic sequencing injury/safety hazard assessment benign). He has further follow-up scheduled. Decipher [...] with MR fusion on 06/22/24 revealed: Adenocarcinoma, [place] 6 (3+3) 5 out of 6 cores from the left mid lateral AIDA, in addition [place] 6 from left base right apical. Total [...] no rash NEURO: no numbness or paresthesias a (more content not included)...[facility]06-12-2025 History of Present illness Narrative* Rico Bethea RT(R) - 03/04/2025 9:00 AM EDT Radiology Service Progress Note PATIENT NAME: Magnolia Boykin DATE OF SERVICE: March 04, 2025 TIME: 9:00 AM PATIENT IDENTITY VERIFICATION COMPLETED USING TWO (2) IDENTIFIERS: Name and Date of confirmedby patient verbally. FALL SCREENING: Has the patient had 2 falls in the last year or 1 fall with injury or currently using an Ambulatory Assistive Device (Walker, Cane, Wheelchair, Crutches, etc.)? No PATIENT GENDER DATA: Assigned male at PATIENT RELEVANT IMPLANT DATA REVIEWED: Not Applicable PATIENT PRESENTS WITH AN IMPLANTABLE OR ATTACHED TOWERMAN: No RADIOLOGY DEPARTMENT: CT; Exam(s) Completed: Chest PERIPHERAL IV DATA: Not applicable SIGNED BY: JANIA Alvarado) March 04, 2025 9:00 AM documented in this encounterGerman Hospital06-12-2025 NoteHNO ID: [id number] Author: RICO BETHEA RT(R) Service: ? Author [...] PATIENT PRESENTS WITH AN IMPLANTABLE OR ATTACHED TOWERMAN: No RADIOLOGY DEPARTMENT: CT; Exam(s) Completed: Chest PERIPHERAL IV DATA: Not applicable SIGNED BY: RT Jenny(R) March 04, 2025 9:00 [facility]03-12-2025 Telephone encounter Note* Telephone Encounter - Justa Saenz - 12/02/2024 8:10 AM EDT Patient is scheduled for Dr. Reddy on 12/15/24. LIZETH Farmer [facility]03-12-2025 Miscellaneous Notes* Telephone Encounter - Justa Saenz - 12/02/2024 8:10 AM EDT Patient is scheduled for Dr. Reddy on 12/15/24. LIZETH Farmer * Telephone Encounter - Justa Saenz - 11/30/2024 2:18 PM EDT Additional information sent * Telephone Encounter - Maude Negron RN - 11/30/2024 1:09 PM EDT Please also fax recent nursing phone message and ultrasound report. Maude Negron RN * Telephone Encounter - Justa Saenz - 11/30/2024 10:43 AM EDT I spoke with Mireille at Dr. Reddy's office. She asked that the last progress note be faxed to [phone]. She will then give to Dr. Reddy for review and get the patient scheduled. Note faxed. LIZETH Farmer * Telephone Encounter - Justa Saenz - 11/27/2024 10:23 AM EST Attempted to call Dr. Reddy's office. There was no answer and no option to leave a message. * Telephone Encounter - Maude Negron RN - 11/26/2024 1:08 PM EST PSS- please schedule pt to see Dr Reddy regarding Thyroid nodule and recent biopsy. Pt is aware. Maude Negron RN * Telephone Encounter - Maude Negron RN - 11/26/2024 1:08 PM EST Images from the original note were not included. View All Conversations on this Encounter Elmer Benz MD You; Radt Sand Rad Nurse Pool1 hour ago (11:47 AM) Please get him in to see Dr. Reddy. I talked with them. Elmer Benz MD You1 hour ago (11:33 AM) Thought I was seeing him sooned. I will call * Telephone Encounter - Maude Negron RN - 11/26/2024 10:59 AM EST [place] left message stating Magnolia had his us on 09/29 (with biopsy) and they didn't hear any results. VIOLET- US and Path are scanned in chart. Please advise. Follow up is not scheduled currently until February 2025. Maude Negron RN documented in this encounterGerman Hospital03-10-2025 Telephone encounter Note * Telephone Encounter - Justa Saenz - 11/30/2024 2:18 PM EDT Additional information sent [facility]03-10-2025 Telephone encounter Note* Telephone Encounter - Maude Negron RN - 11/30/2024 1:09 PM EDT Please also fax recent nursing phone message and ultrasound report. Maude Negron RN [facility]03-10-2025 Telephone encounter Note* Telephone Encounter - Justa Saenz - 11/30/2024 10:43 AM EDT I spoke with Mireille at Dr. Reddy's office. She asked that the last progress note be faxed to [phone]. She will then give to Dr. Reddy for review and get the patient scheduled. Note faxed. LIZETH Farmer [facility]03-07-2025 Telephone encounter Note* Telephone Encounter - Justa Saenz - 11/27/2024 10:23 AM EST Attempted to call Dr. Reddy's office. There was no answer and no option to leave a message. [facility]03-06-[facility] Telephone encounter Note* Telephone Encounter - Maude Negron RN - 11/26/2024 1:08 PM EST PSS- please schedule pt to see Dr Reddy regarding Thyroid nodule and recent biopsy. Pt is aware. Maude Negron RN [facility]03-06-2025 Telephone encounter Note* Telephone Encounter - Maude Negron RN - 11/26/2024 1:08 PM EST Images from the original note were not included. View All Conversations on this Encounter Elmer Benz MD You; Radt Sand Rad Nurse Pool1 hour ago (11:47 AM) Please get him in to see Dr. Reddy. I talked with them. Elmer Benz MD You1 hour ago (11:33 AM) Thought I was seeing him sooned. I will call [facility]03-06-2025 Telephone encounter Note* Telephone Encounter - Maude Negron RN - 11/26/2024 10:59 AM EST [place] left message stating Magnolia had his us on 09/29 (with biopsy) and they didn't hear any results. VIOLET- US and Path are scanned in chart. Please advise. Follow up is not scheduled currently until February 2025. Maude Negron RN [facility]01-07-2025 Evaluation note* Diagnosis Onset Date Resolution Status Admit Date Thyroid nodule acuteJanuary 2024 9:47am [facility] Work Phone: 1(769) 319-205501-07-2025 Evaluation note* Diagnosis Onset Date Resolution Status Admit Date Thyroid nodule acuteJanuary 2024 9:47amChronic kidney diseaseacuteMarch 2024 8:49am GERD (gastroesophageal reflux disease)acuteMarch 2024 8:49amLumbar spondylosisacuteMarch 2024 8:49amLung noduleacuteMarch 2024 8:49am Primary hypertensionacuteMarch 2024 8:49amProstate [id number] 2024 8:49amThyroid noduleacuteMar 2024 8:49am [facility] Work Phone: 1(942) 745-323601-07-2025 Radiology [facility] Main [place] [address] [place] [id number] Ultrasound Report Signed Patient: Magnolia Boykin MR# : [id number] : 1945 Acct:[id number] Age/Sex: 79 / M ADM Date: 5 Loc: Room: Type: [facility] Attending Dr: Codi Benz MD Ordering Provider: Elmer Benz MD Date of Service: 09/29/24 US/US needle aspiration: E04.1 C61 Copies to: Elmer Benz MD~ US needle aspiration 09/29/2024 11:28 AM SIGNS AND SYMPTOMS: Thyroid nodule INFORMED CONSENT: Reason for procedure was discussed with the patient. The procedure expectations risks benefits options and alternatives were discussed. All the questions were answered. The patient understood the results cannot be guaranteed. The procedureis indicated and risks were acceptable. Consent was [...] the procedure well. No immediate complications were detec aly. US/US needle aspiration IMPRESSION: Successful ultrasound-guided fine-needle aspiration of the right thyroid nodule. Impression dictated by: Matthew Ge M.D.09/29/2024 4:07 PM Dictation Location: [place] [address] Tech: [facility] Transcribed By: JUAN DANIEL 09/29/24 1607 Dictated By: Matthew Ge II, MD 09/29/24 1600 Signed By: 09/29/24 1607 [facility] Work Phone: 1(213) 330-644912-19-2024 NoteHNO ID: [id number] Author: Elmer BENZ MD Service: ? Author Type: Physician Type: Progress Notes Filed: 09/10/2024 12:43 Note Text: Radiation Oncology - Prostate Cancer Follow-up note PATIENT NAME: Magnolia Boykin PATIENT DIAGNOSIS: Prostate adenocarcinoma, initial PSA 4.89, biopsy [place] score 3 + 3 = 6 (grade [...] with MR fusion on 06/22/24 revealed: Adenocarcinoma, [place] 6 (3+3) 5 out of 6 cores [...] or thyroid enlargement or nodularity. Rectal: Deferred (more content not included)...[facility]12-19-20[facility] History of Present illness Narrative* Elmer Benz MD - 09/10/2024 10:54 AM EST Radiation Oncology - Prostate Cancer Follow-up note PATIENT NAME: Magnolia Boykin PATIENT DIAGNOSIS: Prostate adenocarcinoma, initial PSA 4.89, biopsy [place] score 3 + 3 = 6 (grade [...] PI-RADS 4. No gross extracapsular extension seen. Noevidence of any other findings within the pelvis. Prostate biopsy with MR fusion on 06/22/24 revealed: Adenocarcinoma, Chantel 6 (3+3) 5 out of 6 cores from the left mid lateral AIDA, in addition Gleason6 from left base right apical. Total # [...] VS: BP 165/97 Pulse 66 Temp 36.2 C (97.1 F) Resp 16 Wt 86.1 kg (189 lb 13.1 oz) SpO2 97% BMI 25.74 kg/m KARNOFSKY PERFORMANCE STATUS: 100 General Appearance: Alert [...] decipher test showing correspondingly low risk genomic score.Discussed at length with patient and family plan for active surveillance at this time plan to see patient back in 6 months. 2. Hodgkin's lymphoma status post definitive chemotherapy. Recent hot flashes unclear significance.PET scan without evidence of recurrence or new suspicious findings. 3. Incidental lung nodule on PET scan: Plan CT chest 6 months. 4. Incidental hypermetabolic thyroid nodule. Plan for FNA of the right thyroid nodule. Follow-up pending results. Signed by: Elmer Benz MD cc: Benjamin Perez ([facility]) [address] [facility] [place] [address] Cristopher Zaldivar [address] [address] documented in this encounterGerman Hospital12-05-2024 History of Present illness Narrative* Elmer Benz MD - 2024 1:15 PM EST Radiation Oncology - Prostate Cancer Follow-up note [...] PI-RADS 4. No gross extracapsular extension seen. Noevidence of any other findings within the pelvis. Prostate biopsy with MR fusion on 06/22/24 revealed: Adenocarcinoma, Chantel 6 (3+3) 5 out of 6 cores from the left mid lateral AIDA, in addition Gleason6 from left base right apical. Total # [...] BP 154/93 Pulse 61 Temp (!) 35.9 C (96.7 F) Resp 18 Wt 84.8 kg (186 lb 15.2 oz) SpO2 99% BMI 25.35 kg/m KARNOFSKY PERFORMANCE STATUS: 100 General Appearance: Alert and oriented. No acute distress. Neck: No appreciable adenopathy or thyroid enlargement or nodularity. Rectal: Deferred ASSESSMENT/PLAN: Prostate adenocarcinoma, initial PSA 4.89, biopsy [place] score 3 + 3 = 6 (grade group 1), clinical stage T1c, N0, M0, stage I [cT1a-c/T2a, N0, M0, PSA <10, GG 1] (AJCC 8th ed.), s/p biopsy. NCCN Risk Group: Low Risk Group 1. Prostate cancer low risk awaiting decipher genomic test 2. Hodgkin's lymphoma status post definitive chemotherapy. Recent hot flashes unclear significance.PET scan without evidence of recurrence or new suspicious findings. 3. Incidental lung nodule on PET scan recommend follow-up CT in 6 months. 4. Incidental hypermetabolic thyroid nodule. Recommend ultrasound for further evaluation. Plan to have him back after this and after decipher test has resulted. Signed by: Elmer Benz MD cc: Benjamin Perez ([facility]) [address] [place] [address] Cristopher Erlin Zaldivar [address] [place] [phone] documented in this encounterGerman Hospital12-05-2024 NoteHNO ID: [id number] Author: Elmer BENZ MD Service: ? Author Type: Physician Type: [...] the left mid lateral AIDA, in addition [place] 6 from left base right apical. Total [...] ASSESSMENT/PLAN: Prostate adenocarcinoma, initial PSA 4.89, biopsy [place] score 3 + 3 = 6 (grade g (more content not included)...[facility] 08-26-2024 Telephone encounter Note* Telephone Encounter - Maude Negron RN - 08/26/2024 8:21 AM EST Decipher was contacted due to no result yet from testing. Here is their response: Reno Santoro, Thank you for your portal inquiry regarding Magnolia Kern Mandoer, please be advised that the material was received yesterday, barring any repeats or delays results are expected by 09/08. Kristina Marie VIOLET- pt is on for follow up tomorrow post PET and for decipher results. Would you like us to keep this appt or reschedule for after decipher is done? Please advise. Maude Negron RN [facility]12-04-2024 Miscellaneous Notes* Telephone Encounter - Maude Negron RN - 08/26/2024 8:21 AM EST Decipher was contacted due to no result yet from testing. Here is their response: Reno Santoro Thank you for your portal inquiry regarding Magnolia P Lucasster, please be advised that the material was received yesterday, barring any repeats or delays results are expected by 09/08. Kristina Marie VIOLET- pt is on for follow up tomorrow post PET and for decipher results. Would you like us to keep this appt or reschedule for after decipher is done? Please advise. Maude Negron RN documented in this encounterGerman Hospital11-25-2024 History of Present illness Narrative* Abdias Castillo RN - 08/17/2024 10:15 AM EST Radiology Service Progress Note DATE OF SERVICE: [...] Ref Range Status 08/04/2024 59 (L) >=60 mL/min/1.73m Final Comment: Estimated Glomerular Filtration Rate (eGFR) is calculated using the 2020 CKD-EPI creatinine equation. This equation utilizes serum creatinine, sex, and age as parameters. The creatinine assay has traceable calibration to isotope dilution- mass spectrometry. Refer to KDIGO guidelines for clinical interpretation. In patients with unstable renal function, e.g. those with acute kidney injury, the eGFRmay not accurately reflect actual GFR. eGFR- Date Value Ref Range Status 04/05/2021 >60 Final P.O.C.T. RESULTS: POC done: Yes, See Lab Tab August 17, 2024 TREATMENT: N/A IV SITE: Ambulatory: A peripheral IV was started in the Right antecubital site with a Angio cath: 22 gauge. IV SITE APPEARANCE: Clean,Dry and Intact SIGNATURE: Abdias Castillo RN PATIENT NAME: Magnolia Boykin DATE: August 17, 2024 TIME: 10:07 AM * Rico Bethea RT(R) - 08/17/2024 10:15 AM EST RADIOLOGY SERVICE PROGRESS NOTE SERVICE DATE: 08/17/2024 [...] information regarding radiation safety can be found usingthis link: [email or web address] 20Diagnostic%[email or web address]%[email or web address] SIGNATURE: JANIA Alvarado) PATIENT NAME: Magnolia Boykin DATE: August 17, 2024 TIME: 12:45 PM PAGER/CONTACT #: documented in this encounterGerman Hospital11-25-2024 NoteHNO ID: [id number] Author: RICO BETHEA RT (R) Service: ? Author Type: Technologist Type: Progress [...] safety can be found using this link: [email or web address]%20Nuclear%20Medicine%[email or web address] SIGNATURE: RT Jenny(R) PATIENT NAME: Magnolia Boykin DATE: August 17, 2024 TIME: 12:45 PM PAGER/CONTACT #:[facility]11-25-2024 NoteHNO ID: [id number] Author: ABDIAS CASTILLO RN Service: ? Author Type: Registered Nurse [...] SITE APPEARANCE: Clean,Dry and Intact SIGNATURE: Abdias Castillo RN PATIENT NAME: Magnolia Boykin DATE: August 17, 2024 TIME: 10:07 [facility]11-12-2024 Nurse Note* Will Walden LPN - 08/04/2024 9:52 AM EST Magnolia Boykin presents in office today for: Lab Draw during Office Visit . Ordering Provider: Alexei Benz M.D. Test (s) ordered: CBC CMP LDH Method for obtaining blood: Phlebotomy was performed, accessing left antecubital vein. Needle removed intact. Dressing secured. Patient denies discomfort, dizziness, light-headedness or weakness and left the department without assist. Will Walden LPN [facility]11-12-2024 Nurse Note* Will Walden LPN - 08/04/2024 9:52 AM EST Magnolia Boykin presents in office today for: Lab Draw during Office Visit . Ordering Provider: Alexei Benz M.D. Test (s) ordered: CBC CMP LDH Method for obtaining blood: Phlebotomy was performed, accessing left antecubital vein. Needle removed intact. Dressing secured. Patient denies discomfort, dizziness, light-headedness or weakness and left the department without assist. Will Walden LPN documented in this encounterGerman Hospital11-12-2024 History of Present illness Narrative* Elmer Benz MD - 08/04/2024 9:00 AM EST Radiation Oncology - Prostate Cancer New Patient/Consult Note PATIENT NAME: Magnolia Boykin PATIENT REQUESTING PROVIDER: Dr. Zaldivar DIAGNOSIS: 78 year old male with prostate adenocarcinoma, initial PSA 4.89, biopsy Chantel score [...] the shared medical record, or letter to requestingphysician via US mail. The patient was diagnosed [...] PI-RADS 4. No gross extracapsular extension seen. Noevidence of any other findings within the pelvis. Prostate biopsy with MR fusion on 06/22/24 revealed: Adenocarcinoma, [place] 6 (3+3) 5 out of 6 cores from the left mid lateral AIDA, in addition Gleason6 from left base right apical. Total # [...] BP (P) 151/94 Pulse 69 Temp 36.4 C (97.6 F) Resp 16 Wt 84.3 kg (185 lb 13.6 oz) SpO2 98% BMI 25.20 kg/m KARNOFSKY PERFORMANCE STATUS: 100 General Appearance: Alert [...] understanding and information presented. Signed by: Elmer Benz MD cc: Benjamin Perez ([facility]) [address] [place] [address] Cristopher Kern Zen [address] [place] [address] documented in this encounterGerman Hospital11-12-2024 NoteHNO ID: [id number] Author: Elmer BENZ MD Service: ? Author Type: Physician Type: Progress Notes Filed: 08/10/2024 13:43 Note Text: Radiation Oncology - Prostate Cancer New Patient/Consult Note PATIENT NAME: Magnolia Boykin PATIENT REQUESTING PROVIDER: Dr. 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 You have a family history of prostate cancer. You have a family history of breast and ovarian cancer. You have genes that are passed from parent to child (inherited), such as BRCA1 and BRCA2. You have Herrera syndrome. men and men of descent are diagnosed with prostate cancer at higher rates than other men. The reasons for this are not well understood and are likely due to a combination of genetic and environmental factors. What are the signs or symptoms? Symptoms of this condition include: Problems with urination. This may include: ?A weak or interrupted flow of urine. ?Trouble starting or stopping urination. ?Trouble emptying the bladder all the way. ?The need to urinate more often, especially at night. Blood in urine or semen. Persistent pain or discomfort in the lower back, lower abdomen, or hips. Trouble getting an erection. Weakness or numbness in the legs or feet. How is this diagnosed? This condition can be diagnosed with: A digital rectal exam. For this exam, a health care provider inserts a gloved finger into the rectum to feel the prostate gland. A blood test called a prostate-specific antigen (PSA) test. A procedure in which a sample of tissue is taken from the prostate and checked under a microscope (prostate biopsy). An imaging test called transrectal ultrasonography. Once the condition is diagnosed, tests will be done to determine how far the cancer has spread. This is called staging the cancer. Staging may involve imaging tests, such as a bone scan, CT scan, PETscan, or MRI. Stages of prostate cancer The stages of prostate cancer are as follows: Stage 1 (I). At this stage, the cancer is found in the prostate only. The cancer is not visible on imaging tests, and it is usually found by accident, such as during prostate surgery. Stage 2 (II). At this stage, the cancer is more advanced than it is in stage 1, but the cancer has not spread outside the prostate. Stage 3 (III). At this stage, the cancer has spread beyond the outer layer of the prostate to nearby tissues. The cancer may be found in the seminal vesicles, which are near the bladder and the prostate. Stage 4 (IV). At this stage, the cancer has spread to other parts of the body, such as the lymph nodes, bones, bladder, rectum, liver, or lungs. Prostate cancer grading Prostate cancer is also graded according to how the cancer cells look under a microscope. This is called the Chantel score and the total score can range from 6 10, indicating how likely it is that the cancer will spread (metastasize) to other parts of the body. The higher the score, the greater thelikelihood that the cancer will spread. Chantel 6 or lower: This indicates that the cancer cells look similar to normal prostate cells (well differentiated). [place] 7: This indicates that the cancer cells look somewhat similar to normal prostate cells (moderately differentiated). [place] 8, 9, or 10: This indicates that the cancer cells look very different than normal prostate cells (poorly differentiated). How is this treated? Treatment for this condition depends on several factors, including the stage of the cancer, your age, personal preferences, and your overall health. Talk with your health care provider about treatment options that are recommended for you. Common treatments include: Observation for early stage prostate cancer (active surveillance). This involves having exams, blood tests, and in some cases, more biopsies. For some men, this is the only treatment needed. Surgery. Types of surgeries include: ?Open surgery (radical prostatectomy). In this surgery, a larger incision is made to remove the prostate. ?A laparoscopic radical prostatectomy. This is a surgery to remove the prostate and lymph nodes through several small incisions. It is often referred to as a minimally invasive surgery. ?A robotic radical prostatectomy. This is laparoscopic surgery to remove the prostate and lymph nodes with the help of robotic arms that are controlled by the surgeon. ?Cryoablation. This is surgery to freeze and destroy cancer cells. Radiation treatment. Types of radiation treatment include: ?External beam radiation. This type aims beams of radiation from outside the body at the prostate to destroy cancerous cells. ?Brachytherapy. This type uses radioactive needles, seeds, wires, or tubes that are implanted into the prostate gland. Like external beam radiation, brachytherapy destroys cancerous cells. An advantage is that this type of radiation limits the damage to surrounding tissue and has fewer side effects. Chemotherapy. This treatment kills cancer cells or stops them from multiplying. It kills both cancer cells and normal cells. Targeted therapy. This treatment uses medicines to kill cancer cells without damaging normal cells. Hormone treatment. This treatment involves taking medicines that act on testosterone, one of the male hormones, by: ?Stopping your body from producing testosterone. ?Blocking testosterone from reaching cancer cells. Follow these instructions at home: Lifestyle Do not use any products that contain nicotine or tobacco. These products include cigarettes, chewing tobacco, and vaping devices, such as e-cigarettes. If you need help quitting, ask your health careprovider. Eat a healthy diet. To do this: ?Eat foods that are high in fiber. These include beans, whole grains, and fresh fruits and vegetables. ?Limit foods that are high in fat and sugar. These include fried or sweet foods. Treatment for prostate cancer may affect sexual function. If you have a partner, continue to have intimate moments. This may include touching, holding, hugging, and caressing your partner. Get plenty of sleep. Consider joining a support group for men who have prostate cancer. Meeting with a support group mayhelp you learn to manage the stress of having cancer. General instructions Take cdkj-ign-zcvfbls and prescription medicines only as told by your health care provider. If you have to go to the hospital, notify your cancer specialist (oncologist). Keep all follow-up visits. This is important. Where to find more information [place] [employer]: www.cancer.org [place] [employer]: www.cancer.net [employer] [place]: www.cancer.gov Contact a health care provider if: You have new or increasing trouble urinating. You have new or increasing blood in your urine. You have new or increasing pain in your hips, back, or chest. Get help right away if: You have weakness or numbness in your legs. You cannot control urination or your bowel movements (incontinence). You have chills or a fever. Summary The prostate is a small gland that is involved in the production of semen. It is located below a man's bladder, in front of the rectum. Prostate cancer is the abnormal growth of cells in the prostate gland. Treatment for this condition depends on the stage of the cancer, your age, personal preferences, and your overall health. Talk with your health care provider about treatment options that are recommended for you. Consider joining a support group for men who have prostate cancer. Meeting with a support group mayhelp you learn to manage the stress of having cancer. This information is not intended to replace advice given to you by your health care provider. Make sure you discuss any questions you have with your health care provider. Document Revised: 12/06/2021 Document Reviewed: 12/06/2021 [employer] Patient Education 2023 [employer]. Follow Up Care 06/01/2024 08:29:20 With:ZEN GARCES, Cristopher Kern, URL Address: [facility] [place] [address]- When: Unknown Comments:referral to Dr. Benz, f/u pending this [facility] Yaima 10-15-2024 NotePatient Education Oncology Prostate Cancer The prostate is [...] from the prostate and checked under a microscope(prostate biopsy). ? An imaging test called transrectal ultrasonography. Once the condition is diagnosed, tests will be done to determine how far the cancer has spread. This is called staging the cancer. Staging may involve imaging tests, such as a bone scan, CT scan, PETscan, or MRI. Stages of prostate cancer The [...] under a microscope. This is called the [place] score and the total score can range from 6?10, indicating how likely it is that the cancer will spread (metastasize) to other parts of the body. The higher the score, the greater thelikelihood that the cancer will spread. ? Chantel 6 or lower: This indicates that the cancer cells look similar to normal prostate cells (well differentiated). ? [place] 7: This indicates that the cancer cells look somewhat similar to normal prostate cells (moderately differentiated). ? [place] 8, 9, or 10: This indicates that [...] seeds, wires, or tubes that are implanted intothe prostate gla (more content not included)...[facility]07-09-2024 Hospital Discharge instructions Patient Education 03/31/2024 09:30:01 [...] including vitamins, herbs, eye drops, creams, and xofj-qyk-rhfzqej medicines. Any surgeries you have had. Any [...] taken. Your health care provider will tell youwhen you can move. You may have to [...] may be told to drink plenty of fluidsto help flush the dye out of your [...] radio waves work together to form very detailedand clear images. In some cases, dye (contrast [...] provider. Document Revised: 05/23/2022 Document Reviewed: 01/11/2021 [employer] Patient Education 2022 [employer]. 03/31/2024 09:19:19 Prostate Cancer Screening Prostate Cancer Screening Prostate cancer screening is testing that is done to check for the presence of prostate cancer in men. The prostate gland is a walnut-sized gland that is located below the bladder and in front of therectum in males. The function of the prostate is to add fluid to semen during ejaculation. Prostatecancer is one of the most common types of cancer in men. Who should have prostate cancer screening? Screening recommendations vary based on age and other risk factors, as well as between the professional organizations who make the recommendations. In general, screening is recommended if: You are age 50 to 70 and have an average risk for prostate cancer. You should talk with your healthcare provider about your need for screening and [...] diagnosed with prostate cancer. The risk is higherif your family member's cancer occurred at an early age or if you have multiple family members withprostate cancer at an early age. ?Being a [...] is a blood test called the prostate-specific antigen(PSA) test. PSA is a protein that is [...] treatment? Where to find more information The [place] [employer]: www.cancer.org [place] [employer]: www.auanet.org Contact a health care [...] the recommended screening test for prostate cancer, butit has associated risks. Discuss the risks and [...] provider. Document Revised: 03/05/2022 Document Reviewed: 03/05/2022 [employer] Patient Education 2022 [employer]. Follow Up Care 02/21/2024 09:52:27 With:ZEN GARCES, Cristopher Kern, URL Address: [address] [place] [address]- When: Unknown [facility] [place] [phone] NotePatient Education Oncology Prostate Cancer Screening Prostate cancer screening is testing that is done to check for the presence of prostate cancer in men. The prostate gland is a walnut-sized gland that is located below the bladder and in front of therectum in males. The function of the prostate is to add fluid to semen during ejaculation. Prostatecancer is one of the most common types [...] , screening in this age group is generallyreserved for men who have a 10- to [...] is a blood test called the prostate-specific antigen(PSA) test. PSA is a protein that is [...] cancer, and most men with prostate cancer diefrom a different cause. What are the risks [...] Where to find more information ? The [place] [employer]: www.cancer.org ? [place] [employer]: www.auanet.org Contact a health care [...] front of the rectum. (more content not included)...[facility]12-27-2023 Evaluation note* Encounter Date Diagnosis Assessment Notes Treatment Notes Treatment Clinical Notes Aug, Anemia (ICD-10 - D64.9) [employer] Other 10-25-2023 Evaluation note* Encounter Date Diagnosis Assessment Notes Treatment Notes Treatment Clinical Notes Jun, Elevated PSA (ICD-10 - R97.20) [employer] Other 09-28-2023 Evaluation note* Encounter Date Diagnosis Assessment Notes Treatment Notes Treatment Clinical Notes May, Chronic prostatitis (ICD-10 - N4 1.1) [employer] Other 08-21-2023 Evaluation note* Encounter Date Diagnosis Assessment Notes Treatment Notes Treatment Clinical Notes Apr, Abscess of foot (ICD-10 - L02.61 9) Begin antibiotics and refer to the wound clinic Soak and keep clean Apr,rimary hypertension (ICD-10 - I10)This patient is instructed to consume a healthy, low-fat, low-salt diet. They are also encouraged to continue exercise to achieve/maintain a normal BMI. [employer] Other 04-04-2023 Evaluation note* Encounter Date Diagnosis Assessment Notes Treatment Notes Treatment Clinical Notes Dec, Primary hypertension (ICD-10 - I 10) This patient is instructed to consume a healthy, low-fat, low-salt diet. They are also encouraged to continue exercise to achieve/maintain a normal BMI. Instructed to check home BP readings over the next week _update office w/ results Goal < 140/90 Dec,Stage 3a chronic kidney disease (ICD-10 - N18.31)The patient is instructed on adequate control of hypertension and diabetes, if appropriate. They are also educated on the associated risks of NSAIDs and PPI use with kidney disease. They were instructed on adequate fluid balance and to avoid dehydration. Dec,Hypertensive chronic kidney disease with stage 1 through stage 4 chronic kidney disease, or unspecified chronic kidney disease (ICD-10 - I12.9) Control BP, hydrate and avoid NSAID [employer] Other 11-08-2022 Procedure noteFirThe [facility]Evaluation + Plan note No data available for this section [facility] Evaluation + Plan [facility] note* Diagnosis Onset Date Resolution Status Dysphagia acute [facility] noteNo assessment information available [facility] Work Phone: Evaluation noteNo InformationNort i-nexus Other Evaluttmkl note* Diagnosis Onset Date Resolution Status Chronic kidney disease acuteGERD (gastroesophageal reflux disease)acuteHypertensionacuteLumbar spondylosisacute [facility] Work Phone: Evaluation note* Diagnosis Onset Date Resolution Status Anemia acuteChronic kidney diseaseacuteGastroesophageal reflux disease with esophagitis without hemorrhageacuteGERD (gastroesophageal reflux disease)acuteLumbar spondylosisacuteMedicare annual wellness visit, subsequentacutePrimary hypertensionacuteProstate noduleacute [facility] Work Phone: Evaluation note* Diagnosis Onset Date Resolution Status Chronic kidney disease acuteGERD (gastroesophageal reflux disease)acuteLumbar spondylosisacuteMedicare annual wellness visit, subsequentacutePrimary hypertensionacuteProstate nodule acute [facility] Work Phone: Evaluation note* Diagnosis Prostate cancer (HCC)- Primary Malignant neoplasm of prostate 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) Hodgkin's disease, lymphocytic-histiocytic predominance of intra-abdominal lymph nodes [facility] [place] [facility] Diagnosis 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)- Primary Hodgkin's disease, lymphocytic-histiocytic predominance of intra-abdominal lymph nodes documented [facility] [place] [facility]* Diagnosis 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) Hodgkin's disease, lymphocytic-histiocytic predominance of intra-abdominal lymph nodes [facility] [place] [facility]* Diagnosis Prostate cancer (HCC)- Primary Malignant neoplasm of prostate Thyroid nodule Nontoxic uninodular goiter [facility] [place] [facility]* Diagnosis Thyroid nodule- Primary Nontoxic uninodular goiter Prostate cancer (HCC) Malignant neoplasm of prostate [facility] [place] [facility]* Diagnosis Prostate cancer (HCC) Malignant neoplasm of prostate [facility] [place] [facility]* Diagnosis Lung nodule, multiple- Primary Other nonspecific abnormal finding of lung field Prostate cancer (HCC) Malignant neoplasm of prostate [facility] Thyroid nodule- Primary Nontoxic uninodular goiter [facility] Diagnosis Onset Date Resolution Status Admit Date Chronic kidney disease acuteOct2024 8:21amGERD (gastroesophageal reflux disease)acuteOct2024 8:21amLumbar spondylosisacuteOct2024 8:21amLung noduleacute June 24, 2025 8:21amMedicare annual wellness visit, subsequentacuteJune 24, 2025 8:21amPrimary hypertensionacuteJune 24, 2025 8:21amProstate cancer cuteOct2024 8:21amThyroid noduleacuteOct2024 8:21am [facility] Work Phone: History and physical note Author Reuben Giron [facility] July 31, 2022 1:13pmNote Date/TimeNov2021 1:13pm[place] [address] Gastroenterology H&P Signed Patient: Magnolia Boykin MR# : [id number] : 1945 Acct:[id number] Age/Sex: 76 / M Adm Date: 2 Loc: Room: Type: [facility] Attending Dr: Reuben Giron MD Copies to: DO Reuben Art MD~ Date of Service: 07/31/2022 HISTORY & PHYSICAL: Patient's history with special attention to the cardiovascular, pulmonary systems and the current problem was reviewed with the patient immediately prior to the procedure. Present medications and doses reviewed in the EMR. Allergies and pertinent laboratory tests were also re viewedat this time in the EMR. The physical [...] MD Documented By: Reuben Giron MD 07/31/22 131 Signed By: <Electronically signed by Reuben Giron MD> 07/31/22 1313 [facility] Work Phone: History general Narrative - Reported* Type Description Date Medical History Hodgkin lymphoma, unspecified, u nspecified site Medical HistoryhypertensionMedical HistorydiverticulosisMedical History neuropathyMedical HistoryHiatal herniaMedical HistoryanemiaMedical History ArthritisSurgical Historyhernia repairSurgical Historywisdom teethSurgical Lrrijangmbsinuhdem8847Vngyodhy UbdczisAXF5782,2022Hospitalization Historysee surgical [facility] Other Hospital Discharge instructions Additional Instructions DISCHARGE [...] if you have any problems. -Office number [phone] [facility] Discharge instructions Additional Instructions DISCHARGE INSTRUCTIONS [...] Follow up with PCP. - Office number [phone].[facility] Work Phone: Progress note No data available for this section [facility] Reuaqm for referral (narrative)* Reason Referral for infecte d callus left foot Diagnosis 1 Abscess of foot (L02 .619) Referral Organization [facility] bryanna Referring Provider First Name Referring Provider Last Name Chris Referring Provider Specialty Internal Me dicine Referred Organization [facility] Referred Address [address] [place], [place],[address] Referred Provider Specialty Wound Care Referral Priority [...] can more easily be done at the [employer]'s office [employer] Other Reason for referral (narrative) Referred by: Cristopher ZALDIVAR MD [facility] Revdei for referral (narrative)* Diagnostic Procedure Only (Routine) - AuthorizedSpecialtyDiagnoses / ProceduresReferred By Contact Referred To ContactMOLECULAR & FUNCTIONAL IMAGING Diagnoses 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) Procedures NM PET/CT SKULL-THIGH SUBSEQUENT PET IMAGING CT ATTENUATION SKULL BASE MID-THIGH Elmer Benz MD [address] [place] [address] [place] [address] Molecular & Functional Imaging [address] [id number] Referral IDStatusReasonStart DateExpiration DateVisits RequestedVisits [id number] Auto-Generated Referral [facility] for referral (narrative)* Diagnostic Procedure Only (Routine) - New RequestSpecialtyDiagnoses / ProceduresReferred By Contact Referred To ContactUS IMAGING Diagnoses Thyroid nodule Procedures US THYROID/PARATHYROID US SOFT TISSUE HEAD & NECK REAL TIME IMGE Elmer Martin MD [address] [place] [address] [place] [address] [facility] [place] [address] Referral IDStatusReasonStsurprise DateExpiration DateVisits RequestedVisits [id number] Auto-Generated Referral / [facility] for referral (narrative)No reason for referral information available[facility] Work Phone: Chief Complaint and Reason for Visit Chief Complaint Dysphagia Reason for Visit Dysphagia Chief Complaint Dysphagia Chief Complaint Dysphagia Dysphagia Chief Complaint 6 month follow up Reason for Visit Chronic kidney disea se GERD (gastroesophageal reflux disease) Hypertension Lumbar spondylosis Chief Complaint R97.20 Chief Complaint R97.20 Elevated PSA Chief Complaint R97.20 Elevated PSA WellnessReason for VisitAnemia Chronic kidney disease Gastroesophageal reflux disease with esophagitis without hemorrhage GERD (gastroesophageal reflux disease) Lumbar spondylosis Medicare annual wellness visit, subsequent Primary hypertension Prostate nodule Chief Complaint R97.20 Elevated PSA Wellness Elevated PSAReason for VisitChronic kidney disease GERD (gastroesophageal reflux disease) Lumbar spondylosis Medicare annual wellness visit, subsequent Primary hypertension Prostate nodule Chief Complaint Admit Date e04.1 September 02, 2024 10:05am e04.1 September 29, 2024 9: 47am Reason for Visit Admit Date Thyroid nodule September 29, 2024 9: 47am Chief Complaint Admit Date e04.1 September 29, 2024 9: 47am 6 month f/u December 21, 2024 8:4 9am Reason for Visit Admit Date Thyroid nodule September 29, 2024 9: 47am Chronic kidney disease December 21, 2024 8:49am GERD (gastroesophageal reflux disease) M 2024 8:49am Lumbar spondylosis December 21, 2024 8:4 9am Lung nodule December 21, 2024 8:4 9am Primary hypertension December 21, 2024 8: 49am Prostate cancer December 21, 2024 8:4 9am Thyroid nodule December 21, 2024 8:4 9am Chief Complaint Admit Date E04.1 June 07, 2025 9:43am Chief Complaint Admit Date E04.1 June 07, 2025 9:43am Wellness June 24, 2025 8: 21am Reason for Visit Admit Date Chronic kidney disease June 24, 2025 8:21am GERD (gastroesophageal reflux disease) O ct2024 8:21am Lumbar spondylosis June 24, 2025 8: 21am Lung nodule June 24, 2025 8: 21am Medicare annual wellness visit, subseque nt June 24, 2025 8:21am Primary hypertension June 24, 2025 8 :21am Prostate cancer June 24, 2025 8: 21am Thyroid nodule June 24, 2025 8: 21am Chief Complaint Admit Date E04.1 June 07, 2025 9:43am Wellness June 24, 2025 8: 21am Possible Infected Knee July 22 10:34am Family History Relationship Condition Age at Onset Recorded Date/T israel brother Malignant neoplasm of colon Unknown Not SpecifiedMalignant neoplasm of pancreasUnknownfatherHepatic cirrhosisUnknown Relationship Condition Age at Onset Recorded Date/T israel brother Malignant neoplasm of colon Unknown DeceasedUnknownNot SpecifiedMalignant neoplasm of pancreasUnknownfatherHepatic cirrhosisUnknown Relationship Condition Age at Onset Recorded Date/T israel brother Malignant neoplasm of colon Unknown DeceasedUnknownmotherMalignant neoplasm of pancreasUnknownfatherHepatic cirrhosisUnknown Advance Directives Advance Directive Response Recorded Date/ Time Advance Directives No April 26 5:44am Advance Directive Response Recorded Date/ Time Advance Directives No April 26 4:44am Advance Directive Response Recorded Date/ Time Advance Directives No June 24, 2025 9:01am Summary Purpose Reason for Referral SpecialtyDiagnoses / ProceduresReferred By ContactReferred To ContactCT IMAGING Diagnoses Prostate cancer (HCC) Procedures CT CHEST WO IVCON DIAGNOSTIC COMPUTED TOMOGRAPHY THORAX W/O Elmer Olson MD [address] [place] [address] [place] [address] [place] [address] Referral IDStatusReasonStart DateExpiration DateVisits RequestedVisits [id number] Auto-Generated Referral Additional Source Comments Goals (unrecognized section and [...] may be documented in an alternate section Care Teams (unrecognized sec tion and content) Team Status: Active Member Role Status Dates Benjamin Perez DO Primary Care Provider Active Team Status: Inactive Member Role Status Dates Benjamin Perez DO Primary Care Provider Active Start: September 29, 2024 End: September 29, 2024GPatrick Clemente ProviderActiveStart: September 29, 2024 End: September 29, 2024 Team Status: Inactive Member Role Status Dates Benjamin Perez DO Primary Care Provide r, Attending Provider Active Start: December 21, 2024 End: December 21, 2024 Team Status: Active Member Role Status Dates Benjamin Perez DO Primary Care Provider Active Start: August 04, 2024 Patrick Patricia ProviderActiveStart: August 04, 2024 Team Status: Inactive Member Role Status Dates Benjamin Perez DO Primary Care Provider Active Start: September 02, 2024 End: September 02, 2024Patrick Patricia ProviderActiveStart: September 02, 2024 End: September 02, 2024 Team Status: Inactive Member Role Status Dates Benjamin Perez DO Primary Care Provider Active Patrick Arteaga ProviderActive Team Status: Inactive Member Role Status Dates Benjamin Perez DO Primary Care Provide r, Attending Provider Active Start: December 19, 2023 End: December 19, 2023 Team Status: Inactive Member Role Status Dates Benjamin Perez DO Primary Care Provider Active Start: May 18, 2024 End: May 18, 2024Patrick Cantrell ProviderActiveStart: May 18, 2024 End: May 18, 2024 Team Status: Inactive Member Role Status Dates Benjamin Perez DO Primary Care Provider Active Start: June 09, 2024 End: June 09, 2024Patrick Cantrell ProviderActiveStart: June 09, 2024 End: June 09, 2024 Team Status: Inactive Member Role Status Dates Benjamin Perez DO Primary Care Provide r, Attending Provider Active Start: June 22, 2024 End: June 22, 2024 Team Status: Inactive Member Role Status Dates Benjamin Perez DO Primary Care Provider Active Start: June 22, 2024 End: June 22, 2024Jovany Cantrellending ProviderActiveStart: June 22, 2024 End: June 22, 2024Team MemberRelationshipSpecialtyStart DateEnd Date Benjamin Perez DO PCP - GeneralInternal Medicine03/31/12Team MemberRelationshipSpecialtyStart Date End Date Benjamin Perez DO PCP - GeneralInternal Medicine03/31/12Team MemberRelationshipSpecialtyStart Date End Date Benjamin Perez DO PCP - GeneralInternal Medicine03/31/12Team MemberRelationshipSpecialtyStart Date End Date Benjamin Perez [facility] - [facility]/31/12Team MemberRelationshipSpecialtyStart Date End Date Benjamin Perez DO PCP - [facility]03/31/12Team MemberRelationshipSpecialtyStart Date End Date Benjamin Perez DO PCP - [facility]03/31/12Team MemberRelationshipSpecialtyStart Date End Date Benjamin Perez DO PCP - [facility]03/31/12Team MemberRelationshipSpecialtyStart Date End Date Benjamin Perez DO PCP - [facility]03/31/12Team MemberRelationshipSpecialtyStart Date End Date Benjamin Perez DO PCP - [facility]03/31/12Team MemberRelationshipSpecialtyStart Date End Date Benjamin Perez DO PCP - [facility]03/31/12 Team Status: Inactive Member Role Status Dates Benjamin Perez DO Primary Care Provider Active Start: June 07, 2025 End: June 07, 2025Hijames Reddy Jr MDAttending ProviderActiveStart: June 07, 2025 End: June 07, 2025Team MemberRelationshipSpecialtyStart DateEnd Date Benjamin Perez DO PCP - [facility]11/30/24Team MemberRelationshipSpecialtyStart Date End Date Benjamin Perez DO [address] [place] [phone] PCP - GeneralInternal Medicine06/22/25 Team Status: Inactive Member Role Status Dates Benjamin Perez DO Primary Care Provider Active Start: June 24, 2025 End: June 24bernarda Perez DOAttfrancoise ProviderActiveStart: June 24, 2025 End: June 24, 2025 Team Status: Active Member Role/Relationship Status Dates Benjamin Perez DO Primary Care Provider Active Team Status: Inactive Member Role/Relationship Status Dates Benjamin Perez DO Primary Care Provider Active Start: June 07, 2025 End: June 07, 2025Bong Reddy Jr, MDAttfrancoise ProviderActiveStart: June 07, 2025 End: June 07, 2025 Team Status: Inactive Member Role/Relationship Status Dates Benjamin Perez DO Primary Care Provider Active Start: June 24, 2025 End: June 24bernarda Perez DOAttfrancoise ProviderActiveStart: June 24, 2025 End: June 24, 2025 Team Status: Inactive Member Role/Relationship Status Dates Benjamin Perez DO Primary Care Provider Active Start: July 22, 2025 End: July 22bernarda Perez DOAttfrancoise ProviderActiveStart: July 22, 2025 End: July 22, 2025 REASON FOR VISIT (unrecogniz ed section and content) ReasonCommentsRadiology NMSpecialtyDiagnoses / ProceduresReferred By Contact Referred To ContactMOLECULAR & FUNCTIONAL IMAGING Diagnoses 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) Procedures NM PET/CT SKULL-THIGH SUBSEQUENT PET IMAGING CT ATTENUATION SKULL BASE MID-THIGH Elmer Benz MD [address] [place] [address] [place] [address] Molecular & Functional Imaging [address] [place] [address] Referral IDStatusReasonStart DateExpiration DateVisits RequestedVisits [id number] Auto-Generated Referral [id number] AppointmentDecipherReason CommentsProstate CancerReasonCommentsResultsReasonCommentsRadiology CTSpecialty Diagnoses / ProceduresReferred By ContactReferred To ContactCT IMAGING Diagnoses Prostate cancer (HCC) Procedures CT CHEST WO IVCON DIAGNOSTIC COMPUTED TOMOGRAPHY THORAX W/O CNTRST Elmer Benz MD [address] [place] [address] [place] [address] Phone: tel: fax: [place] [address] Referral IDStatusReasonStart DateExpiration DateVisits RequestedVisits [id number] Auto-Generated Referral [id number] Nodule6 mo [facility] 06/07/25 (unrecognized sect ion and content) No Status Records FoundNo Status Records FoundNo Status Records FoundNo Status Records FoundNo Status Records Found INFORMATION SOURCE (unrecogn ized section and content) DATE CREATED AUTHOR 12/26/2022 [facility] DATE CREATED AUTHOR AUTHOR'S ORGANIZ ATION 07/09/2024 [facility] DATE CREATED AUTHOR AUTHOR'S ORGANIZ ATION 03/12/2025 [facility] DATE CREATED AUTHOR AUTHOR'S ORGANIZ ATION 06/13/2025 [facility] DATE CREATED AUTHOR AUTHOR'S ORGANIZ ATION 06/27/2025 [facility] EPIC Source Comments (unrecognize d section and content) In the event this informatio n is protected by the Federal Confidentiality of Alcohol and Drug Abuse Patient Records regulations: The Federal rules restrict any use of the information to criminally investigate or prosecute any alcohol or drug abuse patient.[facility] the event this information is protected by the Federal Confidentiality of Alcohol and Drug Abuse Patient Records regulations: The Federal rules restrict any use of the information to criminally investigate or prosecute any alcohol or drug abuse patient.[facility] the event this information is protected by the Federal Confidentiality of Alcohol and Drug Abuse Patient Records regulations: The Federal rules restrict any use of the information to criminally investigate or prosecute any alcohol or drug abuse patient.[facility] the event this information is protected by the Federal Confidentiality of Alcohol and Drug Abuse Patient Records regulations: The Federal rules restrict any use of the information to criminally investigate or prosecute any alcohol or drug abuse patient.[facility] HospitalIn the event this information is protected by the Federal Confidentiality of Alcohol and Drug Abuse Patient Records regulations: The Federal rules restrict any use of the information to criminally investigate or prosecute any alcohol or drug abuse patient.[facility]In the event this information is protected by the Federal Confidentiality of Alcohol and Drug Abuse Patient Records regulations: The Federal rules restrict any use of the information to criminally investigate or prosecute any alcohol or drug abuse patient.[facility] HospitalIn the event this information is protected by the Federal Confidentiality of Alcohol and Drug Abuse Patient Records regulations: The Federal rules restrict any use of the information to criminally investigate or prosecute any alcohol or drug abuse patient.[facility] HospitalIn the event this information is protected by the Federal Confidentiality of Alcohol and Drug Abuse Patient Records regulations: The Federal rules restrict any use of the information to criminally investigate or prosecute any alcohol or drug abuse patient.[facility] HospitalIn the event this information is protected by the Federal Confidentiality of Alcohol and Drug Abuse Patient Records regulations: The Federal rules restrict any use of the information to criminally investigate or prosecute any alcohol or drug abuse patient.[facility] the event this information is protected by the Federal Confidentiality of Alcohol and Drug Abuse Patient Records regulations: The Federal rules restrict any use of the information to criminally investigate or prosecute any alcohol or drug abuse patient.[facility] FOR RECORDS PERTAINING TO PATIENTS WHO ARE [...] BE BASED ON THE PRIMARY CLINICAL RECORDS. [employer] [facility]. provides no warranty or guarantee of the accuracy or completeness of information in this document.
--- NOTE | 2025-07-29 13:37 | PM.WCHP ---
Wound Care H&P: HPI History of Present Illness Narrative: The patient is a pleasant 79-year-old gentleman with history of neuropathy secondary to chemotherapy who presents for routine nail care and callus management. 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 He does have neuropathic pain especially in the left foot which he states has improved with use of a topical pain compound. He states his nails are painful when elongated. He notes a painful callus on the left plantar foot laterally. He also wanted us to look at his right knee. He struck his knee with a metal bar and sustained a skin tear that became cellulitic. His PCP put him on antibiotics and topical mupirocin. He states his knee looks tremendously better and was wondering if he should continue the anitiobitics. Exam Narrative: Exam Narrative: Derm: Toenails 1 through 10 are thickened, elongated, mycotic, and painful.? No evidence of paronychia.? Skin is diffusely dry, thin, and atrophic.?Callus on the left plantar foot sub-4th met head, skin intact at base. 2 small dry scabs on the right knee. Faint patchy erythema and edema overlying the kneecap. No tenderness to palpation, no evidence of abscess. Vascular: DP and PT pulses are palpable bilaterally. Capillary refill is less than 3 seconds to all toes. Digital hair is absent bilaterally. Toes are somewhat cool to the touch Neuro: Vibratory sensation is absent bilaterally.? Achilles deep tendon reflex is absent bilaterally.? Protective sensation was tested with a monofilament and is present in 0/5 areas tested on the right and 0/5 areas tested on the left.? Musculoskeletal: No gross deformity.? Strength 5/5 in all planes bilaterally Assessment and Plan Assessment and Plan (1) Peripheral neuropathy due to chemotherapy: (2) Tinea unguium: (3) Skin callus: Plan Routine nail care performed. Callus was pared on the left plantar foot beneath the fourth metatarsal head without incident. It appears the cellulitis of his right knee is resolving. He was encouraged to continue the antibiotics until the bottle is empty. He was given a tubigrip sleeve to wear over his knee to help the bandage stay in place. Follow-up in 3 months, sooner if any issues arise. Acute Procedures Podiatry Nail Debridement Class B Findings Advanced trophic changes as evidenced by any three of the following: decreased hair growth, nail changes (thickening) and skin texture (thin or shiny) Class C Findings Claudication: No Temperature changes: Yes Edema: No Nail debridement paresthesia (abnormal spontaneous sensations in the feet): Yes Burning: Yes Qualifies If: Qualifiers If:: A patient qualifies for nail debridement if they have: 1 class A finding (Q7) 2 class B findings (Q8) OR 1 class B & 2 class C findings in addition to a primary condition (Q9) Nail Procedure Nail Procedure Time out: Yes Nail procedure: other (Sharp debridement of toenails 1 through 10. Paring of callus beneath the fourth metatarsal head on the left with a dermal curette) Number of affected nails: 10 Location (toes): left and right Procedure successful: Yes Patient tolerated procedure: well and no complications Additional comments: Toenails 1 through 10 were sharply debrided with nail nippers without incident. A dermal curette was used to pare a callus on the left plantar foot. The skin is intact at the base.
== END 2025-07-29 13:07 | disposition home or self-care (01) ==
LOC: WC 13:07
PROVIDERS: PCP Internal Medicine; Visit Provider Physician Assistant
DX: B35.1 Tinea unguium (principal); G62.89 Other specified polyneuropathies; L84 Corns and callosities
CPT/HCPCS: 11055; 11721